=== PATIENT | male | born 1955 | race Caucasian/White ===

== ENCOUNTER → 2016-09-09 | Day surgery (SDC) | payer BC ==
[2016-08-27 14:32] VITALS: Ht 182.9 cm; Wt 77.3 kg
[~2016-09-09] VITALS: Ht 182.9 cm; Wt 77.3 kg
[~2016-09-09] MED LIST: ASPI81TA28 PO; ATROPINE SULFATE 0.1 MG/ML 5ML SYR IV PRN; DILT-117 PO; EpHEDrine SULFATE INJ 50 MG/ML AMP IV PRN; FLAXOIL2 PO; HydrALAZINE HCL 20 MG/ML VIAL IV. STA; HydrALAZINE HCL 20 MG/ML VIAL ONE; LABETALOL HCL IV 5 MG/ML 20ML IV ONE; LABETALOL HCL IV 5 MG/ML 20ML IV STA; LIDOCAINE HCL 2% 2 ML VIAL (20MG/ML) ONE; LISI40TA PO; MULT-506 PO; PROPOFOL IV EMULSION 10 MG/ML 20 ML VIAL IV ONE
--- NOTE | 2016-09-09 14:05 | Endo History and Physical ---
History & Physical Date of Service: Sep 09, 2016. Chief Complaint: Screening Referring Physician: Antonieta Barry History of Present Illness 61 yo CM who presents for screening colonoscopy. Past Medical History High Cholesterol, Hypertension Past Surgical History Hx Cardiac Surgery: No Hx Internal Defibrillator: No Hx Pacemaker: No Hx Abdominal Surgery: Yes (HERNIA REPAIR X2) Hx of Implantable Prosthesis: No Hx Post-Op Nausea and Vomiting: No Hx Cancer Surgery: No Hx Thoracic Surgery: No Hx Orthopedic: Yes (LT WRIST GANGLION CYST REMOVAL) Hx Urinary Tract Surgery: No Family History None Social History Smoking Status: Never Smoker Hx Substance Use: No Hx Alcohol Use: Yes (1 DRINK/WEEK) Allergies Coded Allergies: No Known Allergies (Unverified , 09/09/16) Current Medications Reported Home Medications Medications Dose Route/Sig Max Daily Dose Days Date Category Multivitamin (Multivitamins) Tab 1 Tab PO QAM 08/27/16 Reported Zestril (Lisinopril) 40 Mg Tab 0.5 Tab PO BID 08/27/16 Reported Flax Oil (Flaxseed (Linseed)) 1 Oil Oil 1,200 Mg PO QAM 09/24/14 Reported Aspirin Ec (Aspirin) 81 Mg Tab 81 Mg PO QAM 09/24/14 Reported Tiazac (Diltiazem HCl) 300 Mg Capcr 300 Mg PO QAM 09/24/14 Reported Vital Signs Weight (Kilograms): 77.27 Height (Feet): 6 Height (Inches): 0 Physical Exam General Appearance: WD/WN, no apparent distress Respiratory/Chest: Auscultation: breath sounds normal Cardiovascular: Heart Auscultation: RRR Abdomen: Bowel Sounds: normal Inspection & Palpation: soft, non-distended, no tenderness, guarding & rebound Assessment and Plan Assessment: 61 yo CM who presents for screening colonoscopy. Plan: Proceed with colonoscopy.
[2016-09-09 14:18] VITALS: TEMP 36.5
--- NOTE | 2016-09-09 15:02 | Anesthesiology Progress Note ---
Anesthesia Post Op Note Date & Time Sep 09, 2016 at 15:02 Vital Signs Pain Intensity: 0 Vital Signs Past 12 Hours Date Time Temp Pulse Resp B/P (MAP) Pulse Ox O2 Delivery O2 Flow Rate FiO2 09/09/16 14:54 76 20 128/102 94 Room Air 09/09/16 14:18 36.5 65 18 154/104 97 Room Air Notes Mental Status: alert / awake / arousable, participated in evaluation Pt Amnestic to Procedure: Yes Nausea / Vomiting: adequately controlled Pain: adequately controlled Airway Patency, RR, SpO2: stable & adequate BP & HR: stable & adequate Hydration State: stable & adequate Anesthetic Complications: no major complications apparent
--- NOTE | 2016-09-09 15:03 | GI REPORT ---
Procedure Date: 09/09/2016 2:28 PM Procedure: Colonoscopy Indications: Screening for colorectal malignant neoplasm Medicines: Monitored Anesthesia Care Complications: No immediate complications. Estimated Blood Loss: Estimated blood loss: none. Procedure: Pre-Anesthesia Assessment: - Prior to the procedure, a History and Physical was performed, and patient medications and allergies were reviewed. The patient's tolerance of previous anesthesia was also reviewed. The risks and benefits of the procedure and the sedation options and risks were discussed with the patient. All questions were answered, and informed consent was obtained. Prior Anticoagulants: The patient has taken no previous anticoagulant or antiplatelet agents. ASA Grade Assessment: II - A patient with mild systemic disease. After reviewing the risks and benefits, the patient was deemed in satisfactory condition to undergo the procedure. After I obtained informed consent, the scope was passed under direct vision. Throughout the procedure, the patient's blood pressure, pulse, and oxygen saturations were monitored continuously. The Scope was introduced through the anus and advanced to the terminal ileum. The colonoscopy was performed without difficulty. The patient tolerated the procedure well. The quality of the bowel preparation was good. The terminal ileum, ileocecal valve, appendiceal orifice, and rectum were photographed. Findings: Non-bleeding internal hemorrhoids were found during retroflexion. The hemorrhoids were small. Impression: - Non-bleeding internal hemorrhoids. - No specimens collected. Recommendation: - Resume previous diet. - Continue present medications. - Repeat colonoscopy in 10 years for surveillance. - Return to primary care physician as previously scheduled. Kenn Edwards DO 09/09/2016 3:02:41 PM This report has been signed electronically. Note Initiated On: 09/09/2016 2:28 PM I attest to the content of the Intraoperative Record and orders documented therein, exceptions below
--- NOTE | 2016-09-09 15:04 | Discharge Instructions ---
Endoscopy Patient Instructions Date / Procedure(s) Performed Sep 09, 2016. Colonoscopy Allergy Information Coded Allergies: No Known Allergies (Unverified , 09/09/16) Discharge Date / Findings Sep 09, 2016. Internal hemorrhoids Medication Instructions Stopped Medication(s): Vitamins stopped 09-06-16 Aspirin stopped 09-07-16 OK to resume all medications today as prescribed Medications Dose Route/Sig Max Daily Dose Days Date Category Multivitamin (Multivitamins) Tab 1 Tab PO QAM 08/27/16 Reported Zestril (Lisinopril) 40 Mg Tab 0.5 Tab PO BID 08/27/16 Reported Flax Oil (Flaxseed (Linseed)) 1 Oil Oil 1,200 Mg PO QAM 09/24/14 Reported Aspirin Ec (Aspirin) 81 Mg Tab 81 Mg PO QAM 09/24/14 Reported Tiazac (Diltiazem HCl) 300 Mg Capcr 300 Mg PO QAM 09/24/14 Reported Provider Instructions Activity Restrictions - No exercising or heavy lifting for 24 hours. - Do not drink alcohol the day of the procedure. - Do not drive a car or operate machinery until the day after the procedure. - Do not make any important decisions or sign important papers in 24 hours after the procedure. Following Day: - Return to full activity which may include returning to work/school. Diet Start your diet with liquids and light foods (jello, soup, juice, toast). Then eat your usual diet if not nauseated. Treatment For Common After Affects For mild abdominal pain, bloating, or excessive gas: - Rest - Eat lightly - Lie on right side Follow-Up Information Follow-up with Antonieta Barry as scheduled Anesthesia Information What You Should Know You have had a procedure that required some medicine to reduce anxiety and discomfort. This treatment is called moderate sedation. After receiving the treatment, you may be sleepy, but you will be able to breathe on your own. The effects of the treatment may last for several hours. Follow these instructions along with Activity/Diet recommendations noted above: * Do NOT do anything where dizziness or clumsiness would be dangerous. * Rest quietly at home today, then you can be up and about tomorrow. * Have a responsible person stay with you the rest of today. * You may have had an I.V. today. If so, you may take the dressing off later today. Recommendations Call your doctor if: * Trouble breathing * Continuous vomiting for more than 24 hours * Temperature above 101 degrees * Severe abdominal pain or bloating * Pain not relieved by pain medicine ordered * There is increased drainage or redness from any incision * A large amount of rectal bleeding greater than 2-3 tablespoons. (If you had a polyp/s removed or have hemorrhoids, a small amount of blood - from the rectum is to be expected.) * You have any unanswered questions or concerns. IN THE EVENT OF A SERIOUS EMERGENCY, GO TO THE NEAREST EMERGENCY ROOM Your discharge instructions were prepared by provider Kenn Edwards. Patient Instructions Signature Page Best Bj Patient (or Guardian) Signature/Date: I have read and understand the instructions given to me by my caregivers. Caregiver/RN/Doctor Signature/Date: The above-named patient and/or guardian has received patient instructions on this date. + Original Patient Signature Page (only) stays with chart. Please make copy for patient.
[2016-09-09 15:47] VITALS: BP 148/104; PULSE 70; O2SAT 96
== END | disposition home or self-care (01) ==
LOC: C.GI 13:24
PROVIDERS: ATTEND Internal Medicine
DX: Z12.11 Encounter for screening for malignant neoplasm of colon (principal); K64.8 Other hemorrhoids; E78.00 Pure hypercholesterolemia, unspecified; I10 Essential (primary) hypertension; Z79.82 Long term (current) use of aspirin

== ENCOUNTER → 2017-08-22 | Outpatient (CLI) | payer OTHER ==
[~2017-08-22] MED LIST changes: -ATROPINE SULFATE 0.1 MG/ML 5ML SYR IV PRN; -EpHEDrine SULFATE INJ 50 MG/ML AMP IV PRN; -HydrALAZINE HCL 20 MG/ML VIAL IV. STA; -HydrALAZINE HCL 20 MG/ML VIAL ONE; -LABETALOL HCL IV 5 MG/ML 20ML IV ONE; -LABETALOL HCL IV 5 MG/ML 20ML IV STA; -LIDOCAINE HCL 2% 2 ML VIAL (20MG/ML) ONE; -PROPOFOL IV EMULSION 10 MG/ML 20 ML VIAL IV ONE
--- NOTE | 2017-08-22 11:20 | DIAGNOSTIC IMAGING REPORT ---
TESTICULAR ULTRASOUND HISTORY: N50.812 Testicular pain, left Pt wants a friday or friday luke.... COMPARISON: None. FINDINGS: Right testis: 4.6 x 2.8 x 2.6 cm. There are no intratesticular masses. Normal color flow. No hydrocele. The epididymis is unremarkable. Left testis: 4.3 x 2.9 x 2.3 cm. There are no intratesticular masses. Normal color flow. No hydrocele. There is a 16 x 12 mm septated cyst within the epididymal head. Small fat-containing reducible left inguinal hernia. IMPRESSION: 1. Normal bilateral testes. 2. A 16 x 12 mm septated left epididymal head cyst. 3. Small fat-containing reducible left inguinal hernia. Electronically signed by: Willard Parish M.D. 08/22/2017 11:18 AM Dictated Date/Time: 08/22/2017 11:15 AM
== END | disposition home or self-care (01) ==
LOC: C.ULTR 10:39
PROVIDERS: ATTEND Neuromusculoskeletal Medicine & OMM
DX: N50.812 Left testicular pain (principal); N50.3 Cyst of epididymis; K40.90 Unilateral inguinal hernia, without obstruction or gangrene, not specified as recurrent

== ENCOUNTER 2022-04-22 10:34 | Inpatient (IN) ==
--- NOTE | 2022-04-22 10:42 | Emergency Department Note ---
Impression & Plan Acute renal failure, Transaminitis, Abdominal pain, Thrombocytopenia ED Provider Note NAME: CLARIBEL HERRING AGE: 67 SEX: M : 1955 ARRIVES VIA: Walk-In INFORMANT: Patient, ED PROVIDER(S): Koko Gonzalez MD CHIEF COMPLAINT: Vomiting, fever, cough MEDICAL DECISION MAKING: Patient presented due to concern for vomiting with recent fever. Blood work is obtained along with a urinalysis and the patient was ordered IV fluids. Patient was also ordered IV Zofran given the patient's recent vomiting. The patient also had ordered plain films of the chest and abdomen. Patient's blood work showed normal white count H&H with thrombocytopenia noted. The patient does have acute renal failure with creatinine of 6 hyponatremia 132 and the patient's LFTs NIzza transaminitis with bilirubin of 5.5. The patient has no right upper quadrant pain. COVID flu and RSV negative. The patient did appear to be dehydrated and the patient did receive 3 L of IV fluids. I did speak with the on-call hospitalist service Dr. Rodrigez and the patient was admitted to the medicine service. Patient's chest x-ray showed left basilar atelectasis. Patient also did have a Noncon CT of the abdomen pelvis given the patient's acute renal failure which showed no evidence of hydro. Prior /Outside records reviewed: None Differential diagnosis: Gastroenteritis, food borne illness, infections, appendicitis, diverticulitis, inflammatory bowel disease, obstruction, GI bleed, biliary pathology, volvulus, as well as other pathologies. Diagnostics, as interpreted by me: ECG: None Cardiac monitoring: An order was placed for continuous cardiac monitoring. The monitor shows a rate of 88 with regular rhythm. Patient was placed on pulse oximetry Medical decision rules: None Imaging studies: See below HPI: Patient presents due to concern for upper respiratory symptoms associated fever and body aches for about 5 days but developed some vomiting last evening. T-max over the weekend was 101 and did try some Aleve. Patient states that he had decreased urine output as well as feeling dehydrated. The patient denies any head or neck pain. No chest pain. The patient states he does have epigastric pain. No alcohol or tobacco use. No recent falls or trauma. The patient denies any dysuria or hematuria no blood in the stool. PAST MEDICAL HISTORY: See Below PAST SURGICAL HISTORY: See Below SOCIAL HISTORY: See Below HOME MEDICATIONS: See Below ALLERGIES: See Below VITALS: See Below PHYSICAL EXAMINATION: GENERAL: NAD, wearing a mask, non-toxic. EYE EXAM: Normal conjunctiva. PERRL, no anisocoria and EOM's grossly intact w/o pain. NECK: Supple, no nuchal rigidity, no adenopathy, non-tender. No signs of menin gismus. FROM of the neck with good chin to chest and neck extension. No stridor. LUNGS: Clear to auscultation. Normal chest wall mechanics. HEART: NSR, no MRG. ABDOMEN: Abdomen soft, epigastric pain without right upper quadrant or lower abdominal pain, not peritonitic, normo-active bowel sounds, no masses, no rebound or guarding. BACK: No CVA TTP. SKIN: No rashes and no bruising. UPPER EXTREMITIES: Upper extremities are grossly normal. LOWER EXTREMITIES: Grossly normal, no edema. NEURO EXAM: A&O x3, cranial nerves II-XII grossly intact, normal speech, moves all 4 extremities. Past Med/Surg History Medical History Anuria Hypertension Impaired fasting glucose Surgical History History of colonoscopy History of hand surgery L WRIST/GANGLION CYST History of hernia repair X2 Family History Other No pertinent family history Denies family history of Ovarian cancer Prostate cancer Myocardial infarction Breast cancer Colorectal cancer Social History Smoking Status: Never smoker Second Hand Exposure: No; Do You Dip or Chew Tobacco: No; Hx Alcohol Use: Yes Alcohol type: hard liquor Alcohol Intake Frequency: 2-3 x/Week Hx Substance Use: No Preferred Language: [place] Communication Ability: Effective Visual Impairment: No Limitations Hearing Ability: Normal [employer] 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 Required: No Beliefs That Will Affect Care: None marital status: Current Living Situation: Spouse current occupational status: retired How many Children do You have: 2 Other Information That Helps Us Care for You: No Feels Safe at Home: Yes Safety Concerns: Feels Safe At This Time Childhood Exposure to Second-Hand Smoke: No Diet Comment: regular caffeine: No during the past year weight has: remained stable Dental Care, Regularly: Yes Physical Activity Frequency: Daily Seatbelt Use: always Sunscreen Use: No Assistive Devices: None Assistive Devices Comment: reading glasses Allergies Allergies Allergy/AdvReac Type Severity Reaction Status Date / Time No Known Allergies Allergy Verified 03/22/22 09:29 Home Meds Home Medications Medication Instructions Recorded Confirmed aspirin 81 mg tablet,delayed 81 mg PO QAM 04/08/18 04/22/22 release (Aspir-) flaxseed oil 1,000 mg capsule 1,000 mg PO QAM 04/08/18 04/22/22 multivitamin (Multiple Vitamins 1 tab PO QAM 04/08/18 04/22/22 tablet) glucosamine sulfate 500 mg tablet 1 tab PO DAILY 04/13/18 04/22/22 (Glucosamine) Previous Rx's Medication Instructions Recorded simvastatin 20 mg tablet 20 mg PO PM #14 tabs 04/17/21 diltiazem HCl 300 mg See Rx Instructions .Route 03/15/22 capsule,extended release 24 hr .COMPLEX #90 caps olmesartan 40 mg tablet 40 mg PO DAILY #90 tabs 03/22/22 tamsulosin 0.4 mg capsule 0.8 mg PO DAILY #180 caps 03/22/22 Results & Data (ED) Vital Signs Vital Signs - 24 hr 04/22/22 10:36 04/22/22 10:53 04/22/22 10:53 Temperature 36.6 C Temperature Source Temporal Artery Scan Pulse Rate 91 H Pulse Rate [Apical] 79 Pulse Rate from SpO2 Sensor Pulse Rhythm Regular Respiratory Rate 18 16 Respiratory Effort / Characteristics Non-Labored Spontaneous Respiratory Depth Normal Blood Pressure 114/67 Blood Pressure [Left Arm] 93/62 L Blood Pressure Mean 82 Blood Pressure Mean [Left Arm] 72 Pulse Oximetry 95 92 92 Oxygen Delivery Method Room Air Room Air Sepsis Recent Fever Within 48 Hours No Sepsis New/Unexplained Change in Mental Status No Sepsis Action Taken by Nursing No Action Required 04/22/22 11:08 04/22/22 11:10 04/22/22 11:20 Temperature Temperature Source Pulse Rate 75 73 73 Pulse Rate [Apical] Pulse Rate from SpO2 Sensor 73 72 75 Pulse Rhythm Respiratory Rate 19 21 17 Respiratory Effort / Characteristics Respiratory Depth Blood Pressure Blood Pressure [Left Arm] Blood Pressure Mean Blood Pressure Mean [Left Arm] Pulse Oximetry 92 92 91 Oxygen Delivery Method Sepsis Recent Fever Within 48 Hours Sepsis New/Unexplained Change in Mental Status Sepsis Action Taken by Nursing 04/22/22 11:27 04/22/22 11:27 04/22/22 11:30 Temperature Temperature Source Pulse Rate 80 Pulse Rate [Apical] Pulse Rate from SpO2 Sensor 76 Pulse Rhythm Respiratory Rate 18 Respiratory Effort / Characteristics Respiratory Depth Blood Pressure 81/62 L 91/58 L Blood Pressure [Left Arm] Blood Pressure Mean 68 69 Blood Pressure Mean [Left Arm] Pulse Oximetry 93 Oxygen Delivery Method Sepsis Recent Fever Within 48 Hours Sepsis New/Unexplained Change in Mental Status Sepsis Action Taken by Nursing 04/22/22 11:30 04/22/22 11:40 04/22/22 11:50 Temperature Temperature Source Pulse Rate 76 73 79 Pulse Rate [Apical] Pulse Rate from SpO2 Sensor 70 75 78 Pulse Rhythm Respiratory Rate 18 16 20 Respiratory Effort / Characteristics Respiratory Depth Blood Pressure Blood Pressure [Left Arm] Blood Pressure Mean Blood Pressure Mean [Left Arm] Pulse Oximetry 91 91 94 Oxygen Delivery Method Room Air Room Air Sepsis Recent Fever Within 48 Hours Sepsis New/Unexplained Change in Mental Status Sepsis Action Taken by Nursing 04/22/22 12:00 04/22/22 12:00 04/22/22 12:10 Temperature Temperature Source Pulse Rate 76 66 Pulse Rate [Apical] Pulse Rate from SpO2 Sensor 74 68 Pulse Rhythm Respiratory Rate 23 20 Respiratory Effort / Characteristics Respiratory Depth Blood Pressure 91/59 L Blood Pressure [Left Arm] Blood Pressure Mean 69 Blood Pressure Mean [Left Arm] Pulse Oximetry 93 94 Oxygen Delivery Method Room Air Room Air Sepsis Recent Fever Within 48 Hours Sepsis New/Unexplained Change in Mental Status Sepsis Action Taken by Nursing 04/22/22 12:34 04/22/22 12:37 04/22/22 12:37 Temperature Temperature Source Pulse Rate 71 70 Pulse Rate [Apical] Pulse Rate from SpO2 Sensor 82 75 Pulse Rhythm Respiratory Rate 26 H 20 Respiratory Effort / Characteristics Respiratory Depth Blood Pressure 91/57 L Blood Pressure [Left Arm] Blood Pressure Mean 68 Blood Pressure Mean [Left Arm] Pulse Oximetry 93 94 Oxygen Delivery Method Sepsis Recent Fever Within 48 Hours Sepsis New/Unexplained Change in Mental Status Sepsis Action Taken by Nursing 04/22/22 12:40 04/22/22 12:50 04/22/22 13:00 Temperature Temperature Source Pulse Rate 69 68 Pulse Rate [Apical] Pulse Rate from SpO2 Sensor 75 64 Pulse Rhythm Respiratory Rate 22 19 Respiratory Effort / Characteristics Respiratory Depth Blood Pressure 90/59 L Blood Pressure [Left Arm] Blood Pressure Mean 69 Blood Pressure Mean [Left Arm] Pulse Oximetry 93 92 Oxygen Delivery Method Sepsis Recent Fever Within 48 Hours Sepsis New/Unexplained Change in Mental Status Sepsis Action Taken by Nursing 04/22/22 13:00 04/22/22 13:10 04/22/22 13:20 Temperature Temperature Source Pulse Rate 66 72 66 Pulse Rate [Apical] Pulse Rate from SpO2 Sensor 68 74 68 Pulse Rhythm Respiratory Rate 16 22 19 Respiratory Effort / Characteristics Respiratory Depth Blood Pressure Blood Pressure [Left Arm] Blood Pressure Mean Blood Pressure Mean [Left Arm] Pulse Oximetry 93 94 95 Oxygen Delivery Method Room Air Room Air Sepsis Recent Fever Within 48 Hours Sepsis New/Unexplained Change in Mental Status Sepsis Action Taken by Nursing 04/22/22 13:30 04/22/22 13:30 04/22/22 13:40 Temperature Temperature Source Pulse Rate 75 72 Pulse Rate [Apical] Pulse Rate from SpO2 Sensor 71 70 Pulse Rhythm Respiratory Rate 24 22 Respiratory Effort / Characteristics Respiratory Depth Blood Pressure 103/56 L Blood Pressure [Left Arm] Blood Pressure Mean 71 Blood Pressure Mean [Left Arm] Pulse Oximetry 94 93 Oxygen Delivery Method Sepsis Recent Fever Within 48 Hours Sepsis New/Unexplained Change in Mental Status Sepsis Action Taken by Nursing 04/22/22 13:50 04/22/22 14:00 04/22/22 14:00 Temperature Temperature Source Pulse Rate 72 77 Pulse Rate [Apical] Pulse Rate from SpO2 Sensor 76 75 Pulse Rhythm Respiratory Rate 22 28 H Respiratory Effort / Characteristics Respiratory Depth Blood Pressure 96/60 L Blood Pressure [Left Arm] Blood Pressure Mean 72 Blood Pressure Mean [Left Arm] Pulse Oximetry 94 94 Oxygen Delivery Method Sepsis Recent Fever Within 48 Hours Sepsis New/Unexplained Change in Mental Status Sepsis Action Taken by Long-Term Medications Current Medication List: was personally reviewed by me Laboratory Data Attestation: I reviewed the patient's lab results. 04/22/22 10:55 04/22/22 10:55 Lab Results 04/22/22 04/22/22 04/22/22 Range/Units 10:55 10:55 10:55 WBC 6.47 (4.8-10.8) K/ul RBC 4.81 (4.63-6.08) M/uL Hgb 14.6 (14.0-18.0) g/dl Hct 41.5 (40.1-51.0) % MCV 86.3 (80.0-100.0) fL MCH 30.4 (25.0-34.0) pg MCHC 35.2 (32.0-36.0) g/dL RDW Std Deviation 41.7 (36.4-46.3) fL RDW Coeff of Ronen 13.2 (11.5-14.5) % Plt Count 50 L (130-400) K/uL MPV 11.4 (9.4-12.4) fL Immature Gran % (Auto) 0.3 % Neut % (Auto) 87.5 % Lymph % (Auto) 7.7 % [place] % (Auto) 4.0 % Eos % (Auto) 0.2 % Baso % (Auto) 0.3 % Neut # (Auto) 5.66 (1.4-6.5) K/uL Lymph # (Auto) 0.50 L (1.2-3.4) K/uL [place] # (Auto) 0.26 (0.24-0.82) K/uL Eos # (Auto) 0.01 (0-0.50) K/uL Baso # (Auto) 0.02 (0-0.2) K/uL Immature Gran # (Auto) 0.02 (0.00-0.02) K/uL Toxic Vacuolation 1+ Polychromasia 1+ Echinocytes 1+ Sodium 132 L (136-145) mmol/L Potassium 4.6 (3.5-5.1) mmol/L Chloride 97 L (98-107) mmol/L Carbon Dioxide 22 (21-32) mmol/L Anion Gap 13 H (3-11) BUN 93 H (6-23) mg/dl Creatinine 6.05 H* (0.6-1.4) mg/dl Est Cr Clr Drug Dosing 11.0 ml/min Est GFR ( Amer) 10.3 ml/min Est GFR (Non-Af Amer) 8.9 ml/min BUN/Creatinine Ratio 15.4 (10-20) Glucose 190 H (70-99(Fasting)) mg/dl Calcium 9.1 (8.5-10.1) mg/dl Total Bilirubin 5.5 H (0.2-1.0) mg/dl AST 91 H (13-39) U/L ALT 99 H (7-52) U/L Alkaline Phosphatase 118 H (34-104) U/L Total Protein 6.2 (6.0-8.3) gm/dl Albumin 3.3 L (3.4-5.0) gm/dl Globulin 2.9 (2.5-4.0) gm/dl Albumin/Globulin Ratio 1.1 (0.9-2) Lipase 172 H (11-82) U/L Procalcitonin 18.49 H (0-0.5) ng/ml Lyme Disease IgG Ab Negative (Negative) Lyme Disease IgM Ab Negative (Negative) SARS-CoV-2 (PCR) (Negative) Influenza Type A (PCR) (Neg) Influenza Type B (PCR) (Neg) RSV (RT-PCR) (Neg) 04/22/22 Range/Units 11:00 WBC (4.8-10.8) K/ul RBC (4.63-6.08) M/uL Hgb (14.0-18.0) g/dl Hct (40.1-51.0) % MCV (80.0-100.0) fL MCH (25.0-34.0) pg MCHC (32.0-36.0) g/dL RDW Std Deviation (36.4-46.3) fL RDW Coeff of Ronen (11.5-14.5) % Plt Count (130-400) K/uL MPV (9.4-12.4) fL Immature Gran % (Auto) % Neut % (Auto) % Lymph % (Auto) % [place] % (Auto) % Eos % (Auto) % Baso % (Auto) % Neut # (Auto) (1.4-6.5) K/uL Lymph # (Auto) (1.2-3.4) K/uL [place] # (Auto) (0.24-0.82) K/uL Eos # (Auto) (0-0.50) K/uL Baso # (Auto) (0-0.2) K/uL Immature Gran # (Auto) (0.00-0.02) K/uL Toxic Vacuolation Polychromasia Echinocytes Sodium (136-145) mmol/L Potassium (3.5-5.1) mmol/L Chloride (98-107) mmol/L Carbon Dioxide (21-32) mmol/L Anion Gap (3-11) BUN (6-23) mg/dl Creatinine (0.6-1.4) mg/dl Est Cr Clr Drug Dosing ml/min Est GFR ( Amer) ml/min Est GFR (Non-Af Amer) ml/min BUN/Creatinine Ratio (10-20) Glucose (70-99(Fasting)) mg/dl Calcium (8.5-10.1) mg/dl Total Bilirubin (0.2-1.0) mg/dl AST (13-39) U/L ALT (7-52) U/L Alkaline Phosphatase (34-104) U/L Total Protein (6.0-8.3) gm/dl Albumin (3.4-5.0) gm/dl Globulin (2.5-4.0) gm/dl Albumin/Globulin Ratio (0.9-2) Lipase (11-82) U/L Procalcitonin (0-0.5) ng/ml Lyme Disease IgG Ab (Negative) Lyme Disease IgM Ab (Negative) SARS-CoV-2 (PCR) NEGATIVE (Negative) Influenza Type A (PCR) Negative (Neg) Influenza Type B (PCR) Negative (Neg) RSV (RT-PCR) Negative (Neg) Administered Medications Doxycycline Hyclate 100 mg/ (Dextrose) 110 mls @ 50 mls/hr IV Q12H [facility] Stop: 05/07/22 02:29 Last Infusion: 04/23/22 17:03 Dose: 0 mls/hr Documented By: Admin: 04/23/22 14:25 Dose: 50 mls/hr Documented By: Infusion: 04/23/22 05:12 Dose: 0 mls/hr Documented By: Admin: 04/23/22 02:58 Dose: 50 mls/hr Documented By: ARR Ceftriaxone Sodium 2,000 mg/ (Dextrose) 70 mls @ 100 mls/hr IV Q24H [facility]; Protocol Stop: 04/25/22 12:14 Last Infusion: 04/23/22 13:59 Dose: 0 mls/hr Documented By: Admin: 04/23/22 12:46 Dose: 100 mls/hr Documented By: ALEXEY Insulin Aspart (Insulin Aspart Per Unit) 0 units SC ACHS MELISSA Stop: 05/23/22 11:29 Last Admin: 04/23/22 17:05 Dose: 1 units Documented By: ALEXEY Co-signed By: SIGRID Admin: 04/23/22 12:26 Dose: 1 units Documented By: ALEXEY Co-signed By: MUKUL Ondansetron HCl (Ondansetron Inj 2 Mg/Ml 2 Ml Vial) 4 mg IV Q6H PRN PRN Reason: Nausea Stop: 05/22/22 14:52 Last Admin: 04/22/22 22:28 Dose: 4 mg Documented By: ANITHA Pantoprazole Sodium (Pantoprazole 40 Mg Tab) 40 mg PO BID MELISSA Stop: 05/23/22 12:44 Last Admin: 04/23/22 14:25 Dose: 40 mg Documented By: ALEXEY Discontinued Medications Furosemide (Furosemide 40 Mg/4 Ml Vial) 80 mg IV ONE ONE Stop: 04/23/22 11:01 Last Admin: 04/23/22 11:29 Dose: 80 mg Documented By: ALEXEY Sodium Chloride (Nss 1000ml) 2,000 mls @ 999 mls/hr IV .Q2H1M ONE Stop: 04/22/22 12:52 Last Infusion: 04/22/22 12:44 Dose: 0 mls/hr Documented By: Infusion: 04/22/22 12:44 Dose: 0 mls/hr Documented By: Admin: 04/22/22 10:59 Dose: 999 mls/hr Documented By: TRAM Sodium Chloride (Nss 1000ml) 1,000 mls @ 999 mls/hr IV .Q1H1M ONE Stop: 04/22/22 13:41 Last Infusion: 04/22/22 13:43 Dose: 0 mls/hr Documented By: Admin: 04/22/22 12:45 Dose: 999 mls/hr Documented By: KSENIA Doxycycline Hyclate 100 mg/ (Dextrose) 110 mls @ 50 mls/hr IV NOW STA Stop: 04/22/22 16:21 Last Infusion: 04/22/22 17:18 Dose: 0 mls/hr Documented By: Admin: 04/22/22 14:35 Dose: 50 mls/hr Documented By: VIRGIL Lactated Ringer's (Lr) 1,000 mls @ 125 mls/hr IV .Q8H MELISSA Stop: 04/23/22 06:52 Last Infusion: 04/23/22 02:44 Dose: 0 mls/hr Documented By: Admin: 04/22/22 15:32 Dose: 125 mls/hr Documented By: KSENIA Lactated Ringer's (Lr) 1,000 mls @ 999 mls/hr IV .Q1H1M ONE Stop: 04/22/22 18:48 Last Infusion: 04/22/22 19:29 Dose: 0 mls/hr Documented By: Admin: 04/22/22 18:26 Dose: 999 mls/hr Documented By: HS Sodium Bicarbonate 150 meq/ (Dextrose) 1,150 mls @ 100 mls/hr IV .[id number] MELISSA Stop: 05/22/22 19:59 Last Infusion: 04/23/22 10:31 Dose: 0 mls/hr Documented By: Admin: 04/23/22 09:08 Dose: 100 mls/hr Documented By: Infusion: 04/23/22 08:31 Dose: 100 mls/hr Documented By: Admin: 04/22/22 21:01 Dose: 100 mls/hr Documented By: VIRGIL Ondansetron HCl (Ondansetron Inj 2 Mg/Ml 2 Ml Vial) 4 mg IV NOW STA Stop: 04/22/22 10:54 Last Admin: 04/22/22 10:59 Dose: 4 mg Documented By: TRAM Imaging Data Radiologist's Impression: Abdomen/Pelvis CT 04/22/22 11:48 CT abd pelvis wo con CLINICAL HISTORY: arf TECHNIQUE: Helical axial images of the abdomen and pelvis were obtained. Auto mated dose lowering techniques and/or adjustment according to patient size were utilized for this exam. This exam was performed without intravenous contrast. CT DOSE: 330.61 mGy.cm COMPARISON: Comparison is made to CT abdomen pelvis 02/17/2009 FINDINGS: Lower chest: Bibasilar atelectasis versus scarring is seen. Liver: Unremarkable. No focal lesions are seen. Gallbladder and biliary tree: No calcified gallstones. Normal caliber wall. No intra- or extrahepatic biliary ductal dilation. Pancreas: Unremarkable, no focal lesions. Spleen: Unremarkable. Adrenals: Unremarkable. Kidneys and ureters: Perinephric stranding is seen bilaterally. There is no evidence of hydronephrosis. Bladder: Limited evaluation due to underdistention. Reproductive organs: Unremarkable. Bowel: Unremarkable appearance of the bowel. The appendix is normal. Lymph nodes Retroperitoneal: Subcentimeter lymph nodes are noted. Pelvic: Unremarkable. Mesenteric: Subcentimeter lymph nodes are noted. Peritoneum: Normal. Vessels: Atherosclerotic calcifications are seen. Abdominal wall: Right fat-containing inguinal hernia. Bones: Degenerative changes in the visualized spine. IMPRESSION: No evidence of hydronephrosis or other acute abnormality is seen in this noncontrast exam to explain acute renal failure. ACT 112: Negative or not required by law. Electronically signed by: Antwon Kaur M.D. 04/22/2022 12:53 PM Chest X-Ray 04/22/22 13:53 XR chest 1V portable HISTORY: 67 years-old Male URI symptoms acute shortness breath COMPARISON: None TECHNIQUE: AP view of the chest FINDINGS: Cardiac silhouette is upper limits of normal in size. No pneumothorax, pleural effusion, airspace consolidation or overt pulmonary edema. Mild linear subsegmental left basilar atelectasis. 6 mm metallic density focus overlies the posterior left fifth rib. Prior left biceps tenodesis. IMPRESSION: Mild subsegmental left basilar atelectasis. ACT 112: Negative or not required by law. The above report was generated using voice recognition software. It may contain grammatical, syntax or spelling errors. Electronically signed by: Madhav Lewis M.D. 04/22/2022 2:20 PM Discharge Plan Visit Data Chief Complaint: Vomiting Stated Complaint: VOMITING ED Provider: Koko Gonzalez Discharge Problem: Acute renal failure, Transaminitis, Abdominal pain, Thrombocytopenia Patient Disposition: Admitted As Inpatient Discharge Instructions Interventions: ED Discharge Assessment Last Done: 04/22/22 14:35
[2022-04-22] MEDS ORDERED: SODIUM CHLORIDE 0.9% 1000ML 2,000 ML IV ONE (10:52)
[2022-04-22] MEDS ORDERED: ONDANSETRON INJ 2 MG/ML 2 ML VIAL IV STA (10:53)
[2022-04-22 11:49] LABS: Albumin Globulin Ratio 1.1 (0.9-2); Albumin Level 3.3 gm/dl (3.4-5.0); BUN Creatinine Ratio 15.4 (10-20); Bilirubin,Total 5.5 mg/dl (0.2-1.0); Calcium 9.1 mg/dl (8.5-10.1); Est GFR (African American) 10.3 ml/min; Est GFR (Non-African American) 8.9 ml/min; Globulin 2.9 gm/dl (2.5-4.0); Potassium 4.6 mmol/L (3.5-5.1); Total Protein 6.2 gm/dl (6.0-8.3)
[2022-04-22 11:52] LABS: Basophils # (auto) 0.02 K/uL (0-0.2); Basophils % (auto) 0.3 %; Echinocytes 1+; Eosinophils # (auto) 0.01 K/uL (0-0.50); Eosinophils % (auto) 0.2 %; Hematocrit (blood only) 41.5 % (40.1-51.0); Hemoglobin 14.6 g/dl (14.0-18.0); Immature Granulocytes # (auto) 0.02 K/uL (0.00-0.02); Immature Granulocytes % (auto) 0.3 %; Lymphocytes % (auto) 7.7 %; Mean Corpuscular Hemoglobin 30.4 pg (25.0-34.0); Mean Corpuscular Hgb Conc 35.2 g/dL (32.0-36.0); Mean Corpuscular Volume 86.3 fL (80.0-100.0); Mean Platelet Volume 11.4 fL (9.4-12.4); Monocytes # (auto) 0.26 K/uL (0.24-0.82); Neutrophils # (auto) 5.66 K/uL (1.4-6.5); Neutrophils % (auto) 87.5 %; Platelet Count 50 K/uL (130-400); Polychromasia 1+; RDW Coefficient of Variation 13.2 % (11.5-14.5); RDW Standard Deviation 41.7 fL (36.4-46.3); Red Blood Count 4.81 M/uL (4.63-6.08); Toxic Vacuolation 1+; White Blood Count 6.47 K/ul (4.8-10.8)
[2022-04-22 12:21] LABS: Influenza A virus by PCR Negative (Neg); Influenza B virus by PCR Negative (Neg); RSV by PCR Negative (Neg); SARS CoV2 RNA(COVID-19) Ceph NEGATIVE (Negative)
[2022-04-22] MEDS ORDERED: SODIUM CHLORIDE 0.9% 1000ML 1,000 ML IV ONE (12:41)
--- NOTE | 2022-04-22 12:54 | CT Scan Report ---
CT abd pelvis wo con CLINICAL HISTORY: arf TECHNIQUE: Helical axial images of the abdomen and pelvis were obtained. Automated dose lowering tech niques and/or adjustment according to patient size were utilized for this exam. This exam was perfor med without intravenous contrast. CT DOSE: 330.61 mGy.cm COMPARISON: Comparison is made to CT abdomen pelvis 02/17/2009 FINDINGS: Lower chest: Bibasilar atelectasis versus scarring is seen. Liver: Unremarkable. No focal lesions are seen. Gallbladder and biliary tree: No calcified gallstones. Normal caliber wall. No intra- or extrahepatic biliary ductal dilation. Pancreas: Unremarkable, no focal lesions. Spleen: Unremarkable. Adrenals: Unremarkable. Kidneys and ureters: Perinephric stranding is seen bilaterally. There is no evidence of hydronephrosi s. Bladder: Limited evaluation due to underdistention. Reproductive organs: Unremarkable. Bowel: Unremarkable appearance of the bowel. The appendix is normal. Lymph nodes Retroperitoneal: Subcentimeter lymph nodes are noted. Pelvic: Unremarkable. Mesenteric: Subcentimeter lymph nodes are noted. Peritoneum: Normal. Vessels: Atherosclerotic calcifications are seen. Abdominal wall: Right fat-containing inguinal hernia. Bones: Degenerative changes in the visualized spine. IMPRESSION: No evidence of hydronephrosis or other acute abnormality is seen in this noncontrast exam to explain acute renal failure. ACT 112: Negative or not required by law. Electronically signed by: Antwon Kaur M.D. 04/22/2022 12:53 PM
--- NOTE | 2022-04-22 13:54 | History & Physical Report ---
Date of Service April 22, 2022 Assessment & Plan (1) Acute renal failure: Plan: - BUN 93, Cr 6.05. Sodium 132, otherwise no electrolyte abnormalities. - Suspect secondary to frequent Aleve use, olmesartan, in setting of hypovolemia and ? tickborne disease - Tick borne panels pending. 3 L IVF in ED, will continue IVF and repeat BMP this evening. - Leong catheter placed. Strict I/Os. Monitor for pulmonary congestion. - Patient still without any UO after 4 hours. Consulted nephrology, will see patient in the AM, for now recommending continuing IVF and monitoring for pulmonary congestion. - Avoid nephrotoxins, renally dose meds as able. (2) Transaminitis: Plan: - T bili 5.5, AST 91, ALT 99, alk phos 188all acutely elevated from baseline. - CT A/P done with noncontrast given renal failure, however no findings to explain renal failure or transaminitis. - Will obtain liver ultrasound. CMP t beb repeated this evening. (3) Thrombocytopenia: Plan: - PLT count 50, consistent with a tickborne or viral illness. - No signs and symptoms of acute bleeding, monitor daily CBC. (4) HTN (hypertension): Plan: - Holding diltiazem for hypotension, olmesartan for hypotension, renal failure. (5) Hyperlipidemia: Plan: - Hold statin due to transaminitis. (6) Enlarged prostate: Plan: - Continue Flomax. Plan - Admit to PCU. - SCDs for VTE ppx. - Full Code. History of Present Illness Chief Complaint: Fevers, chills, body aches, decreased appetite, vomiting x5 days Primary Care Provider: DO Best Carcamo Lorenzo is a 67 y/o male with a PMH significant for hypertension, BPH, and hyperlipidemia is presenting today with concerns for recurrent fevers and illness. Beginning 5 days ago, he began experiencing hot and cold flashes with temperatures up to 101 degrees shortly followed by chills. He had also developed diffuse, dull body aches, fatigue, decreased appetite. He has been taking Aleve twice daily for the past 4 days. He has noticed decreased urine output and that his urine appears very concentrated and dark yellow. Last night he began vomiting. Patient notes a history of being out in the [place] frequently, at least weekly and regularly tests for ticks, last did a blood test 6 weeks ago that was negative for Lyme disease. He has not noticed any ticks on him recently or had any rashes develop. He has not experiencing any cough, cold, congestion, chest pain, palpitations, or shortness of breath. On presentation has been borderline hypotensive with SBP 8090s, DBP 5060s, maintaining MAP >65. Otherwise vital signs are within normal limits. Labs are notable for PLT 50; BUN 93, creatinine 6.05, increased from 22 when 0.93 respectively just over 1 month ago. T bili 5.5, AST 91, ALT 99, alk phos 118, lipase 172, all acutely elevated from baseline. CT A/P noncontrast with perinephric stranding is seen bilaterally, no evidence of hydronephrosis or other acute abnormality is seen in this noncontrast exam to explain acute renal failure. Allergies Allergy/AdvReac Type Severity Reaction Status Date / Time No Known Allergies Allergy Verified 03/22/22 09:29 Home Medications Medication Instructions Recorded Confirmed Type aspirin 81 mg tablet,delayed 81 mg PO QAM 04/08/18 04/22/22 History release (Aspir-) flaxseed oil 1,000 mg capsule 1,000 mg PO QAM 04/08/18 04/22/22 History multivitamin (Multiple Vitamins 1 tab PO QAM 04/08/18 04/22/22 History tablet) glucosamine sulfate 500 mg tablet 1 tab PO DAILY 04/13/18 04/22/22 History (Glucosamine) simvastatin 20 mg tablet 20 mg PO PM #14 tabs 04/17/21 04/22/22 Rx diltiazem HCl 300 mg See Rx Instructions .Route 03/15/22 04/22/22 Rx capsule,extended release 24 hr .COMPLEX #90 caps olmesartan 40 mg tablet 40 mg PO DAILY #90 tabs 03/22/22 04/22/22 Rx tamsulosin 0.4 mg capsule 0.8 mg PO DAILY #180 caps 03/22/22 04/22/22 Rx Past Med/Surg History Medical History Hypertension Impaired fasting glucose Surgical History History of colonoscopy History of hand surgery L WRIST/GANGLION CYST History of hernia repair X2 Family History Other No pertinent family history Denies family history of Ovarian cancer Prostate cancer Myocardial infarction Breast cancer Colorectal cancer Social History Smoking Status: Never smoker Second Hand Exposure: No; Do You Dip or Chew Tobacco: No; Hx Alcohol Use: Yes Alcohol type: hard liquor Alcohol Intake Frequency: 2-3 x/Week Hx Substance Use: No Preferred Language: Kyrgyz Communication Ability: Effective Visual Impairment: No Limitations Hearing Ability: Normal [employer] Installer Required: No Beliefs That Will Affect Care: None marital status: Current Living Situation: Spouse current occupational status: retired How many Children do You have: 2 Other Information That Helps Us Care for You: No Feels Safe at Home: Yes Safety Concerns: Feels Safe At This Time Childhood Exposure to Second-Hand Smoke: No Diet Comment: regular caffeine: No during the past year weight has: remained stable Dental Care, Regularly: Yes Physical Activity Frequency: Daily Seatbelt Use: always Sunscreen Use: No Assistive Devices: None Assistive Devices Comment: reading glasses Review of Systems Review of Systems: Constitutional: fever/chills, weakness, fatigue, myalgias, anorexia x 5 days Eyes: No diplopia, no worsening or blurred vision ENT: normal hearing, no trouble swallowing Respiratory: No cough, sputum, dyspnea at rest or on exertion Cardiovascular: No chest pain, tightness or palpitations Abdomen: vomiting x1 day; No pain, nausea, diarrhea or constipation : decreased urine output; denies dysuria, hematuria, increased urgency/frequency Musculoskeletal: No joint pain, calf pain, swelling Neurologic: No weakness, numbness/tingling, or balance problems Psychiatric: No anxiety or depression Skin: No rash or itch Physical Exam Physical Exam: General: awake, alert, no apparent distress Head: Normocephalic, atraumatic ENT: PERRL, EOMI, no pharyngeal exudate, mucous membranes moist Chest: Clear to auscultation, on room air, no adventitious breath sounds Cardiac: Regular rate and rhythm, no murmur, no JVD, normal peripheral pulses, good capillary refill Abdominal: mildly TTP in epigastrium, RUQ; NABS x 4 quadrants, soft, no rebound, guarding or tenderness Extremities: Normal inspection, no peripheral edema or erythema, calfs nontender to palpation Psych: Normal mood and affect Neuro: AAO x 3, strength intact bilaterally and rated 5/5, no motor deficits, speech is clear, no peripheral sensory deficits Skin: no rash or erythema Results & Data Results & Data ([facility]) Vital Signs (Past 12 Hours) Vital Signs Temp Pulse Pulse Resp BP BP Pulse Ox 04/22/22 13:10 72 22 94 04/22/22 13:00 66 16 93 04/22/22 13:00 90/59 L 04/22/22 12:50 68 19 92 04/22/22 12:40 69 22 93 04/22/22 12:37 70 20 94 04/22/22 12:37 91/57 L 04/22/22 12:34 71 26 H 93 04/22/22 12:10 66 20 94 04/22/22 12:00 76 23 93 04/22/22 12:00 91/59 L 04/22/22 11:50 79 20 94 04/22/22 11:40 73 16 91 04/22/22 11:30 76 18 91 04/22/22 11:30 91/58 L 04/22/22 11:27 80 18 93 04/22/22 11:27 81/62 L 04/22/22 11:20 73 17 91 04/22/22 11:10 73 21 92 04/22/22 11:08 75 19 92 04/22/22 10:53 92 04/22/22 10:53 79 16 93/62 L 92 04/22/22 10:36 36.6 C 91 H 18 114/67 95 O2 Del Method 04/22/22 13:10 Room Air 04/22/22 13:00 Room Air 04/22/22 13:00 04/22/22 12:50 04/22/22 12:40 04/22/22 12:37 04/22/22 12:37 04/22/22 12:34 04/22/22 12:10 Room Air 04/22/22 12:00 Room Air 04/22/22 12:00 04/22/22 11:50 Room Air 04/22/22 11:40 Room Air 04/22/22 11:30 04/22/22 11:30 04/22/22 11:27 04/22/22 11:27 04/22/22 11:20 04/22/22 11:10 04/22/22 11:08 04/22/22 10:53 04/22/22 10:53 Room Air 04/22/22 10:36 Room Air Laboratory Results Abnormal lab results 04/22/22 04/22/22 Range/Units 10:55 10:55 Plt Count 50 L (130-400) K/uL Lymph # (Auto) 0.50 L (1.2-3.4) K/uL Sodium 132 L (136-145) mmol/L Chloride 97 L (98-107) mmol/L Anion Gap 13 H (3-11) BUN 93 H (6-23) mg/dl Creatinine 6.05 H* (0.6-1.4) mg/dl Glucose 190 H (70-99(Fasting)) mg/dl Total Bilirubin 5.5 H (0.2-1.0) mg/dl AST 91 H (13-39) U/L ALT 99 H (7-52) U/L Alkaline Phosphatase 118 H (34-104) U/L Albumin 3.3 L (3.4-5.0) gm/dl Lipase 172 H (11-82) U/L Diagnostic Findings Abdomen/Pelvis CT 04/22/22 11:48 CT abd pelvis wo con CLINICAL HISTORY: arf TECHNIQUE: Helical axial images of the abdomen and pelvis were obtained. Automated dose lowering techniques and/or adjustment according to patient size were utilized for this exam. This exam was performed without intravenous contrast. CT DOSE: 330.61 mGy.cm COMPARISON: Comparison is made to CT abdomen pelvis 02/17/2009 FINDINGS: Lower chest: Bibasilar atelectasis versus scarring is seen. Liver: Unremarkable. No focal lesions are seen. Gallbladder and biliary tree: No calcified gallstones. Normal caliber wall. No intra- or extrahepatic biliary ductal dilation. Pancreas: Unremarkable, no focal lesions. Spleen: Unremarkable. Adrenals: Unremarkable. Kidneys and ureters: Perinephric stranding is seen bilaterally. There is no evidence of hydronephrosis. Bladder: Limited evaluation due to underdistention. Reproductive organs: Unremarkable. Bowel: Unremarkable appearance of the bowel. The appendix is normal. Lymph nodes Retroperitoneal: Subcentimeter lymph nodes are noted. Pelvic: Unremarkable. Mesenteric: Subcentimeter lymph nodes are noted. Peritoneum: Normal. Vessels: Atherosclerotic calcifications are seen. Abdominal wall: Right fat-containing inguinal hernia. Bones: Degenerative changes in the visualized spine. IMPRESSION: No evidence of hydronephrosis or other acute abnormality is seen in this noncontrast exam to explain acute renal failure. ACT 112: Negative or not required by law. Electronically signed by: Antwon Kaur M.D. 04/22/2022 12:53 PM Code Status & VTE Plan Code Status Full Code. Supervising Physician Co-Signing Physician Notes I personally saw and examined the patient. I verified all ge points and agree with Ny Dan PA-C with the following exceptions and/or additions: 67-year-old male presents with 5 days of fever, chills, nausea, vomiting and body aches. Found to be in acute renal failure with transaminitis and elevated total bilirubin with thrombocytopenia in the emergency room. O/E Nonseptic appearing. Well-nourished. HS 1+2, RRR, no murmurs, Chest CTAB, Abdo SNT, BS normal. cap refil < 2s, trace pre-tibial pitting edema, no skin rashes or cellulitis A/P I am unclear the definitive cause of his illness. Possibly just the increase in olmesartan and tamsulosin dropped his blood pressure along with NSAID use to cause an acute tubular necrosis alone without an infective cause. However this does not explain his thrombocytopenia. His more recent nausea and vomiting may just be due to uremia. RAF - Total of 4L bolus in the ER with 3L NSS and 1L LR. BP appears much improved after this. Discontinue all antihypertensives including diltiazem, olmesartan and tamsulosin. Leong cath placed and not producing any significant amount of urine (10ml in bag over 2 hours). UA not collected - currently not p roducing enough urine to send. Will continue to take CMP q4h and adjust fluids as necessary. Advised patient if he starts getting short of breath to let us know early and will discontinue fluids. Serial potassium levels so far within normal limits. Thrombocytopenia - INR/PTT appear unremarkable ruling out DIC. ?Due to intracellular parasite such as anaplasmosis or babesiosis. ?Due to NSAID use. Discontinue aspirin. Elevated bilirubin - ?shocked liver, LDH within normal limits and not anemic to suggest hemolysis. No anatomical reason on CT or liver ultrasound for rise. Possible tick borne illness - Infective work-up with elevated procalcitonin although this may just be due to acute kidney injury. He does not appear septic with no source therefore will defer broad-spectrum antibiotics. However history along with thrombocytopenia, elevated transaminases and exposure is consistent with a tickborne illness such as anaplasmosis therefore empirically treat with doxycycline for this despite the smear being negative. Follow-up blood cultures. PG Care Time/CCT Total # of Minutes Spent Total Time Spent with Patient: Total time spent is greater than 50% in coordination of care (as documented) at patient's floor/unit and/or counseling patient: Coding Level of Care Code 88125 INT INP/OBS CARE 3/75MIN Diagnoses Acute renal failure N17.9 Transaminitis R74.01 Thrombocytopenia D69.6 HTN (hypertension) I10 Hyperlipidemia E78.5 Enlarged prostate N40.0
[2022-04-22] MEDS ORDERED: DOXYCYCLINE HYCLATE 100 MG in DEXTROSE 5% 100 ML IV STA (14:10)
[2022-04-22] MEDS ORDERED: DOXYCYCLINE HYCLATE 100 MG in DEXTROSE 5% 100 ML IV SCH (14:15)
--- NOTE | 2022-04-22 14:21 | XRay Report ---
XR chest 1V portable HISTORY: 67 years-old Male URI symptoms acute shortness breath COMPARISON: None TECHNIQUE: AP view of the chest FINDINGS: Cardiac silhouette is upper limits of normal in size. No pneumothorax, pleural effusion, airspace con solidation or overt pulmonary edema. Mild linear subsegmental left basilar atelectasis. 6 mm metallic density focus overlies the posterior left fifth rib. Prior left biceps tenodesis. IMPRESSION: Mild subsegmental left basilar atelectasis. ACT 112: Negative or not required by law. The above report was generated using voice recognition software. It may contain grammatical, syntax o r spelling errors. Electronically signed by: Madhav Lewis M.D. 04/22/2022 2:20 PM
[2022-04-22 14:41] LABS: Procalcitonin 18.49 ng/ml (0-0.5)
[2022-04-22 14:47] LABS: Lyme Ab IgG w/WB Rflx Negative (Negative); Lyme Ab IgM w/WB Rflx Negative (Negative)
[2022-04-22] MEDS ORDERED: LACTATED RINGER'S 1,000 ML IV SCH (14:53)
--- NOTE | 2022-04-22 17:22 | Ultrasound Report ---
US liver CLINICAL HISTORY: transaminitis TECHNIQUE: Multiple real-time sonographic images of the right upper quadrant were obtained. Comparison: Comparison is made to CT abdomen pelvis 04/22/2022 FINDINGS: The liver is diffusely homogenous with normal contour and echogenicity. No focal mass lesions are see n. No intrahepatic ductal dilatation is seen. Low level internal echoes are identified layering de pendently within the gallbladder, which is consistent with gallbladder sludge. The gallbladder wall i s not thickened. There is no pericholecystic fluid present. A sonographic Mccormack's sign was not elic ited by the aemt. The common duct measures 0.5 cm in diameter at the level of the hepatic ar kristal. A small cystic lesion is seen in the pancreas measuring 0.7 x 0.4 x 0.6 cm. The right kidney shows normal echogenicity, cortical thickness and renal contour. Cysts are seen zacarias uring up to 0.9 x 0.1 0.0 cm. No ascites or free fluid is seen in Guadarrama's pouch. IMPRESSION: 1. There is gallbladder sludge without evidence of acute cholecystitis. 2. Small pancreatic cystic lesion may represent IPMN. If not previously evaluated, nonemergent MRCP can be performed. 3. Renal cysts are seen as above. ACT 112: Negative or not required by law. Electronically signed by: Antwon Kaur M.D. 04/22/2022 5:21 PM
[2022-04-22] MEDS ORDERED: LACTATED RINGER'S 1,000 ML IV ONE (17:48)
[2022-04-22 19:06] LABS: Partial Thromboplastin Ratio 1.2; Prothrombin Time 10.8 Seconds (9.0-12.0)
[2022-04-22 19:35] LABS: Albumin Globulin Ratio 1.1 (0.9-2); Albumin Level 2.7 gm/dl (3.4-5.0); BUN Creatinine Ratio 17.1 (10-20); Bilirubin,Total 5.3 mg/dl (0.2-1.0); Calcium 7.8 mg/dl (8.5-10.1); Creatinine Clr Calc Pharmacy 11.5 ml/min; Est GFR (African American) 10.9 ml/min; Est GFR (Non-African American) 9.4 ml/min; Globulin 2.5 gm/dl (2.5-4.0); Potassium 4.6 mmol/L (3.5-5.1); Total Protein 5.2 gm/dl (6.0-8.3)
[2022-04-22] MEDS ORDERED: STAT IV STA (19:41)
[2022-04-22] MEDS: SODIUM BICARBONATE 8.4% 150 MEQ in DEXTROSE 5% 1,000 ML IV SCH (21:01)
[2022-04-22] MEDS: ONDANSETRON INJ 2 MG/ML 2 ML VIAL IV PRN (22:28)
[2022-04-23 00:49] LABS: Albumin Globulin Ratio 1.1 (0.9-2); Albumin Level 2.6 gm/dl (3.4-5.0); Bilirubin,Total 5.7 mg/dl (0.2-1.0); Calcium 7.5 mg/dl (8.5-10.1); Creatinine Clr Calc Pharmacy 12.9 ml/min; Est GFR (Non-African American) 8.6 ml/min; Globulin 2.3 gm/dl (2.5-4.0); Potassium 4.6 mmol/L (3.5-5.1); Total Protein 4.9 gm/dl (6.0-8.3)
[2022-04-23] MEDS: DOXYCYCLINE HYCLATE 100 MG in DEXTROSE 5% 100 ML IV SCH ×2 (02:58→14:25)
[2022-04-23 04:16] LABS: Hematocrit (blood only) 35.8 % (40.1-51.0); Hemoglobin 12.7 g/dl (14.0-18.0); Mean Corpuscular Hemoglobin 30.7 pg (25.0-34.0); Mean Corpuscular Hgb Conc 35.5 g/dL (32.0-36.0); Mean Corpuscular Volume 86.5 fL (80.0-100.0); Platelet Count 48 K/uL (130-400); RDW Coefficient of Variation 13.8 % (11.5-14.5); RDW Standard Deviation 43.9 fL (36.4-46.3); Red Blood Count 4.14 M/uL (4.63-6.08); White Blood Count 4.86 K/ul (4.8-10.8)
[2022-04-23 04:17] LABS: Acanthocytes 2+; Basophils # (auto) 0.01 K/uL (0-0.2); Basophils % (auto) 0.2 %; Eosinophils # (auto) 0.03 K/uL (0-0.50); Eosinophils % (auto) 0.6 %; Immature Granulocytes # (auto) 0.06 K/uL (0.00-0.02); Immature Granulocytes % (auto) 1.2 %; Lymphocytes # (auto) 0.33 K/uL (1.2-3.4); Lymphocytes % (auto) 6.8 %; Monocytes # (auto) 0.23 K/uL (0.24-0.82); Monocytes % (auto) 4.7 %; Neutrophils % (auto) 86.5 %
[2022-04-23 04:43] LABS: Albumin Level 2.5 gm/dl (3.4-5.0); BUN Creatinine Ratio 19.2 (10-20); Bilirubin,Total 6.3 mg/dl (0.2-1.0); Calcium 7.6 mg/dl (8.5-10.1); Creatinine Clr Calc Pharmacy 14.6 ml/min; Est GFR (African American) 11.6 ml/min; Globulin 2.4 gm/dl (2.5-4.0); Phosphorus 3.3 mg/dl (2.5-4.9); Potassium 4.5 mmol/L (3.5-5.1); Total Protein 4.9 gm/dl (6.0-8.3)
[2022-04-23 08:10] LABS: Albumin Globulin Ratio 1.1 (0.9-2); Albumin Level 2.5 gm/dl (3.4-5.0); BUN Creatinine Ratio 15.7 (10-20); Bilirubin,Total 6.3 mg/dl (0.2-1.0); Calcium 7.4 mg/dl (8.5-10.1); Creatinine Clr Calc Pharmacy 11.6 ml/min; Est GFR (African American) 8.8 ml/min; Est GFR (Non-African American) 7.6 ml/min; Globulin 2.2 gm/dl (2.5-4.0); Potassium 4.5 mmol/L (3.5-5.1); Total Protein 4.7 gm/dl (6.0-8.3)
[2022-04-23] MEDS ORDERED: TAMSULOSIN HCL 0.4 MG CAP PO SCH (09:00)
[2022-04-23] MEDS ORDERED: GLUCOSAMINE SULFATE 500 MG CAP PO SCH (09:00)
[2022-04-23] MEDS ORDERED: ASPIRIN 81 MG ECTAB PO SCH ×2 (09:00)
[2022-04-23] MEDS: SODIUM BICARBONATE 8.4% 150 MEQ in DEXTROSE 5% 1,000 ML IV SCH (09:08)
[2022-04-23 09:54] LABS: Reticulocyte % < 0.5 % (0.5-2.0); Reticulocytes # 0.02 10^6/uL (0.02-0.10)
[2022-04-23] MEDS ORDERED: CARBOHYDRATES FOR HYPOGLYCEMIA PO PRN (10:30)
[2022-04-23] MEDS ORDERED: GLUCAGON FOR INJ 1 MG VIAL IM PRN (10:30)
[2022-04-23] MEDS ORDERED: GLUCOSE 40% GEL 15 GM TUBE PO PRN (10:30)
[2022-04-23] MEDS ORDERED: DEXTROSE 50% 50 ML SYRINGE IV PRN (10:30)
[2022-04-23] MEDS ORDERED: GLUCOSE 10 TAB/TUBE PO PRN (10:30)
[2022-04-23] MEDS ORDERED: FUROSEMIDE 40 MG/4 ML VIAL IV ONE (11:00)
--- NOTE | 2022-04-23 12:09 | Hospitalist Progress Note ---
Date of Service April 23, 2022 Assessment & Plan (1) Acute renal failure: Plan: SEVERE. Exact etiology uncertain. Appreciate nephrology assistance. Pre-renal from poor PO intake, severe vomiting at home, and NSAID use? No evidence of post-renal obstruction based on imaging. Despite copious hydration he has had no urine output response. Dr Gibbs gave diuretic challenge this afternoon with <100cc of UOP with such. u/a finally obtained - 3+ blood, 3+ protein, and casts seen. Extensive w/u sent - ADELSO, complements, ANCA, acute hepatitis profile, anti-GBM, etc. Await the above labs. Await renal recovery. Thus far no acute indication for HD today (K is normal, not acidotic, volume status is acceptable, etc) - but remains at risk of needing HD if renal recovery does not occur. Marly hagen. BMP in am. (2) Fever: Plan: At the beginning of his illness he had documented, confirmed fevers at home suggesting an infectious process. [employer] resp panel fully negative. Due to #3 acute hepatitis profile ordered. Lyme screen neg. Anaplasmosis and Babesia smears negative; DNA tests for both dispatched. Ehrlichia testing dispatched. LDH/retic NOT c/w hemolysis making babesiosis unlikely. Blood cultures and urine cx sent/pending. CXR without pneumonia. No infectious process on CT a/p. Despite #3 he does not appear to have acute cholecystitis or choledocholithiasis. Appreciate ID consultation - additional serologies added by ID. Tick-borne illness vs viral etiology vs other are possibilities. CMV/EBV titers ordered by GI for completeness. Follow cultures. Await labs. Doxycycline BID for empiric tick-borne coverage. Rocephin IV for empiric coverage while awaiting blood cultures. (3) Abnormal LFTs: Plan: reactive to viral process? tick-borne? other? appreciate GI consult. EBV/CMV titers sent. May need MRCP if any worsening in LFTs. Thus far a biliary source for his presentation is unlikely. repeat LFTs am. (4) Thrombocytopenia: Plan: peripheral smear - no signs of TTP or overt signs of MDS process. Likely due to infectious process but uncertain. viral vs tick-borne vs other. serial CBC. (5) HTN (hypertension): Plan: holding home BP meds BPs have been LOW - but did improve during the day today (6) Hyperlipidemia: Plan: Hold statin due to transaminitis. (7) Enlarged prostate: Plan: Continue Flomax - if BP will allow. Hagen. (8) Hyperglycemia: Plan: Check hemoglobin a1c in am. In meantime - BSGs ac/hs. DM diet. Glucerna BID. Novolog coverage. (9) Atrial fibrillation: Plan: Presented in a.fib. Chronicity uncertain. He does not have apparent symptoms from such. Rates are controlled without AV prabhjot agents. Check echo. Check a TSH. No anticoagulation at this time despite CHADsVASc of 2 (age, HTN history) given his low platelets and potential need for HD catheter placement if UOP does not improve. Discussed a.fib dx with patient and his pt's family. Plan DVT proph - SCDS for now; avoid chemical means due to low platelets care d/w ID, nephrology, and GI highly complex care coordination -- multiple visits to bedside, multiple phone calls to coordinate care with consultants, EKG review, lab review, etc total time today about 80 minutes of care time Admission and Anticipated Discharge Date Admission Date: April 22, 2022 Subjective patient reports fevers to 101 at home starting ~ of last week fevers ultimately improved, but he continued with unrelenting, severe diffuse body aches very fatigued, tired, with poor appetite started noticing that his UOP was decreasing and urine becoming more concentrated over the weekend no recent sick contacts did travel to the [place] area but he was already feeling ill before he traveled denies any rash, arthralgias, headaches minimal sore throat and congestion had a "sore spot" in his left armpit late last week now resolved during my first visit his was at bedside and his daughter was on speaker phone despite copious hydration overnight he has been severely oliguric hagen with next to zero urine output Review of Systems Review of Systems: gen - fevers/chills/poor appetite nose - minimal congestion throat - minimal sore throat neck - no pain musculo - diffuse myalgias CV - no chest pain, no orthopnea, no pleuritic pain pulm - no cough, no dyspnea GI - mild fullness upper abdomen but no pain; +nausea/emesis; no diarrhea neuro - no headache skin - no rash Physical Exam Physical Exam: gen - looks sick but nontoxic, awake, alert, oriented mouth - MM dry neck - no JVD, no meningismus heart - irregular, s1 s2, no murmur lungs - mildly decreased BS bases, CTA b/l otherwise abd - body wall edema, mild fullness upper abdomen, NT, slightly distended, BS+, no splenomegaly ext - trace edema x 4 extremities; pulses 2+ b/l skin - no rash musculo - no synovitis any joint upper or lower ext psych - a/o x 3 neuro - no focal deficits Results & Data Results & Data ([facility]) Vital Signs (Past 12 Hours) Vital Signs Temp Pulse Pulse Pulse Resp BP Pulse Ox 04/23/22 07:30 92 H 04/23/22 07:29 36.7 C 83 16 103/63 94 04/23/22 06:27 36.8 C 74 16 103/70 93 04/23/22 04:34 90 04/23/22 03:26 04/23/22 03:18 36.8 C 82 18 95/63 L 92 Pulse Ox O2 Del Method O2 Del Method O2 Flow Rate O2 Flow Rate 04/23/22 07:30 04/23/22 07:29 Nasal Cannula 3 04/23/22 06:27 Nasal Cannula 3 04/23/22 04:34 04/23/22 03:26 92 Nasal Cannula 3 04/23/22 03:18 Nasal Cannula 3 Laboratory Results Laboratory Results - last 24 hr 04/23/22 04/23/22 04/23/22 06:46 06:46 06:46 Reticulocyte % (Auto) Reticulocyte # Peripher Smr Path Cons Sodium 133 L Potassium 4.5 Chloride 101 Carbon Dioxide 22 Anion Gap 10 BUN 108 H Creatinine 6.86 H* D Est Cr Clr Drug Dosing 11.6 Est GFR ( Amer) 8.8 Est GFR (Non-Af Amer) 7.6 BUN/Creatinine Ratio 15.7 Glucose 180 H POC Glucose Calcium 7.4 L Total Bilirubin 6.3 H Direct Bilirubin 4.6 H AST 62 H ALT 75 H Alkaline Phosphatase 98 Lactate Dehydrogenase 181 Total Protein 4.7 L Albumin 2.5 L Globulin 2.2 L Albumin/Globulin Ratio 1.1 Urine Color Urine Appearance Urine pH Ur Specific Leonard Urine Protein Urine Glucose (UA) Urine Ketones Urine Blood Urine Nitrite Urine Bilirubin Urine Urobilinogen Ur Leukocyte Esterase Urine WBC (Auto) Urine RBC (Auto) U Hyaline Cast (Auto) U Epithel Cells (Auto) Urine Bacteria (Auto) Urine Yeast Ur Random Creatinine U Random Total Protein Protein/Creatinin Ratio ADELSO Screen Anti-Proteinase 3 Anti-Myeloperoxidase ANCA Glomerular Base Memb Ab Complement C3 Complement C4 Adenovirus (PCR) B. pertussis DNA (PCR) B.parapertussis DNA PCR B.burgdorferi DNA [facility] B.miyamotoi IgM Ab B.miyamotoi IgG Ab Borrelia miyamotoi (PCR) B.miyamotoi Sero Interp C. pneumoniae DNA (PCR) Coronavirus OC43 (PCR) Coronavirus HKU1 (PCR) Coronavirus 229E (PCR) SARS-CoV-2 (PCR) Coronavirus NL63 (PCR) CMV IgM Ab EBV Capsid Ag IgG Ab EBV Capsid Ag IgM Ab EBV EA Restrict+Diffuse EBV Nuclear Antigen Ab EBV Antibody Interp Hepatitis A IgM Ab Hep Bs Antigen Hep Bs Ag Confirmation Hep B Core IgM Ab Hepatitis C Ab (EIA) Hep C Ab Signal/Cutoff Human Metapneumovir PCR Influenza Type A (PCR) Influenza Type B (PCR) M. pneumoniae (PCR) Parainfluenza 1 (PCR) Parainfluenza 2 (PCR) Parainfluenza 3 (PCR) Parainfluenza 4 (PCR) Q Fever Phase I IgG Ab Q Fever Phase I IgM Ab Q Fever Phase II IgG Ab Q Fever Phase II IgM Ab RSV (PCR) Entero/Rhino (PCR) Rickettsia IgG Ab Rickettsia IgM Ab Typhus Fever IgG Ab Typhus Fever IgM Ab 04/23/22 04/23/22 04/23/22 06:51 06:51 10:57 Reticulocyte % (Auto) < 0.5 L Reticulocyte # 0.02 Peripher Smr Path Cons Cancelled Sodium Potassium Chloride Carbon Dioxide Anion Gap BUN Creatinine Est Cr Clr Drug Dosing Est GFR ( Amer) Est GFR (Non-Af Amer) BUN/Creatinine Ratio Glucose POC Glucose Calcium Total Bilirubin Direct Bilirubin AST ALT Alkaline Phosphatase Lactate Dehydrogenase Total Protein Albumin Globulin Albumin/Globulin Ratio Urine Color Urine Appearance Urine pH Ur Specific Leonard Urine Protein Urine Glucose (UA) Urine Ketones Urine Blood Urine Nitrite Urine Bilirubin Urine Urobilinogen Ur Leukocyte Esterase Urine WBC (Auto) Urine RBC (Auto) U Hyaline Cast (Auto) U Epithel Cells (Auto) Urine Bacteria (Auto) Urine Yeast Ur Random Creatinine U Random Total Protein Protein/Creatinin Ratio ADELSO Screen Pending Anti-Proteinase 3 Anti-Myeloperoxidase ANCA Glomerular Base Memb Ab Pending Complement C3 Pending Complement C4 Pending Adenovirus (PCR) B. pertussis DNA (PCR) B.parapertussis DNA PCR B.burgdorferi DNA [facility] B.miyamotoi IgM Ab B.miyamotoi IgG Ab Borrelia miyamotoi (PCR) B.miyamotoi Sero Interp C. pneumoniae DNA (PCR) Coronavirus OC43 (PCR) Coronavirus HKU1 (PCR) Coronavirus 229E (PCR) SARS-CoV-2 (PCR) Coronavirus NL63 (PCR) CMV IgM Ab EBV Capsid Ag IgG Ab EBV Capsid Ag IgM Ab EBV EA Restrict+Diffuse EBV Nuclear Antigen Ab EBV Antibody Interp Hepatitis A IgM Ab Pending Hep Bs Antigen Pending Hep Bs Ag Confirmation Pending Hep B Core IgM Ab Pending Hepatitis C Ab (EIA) Pending Hep C Ab Signal/Cutoff Pending Human Metapneumovir PCR Influenza Type A (PCR) Influenza Type B (PCR) M. pneumoniae (PCR) Parainfluenza 1 (PCR) Parainfluenza 2 (PCR) Parainfluenza 3 (PCR) Parainfluenza 4 (PCR) Q Fever Phase I IgG Ab Q Fever Phase I IgM Ab Q Fever Phase II IgG Ab Q Fever Phase II IgM Ab RSV (PCR) Entero/Rhino (PCR) Rickettsia IgG Ab Rickettsia IgM Ab Typhus Fever IgG Ab Typhus Fever IgM Ab 04/23/22 04/23/22 04/23/22 10:57 11:17 11:24 Reticulocyte % (Auto) Reticulocyte # Peripher Smr Path Cons Sodium Potassium Chloride Carbon Dioxide Anion Gap BUN Creatinine Est Cr Clr Drug Dosing Est GFR ( Amer) Est GFR (Non-Af Amer) BUN/Creatinine Ratio Glucose POC Glucose 228 H 187 H Calcium Total Bilirubin Direct Bilirubin AST ALT Alkaline Phosphatase Lactate Dehydrogenase Total Protein Albumin Globulin Albumin/Globulin Ratio Urine Color Urine Appearance Urine pH Ur Specific Leonard Urine Protein Urine Glucose (UA) Urine Ketones Urine Blood Urine Nitrite Urine Bilirubin Urine Urobilinogen Ur Leukocyte Esterase Urine WBC (Auto) Urine RBC (Auto) U Hyaline Cast (Auto) U Epithel Cells (Auto) Urine Bacteria (Auto) Urine Yeast Ur Random Creatinine U Random Total Protein Protein/Creatinin Ratio ADELSO Screen Anti-Proteinase 3 Pending Anti-Myeloperoxidase Pending ANCA Pending Glomerular Base Memb Ab Complement C3 Complement C4 Adenovirus (PCR) B. pertussis DNA (PCR) B.parapertussis DNA PCR B.burgdorferi DNA [facility] B.miyamotoi IgM Ab B.miyamotoi IgG Ab Borrelia miyamotoi (PCR) B.miyamotoi Sero Interp C. pneumoniae DNA (PCR) Coronavirus OC43 (PCR) Coronavirus HKU1 (PCR) Coronavirus 229E (PCR) SARS-CoV-2 (PCR) Coronavirus NL63 (PCR) CMV IgM Ab EBV Capsid Ag IgG Ab EBV Capsid Ag IgM Ab EBV EA Restrict+Diffuse EBV Nuclear Antigen Ab EBV Antibody Interp Hepatitis A IgM Ab Hep Bs Antigen Hep Bs Ag Confirmation Hep B Core IgM Ab Hepatitis C Ab (EIA) Hep C Ab Signal/Cutoff Human Metapneumovir PCR Influenza Type A (PCR) Influenza Type B (PCR) M. pneumoniae (PCR) Parainfluenza 1 (PCR) Parainfluenza 2 (PCR) Parainfluenza 3 (PCR) Parainfluenza 4 (PCR) Q Fever Phase I IgG Ab Q Fever Phase I IgM Ab Q Fever Phase II IgG Ab Q Fever Phase II IgM Ab RSV (PCR) Entero/Rhino (PCR) Rickettsia IgG Ab Rickettsia IgM Ab Typhus Fever IgG Ab Typhus Fever IgM Ab 04/23/22 04/23/22 04/23/22 14:53 14:53 16:06 Reticulocyte % (Auto) Reticulocyte # Peripher Smr Path Cons Sodium Potassium Chloride Carbon Dioxide Anion Gap BUN Creatinine Est Cr Clr Drug Dosing Est GFR ( Amer) Est GFR (Non-Af Amer) BUN/Creatinine Ratio Glucose POC Glucose 179 H Calcium Total Bilirubin Direct Bilirubin AST ALT Alkaline Phosphatase Lactate Dehydrogenase Total Protein Albumin Globulin Albumin/Globulin Ratio Urine Color Urine Appearance Urine pH Ur Specific Leonard Urine Protein Urine Glucose (UA) Urine Ketones Urine Blood Urine Nitrite Urine Bilirubin Urine Urobilinogen Ur Leukocyte Esterase Urine WBC (Auto) Urine RBC (Auto) U Hyaline Cast (Auto) U Epithel Cells (Auto) Urine Bacteria (Auto) Urine Yeast Ur Random Creatinine U Random Total Protein Protein/Creatinin Ratio ADELSO Screen Anti-Proteinase 3 Anti-Myeloperoxidase ANCA Glomerular Base Memb Ab Complement C3 Complement C4 Adenovirus (PCR) B. pertussis DNA (PCR) B.parapertussis DNA PCR B.burgdorferi DNA Sourc Pending B.miyamotoi IgM Ab Pending B.miyamotoi IgG Ab Pending Borrelia miyamotoi (PCR) Pending B.miyamotoi Sero Interp Pending C. pneumoniae DNA (PCR) Coronavirus OC43 (PCR) Coronavirus HKU1 (PCR) Coronavirus 229E (PCR) SARS-CoV-2 (PCR) Coronavirus NL63 (PCR) CMV IgM Ab Pending EBV Capsid Ag IgG Ab Pending EBV Capsid Ag IgM Ab Pending EBV EA Restrict+Diffuse Pending EBV Nuclear Antigen Ab Pending EBV Antibody Interp Pending Hepatitis A IgM Ab Hep Bs Antigen Hep Bs Ag Confirmation Hep B Core IgM Ab Hepatitis C Ab (EIA) Hep C Ab Signal/Cutoff Human Metapneumovir PCR Influenza Type A (PCR) Influenza Type B (PCR) M. pneumoniae (PCR) Parainfluenza 1 (PCR) Parainfluenza 2 (PCR) Parainfluenza 3 (PCR) Parainfluenza 4 (PCR) Q Fever Phase I IgG Ab Pending Q Fever Phase I IgM Ab Pending Q Fever Phase II IgG Ab Pending Q Fever Phase II IgM Ab Pending RSV (PCR) Entero/Rhino (PCR) Rickettsia IgG Ab Pending Rickettsia IgM Ab Pending Typhus Fever IgG Ab Pending Typhus Fever IgM Ab Pending 04/23/22 04/23/22 04/23/22 20:17 Unknown Unknown Reticulocyte % (Auto) Reticulocyte # Peripher Smr Path Cons Sodium Potassium Chloride Carbon Dioxide Anion Gap BUN Creatinine Est Cr Clr Drug Dosing Est GFR ( Amer) Est GFR (Non-Af Amer) BUN/Creatinine Ratio Glucose POC Glucose 162 H Calcium Total Bilirubin Direct Bilirubin AST ALT Alkaline Phosphatase Lactate Dehydrogenase Total Protein Albumin Globulin Albumin/Globulin Ratio Urine Color Dark Yellow Urine Appearance Cloudy A Urine pH 7.5 Ur Specific Leonard 1.018 Urine Protein 3+ H Urine Glucose (UA) 1+ H Urine Ketones Negative Urine Blood 3+ H Urine Nitrite Negative Urine Bilirubin 3+ H Urine Urobilinogen Negative Ur Leukocyte Esterase 1+ H Urine WBC (Auto) >30 H Urine RBC (Auto) >30 H U Hyaline Cast (Auto) 5-10 H U Epithel Cells (Auto) 10-20 H Urine Bacteria (Auto) 1+ H Urine Yeast Present A Ur Random Creatinine U Random Total Protein Protein/Creatinin Ratio ADELSO Screen Anti-Proteinase 3 Anti-Myeloperoxidase ANCA Glomerular Base Memb Ab Complement C3 Complement C4 Adenovirus (PCR) Not Detected B. pertussis DNA (PCR) Not Detected B.parapertussis DNA PCR Not Detected B.burgdorferi DNA [facility]ourc B.miyamotoi IgM Ab B.miyamotoi IgG Ab Borrelia miyamotoi (PCR) B.miyamotoi Sero Interp C. pneumoniae DNA (PCR) Not Detected Coronavirus OC43 (PCR) Not Detected Coronavirus HKU1 (PCR) Not Detected Coronavirus 229E (PCR) Not Detected SARS-CoV-2 (PCR) Not Detected Coronavirus NL63 (PCR) Not Detected CMV IgM Ab EBV Capsid Ag IgG Ab EBV Capsid Ag IgM Ab EBV EA Restrict+Diffuse EBV Nuclear Antigen Ab EBV Antibody Interp Hepatitis A IgM Ab Hep Bs Antigen Hep Bs Ag Confirmation Hep B Core IgM Ab Hepatitis C Ab (EIA) Hep C Ab Signal/Cutoff Human Metapneumovir PCR Not Detected Influenza Type A (PCR) Not Detected Influenza Type B (PCR) Not Detected M. pneumoniae (PCR) Not Detected Parainfluenza 1 (PCR) Not Detected Parainfluenza 2 (PCR) Not Detected Parainfluenza 3 (PCR) Not Detected Parainfluenza 4 (PCR) Not Detected Q Fever Phase I IgG Ab Q Fever Phase I IgM Ab Q Fever Phase II IgG Ab Q Fever Phase II IgM Ab RSV (PCR) Not Detected Entero/Rhino (PCR) Not Detected Rickettsia IgG Ab Rickettsia IgM Ab Typhus Fever IgG Ab Typhus Fever IgM Ab 04/23/22 Unknown Reticulocyte % (Auto) Reticulocyte # Peripher Smr Path Cons Sodium Potassium Chloride Carbon Dioxide Anion Gap BUN Creatinine Est Cr Clr Drug Dosing Est GFR ( Amer) Est GFR (Non-Af Amer) BUN/Creatinine Ratio Glucose POC Glucose Calcium Total Bilirubin Direct Bilirubin AST ALT Alkaline Phosphatase Lactate Dehydrogenase Total Protein Albumin Globulin Albumin/Globulin Ratio Urine Color Urine Appearance Urine pH Ur Specific Leonard Urine Protein Urine Glucose (UA) Urine Ketones Urine Blood Urine Nitrite Urine Bilirubin Urine Urobilinogen Ur Leukocyte Esterase Urine WBC (Auto) Urine RBC (Auto) U Hyaline Cast (Auto) U Epithel Cells (Auto) Urine Bacteria (Auto) Urine Yeast Ur Random Creatinine 47.4 U Random Total Protein > 1000.0 H Protein/Creatinin Ratio TNP ADELSO Screen Anti-Proteinase 3 Anti-Myeloperoxidase ANCA Glomerular Base Memb Ab Complement C3 Complement C4 Adenovirus (PCR) B. pertussis DNA (PCR) B.parapertussis DNA PCR B.burgdorferi DNA [facility]our[facility] B.miyamotoi IgM Ab B.miyamotoi IgG Ab Borrelia miyamotoi (PCR) B.miyamotoi Sero Interp C. pneumoniae DNA (PCR) Coronavirus OC43 (PCR) Coronavirus HKU1 (PCR) Coronavirus 229E (PCR) SARS-CoV-2 (PCR) Coronavirus NL63 (PCR) CMV IgM Ab EBV Capsid Ag IgG Ab EBV Capsid Ag IgM Ab EBV EA Restrict+Diffuse EBV Nuclear Antigen Ab EBV Antibody Interp Hepatitis A IgM Ab Hep Bs Antigen Hep Bs Ag Confirmation Hep B Core IgM Ab Hepatitis C Ab (EIA) Hep C Ab Signal/Cutoff Human Metapneumovir PCR Influenza Type A (PCR) Influenza Type B (PCR) M. pneumoniae (PCR) Parainfluenza 1 (PCR) Parainfluenza 2 (PCR) Parainfluenza 3 (PCR) Parainfluenza 4 (PCR) Q Fever Phase I IgG Ab Q Fever Phase I IgM Ab Q Fever Phase II IgG Ab Q Fever Phase II IgM Ab RSV (PCR) Entero/Rhino (PCR) Rickettsia IgG Ab Rickettsia IgM Ab Typhus Fever IgG Ab Typhus Fever IgM Ab Diagnostic Findings tele overnight - rate-controlled a.fib EKG this am - my reading - a.fib, inferior leads with flat ST segments, HR <100 PG Care Time/CCT Total # of Minutes Spent Total Time Spent with Patient: Total time spent is greater than 50% in coordination of care (as documented) at patient's floor/unit and/or counseling patient: Prolonged Care Time Prolonged Care Time: Yes Total Prolonged Care Time: 80 Coding Level of Care Code 80713 SUB INP/OBS CARE 3/50MIN (25 - SIGNIFICANT, SEPARATELY IDENTIFIABLE ) Diagnoses Acute renal failure N17.9 Fever R50.9 Abnormal LFTs R79.89 Thrombocytopenia D69.6 HTN (hypertension) I10 Hyperlipidemia E78.5 Enlarged prostate N40.0 Hyperglycemia R73.9 Atrial fibrillation I48.91 Additional Codes Prolonged Care Time - Prolonged Care Time: Yes ([id number])
--- NOTE | 2022-04-23 12:18 | Gastrointestinal Consultation ---
Date of Consultation April 23, 2022 Assessment & Plan (1) Transaminitis: (2) Abdominal pain: Plan Discussed case with Dr. Byers who helped advise on plan. Suspect that jump in LFTs is viral in nature especially given recent lfts were normal just last month. - await pending labs. will add EBV and CMV labs. - will start protonix 40mg bid given epigastric pain in the setting of recent nsaid use. - he will need an outpatient MRCP to further evaluate the IPMN seen on imaging. History of Present Illness Reason for Consultation: abnormal LFTs with high Bili. Requesting Physician: Amado Mckeon Attending Physician: Amado Mckeon History of Present Illness Patient is a 67 year old male with past medical history of hypertension, BPH, and hyperlipidemia who presented to the ED with concerns for recurrent fevers and vomiting for 5 days. He also was experiencing hot and cold flashes with temperatures up to 101 degrees over that time followed by chills. He had also developed diffuse, dull body aches, fatigue, decreased appetite, and pain in his epigastric region. pain rated 6/10 and dull in nature. He had been using Aleve twice daily for a few days He had noticed decreased urine output and that his urine appears very concentrated and dark yellow - he has been admitted with acute renal failure. Patient admits to a history of frequently being outdoors and regularly checks for ticks. He last did a blood test a few weeks ago that was negative for Lyme disease. He has not noticed any ticks on him recently or had any rashes develop. He tells me no further nausea/vomiting in 2 days. Patient denies any current issues with dysphagia, heartburn, unintentional weight loss, change in bowels, melena, or bright red blood per rectum. Colonoscopy 2017 internal hemorrhoids. 03/2022 lfts unremarkable. 04/22/22 total bili 5.5, AST 91, ALT 99, alk phos 118. 04/22/22 hgb 14.6, hct 41.5, wbc 6.47, plts 50, INR 1, PT 10.8, tota bili 5.7, AST 69, ALT 80, alk phos 99 04/23/22 hgb 12.7, hct 35.8, wbc 4.86, plts 48, sodium 133, potassium 4.5, BUN 10.8, creatinine 6.86, total bili 6.3, ast 62, alt 75, alk phos 98 Hep panel and ADELSO as well as lymes labs Pending. US and CT 04/22/22 shown unremarkable liver. small pancreatic cystic lesion may represent an IPMN. Allergies Allergy/AdvReac Type Severity Reaction Status Date / Time No Known Allergies Allergy Verified 03/22/22 09:29 Home Medications Medication Instructions Recorded Confirmed Type aspirin 81 mg tablet,delayed 81 mg PO QAM 04/08/18 04/22/22 History release (Aspir-) flaxseed oil 1,000 mg capsule 1,000 mg PO QAM 04/08/18 04/22/22 History multivitamin (Multiple Vitamins 1 tab PO QAM 04/08/18 04/22/22 History tablet) glucosamine sulfate 500 mg tablet 1 tab PO DAILY 04/13/18 04/22/22 History (Glucosamine) simvastatin 20 mg tablet 20 mg PO PM #14 tabs 04/17/21 04/22/22 Rx diltiazem HCl 300 mg See Rx Instructions .Route 03/15/22 04/22/22 Rx capsule,extended release 24 hr .COMPLEX #90 caps olmesartan 40 mg tablet 40 mg PO DAILY #90 tabs 03/22/22 04/22/22 Rx tamsulosin 0.4 mg capsule 0.8 mg PO DAILY #180 caps 03/22/22 04/22/22 Rx Patient History Medical History Hypertension Impaired fasting glucose Surgical History History of colonoscopy History of hand surgery L WRIST/GANGLION CYST History of hernia repair X2 Family History Other No pertinent family history Denies family history of Ovarian cancer Prostate cancer Myocardial infarction Breast cancer Colorectal cancer Social History Smoking Status: Never smoker Second Hand Exposure: No; Do You Dip or Chew Tobacco: No; Hx Alcohol Use: Yes Alcohol type: hard liquor Alcohol Intake Frequency: 2-3 x/Week Hx Substance Use: No Preferred Language: Persian Communication Ability: Effective Visual Impairment: No Limitations Hearing Ability: Normal Tin Pourer Required: No Beliefs That Will Affect Care: None marital status: Current Living Situation: Spouse current occupational status: retired How many Children do You have: 2 Other Information That Helps Us Care for You: No Feels Safe at Home: Yes Safety Concerns: Feels Safe At This Time Childhood Exposure to Second-Hand Smoke: No Diet Comment: regular caffeine: No during the past year weight has: remained stable Dental Care, Regularly: Yes Physical Activity Frequency: Daily Seatbelt Use: always Sunscreen Use: No Assistive Devices: None Assistive Devices Comment: reading glasses Review of Systems Review of Systems: All systems reviewed & are unremarkable except as noted in HPI & below Physical Exam Constitutional: WD/WN, vitals as above Respiratory: normal respiratory effort, lungs clear to auscultation Cardiovascular: RRR, no murmur, no edema Gastrointestinal (Abdomen): mild epigastric tenderness, no guarding, soft, normal bowel sounds. Skin: no rashes, warm and dry Psychiatric: Orientation: alert and oriented x 3 Affect: euthymic affect Results & Data ([facility]) Vital Signs (Past 12 Hours) Vital Signs Temp Pulse Pulse Pulse Pulse Resp BP 04/23/22 12:13 36.6 C 68 68 16 103/71 04/23/22 07:30 92 H 04/23/22 07:29 36.7 C 83 16 103/63 04/23/22 06:27 36.8 C 74 16 103/70 04/23/22 04:34 90 04/23/22 03:26 04/23/22 03:18 36.8 C 82 18 95/63 L Pulse Ox Pulse Ox O2 Del Method O2 Del Method O2 Flow Rate O2 Flow Rate 04/23/22 12:13 94 Nasal Cannula 1 04/23/22 07:30 04/23/22 07:29 94 Nasal Cannula 3 04/23/22 06:27 93 Nasal Cannula 3 04/23/22 04:34 04/23/22 03:26 92 Nasal Cannula 3 04/23/22 03:18 92 Nasal Cannula 3 Diagnostic Findings US liver CLINICAL HISTORY: transaminitis TECHNIQUE: Multiple real-time sonographic images of the right upper quadrant were obtained. Comparison: Comparison is made to CT abdomen pelvis 04/22/2022 FINDINGS: The liver is diffusely homogenous with normal contour and echogenicity. No focal mass lesions are seen. No intrahepatic ductal dilatation is seen. Low level internal echoes are identified layering dependently within the gallbladder, which is consistent with gallbladder sludge. The gallbladder wall is not thickened. There is no pericholecystic fluid present. A sonographic Mccormack's sign was not elicited by the home care scheduler. The common duct measures 0.5 cm in diameter at the level of the hepatic artery. A small cystic lesion is seen in the pancreas measuring 0.7 x 0.4 x 0.6 cm. The right kidney shows normal echogenicity, cortical thickness and renal contour. Cysts are seen measuring up to 0.9 x 0.1 0.0 cm. No ascites or free fluid is seen in Guadarrama's pouch. IMPRESSION: 1. There is gallbladder sludge without evidence of acute cholecystitis. 2. Small pancreatic cystic lesion may represent IPMN. If not previously ev aluated, nonemergent MRCP can be performed. 3. Renal cysts are seen as above. ACT 112: Negative or not required by law. Electronically signed by: Antwon Kaur M.D. 04/22/2022 5:[address] abd pelvis wo con CLINICAL HISTORY: arf TECHNIQUE: Helical axial images of the abdomen and pelvis were obtained. Automated dose lowering techniques and/or adjustment according to patient size were utilized for this exam. This exam was performed without intravenous contrast. CT DOSE: 330.61 mGy.cm COMPARISON: Comparison is made to CT abdomen pelvis 02/17/2009 FINDINGS: Lower chest: Bibasilar atelectasis versus scarring is seen. Liver: Unremarkable. No focal lesions are seen. Gallbladder and biliary tree: No calcified gallstones. Normal caliber wall. No intra- or extrahepatic biliary ductal dilation. Pancreas: Unremarkable, no focal lesions. Spleen: Unremarkable. Adrenals: Unremarkable. Kidneys and ureters: Perinephric stranding is seen bilaterally. There is no evidence of hydronephrosis. Bladder: Limited evaluation due to underdistention. Reproductive organs: Unremarkable. Bowel: Unremarkable appearance of the bowel. The appendix is normal. Lymph nodes Retroperitoneal: Subcentimeter lymph nodes are noted. Pelvic: Unremarkable. Mesenteric: Subcentimeter lymph nodes are noted. Peritoneum: Normal. Vessels: Atherosclerotic calcifications are seen. Abdominal wall: Right fat-containing inguinal hernia. Bones: Degenerative changes in the visualized spine. IMPRESSION: No evidence of hydronephrosis or other acute abnormality is seen in this noncontrast exam to explain acute renal failure. ACT 112: Negative or not required by law. Electronically signed by: Antwon Kaur M.D. 04/22/2022 12:53 PM PG Care Time/CCT Total # of Minutes Spent Total Time Spent with Patient: Total time spent is greater than 50% in coordination of care (as documented) at patient's floor/unit and/or counseling patient: Coding Level of Care Code INP/OBS CONSULT LVL 3, 45 MIN Diagnoses Transaminitis R74.01 Abdominal pain R10.9 Time Spent (min) 47
[2022-04-23] MEDS: INSULIN ASPART PER UNIT SC SCH ×3 (12:26→20:37)
--- NOTE | 2022-04-23 12:35 | Infectious Disease Consult ---
Date of Consultation April 23, 2022 Assessment & Plan (1) Thrombocytopenia: (2) Acute renal failure: (3) Transaminitis: (4) Lymphopenia: (5) Fever: Plan 67 yo M with a history of HTN, BPH, HLD who presented on 04/22 with fevers, chills, myalgias since 04/11, now admitted with lymphopenia, thrombocytopenia, elevated LFTs, and acute renal failure. Although he denies recent known tick bites, he does regularly spend time in wooded areas and have regular tick exposures. No rash, upper respiratory symptoms. Had taken Aleve for several days prior to admission. Infectious work-up thus far shows SARS-CoV-2, influenza A/B, and RSV PCR negative, Lyme IgM/IgG negative, BCx NGTD, and blood smear for Anaplasma and Babesia is negative. A CT A/P without contrast and CXR showed no significant findings. A liver US showed gallbladder sludge without evidence of acute cholecystitis, a small pancreatic cystic lesion which may represent IPMN, and renal cysts. He was started on empiric doxycycline for a possible tick-borne illness, and multiple tick-borne illness studies are pending. He has been afebrile since admission, with downtrending AST, ALT, alk phos, procalcitonin. Cr and bilirubin are uptrending. Ceftriaxone was added on 04/23, in the context of family concern for sepsis. His lymphopenia, thrombocytopenia, and elevated LFTs raises concern for a tick- borne illness such as Anaplasma, Ehrlichia. Lyme serologies are negative. Peripheral blood smear has not confirmed Anaplasma or Babesia, but can often be negative in lower parasitemia. Other tick-borne illness studies are pending. Micro: 04/23 RVP: pending 04/23 Acute hepatitis panel: pending 04/22 Ehrlichia chaffeensis IgM, IgG: pending 04/22 Ehrlichia chaffeensis PCR: pending 04/22 Blood smear for Anaplasma/Babesia: No evidence of intracytoplasmic neutrophilic inclusions to suggest Anaplasmosis. No evidence of RBC inclusions to suggest Babesia. 04/22 Anaplasma phagocytophilum PCR: pending 04/22 Babesia microti IgM, IgG: pending 04/22 Babesia microti PCR: pending 04/22 Lyme IgM, IgG: negative 04/22 BCx x2: pending 04/22 COVID-19, influenza A/B, RSV PCR: negative Antimicrobial course: Doxycycline 04/22 - present Ceftriaxone 04/23 - present Problems: #Fevers: febrile prior to admission, but afebrile here #Lymphopenia #Thrombocytopenia #Acute renal failure #Elevated LFTs Recommendations: -Agree with empiric doxycycline to cover for tick-borne illnesses -Ok to continue ceftriaxone for now -Follow-up Anaplasma, Ehrlichia, Babesia testing -Follow-up acute hepatitis panel -Follow-up respiratory viral panel -Follow-up blood cultures -Ordered Borrelia miyamotoi and Rickettsial panel, although may be less likely Will continue to follow Consultation Information Consultation was provided via telemedicine using two-way real-time interactive telecommunication between the patient and the telemedicine provider. For the duration of the visit, the provider was performing the assessment from a different facility than the patient. This includesuse of bluetooth stethoscope forauscultationperformed by the telepresenter that the telemedicine provider can hear if described in the physical exam. Electronics Hardware Design Engineer contact information: Please call [facility] [phone]. (Phone Number For Physician Use Only) After establishing a telemedicine visit, patient was: Patient was verified with two unique identifiers, Patient/authorized rep acknowledged consent and understanding and Gave permission to continue telehealth session Time Spent with Patient: Initial => 40 min History of Present Illness Reason for Consultation: Febrile illness Attending Physician: Amado Mckeon History of Present Illness 67 yo M with a history of HTN, BPH, HLD who presented on 04/22 with recurrent fevers. On 04/11, he began experiencing hot/cold flashes, with fevers up to 101 and chills. He also reported myalgias, fatigue, decreased appetite, decreased UOP. He began vomiting the night prior to admission. He reported being out in the [place] frequently, with regular tick exposures. He denied cough, congestion, chest pain, shortness of breath, rash. Was taking Aleve for several days. On presentation, he was afebrile, with HR 91, BP as low as 81/62, RR 18, SpO2 95% on room air. Labs showed WBC 6.47 (lymph # 0.5), Hgb 14.6, plt 50, Cr 6.05, AST 91, ALT 99, alk phos 118, Tbili 5.5, lipase 172, procalcitonin 18.49. SARS-CoV-2, influenza A/B, and RSV PCR negative. A CT A/P without contrast showed no acute findings--unremarkable liver, no acute gallbladder or biliary duct pathology, perinephric stranding bilaterally without evidence of hydronephrosis. CXR showed mild subsegmental L basilar atelectasis. In the ED, he was given IVF, with improvement in his BP. He was started on empiric doxycycline for possible tick-borne illness. Tick-born illness panels were sent. A liver US showed gallbladder sludge without evidence of acute cholecystitis, a small pancreatic cystic lesion which may represent IPMN, and renal cysts. He has been afebrile since admission, and vomiting has resolved. Today, labs show WBC 4.86 (lymph # 0.33), Hgb 12.7, plt 48, reticulocyte % < 0.5, Cr up to 6.86, downtrending AST 62 and ALT 75, normal alk phos 98, Tbili uptrending to 6.3, direct bili 4.6, procalcitonin down to 14.95. A peripheral blood smear reviewed by path showed normocytic RBCs without significant anisopoikilocytosis, WBC normal but with absolute lymphopenia, thrombocytopenia, no intracytoplasmic inclusions suggestive of anaplasmosis, no evidence of RBC inclusions to suggest Babesia. An acute hepatitis panel and RVP are pending. Ceftriaxone was added. Pt states he was born in [place], and has not traveled for 15 months. He did recently travel to [place], but that was after onset of symptoms. [place], and he is often outdoors--hiking, cutting down trees. He endorses a history of regular tick exposures, although does not have a known recent tick bite, and has not found ticks on his body recently. He denies other known insect bites. He denies sick contacts. He is not currently working, but previously worked at [employer]. He does not have any pets, and denies animal exposures (farm, wild). Denies prior splenectomy or splenic injury. Denies recent undercooked foods, unpasteurized dairy. Recent medication changes include starting lisinopril and olmesartan, and doubling of his dose of tamsulosin. Allergies Allergy/AdvReac Type Severity Reaction Status Date / Time No Known Allergies Allergy Verified 03/22/22 09:29 Home Medications Medication Instructions Recorded Confirmed Type aspirin 81 mg tablet,delayed 81 mg PO QAM 04/08/18 04/22/22 History release (Aspir-) flaxseed oil 1,000 mg capsule 1,000 mg PO QAM 04/08/18 04/22/22 History multivitamin (Multiple Vitamins 1 tab PO QAM 04/08/18 04/22/22 History tablet) glucosamine sulfate 500 mg tablet 1 tab PO DAILY 04/13/18 04/22/22 History (Glucosamine) simvastatin 20 mg tablet 20 mg PO PM #14 tabs 04/17/21 04/22/22 Rx diltiazem HCl 300 mg See Rx Instructions .Route 03/15/22 04/22/22 Rx capsule,extended release 24 hr .COMPLEX #90 caps olmesartan 40 mg tablet 40 mg PO DAILY #90 tabs 03/22/22 04/22/22 Rx tamsulosin 0.4 mg capsule 0.8 mg PO DAILY #180 caps 03/22/22 04/22/22 Rx Patient History Medical History Hypertension Impaired fasting glucose Surgical History History of colonoscopy History of hand surgery L WRIST/GANGLION CYST History of hernia repair X2 Family History Other No pertinent family history Denies family history of Ovarian cancer Prostate cancer Myocardial infarction Breast cancer Colorectal cancer Social History Smoking Status: Never smoker Second Hand Exposure: No; Do You Dip or Chew Tobacco: No; Hx Alcohol Use: Yes Alcohol type: hard liquor Alcohol Intake Frequency: 2-3 x/Week Hx Substance Use: No Preferred Language: Czech Communication Ability: Effective Visual Impairment: No Limitations Hearing Ability: Normal 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 Surgical Appliances Required: No Beliefs That Will Affect Care: None marital status: Current Living Situation: Spouse current occupational status: retired How many Children do You have: 2 Other Information That Helps Us Care for You: No Feels Safe at Home: Yes Safety Concerns: Feels Safe At This Time Childhood Exposure to Second-Hand Smoke: No Diet Comment: regular caffeine: No during the past year weight has: remained stable Dental Care, Regularly: Yes Physical Activity Frequency: Daily Seatbelt Use: always Sunscreen Use: No Assistive Devices: None Assistive Devices Comment: reading glasses Review of System A complete ROS was performed and is negative except as mentioned in the HPI. Physical Exam Physical Exam: GEN: laying in bed in NAD. HEENT: Normocephalic, atraumatic. Mild scleral icterus. No oropharyngeal lesions or exudates LAD: No cervical LAD. No inguinal lymphadenopathy CV: Regular rate and rhythm, no murmurs/rubs/gallops. RESP: No increased work of breathing, lungs clear to auscultation bilaterally in posterior martinez. ABD: Soft, distended, tender to palpation in epigastric region EXT: No LE edema. Warm, well-perfused. SKIN: Slight tender erythema in L upper chest/axillary region. Punctate lesion on R thigh with ?eschar. Punctate lesion on L palm. NEURO: Alert and oriented. Answers all questions appropriately. Speech not slurred. PSYCH: Normal mood, affect appropriate. Results & Data ([facility]) Vital Signs (Past 12 Hours) Vital Signs Temp Pulse Pulse Pulse Pulse Resp BP 04/23/22 12:13 36.6 C 68 68 16 103/71 04/23/22 07:30 92 H 04/23/22 07:29 36.7 C 83 16 103/63 04/23/22 06:27 36.8 C 74 16 103/70 04/23/22 04:34 90 04/23/22 03:26 04/23/22 03:18 36.8 C 82 18 95/63 L Pulse Ox Pulse Ox O2 Del Method O2 Del Method O2 Flow Rate O2 Flow Rate 04/23/22 12:13 94 Nasal Cannula 1 04/23/22 07:30 04/23/22 07:29 94 Nasal Cannula 3 04/23/22 06:27 93 Nasal Cannula 3 04/23/22 04:34 04/23/22 03:26 92 Nasal Cannula 3 04/23/22 03:18 92 Nasal Cannula 3 Laboratory Results Short CBC 04/23/22 Range/Units 03:28 WBC 4.86 (4.8-10.8) K/ul Hgb 12.7 L (14.0-18.0) g/dl Hct 35.8 L (40.1-51.0) % Plt Count 48 L (130-400) K/uL BMP 04/22/22 04/22/22 04/23/22 19:08 23:00 03:28 Sodium 134 L 133 L 133 L Potassium 4.6 4.6 4.5 Chloride 103 102 101 Carbon Dioxide 19 L 21 21 BUN 98 H 105 H 105 H Creatinine 5.74 H* D 6.19 H* D 5.46 H* D Glucose 165 H 171 H 173 H Calcium 7.8 L 7.5 L 7.6 L 04/23/22 06:46 Sodium 133 L Potassium 4.5 Chloride 101 Carbon Dioxide 22 BUN 108 H Creatinine 6.86 H* D Glucose 180 H Calcium 7.4 L Cardiac Enzymes 04/22/22 Range/Units 15:01 Total Creatine Kinase 90 (30-223) U/L Liver Function 04/22/22 04/22/22 04/23/22 Range/Units 19:08 23:00 03:28 Total Bilirubin 5.3 H 5.7 H 6.3 H (0.2-1.0) mg/dl Direct Bilirubin (0-0.2) mg/dl AST 74 H 69 H 65 H (13-39) U/L ALT 82 H 80 H 78 H (7-52) U/L Alkaline Phosphatase 100 99 101 (34-104) U/L Albumin 2.7 L 2.6 L 2.5 L (3.4-5.0) gm/dl 04/23/22 04/23/22 Range/Units 06:46 06:46 Total Bilirubin 6.3 H (0.2-1.0) mg/dl Direct Bilirubin 4.6 H (0-0.2) mg/dl AST 62 H (13-39) U/L ALT 75 H (7-52) U/L Alkaline Phosphatase 98 (34-104) U/L Albumin 2.5 L (3.4-5.0) gm/dl Diagnostic Findings Abdomen/Pelvis CT 04/22/22 11:48 CT abd pelvis wo con CLINICAL HISTORY: arf TECHNIQUE: Helical axial images of the abdomen and pelvis were obtained. Automated dose lowering techniques and/or adjustment according to patient size were utilized for this exam. This exam was performed without intravenous contrast. CT DOSE: 330.61 mGy.cm COMPARISON: Comparison is made to CT abdomen pelvis 02/17/2009 FINDINGS: Lower chest: Bibasilar atelectasis versus scarring is seen. Liver: Unremarkable. No focal lesions are seen. Gallbladder and biliary tree: No calcified gallstones. Normal caliber wall. No intra- or extrahepatic biliary ductal dilation. Pancreas: Unremarkable, no focal lesions. Spleen: Unremarkable. Adrenals: Unremarkable. Kidneys and ureters: Perinephric stranding is seen bilaterally. There is no evidence of hydronephrosis. Bladder: Limited evaluation due to underdistention. Reproductive organs: Unremarkable. Bowel: Unremarkable appearance of the bowel. The appendix is normal. Lymph nodes Retroperitoneal: Subcentimeter lymph nodes are noted. Pelvic: Unremarkable. Mesenteric: Subcentimeter lymph nodes are noted. Peritoneum: Normal. Vessels: Atherosclerotic calcifications are seen. Abdominal wall: Right fat-containing inguinal hernia. Bones: Degenerative changes in the visualized spine. IMPRESSION: No evidence of hydronephrosis or other acute abnormality is seen in this noncontrast exam to explain acute renal failure. ACT 112: Negative or not required by law. Electronically signed by: Antwon Kaur M.D. 04/22/2022 12:53 PM Chest X-Ray 04/22/22 13:53 XR chest 1V portable HISTORY: 67 years-old Male URI symptoms acute shortness breath COMPARISON: None TECHNIQUE: AP view of the chest FINDINGS: Cardiac silhouette is upper limits of normal in size. No pneumothorax, pleural effusion, airspace consolidation or overt pulmonary edema. Mild linear subsegm ental left basilar atelectasis. 6 mm metallic density focus overlies the posterior left fifth rib. Prior left biceps tenodesis. IMPRESSION: Mild subsegmental left basilar atelectasis. ACT 112: Negative or not required by law. The above report was generated using voice recognition software. It may contain grammatical, syntax or spelling errors. Electronically signed by: Madhav Lewis M.D. 04/22/2022 2:20 PM Liver Ultrasound 04/22/22 14:25 US liver CLINICAL HISTORY: transaminitis TECHNIQUE: Multiple real-time sonographic images of the right upper quadrant were obtained. Comparison: Comparison is made to CT abdomen pelvis 04/22/2022 FINDINGS: The liver is diffusely homogenous with normal contour and echogenicity. No focal mass lesions are seen. No intrahepatic ductal dilatation is seen. Low level internal echoes are identified layering dependently within the gallbladder, which is consistent with gallbladder sludge. The gallbladder wall is not thickened. There is no pericholecystic fluid present. A sonographic Mccormack's sign was not elicited by the turkey cleaner. The common duct measures 0.5 cm in diameter at the level of the hepatic artery. A small cystic lesion is seen in the pancreas measuring 0.7 x 0.4 x 0.6 cm. The right kidney shows normal echogenicity, cortical thickness and renal contour. Cysts are seen measuring up to 0.9 x 0.1 0.0 cm. No ascites or free fluid is seen in Guadarrama's pouch. IMPRESSION: 1. There is gallbladder sludge without evidence of acute cholecystitis. 2. Small pancreatic cystic lesion may represent IPMN. If not previously evaluated, nonemergent MRCP can be performed. 3. Renal cysts are seen as above. ACT 112: Negative or not required by law. Electronically signed by: Antwon Kaur M.D. 04/22/2022 5:21 PM Medications Administered Current Inpatient Medications Dextrose (Dextrose 50% 50 Ml Syringe) 25 - 50 ml IV UD PRN; Protocol PRN Reason: Hypoglycemia Protocol Stop: 05/23/22 10:29 Glucagon (Glucagon For Inj 1 Mg Vial) 1 mg IM UD PRN; Protocol PRN Reason: Hypoglycemia Protocol Stop: 05/23/22 10:29 Glucose (Glucose 40% Gel 15 Gm Tube) 15 - 30 gm PO UD PRN; Protocol PRN Reason: Hypoglycemia Protocol Stop: 05/23/22 10:29 Glucose (Glucose 10 Tab/Tube) 4 - 8 tab PO UD PRN; Protocol PRN Reason: Hypoglycemia Protocol Stop: 05/23/22 10:29 Doxycycline Hyclate 100 mg/ (Dextrose) 110 mls @ 50 mls/hr IV Q12H MELISSA Stop: 05/07/22 02:29 Last Infusion: 04/23/22 05:12 Dose: Infused Ceftriaxone Sodium 2,000 mg/ (Dextrose) 70 mls @ 100 mls/hr IV Q24H MELISSA; Protocol Stop: 04/25/22 12:14 Insulin Aspart (Insulin Aspart Per Unit) 0 units SC ACHS MELISSA Stop: 05/23/22 11:29 Last Admin: 04/23/22 12:26 Dose: 1 units Miscellaneous (Carbohydrates For Hypoglycemia ) 15 - 30 gm PO UD PRN PRN Reason: Hypoglycemia Treatment Stop: 05/23/22 10:29 Ondansetron HCl (Ondansetron Inj 2 Mg/Ml 2 Ml Vial) 4 mg IV Q6H PRN PRN Reason: Nausea Stop: 05/22/22 14:52 Last Admin: 04/22/22 22:28 Dose: 4 mg Pantoprazole Sodium (Pantoprazole 40 Mg Tab) 40 mg PO BID [facility] Stop: 05/23/22 12:44
[2022-04-23] MEDS: cefTRIAXone SODIUM 2,000 MG in DEXTROSE 5% 50 ML IV SCH (12:46)
[2022-04-23 13:18] LABS: Adenovirus PCR Not Detected (NotDetected); Bordetella parapertussis PCR Not Detected (NotDetected); Bordetella pertussis PCR Not Detected (NotDetected); Chlamydia pneumoniae PCR Not Detected (NotDetected); Coronavirus 229E PCR Not Detected (NotDetected); Coronavirus CoV-2 (COVID19)PCR Not Detected (NotDetected); Coronavirus HKU1 PCR Not Detected (NotDetected); Coronavirus NL63 PCR Not Detected (NotDetected); Coronavirus OC43PCR Not Detected (NotDetected); Human Metapneumovirus PCR Not Detected (NotDetected); Influenza A PCR Not Detected (NotDetected); Influenza B PCR Not Detected (NotDetected); Mycoplasma pneumoniae PCR Not Detected (NotDetected); Parainfluenza Virus 1 PCR Not Detected (NotDetected); Parainfluenza Virus 2 PCR Not Detected (NotDetected); Parainfluenza Virus 3 PCR Not Detected (NotDetected); Parainfluenza Virus 4 PCR Not Detected (NotDetected); Respiratory Syncytial VirusPCR Not Detected (NotDetected); Rhinovirus/Enterovirus PCR Not Detected (NotDetected)
[2022-04-23] MEDS: PANTOprazole 40 MG TAB PO SCH ×2 (14:25→20:29)
--- NOTE | 2022-04-23 14:26 | Nephrology Consultation ---
Date of Consultation April 23, 2022 Assessment & Plan (1) Acute renal failure: (2) Anuria: (3) Thrombocytopenia: (4) Fever: (5) Transaminitis: Plan 67 yo M presented with more than a week history of fever, chills, myalgia, poor p.o. intake and decreased urine output. On admission noted to have RAF with creatinine 6.1, BUN 93 with prior normal renal function baseline creatinine 0.9 on 03/11/2022. Urinalysis was not done as patient remained anuric. CT A/P showed bilateral mild perinephric stranding but otherwise unremarkable. Renal function progressively worsening despite getting IV fluid and remained anuric, no postrenal obstruction on renal imaging. Concern for ATN with possible infectious etiology. Although less likely, cannot totally exclude possibility for glomerulonephritis. Has been tolerating IV fluid and respiratory status remained acceptable. -- will give 1 dose of 80 mg IV Lasix -- if remained anuric or develops significant electrolyte abnormality, may need to start on dialysis in next 12-24 hours, keep NPO post midnight. Consult vascular for TDC tomorrow, may need platelet before the procedure. -- will order serology, wait on infectious workup -- no acute indication for kidney biopsy at this time as acute glomerulonephritis is low in differential -- explained in detail to patient's and daughter and answered all questions. Thank you for allowing me to participate in your patient's care. History of Present Illness Reason for Consultation: Anuric acute kidney injury. Attending Physician: Amado Mckeon History of Present Illness Mr. Best Lorenzo is a 67 yo M with PMH significant for HTN, BPH, HLD admitted to the hospital on 04/22/2022 with an uric acute kidney injury and flu- like illness for several days. Nephrology consult was requested to manage acute kidney injury. EMR records are reviewed in detail during patient's visit. Patient's Marcela was at bedside and his daughter Marimar who is a nurse attended the visit over telephone. Best presented to ER on 04/22 with recurrent fevers, hot/cold flashes, myalgias, fatigue, decreased appetite, decreased UOP which started more than a week ago but significantly worsened over last 3 days and urine output mainly dropped starting 2 days ago. He had 1 episode of vomiting the night before admission but denied any diarrhea. Denied skin rash, arthralgia, sinus congestion, hemoptysis, hematuria, dysuria or lower extremity edema. He has been taking Aleve for last 3 days with no prior history of heavy NSAID use. Has been on olmesartan for hypertension which she continued. So recently had he has tamsulosin dose increased as he was having more nocturia. Denied any other recent medication changes. On presentation, he was afebrile, with HR 91, BP as low as 81/62, RR 18, SpO2 95% on room air. Labs showed BUN 93 and creatinine of 6.1 with prior normal renal function, creatinine was 0.9 on lab on 03/11/2022. WBC 6.47, Hgb 14.6, plt 50, AST 91, ALT 99, alk phos 118, Tbili 5.5, lipase 172, procalcitonin 18.49. SARS-CoV-2, influenza A/B, and RSV PCR negative. Urinalysis was ordered but not done as he has not been making much urine, since admission total urine output was only 20 mL, has a Leong catheter in place. CT A/P without contrast showed perinephric stranding bilaterally without evidence of hydronephrosis, unremarkable liver, no acute gallbladder or biliary duct pathology. A liver US showed gallbladder sludge without evidence of acute cholecystitis, a small pancreatic cystic lesion which may represent IPMN, and renal cysts. CXR showed mild subsegmental L basilar atelectasis. his blood pressure relatively low which slightly improved. A peripheral blood smear reviewed by path showed normocytic RBCs without significant anisopoikilocytosis, no intracytoplasmic inclusions suggestive of anaplasmosis, no evidence of RBC inclusions to suggest Babesia. Since admission he received 6.5 L of IV fluid. Despite getting the IV fluid renal function continues to worsen, BUN 108 and creatinine 6.9 this morning and he Remained anuric. He was started on empiric doxycycline for possible tick- borne illness and ceftriaxone was added this morning. Tick-born illness panels were sent. Labs this morning showed renal function progressively worsening however electrolyte remained acceptable. Remained anuric, tolerating IV fluid, no shortness of breath. Hands feels slightly puffier but no lower extremity edema. Allergies Allergy/AdvReac Type Severity Reaction Status Date / Time No Known Allergies Allergy Verified 03/22/22 09:29 Home Medications Medication Instructions Recorded Confirmed Type aspirin 81 mg tablet,delayed 81 mg PO QAM 04/08/18 04/22/22 History release (Aspir-) flaxseed oil 1,000 mg capsule 1,000 mg PO QAM 04/08/18 04/22/22 History multivitamin (Multiple Vitamins 1 tab PO QAM 04/08/18 04/22/22 History tablet) glucosamine sulfate 500 mg tablet 1 tab PO DAILY 04/13/18 04/22/22 History (Glucosamine) simvastatin 20 mg tablet 20 mg PO PM #14 tabs 04/17/21 04/22/22 Rx diltiazem HCl 300 mg See Rx Instructions .Route 03/15/22 04/22/22 Rx capsule,extended release 24 hr .COMPLEX #90 caps olmesartan 40 mg tablet 40 mg PO DAILY #90 tabs 03/22/22 04/22/22 Rx tamsulosin 0.4 mg capsule 0.8 mg PO DAILY #180 caps 03/22/22 04/22/22 Rx Patient History Medical History (Updated 04/23/22 @ 14:44 by Kisha Gibbs MD) Anuria Hypertension Impaired fasting glucose Surgical History History of colonoscopy History of hand surgery L WRIST/GANGLION CYST History of hernia repair X2 Family History Other No pertinent family history Denies family history of Ovarian cancer Prostate cancer Myocardial infarction Breast cancer Colorectal cancer Social History Smoking Status: Never smoker Second Hand Exposure: No; Do You Dip or Chew Tobacco: No; Hx Alcohol Use: Yes Alcohol type: hard liquor Alcohol Intake Frequency: 2-3 x/Week Hx Substance Use: No Preferred Language: Tajik Communication Ability: Effective Visual Impairment: No Limitations Hearing Ability: Normal Protozoologist Required: No Beliefs That Will Affect Care: None marital status: Current Living Situation: Spouse current occupational status: retired How many Children do You have: 2 Other Information That Helps Us Care for You: No Feels Safe at Home: Yes Safety Concerns: Feels Safe At This Time Childhood Exposure to Second-Hand Smoke: No Diet Comment: regular caffeine: No during the past year weight has: remained stable Dental Care, Regularly: Yes Physical Activity Frequency: Daily Seatbelt Use: always Sunscreen Use: No Assistive Devices: None Assistive Devices Comment: reading glasses Review of Systems Review of Systems: All systems reviewed & are unremarkable except as noted in HPI & below Physical Exam Constitutional: WD/WN, vitals as above no acute distress Eyes: icteric ENMT: Ears: no hearing impairment Neck: normal visual inspection Thyroid: no thyromegaly Respiratory: normal respiratory effort; no respiratory distress and no cough Auscultation: lungs clear to auscultation bilaterally Cardiovascular: Rate/Rhythm: regular rate and regular rhythm Heart Sounds: normal S1 and normal S2 Extremities: no edema Gastrointestinal (Abdomen): Inspection/Auscultation: abdomen normal to inspection and normal bowel sounds Percussion/Palpation: abdomen soft; abdomen nontender Musculoskeletal: Extremities: extremities normal to inspection Skin: normal turgor and + jaundice; no rashes Neurologic: no focal motor deficits and not confused Psychiatric: Orientation: alert and oriented x 3 Affect: euthymic affect Results & Data ([facility]) Vital Signs (Past 12 Hours) Vital Signs Temp Pulse Pulse Pulse Pulse Resp BP 04/23/22 12:13 36.6 C 68 68 16 103/71 04/23/22 07:30 92 H 04/23/22 07:29 36.7 C 83 16 103/63 04/23/22 06:27 36.8 C 74 16 103/70 04/23/22 04:34 90 04/23/22 03:26 04/23/22 03:18 36.8 C 82 18 95/63 L Pulse Ox Pulse Ox O2 Del Method O2 Del Method O2 Flow Rate O2 Flow Rate 04/23/22 12:13 94 Nasal Cannula 1 04/23/22 07:30 04/23/22 07:29 94 Nasal Cannula 3 04/23/22 06:27 93 Nasal Cannula 3 04/23/22 04:34 04/23/22 03:26 92 Nasal Cannula 3 04/23/22 03:18 92 Nasal Cannula 3 PG Care Time/CCT Total # of Minutes Spent Total Time Spent with Patient: Total time spent is greater than 50% in coordination of care (as documented) at patient's floor/unit and/or counseling patient: Coding Level of Care Code INP/OBS CONSULT LVL 5, 80 MIN Diagnoses Acute renal failure N17.9 Anuria R34 Thrombocytopenia D69.6 Fever R50.9 Transaminitis R74.01
--- NOTE | 2022-04-23 17:09 | XRay Report ---
XR chest 2V PA/lateral CLINICAL HISTORY: hypoxia, eval pneumonia/edema/etc. TECHNIQUE: 2 views of the chest were obtained. Comparison: Comparison is made to chest radiograph 04/22/2022 FINDINGS: No lines and tubes are seen. Cardiomegaly is noted. The lungs are clear. There is blunting of the cos tophrenic angle on the left. IMPRESSION: No evidence of pneumonia. Blunting of the left costophrenic angle may represent effusion or scarring. ACT 112: Negative or not required by law. Electronically signed by: Antwon Kaur M.D. 04/23/2022 5:07 PM
[2022-04-23 17:12] LABS: Appearance Urine Cloudy (Clear); Blood Urine 3+ (Negative); Color Urine Dark Yellow; Glucose Urine UA 1+ (Negative); Ketones Urine Negative (Negative); Leukocyte Esterase Urine 1+ (Negative); Nitrite Urine Negative (Negative); RBC Urine Automated >30 /hpf (0-4); Specific Gravity Urine 1.018 (1.000-1.030); Urobilinogen Urine Negative (Negative); WBC Urine Automated >30 /hpf (0-5); pH Urine 7.5 (4.5-7.5)
[2022-04-23 17:13] LABS: Bilirubin Urine 3+ (Negative); Protein Urine 3+ (Negative)
[2022-04-23 17:27] LABS: Bacteria Urine Automated 1+ (Negative)
[2022-04-23] MEDS: ONDANSETRON INJ 2 MG/ML 2 ML VIAL IV PRN (22:00)
[2022-04-24 01:13] LABS: Creatinine Urine Random 47.4 mg/dl; Total Protein Urine Random > 1000.0 mg/dl (0-11.9)
[2022-04-24] MEDS: DOXYCYCLINE HYCLATE 100 MG in DEXTROSE 5% 100 ML IV SCH ×2 (02:17→18:53)
[2022-04-24 06:14] LABS: Hemoglobin 12.6 g/dl (14.0-18.0); Mean Corpuscular Hemoglobin 30.2 pg (25.0-34.0); Mean Corpuscular Volume 86.3 fL (80.0-100.0); Mean Platelet Volume 12.1 fL (9.4-12.4); Platelet Count 58 K/uL (130-400); RDW Coefficient of Variation 13.3 % (11.5-14.5); RDW Standard Deviation 41.9 fL (36.4-46.3); Red Blood Count 4.17 M/uL (4.63-6.08); White Blood Count 11.87 K/ul (4.8-10.8)
[2022-04-24 06:35] LABS: Estimated Average Glucose 126 mg/dl
[2022-04-24 06:36] LABS: INR 1.2 (0.9-1.1); Partial Thromboplastin Ratio 1.2; Partial Thromboplastin Time 32.9 Seconds (21.0-31.0); Prothrombin Time 12.2 Seconds (9.0-12.0)
[2022-04-24 06:49] LABS: Albumin Globulin Ratio 1.1 (0.9-2); Albumin Level 2.4 gm/dl (3.4-5.0); BUN Creatinine Ratio 15.2 (10-20); Basophils # (auto) 0.03 K/uL (0-0.2); Basophils % (auto) 0.3 %; Bilirubin,Total 9.7 mg/dl (0.2-1.0); C Reactive Protein 16.58 mg/dl (0-0.5); Calcium 7.5 mg/dl (8.5-10.1); Creatinine Clr Calc Pharmacy 9.7 ml/min; Echinocytes 2+; Eosinophils # (auto) 0.03 K/uL (0-0.50); Eosinophils % (auto) 0.3 %; Est GFR (African American) 7.1 ml/min; Est GFR (Non-African American) 6.1 ml/min; Globulin 2.2 gm/dl (2.5-4.0); Immature Granulocytes # (auto) 0.19 K/uL (0.00-0.02); Immature Granulocytes % (auto) 1.6 %; Lymphocytes # (auto) 0.49 K/uL (1.2-3.4); Lymphocytes % (auto) 4.1 %; Monocytes # (auto) 0.39 K/uL (0.24-0.82); Monocytes % (auto) 3.3 %; Neutrophils # (auto) 10.74 K/uL (1.4-6.5); Neutrophils % (auto) 90.4 %; Potassium 4.5 mmol/L (3.5-5.1); Total Protein 4.6 gm/dl (6.0-8.3)
[2022-04-24] MEDS: INSULIN ASPART PER UNIT SC SCH ×3 (08:21→20:26)
[2022-04-24] MEDS: PANTOprazole 40 MG TAB PO SCH ×2 (08:39→20:25)
--- NOTE | 2022-04-24 10:00 | Gastroenterology Progress Note ---
Date of Service April 24, 2022 Assessment & Plan (1) Abnormal LFTs: (2) Abdominal pain: Plan Discussed case with Dr. Byers who advised on plan. - await pending labs of EBV/CMV/hepattis panel. will continue to trend LFTs. - continue with protonix 40mg bid given epigastric pain in the setting of recent nsaid use. - he will need an outpatient MRCP to further evaluate the IPMN seen on imaging. Admission and Anticipated Discharge Date Admission Date: April 22, 2022 Subjective Patient still with nausea and epigastric pain. he tells me he has no appetite. had an episode of emesis after eating an ice chips. no bowel movements since admission. 04/24/22 AST 69, ALT 77, total bili 9.7, alk phos 109. EBV/CMV/hep panel pending. Physical Exam Constitutional: WD/WN, vitals as above Respiratory: normal respiratory effort, lungs clear to auscultation Cardiovascular: RRR, no murmur, no edema Gastrointestinal (Abdomen): mild epigastric tenderness to palpation, soft, no guarding, bowel sounds present. Skin: no rashes, warm and dry Psychiatric: Orientation: alert and oriented x 3 Affect: euthymic affect Results & Data Results & Data ([facility]) Vital Signs (Past 12 Hours) Vital Signs Temp Pulse Pulse Pulse Resp BP Pulse Ox 04/24/22 08:16 36.5 C 98 H 18 97/62 L 96 04/24/22 04:54 20 04/24/22 03:40 36.5 C 96 H 22 98/56 L 92 04/24/22 03:00 04/24/22 00:45 102 H 04/23/22 23:05 36.7 C 93 H 22 103/65 95 O2 Del Method O2 Del Method O2 Flow Rate O2 Flow Rate 04/24/22 08:16 Nasal Cannula 2 04/24/22 04:54 04/24/22 03:40 Room Air 04/24/22 03:00 Nasal Cannula 1 04/24/22 00:45 04/23/22 23:05 Room Air PG Care Time/CCT Total # of Minutes Spent Total Time Spent with Patient: Total time spent is greater than 50% in coordination of care (as documented) at patient's floor/unit and/or counseling patient: Coding Level of Care Code 34693 SUB INP/OBS CARE 1/25MIN Diagnoses Abnormal LFTs R79.89 Abdominal pain R10.13 Abdominal location: epigastric Time Spent (min) 25 (1) Abdominal pain Abdominal location: epigastric Qualified Code(s): R10.13 - Epigastric pain
--- NOTE | 2022-04-24 11:32 | Infectious Disease Progress Nt ---
Date of Service April 24, 2022 Assessment & Plan (1) Thrombocytopenia: (2) Acute renal failure: (3) Transaminitis: (4) Lymphopenia: (5) Fever: Plan 67 yo M with a history of HTN, BPH, HLD who presented on 04/22 with fevers, chills, myalgias since 04/11, now admitted with lymphopenia, thrombocytopenia, elevated LFTs, and acute renal failure. Although he denies recent known tick bites, he does regularly spend time in wooded areas and have regular tick exposures. No rash, upper respiratory symptoms. Had taken Aleve for several days prior to admission. Infectious work-up thus far shows SARS-CoV-2, influenza A/B, and RSV PCR negative, RVP negative, Lyme IgM/IgG negative, BCx NGTD, and blood smear for Anaplasma and Babesia is negative. A CT A/P without contrast and CXR showed no significant findings. A liver US showed gallbladder sludge without evidence of acute cholecystitis, a small pancreatic cystic lesion which may represent IPMN, and renal cysts. He was started on empiric doxycycline for a possible tick-borne illness, and multiple tick-borne illness studies are pen ding. He has been afebrile since admission, with stable/downtrending AST, ALT, alk phos, procalcitonin. Cr and bilirubin are uptrending. Ceftriaxone was added on 04/23, in the context of family concern for sepsis. His lymphopenia, thrombocytopenia, and elevated LFTs raises concern for a tick- borne illness such as Anaplasma, Ehrlichia. Lyme serologies are negative. Peripheral blood smear has not confirmed Anaplasma or Babesia, but can often be negative in lower parasitemia. Other tick-borne illness studies are pending. Micro: 04/24 Blood smear for Anaplasma/Babesia: pending 04/23 Borrelia miyamotoi PCR: pending 04/23 Borrelia miyamotoi IgM, IgG: pending 04/23 CMV IgM: pending 04/23 EBV panel: pending 04/23 Q fever panel: pending 04/23 Rickettsia IgM, IgG: pending 04/23 Typus fever IgM, IgG: pending 04/23 RVP: negative 04/23 Acute hepatitis panel: pending 04/22 Ehrlichia chaffeensis IgM, IgG: pending 04/22 Ehrlichia chaffeensis PCR: pending 04/22 Blood smear for Anaplasma/Babesia: No evidence of intracytoplasmic neutrophilic inclusions to suggest Anaplasmosis. No evidence of RBC inclusions to suggest Babesia. 04/22 Anaplasma phagocytophilum PCR: pending 04/22 Babesia microti IgM, IgG: pending 04/22 Babesia microti PCR: pending 04/22 Lyme IgM, IgG: negative 04/22 BCx x2: pending 04/22 COVID-19, influenza A/B, RSV PCR: negative Antimicrobial course: Doxycycline 04/22 - present Ceftriaxone 04/23 - present Problems: #Fevers: febrile prior to admission, but afebrile here #Lymphopenia #Thrombocytopenia #Acute renal failure #Elevated LFTs Recommendations: -Continue empiric doxycycline to cover for tick-borne illnesses -Ok to continue ceftriaxone for now -Ordered repeat blood smear for Anaplasma/Babesia -Follow-up Anaplasma, Ehrlichia, Babesia, Borrelia miyamotoi, Rickettsia testing -Follow-up acute hepatitis panel -Follow-up blood cultures Will continue to follow Admission and Anticipated Discharge Date Admission Date: April 22, 2022 Subjective This patient recommendation is based on a telemedicine consult request which was completed asynchronously through chart review and information provided by the primary physician. The patient was not seen or examined today. The evaluation is consultative in nature and all patient care and treatment decisions can either be accepted or rejected by the patient's primary hospital-based treating physician using their own independent medical judgment for their patient. Time Spent Reviewing Chart: 31+ minutes Nausea, epigastric pain Remains afebrile RVP negative WBC increased to 11.87 Cr uptrended to 8.25 Tbili up to 9.7 AST, ALT, alk phos stable Review of System Pt was not seen Physical Exam Physical Exam: Pt was not seen Results & Data ([facility]) Vital Signs (Past 12 Hours) Vital Signs Temp Pulse Pulse Pulse Resp BP Pulse Ox 04/24/22 08:16 36.5 C 98 H 18 97/62 L 96 04/24/22 04:54 20 04/24/22 03:40 36.5 C 96 H 22 98/56 L 92 04/24/22 03:00 04/24/22 00:45 102 H O2 Del Method O2 Del Method O2 Flow Rate O2 Flow Rate 04/24/22 08:16 Nasal Cannula 2 04/24/22 04:54 04/24/22 03:40 Room Air 04/24/22 03:00 Nasal Cannula 1 04/24/22 00:45 Laboratory Results Short CBC 04/24/22 Range/Units 05:38 WBC 11.87 H (4.8-10.8) K/ul Hgb 12.6 L (14.0-18.0) g/dl Hct 36.0 L (40.1-51.0) % Plt Count 58 L (130-400) K/uL BMP 04/24/22 05:38 Sodium 132 L Potassium 4.5 Chloride 98 Carbon Dioxide 19 L BUN 125 H Creatinine 8.25 H* D Glucose 123 H Calcium 7.5 L Liver Function 04/23/22 04/24/22 Range/Units 06:46 05:38 Total Bilirubin 9.7 H D (0.2-1.0) mg/dl Direct Bilirubin 4.6 H (0-0.2) mg/dl AST 69 H (13-39) U/L ALT 77 H (7-52) U/L Alkaline Phosphatase 109 H (34-104) U/L Albumin 2.4 L (3.4-5.0) gm/dl Urine 04/23/22 Range/Units Unknown Urine Color Dark Yellow Urine Appearance Cloudy A (Clear) Urine pH 7.5 (4.5-7.5) Ur Specific Fred 1.018 (1.000-1.030) Urine Protein 3+ H (Negative) Urine Glucose (UA) 1+ H (Negative) Diagnostic Findings 04/23 CXR FINDINGS: No lines and tubes are seen. Cardiomegaly is noted. The lungs are clear. There is blunting of the costophrenic angle on the left. IMPRESSION: No evidence of pneumonia. Blunting of the left costophrenic angle may represent effusion or scarring. Medications Administered Current Inpatient Medications Dextrose (Dextrose 50% 50 Ml Syringe) 25 - 50 ml IV UD PRN; Protocol PRN Reason: Hypoglycemia Protocol Stop: 05/23/22 10:29 Glucagon (Glucagon For Inj 1 Mg Vial) 1 mg IM UD PRN; Protocol PRN Reason: Hypoglycemia Protocol Stop: 05/23/22 10:29 Glucose (Glucose 40% Gel 15 Gm Tube) 15 - 30 gm PO UD PRN; Protocol PRN Reason: Hypoglycemia Protocol Stop: 05/23/22 10:29 Glucose (Glucose 10 Tab/Tube) 4 - 8 tab PO UD PRN; Protocol PRN Reason: Hypoglycemia Protocol Stop: 05/23/22 10:29 Doxycycline Hyclate 100 mg/ (Dextrose) 110 mls @ 50 mls/hr IV Q12H MELISSA Stop: 05/07/22 02:29 Last Infusion: 04/24/22 04:32 Dose: Infused Ceftriaxone Sodium 2,000 mg/ (Dextrose) 70 mls @ 100 mls/hr IV Q24H MELISSA; Protocol Stop: 04/25/22 12:14 Last Infusion: 04/23/22 13:59 Dose: Infused Insulin Aspart (Insulin Aspart Per Unit) 0 units SC ACHS [facility] Stop: 05/23/22 11:29 Last Admin: 04/24/22 08:21 Dose: Not Given Miscellaneous (Carbohydrates For Hypoglycemia ) 15 - 30 gm PO UD PRN PRN Reason: Hypoglycemia Treatment Stop: 05/23/22 10:29 Ondansetron HCl (Ondansetron Inj 2 Mg/Ml 2 Ml Vial) 4 mg IV Q6H PRN PRN Reason: Nausea Stop: 05/22/22 14:52 Last Admin: 04/23/22 22:00 Dose: 4 mg Pantoprazole Sodium (Pantoprazole 40 Mg Tab) 40 mg PO BID [facility] Stop: 05/23/22 12:44 Last Admin: 04/24/22 08:39 Dose: 40 mg (1) Acute renal failure Acute renal failure type: unspecified Qualified Code(s): N17.9 - Acute kidney failure, unspecified
[2022-04-24] MEDS ORDERED: Nursing to Pharmacy Communication SCH ×2 (12:15→18:15)
--- NOTE | 2022-04-24 12:32 | History & Physical Report ---
Date of Service April 24, 2022 Assessment & Plan (1) Acute renal failure: Plan: Patient for permcath insertion for dialysis. I have discussed the risks options and benefits of the procedure with the patient. The patient understands the risks options and benefits and agrees to the procedure. Acute renal failure type: unspecified Qualified Code(s): N17.9 - Acute kidney failure, unspecified Admission and Anticipated Discharge Date Admission Date: April 22, 2022 History of Present Illness Chief Complaint: RAF Primary Care Provider: Kurt Ramires DO Patient with worsening kidney function which is going to require hemodialysis. Permcath was recommended for access. Allergies Allergy/AdvReac Type Severity Reaction Status Date / Time No Known Allergies Allergy Verified 03/22/22 09:29 Home Medications Medication Instructions Recorded Confirmed Type aspirin 81 mg tablet,delayed 81 mg PO QAM 04/08/18 04/22/22 History release (Aspir-) flaxseed oil 1,000 mg capsule 1,000 mg PO QAM 04/08/18 04/22/22 History multivitamin (Multiple Vitamins 1 tab PO QAM 04/08/18 04/22/22 History tablet) glucosamine sulfate 500 mg tablet 1 tab PO DAILY 04/13/18 04/22/22 History (Glucosamine) simvastatin 20 mg tablet 20 mg PO PM #14 tabs 04/17/21 04/22/22 Rx diltiazem HCl 300 mg See Rx Instructions .Route 03/15/22 04/22/22 Rx capsule,extended release 24 hr .COMPLEX #90 caps olmesartan 40 mg tablet 40 mg PO DAILY #90 tabs 03/22/22 04/22/22 Rx tamsulosin 0.4 mg capsule 0.8 mg PO DAILY #180 caps 03/22/22 04/22/22 Rx Past Med/Surg History Medical History Anuria Hypertension Impaired fasting glucose Surgical History History of colonoscopy History of hand surgery L WRIST/GANGLION CYST History of hernia repair X2 Family History Other No pertinent family history Denies family history of Ovarian cancer Prostate cancer Myocardial infarction Breast cancer Colorectal cancer Social History Smoking Status: Never smoker Second Hand Exposure: No; Hx Alcohol Use: Yes Alcohol type: hard liquor Alcohol Intake Frequency: 2-3 x/Week Hx Substance Use: No Preferred Language: Kyrgyz Communication Ability: Effective Visual Impairment: No Limitations Hearing Ability: Normal Combination Technician Required: No Beliefs That Will Affect Care: None marital status: Current Living Situation: Spouse current occupational status: retired How many Children do You have: 2 Feels Safe at Home: Yes Childhood Exposure to Second-Hand Smoke: No Diet Comment: regular caffeine: No during the past year weight has: remained stable Dental Care, Regularly: Yes Physical Activity Frequency: Daily Seatbelt Use: always Sunscreen Use: No Assistive Devices: None Review of Systems All systems reviewed & are unremarkable except as noted in HPI & below Physical Exam Constitutional: well developed and well nourished Respiratory: normal respiratory effort, lungs clear to auscultation Cardiovascular: RRR, no murmur, no edema Extremities: normal capillary refill Gastrointestinal (Abdomen): normal bowel sounds, soft, nontender, no hepatosplenomegaly Musculoskeletal: no cyanosis or clubbing, extremities motor strength 5/5 Neurologic: CN's II-XI intact bilaterally and moves all extremities Psychiatric: Orientation: alert and oriented x 3 Results & Data ([facility]) Vital Signs (Past 12 Hours) Vital Signs Temp Pulse Pulse Pulse Resp BP Pulse Ox 04/24/22 11:38 36.8 C 81 16 101/56 L 93 04/24/22 08:16 36.5 C 98 H 18 97/62 L 96 04/24/22 04:54 20 04/24/22 03:40 36.5 C 96 H 22 98/56 L 92 04/24/22 03:00 04/24/22 00:45 102 H O2 Del Method O2 Del Method O2 Flow Rate O2 Flow Rate 04/24/22 11:38 Nasal Cannula 04/24/22 08:16 Nasal Cannula 2 04/24/22 04:54 04/24/22 03:40 Room Air 04/24/22 03:00 Nasal Cannula 1 04/24/22 00:45 Code Status & VTE Plan VTE Prophylaxis Plan VTE Prophylaxis will be ordered: Yes
[2022-04-24] MEDS ORDERED: MIDAZOLAM HCL 1 MG/ML 2ML VIAL ONE (12:46)
[2022-04-24] MEDS ORDERED: fentaNYL citrate 100 MCG/2 ML VIAL ONE (12:46)
[2022-04-24] MEDS ORDERED: HEPARIN SOD (PORCINE) 5,000 UNITS/ML VIAL ONE (12:46)
[2022-04-24] MEDS ORDERED: LIDOCAINE 1% LOCAL 20 ML VIAL ONE (12:47)
--- NOTE | 2022-04-24 13:01 | Pre Anesthesia Assessment ---
Date of Service April 24, 2022 Pre Sedation Assessment Vital Signs Temp Pulse Pulse Pulse Resp BP BP 04/24/22 12:32 36.7 C 95 H 18 103/68 04/24/22 11:38 36.8 C 81 16 101/56 L 04/24/22 08:16 36.5 C 98 H 18 97/62 L 04/24/22 04:54 20 04/24/22 03:40 36.5 C 96 H 22 98/56 L 04/24/22 03:00 04/24/22 00:45 102 H 04/23/22 23:05 36.7 C 93 H 22 103/65 04/23/22 19:25 04/23/22 19:12 36.6 C 84 18 110/74 04/23/22 15:48 36.6 C 89 18 113/68 Pulse Ox O2 Del Method O2 Del Method O2 Flow Rate O2 Flow Rate 04/24/22 12:32 93 Nasal Cannula 2 04/24/22 11:38 93 Nasal Cannula 1 04/24/22 08:16 96 Nasal Cannula 2 04/24/22 04:54 04/24/22 03:40 92 Room Air 04/24/22 03:00 Nasal Cannula 1 04/24/22 00:45 04/23/22 23:05 95 Room Air 04/23/22 19:25 Nasal Cannula 1 04/23/22 19:12 93 Nasal Cannula 1 04/23/22 15:48 93 Nasal Cannula Cardiovascular RRR, no murmur, no edema Respiratory normal respiratory effort, lungs clear to auscultation Pre-Sedation Airway Assessment Smoking Status: Never smoker Hx Sleep Apnea: No Short, Thick Neck: No Thyromental Distance: > or= 3.5 Finger Breadths Oral Cavity: + WNL Mallampati Class: III ASA: ASA4 NPO Status Date of Last Intake of Fluids: 04/23/22 Time of Last Intake of Fluids: 23:00 Date of Last Intake of Solid Food: 04/23/22 Time of Last Intake of Solid Foods: 23:00 Procedure Planning Contraindications for Sedation: none Current Medications Reviewed: Yes Notes The planned sedation has been discussed with the patient. Informed Consent was obtained. I have identified the patient, determined the appropriateness of sedation and have assessed the patient immediately prior to the procedure. All medicine(s) and interventions are by my order.
--- NOTE | 2022-04-24 13:56 | Nephrology Progress Note ---
Date of Service April 24, 2022 Assessment & Plan (1) Acute renal failure: (2) Anuria: (3) Thrombocytopenia: (4) Fever: (5) Transaminitis: Plan 67 yo M presented with more than a week history of fever, chills, myalgia, poor p.o. intake and decreased urine output. On admission noted to have RAF with creatinine 6.1, BUN 93 with prior normal renal function baseline creatinine 0.9 on 03/11/2022. Urinalysis Showed 3+ proteinuria and 3+ microscopic hematuria with more than 30 RBC/HPF. CT A/P showed bilateral mild perinephric stranding but otherwise unremarkable. Renal function progressively worsening despite getting IV fluid and remained anuric, no postrenal obstruction on renal imaging. Concern for ATN with possible infectious etiology. Although less likely, cannot totally exclude possibility for glomerulonephritis. Rapid progressive worsening of renal function. remained anuric. did not respond to high dose of diuretics yesterday. -- Plan for tunneled dialysis catheter this afternoon and 1st dialysis treatment today for 2 hours. Will try to do on L UF if tolerated. Plan for 2nd dialysis tomorrow. No indication for kidney biopsy at this time, if clinically improved but no recovery of kidney function, biopsy as an outpatient can be set up. -- Pending serology and paraproteinemia workup -- explained in detail to patient's and daughter and answered all questions. Will follow. Admission and Anticipated Discharge Date Admission Date: April 22, 2022 Aditi Jewell was seen and evaluated this morning with his Marcela and daughter Marimar at bedside. He overall continues to feel extremely poorly and reports myalgia but no shortness of breath or chest pain. Blood pressure staying relatively low remain anuric, only 50 mL of urine since admission. Renal function continues to worsen with rapid rise in creatinine to above 8 this morning, slight abnormality in electrolyte. Review of Systems Review of Systems: Detailed review of system was otherwise unremarkable except mentioned above. Physical Exam ENMT: Ears: no hearing impairment Neck: normal visual inspection Gastrointestinal (Abdomen): Inspection/Auscultation: abdomen normal to inspection and normal bowel sounds Percussion/Palpation: abdomen soft; abdomen nontender Results & Data ([facility]) Vital Signs (Past 12 Hours) Vital Signs Temp Pulse Pulse Pulse Resp BP Pulse Ox 04/24/22 13:45 90 16 98/58 L 94 04/24/22 13:40 94 H 16 83/58 L 95 04/24/22 13:35 91 H 16 84/57 L 94 04/24/22 13:30 86 16 96/56 L 95 04/24/22 13:27 92 H 16 91/56 L 95 04/24/22 13:25 94 H 16 79/60 L 94 04/24/22 13:20 90 16 96/58 L 95 04/24/22 13:15 89 16 91/56 L 92 04/24/22 13:10 92 H 16 93/64 L 92 04/24/22 13:05 85 16 94/62 L 93 04/24/22 13:00 94 H 16 96/64 L 94 04/24/22 12:32 36.7 C 95 H 18 103/68 93 04/24/22 11:38 36.8 C 81 16 101/56 L 93 04/24/22 08:16 36.5 C 98 H 18 97/62 L 96 04/24/22 04:54 20 04/24/22 03:40 36.5 C 96 H 22 98/56 L 92 04/24/22 03:00 O2 Del Method O2 Del Method O2 Flow Rate O2 Flow Rate 04/24/22 13:45 Oxymask 4 04/24/22 13:40 Oxymask 4 04/24/22 13:35 Oxymask 4 04/24/22 13:30 Oxymask 4 04/24/22 13:27 Oxymask 4 04/24/22 13:25 Oxymask 4 04/24/22 13:20 Oxymask 4 04/24/22 13:15 Oxymask 4 04/24/22 13:10 Oxymask 4 04/24/22 13:05 Oxymask 4 04/24/22 13:00 Oxymask 4 04/24/22 12:32 Nasal Cannula 2 04/24/22 11:38 Nasal Cannula 1 04/24/22 08:16 Nasal Cannula 2 04/24/22 04:54 04/24/22 03:40 Room Air 04/24/22 03:00 Nasal Cannula 1 PG Care Time/CCT Total # of Minutes Spent Total Time Spent with Patient: Total time spent is greater than 50% in coordination of care (as documented) at patient's floor/unit and/or counseling patient: Coding Level of Care Code 64425 SUB INP/OBS CARE 50MIN Diagnoses Acute renal failure N17.9 Acute renal failure type: unspecified Anuria R34 Thrombocytopenia D69.6 Fever R50.9 Transaminitis R74.01 (1) Acute renal failure Acute renal failure type: unspecified Qualified Code(s): N17.9 - Acute kidney failure, unspecified
--- NOTE | 2022-04-24 14:02 | Post Operative Brief Note ---
Immediate Post Op Note v1 Date of Surgery April 24, 2022 Pre & Post Diagnosis Operation Date: 04/24/22 09:40 Pre-Op Diagnosis: ACUTE RENAL FAILURE Post-Op Diagnosis: ACUTE RENAL FAILURE I identified the patient and participated in the time-out.: Yes Procedure Operation Date: 04/24/22 09:40 Actual Procedures p Insertion Perm Catheter Right Jugular Vein, Ultrasound Localization of Right Jugular Vein, Fluoroscopy for Positioning, Moderate Sedation [id number] (Right) - Michael Samuel MD Surgeon Michael Samuel MD Commercial Electrician PPercy MD Estimated Blood Loss 10 Findings Consistent with Post-Op Diagnosis Anesthesia Type RN Sedation Complications none Disposition Accompanied Patient To Recovery: No Disposition: Recovery Room
--- NOTE | 2022-04-24 14:02 | Post Anesthesia Assessment ---
Date of Service April 24, 2022 Post Sedation Assessment Vital Signs Temp Pulse Pulse Pulse Resp BP BP 04/24/22 13:57 103 H 16 104/58 L 04/24/22 13:55 85 16 103/59 L 04/24/22 13:50 100 H 16 101/56 L 04/24/22 13:45 90 16 98/58 L 04/24/22 13:40 94 H 16 83/58 L 04/24/22 13:35 91 H 16 84/57 L 04/24/22 13:30 86 16 96/56 L 04/24/22 13:27 92 H 16 91/56 L 04/24/22 13:25 94 H 16 79/60 L 04/24/22 13:20 90 16 96/58 L 04/24/22 13:15 89 16 91/56 L 04/24/22 13:10 92 H 16 93/64 L 04/24/22 13:05 85 16 94/62 L 04/24/22 13:00 94 H 16 96/64 L 04/24/22 12:32 36.7 C 95 H 18 103/68 04/24/22 11:38 36.8 C 81 16 101/56 L 04/24/22 08:16 36.5 C 98 H 18 97/62 L 04/24/22 04:54 20 04/24/22 03:40 36.5 C 96 H 22 98/56 L 04/24/22 03:00 04/24/22 00:45 102 H 04/23/22 23:05 36.7 C 93 H 22 103/65 04/23/22 19:25 04/23/22 19:12 36.6 C 84 18 110/74 04/23/22 15:48 36.6 C 89 18 113/68 Pulse Ox O2 Del Method O2 Del Method O2 Flow Rate O2 Flow Rate 04/24/22 13:57 93 Oxymask 4 04/24/22 13:55 94 Oxymask 4 04/24/22 13:50 95 Oxymask 4 04/24/22 13:45 94 Oxymask 4 04/24/22 13:40 95 Oxymask 4 04/24/22 13:35 94 Oxymask 4 04/24/22 13:30 95 Oxymask 4 04/24/22 13:27 95 Oxymask 4 04/24/22 13:25 94 Oxymask 4 04/24/22 13:20 95 Oxymask 4 04/24/22 13:15 92 Oxymask 4 04/24/22 13:10 92 Oxymask 4 04/24/22 13:05 93 Oxymask 4 04/24/22 13:00 94 Oxymask 4 04/24/22 12:32 93 Nasal Cannula 2 04/24/22 11:38 93 Nasal Cannula 1 04/24/22 08:16 96 Nasal Cannula 2 04/24/22 04:54 04/24/22 03:40 92 Room Air 04/24/22 03:00 Nasal Cannula 1 04/24/22 00:45 04/23/22 23:05 95 Room Air 04/23/22 19:25 Nasal Cannula 1 04/23/22 19:12 93 Nasal Cannula 1 04/23/22 15:48 93 Nasal Cannula Recovery Score Activity: Moves 4 extremities Respiration: Deep Breath/Cough Circulation: +/-20% PreAnes Value Consciousness: Fully Awake Oxygen Saturation: O2 needed for >90% Post Anesthesia Score: 9 Discharge Sedation Level of Care: Fast Track Phase II Post Sedation Plan On clinical assessment, the patient appears to have tolerated the sedation without complications. Patient is recovering as anticipated. Patient will continue to be monitored by nursing and may be discharged when sedation discharge criteria are met per below protocol. Upon Completions of procedure up to 15 minutes continue every 5 minute vital signs and the P.A.R. score; then discharge to a Phase I or Fast Track to Phase II per the following guidelines: * Discharge Patient to appropriate Phase II area if PAR is 8 or greater or return to pre- procedure baseline. The post - procedure orders will be as directed. * If PAR score is less than 8 or not return to pre-procedure baseline then patient will follow Phase I monitoring till PAR is reached for Phase II. The Phase I may be done in procedure room or may call to secure a Phase I area. * If naloxone or flumazenil are used for reversal, hold in Phase I for continued monitoring from when last reversal dose was given for a minimum of 60 minutes or longer pending the nurse and/or physician discretion of patient condition before discharge to Phase II. Please call the Sedation Physician to re-evaluate and complete post-note for discharge to Phase II area. Do NOT discharge from procedure sedation or Phase 1 until post- sedation evaluation note is complete by procedure /sedation MD Sedation Discharge Instructions to be given to the patient at discharge to home.
--- NOTE | 2022-04-24 14:04 | Operative Report ---
Post Operative Report Pre & Post Diagnosis Operation Date: 04/24/22 09:40 Pre-Op Diagnosis: ACUTE RENAL FAILURE Post-Op Diagnosis: ACUTE RENAL FAILURE I identified the patient and participated in the time-out.: Yes Procedure Operation Date: 04/24/22 09:40 Actual Procedures p Insertion Perm Catheter Right Jugular Vein, Ultrasound Localization of Right Jugular Vein, Fluoroscopy for Positioning, Moderate Sedation [id number] 1402(Right) - Michael Samuel MD Surgeon Michael Samuel MD Barrel Maker Antwon Greer MD Estimated Blood Loss 10 Findings Consistent with Post-Op Diagnosis The right internal jugular vein was patient under ultrasound visualization. Needle entry was documented. The newly placed catheter has smooth course terminating within SVC. Excellent function on hand injection. Specimens None Drains None Complications None apparent Disposition Accompanied Patient To Recovery: Yes Indications Need for hemodialysis access secondary to acute renal failure Description of Procedure Patient was taken to the angiography suite and placed in the supine position. The right side of the neck and chest wall were prepped and draped in a sterile manner. Local anesthesia was then administered to the appropriate areas of the neck and chest wall. Ultrasound was then used to locate the internal internal jugular vein. The vein compressed easily, had no filing defects, and was patent. The vein was then punctured under direct ultrasound imaging. A guidewire was then passed centrally under fluoroscopic imaging. A stab wound was then made in the anterior chest wall and a 19 cm permcath was passed from the stab wound on the chest wall to the puncture site on the neck. The puncture site was then dilated till the 14Fr peel away sheath was inserted. The permcath was then inserted through the sheath to a central position in the distal superior vena cava. The peel away sheath was then removed. The catheter was then sutured in place using nylon sutures. The puncture was then closed using a 4-0 Vicryl subcuticular suture. Dermabond was used for a dressing on the puncture site. Both ports aspirated and flushed easily and were then packed with heparin. A sterile dressing was applied to the catheter. The patient left the angio suite in good condition and tolerated the procedure well. Dr. Samuel was present and scrubbed for the entire procedure. I attest to the content of the Intraoperative Record and any orders documented therein. Any exceptions are noted below. Supervising Physician Co-Signing Physician Notes Michael Samuel MD
--- NOTE | 2022-04-24 15:32 | XCELERA ---
[id number]
[2022-04-24] MEDS ORDERED: INSULIN ASPART PER UNIT SC SCH (18:00)
[2022-04-24] MEDS: cefTRIAXone SODIUM 2,000 MG in DEXTROSE 5% 50 ML IV SCH (18:03)
[2022-04-24] MEDS: ONDANSETRON INJ 2 MG/ML 2 ML VIAL IV PRN (20:30)
--- NOTE | 2022-04-24 20:56 | Hospitalist Progress Note ---
Date of Service April 24, 2022 Assessment & Plan (1) Acute renal failure: Plan: SEVERE. Worse today, with continued rise of BUN and Creatinine. Exact etiology of ARF uncertain. Pre-renal injury from poor PO intake, severe vomiting at home, and NSAID use? No evidence of post-renal obstruction based on imaging. Cannot rule out intrinsic disease - acute GN, AIN, Acute IgA nephropathy, Autoimmune disease, Light chain disease, etc. SPEP, UPEP, ADELSO, ANCA, complements, anti-GBM, acute hepatitis profile, etc - all pending. Despite copious hydration first 24 hours of his stay he had no urine output response. Diuretic challenge was not successful - about 50cc of UOP only. u/a - 3+ blood, 3+ protein, and casts seen. Plan - * Dr Samuel consult pending for HD catheter placement * Following such to have HD #1 session - 2 hours * Daily BMP * Appreciate nephrology and vascular surgery assistance * await extensive lab w/u (2) Fever: Plan: At the beginning of his illness he had documented, confirmed fevers at home suggesting an infectious process. [employer] resp panel fully negative. Due to #3 acute hepatitis profile ordered. Still pending. Lyme screen neg. Anaplasmosis and Babesia smears negative; DNA tests for both dispatched. Ehrlichia testing dispatched. LDH/retic NOT c/w hemolysis making babesiosis unlikely. Blood cultures and urine cx negative to date. CXR without pneumonia. No infectious process on CT a/p. Despite #3 he does not appear to have acute cholecystitis or choledocholithiasis. CMV/EBV titers pending. Appreciate ID consultation - additional serologies added by ID. Tick-borne illness vs viral etiology vs other are possibilities. Cont Doxycycline BID for empiric tick-borne coverage. Cont Rocephin IV for empiric coverage while awaiting results of blood cultures. Consider MRCP due to rising total bili and abnormal LFTs? (3) Abnormal LFTs: Plan: reactive to viral process? tick-borne? other? appreciate GI consult. EBV/CMV titers sent. total bili continues to rise, and INR is scantly higher today at 1.2. repeat LFTS and INR in am. consider MRCP to rule out CBD abnormalities (stone/sludge). (4) Thrombocytopenia: Plan: peripheral smear - no signs of TTP or overt signs of MDS process. Likely due to infectious process but uncertain since we do not have a specific pathogen identified as of yet. viral vs tick-borne vs other. serial CBC. platelet count DID improve modestly to 58 today. (5) HTN (hypertension): Plan: holding home BP meds BPs have been LOW or LOW-NORMAL (6) Hyperlipidemia: Plan: Hold statin due to transaminitis. (7) Enlarged prostate: Plan: Flomax on hold due to low-normal BPs. Cont Leong. (8) Atrial fibrillation: Plan: Presented in a.fib. Chronicity uncertain. He does not have apparent symptoms from such. Rates are controlled without AV prabhjot agents. Echo with preserved EF and normal valve function. TSH wnl. No anticoagulation at this time despite CHADsVASc of 2 (age, HTN history) given his low platelets. Discussed a.fib dx with patient and his pt's family. Will re-address anticoagulation at later date when safe to start such. (9) Prediabetes: Plan: Hba1c 6% c/w such when eating cont DM diet as BSGs are high in the face of significant physical stress novolog SSI (10) Aortic root dilatation: Plan: 4.7cm on echocardiogram will need ongoing surveillance of this (11) Insomnia: Plan: add melatonin 3mg HS Plan DVT proph - SCDS; avoid chemical means due to low platelets but perhaps start such next 48 hours if platelets cont to trend upward care d/w nephrology and GI continued highly complex care coordination Admission and Anticipated Discharge Date Admission Date: April 22, 2022 Subjective patient slept poorly overnight continues to feel awful with body-wide myalgias, poor energy, and very little appetite denies dyspnea or orthopnea 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 (did vomit yesterday) no fevers or chills tele overnight - ongoing a.fib /daughter at bedside; patient and his family understand plan of care is to have permcath placed today and undergo HD session #1 due to ongoing anuria denies any new complaints - still no headache, cough, URI symptoms, or diarrhea Review of Systems Review of Systems: gen - very tired, weak, fatigued cv - no chest pain pulm - no cough, no sputum GI - no diarrhea, no true pain just fullness skin - jaundice worse Physical Exam Physical Exam: gen - sickly, weak appearing; lying flat in bed comfortably mouth - MM dry neck - no JVD heart - irregular, s1 s2, no murmur lungs - mildly decreased BS bases, CTA b/l apices abd - body wall edema, mild fullness upper abdomen, slightly Tender epigastric region, ?liver edge palpable, distended, BS+, no splenomegaly ext - <1+ edema x 4 extremities; pulses 2+ b/l skin - no rash but jaundice on face and upper chest to nipple line musculo - no synovitis any joint upper or lower ext psych - a/o x 3 Results & Data Results & Data ([facility]) Vital Signs (Past 12 Hours) Vital Signs Temp Pulse Pulse Pulse Resp BP BP 04/24/22 19:30 36.7 C 92 H 20 102/64 04/24/22 17:15 36.6 C 89 04/24/22 17:00 77 110/65 04/24/22 16:30 99 H 102/71 04/24/22 16:00 85 95/60 L 04/24/22 15:30 72 93/65 L 04/24/22 15:15 85 95/58 L 04/24/22 15:06 36.6 C 98 H 104/64 04/24/22 15:04 36.6 C 98 H 04/24/22 14:45 36.6 C 101 H 18 04/24/22 14:33 36.7 C 88 18 04/24/22 14:18 36.6 C 101 H 16 04/24/22 14:03 36.6 C 101 H 18 04/24/22 13:57 103 H 16 04/24/22 13:55 85 16 04/24/22 13:50 100 H 16 04/24/22 13:45 90 16 04/24/22 13:40 94 H 16 04/24/22 13:35 91 H 16 04/24/22 13:30 86 16 04/24/22 13:27 92 H 16 04/24/22 13:25 94 H 16 04/24/22 13:20 90 04/24/22 13:15 89 04/24/22 13:10 92 H 16 04/24/22 13:05 85 04/24/22 14:02 103 H 16 04/24/22 13:00 94 H 04/24/22 12:32 36.7 C 95 H 18 04/24/22 11:38 36.8 C 81 16 BP Pulse Ox O2 Del Method O2 Flow Rate 04/24/22 19:30 95 Nasal Cannula 2 04/24/22 17:15 104/62 04/24/22 17:00 04/24/22 16:30 04/24/22 16:00 04/24/22 15:30 04/24/22 15:15 04/24/22 15:06 04/24/22 15:04 04/24/22 14:45 103/67 94 Room Air 04/24/22 14:33 111/69 94 Nasal Cannula 2 04/24/22 14:18 82/51 L 92 Nasal Cannula 2 04/24/22 14:03 83/53 L 92 Room Air 04/24/22 13:57 104/58 L 93 Oxymask 4 04/24/22 13:55 103/59 L 94 Oxymask 4 04/24/22 13:50 101/56 L 95 Oxymask 4 04/24/22 13:45 98/58 L 94 Oxymask 4 04/24/22 13:40 83/58 L 95 Oxymask 4 04/24/22 13:35 84/57 L 94 Oxymask 4 04/24/22 13:30 96/56 L 95 Oxymask 4 04/24/22 13:27 91/56 L 95 Oxymask 4 04/24/22 13:25 79/60 L 94 Oxymask 4 04/24/22 13:20 96/58 L 95 Oxymask 4 04/24/22 13:15 91/56 L 92 Oxymask 4 04/24/22 13:10 93/64 L 92 Oxymask 4 04/24/22 13:05 94/62 L 93 Oxymask 4 04/24/22 14:02 104/58 L 93 Oxymask 4 04/24/22 13:00 96/64 L 94 Oxymask 4 04/24/22 12:32 103/68 93 Nasal Cannula 2 04/24/22 11:38 101/56 L 93 Nasal Cannula 1 Laboratory Results Laboratory Results - last 24 hr 04/23/22 04/24/22 04/24/22 Unknown 05:38 05:38 WBC RBC Hgb Hct MCV MCH MCHC RDW Std Deviation RDW Coeff of Ronen Plt Count MPV Immature Gran % (Auto) Neut % (Auto) Lymph % (Auto) [place] % (Auto) Eos % (Auto) Baso % (Auto) Neut # (Auto) Lymph # (Auto) [place] # (Auto) Eos # (Auto) Baso # (Auto) Immature Gran # (Auto) Echinocytes PT 12.2 H INR 1.2 H APTT 32.9 H PTT Ratio 1.2 Sodium 132 L Potassium 4.5 Chloride 98 Carbon Dioxide 19 L Anion Gap 15 H BUN 125 H Creatinine 8.25 H* D Est Cr Clr Drug Dosing 9.7 Est GFR ( Amer) 7.1 Est GFR (Non-Af Amer) 6.1 BUN/Creatinine Ratio 15.2 Glucose 123 H POC Glucose Estimat Average Glucose Hemoglobin A1c Calcium 7.5 L Total Bilirubin 9.7 H D AST 69 H ALT 77 H Alkaline Phosphatase 109 H C-Reactive Protein 16.58 H Total Protein 4.6 L Total Protein (PEP) Albumin 2.4 L Albumin (PEP) Globulin 2.2 L Albumin/Globulin Ratio 1.1 Eqrzm-9-Eqrdhetaf Zfqid-6-Omhhujomi Vefu-0-Fvsagafk Csex-7-Ypnkxand Gamma Globulins Monoclonal Peak 3 Ser Monoclonl Protein Ser Monoclonal Prot 2 PEP Interpretation Procalcitonin TSH Ur Random Creatinine 47.4 U Random Total Protein > 1000.0 H Ur Creatinine mg/dL Protein/Creatinin Ratio TNP Urine Albumin (%) U Kwlvk-9-Wtrmbqdm (%) U Fyrnj-2-Dmyctpho (%) U Beta Globulin (%) U Gamma Globulin (%) U Abnormal Prot Band 1 U Abnormal Prot Band 2 U Abnormal Prot Band 3 Urine PEP Interpret Free [place] LC, Quant Free Lambda LC, Quant Free [place]/Lambda Ratio Anaplasma Smear Babesia Smear 04/24/22 04/24/22 04/24/22 05:38 05:38 05:38 WBC 11.87 H RBC 4.17 L Hgb 12.6 L Hct 36.0 L MCV 86.3 MCH 30.2 MCHC 35.0 RDW Std Deviation 41.9 RDW Coeff of Ronen 13.3 Plt Count 58 L MPV 12.1 Immature Gran % (Auto) 1.6 Neut % (Auto) 90.4 Lymph % (Auto) 4.1 [place] % (Auto) 3.3 Eos % (Auto) 0.3 Baso % (Auto) 0.3 Neut # (Auto) 10.74 H Lymph # (Auto) 0.49 L [place] # (Auto) 0.39 Eos # (Auto) 0.03 Baso # (Auto) 0.03 Immature Gran # (Auto) 0.19 H Echinocytes 2+ PT INR APTT PTT Ratio Sodium Potassium Chloride Carbon Dioxide Anion Gap BUN Creatinine Est Cr Clr Drug Dosing Est GFR ( Amer) Est GFR (Non-Af Amer) BUN/Creatinine Ratio Glucose POC Glucose Estimat Average Glucose 126 Hemoglobin A1c 6.0 H Calcium Total Bilirubin AST ALT Alkaline Phosphatase C-Reactive Protein Total Protein Total Protein (PEP) Albumin Albumin (PEP) Globulin Albumin/Globulin Ratio Nioxx-7-Tkbpkugzo Rlaiq-6-Ywbisbwxo Plhe-3-Zrcilnxl Sacd-3-Oqoqrnhw Gamma Globulins Monoclonal Peak 3 Ser Monoclonl Protein Ser Monoclonal Prot 2 PEP Interpretation Procalcitonin 13.60 H TSH Ur Random Creatinine U Random Total Protein Ur Creatinine mg/dL Protein/Creatinin Ratio Urine Albumin (%) U Rjdrr-6-Cfkklmor (%) U Uufhq-3-Uiyelxow (%) U Beta Globulin (%) U Gamma Globulin (%) U Abnormal Prot Band 1 U Abnormal Prot Band 2 U Abnormal Prot Band 3 Urine PEP Interpret Free [place] LC, Quant Free Lambda LC, Quant Free [place]/Lambda Ratio Anaplasma Smear Babesia Smear 04/24/22 04/24/22 04/24/22 05:38 05:38 05:38 WBC RBC Hgb Hct MCV MCH MCHC RDW Std Deviation RDW Coeff of Ronen Plt Count MPV Immature Gran % (Auto) Neut % (Auto) Lymph % (Auto) [place] % (Auto) Eos % (Auto) Baso % (Auto) Neut # (Auto) Lymph # (Auto) [place] # (Auto) Eos # (Auto) Baso # (Auto) Immature Gran # (Auto) Echinocytes PT INR APTT PTT Ratio Sodium Potassium Chloride Carbon Dioxide Anion Gap BUN Creatinine Est Cr Clr Drug Dosing Est GFR ( Amer) Est GFR (Non-Af Amer) BUN/Creatinine Ratio Glucose POC Glucose Estimat Average Glucose Hemoglobin A1c Calcium Total Bilirubin AST ALT Alkaline Phosphatase C-Reactive Protein Total Protein Total Protein (PEP) Pending Albumin Albumin (PEP) Pending Globulin Albumin/Globulin Ratio Pnzjw-5-Ntmgvgyuz Pending Rsyvf-1-Wktsxnsdw Pending Ydcm-2-Pfdsqrww Pending Upsv-2-Apjaoxwg Pending Gamma Globulins Pending Monoclonal Peak 3 Pending Ser Monoclonl Protein Pending Ser Monoclonal Prot 2 Pending PEP Interpretation Pending Procalcitonin TSH 0.391 Ur Random Creatinine U Random Total Protein Ur Creatinine mg/dL Protein/Creatinin Ratio Urine Albumin (%) U Iufyh-0-Ulcecatb (%) U Shdpb-2-Djesypkl (%) U Beta Globulin (%) U Gamma Globulin (%) U Abnormal Prot Band 1 U Abnormal Prot Band 2 U Abnormal Prot Band 3 Urine PEP Interpret Free [place] LC, Quant Pending Free Lambda LC, Quant Pending Free [place]/Lambda Ratio Pending Anaplasma Smear See Comment Babesia Smear See Comment 04/24/22 04/24/22 04/24/22 07:27 12:03 20:25 WBC RBC Hgb Hct MCV MCH MCHC RDW Std Deviation RDW Coeff of Ronen Plt Count MPV Immature Gran % (Auto) Neut % (Auto) Lymph % (Auto) [place] % (Auto) Eos % (Auto) Baso % (Auto) Neut # (Auto) Lymph # (Auto) [place] # (Auto) Eos # (Auto) Baso # (Auto) Immature Gran # (Auto) Echinocytes PT INR APTT PTT Ratio Sodium Potassium Chloride Carbon Dioxide Anion Gap BUN Creatinine Est Cr Clr Drug Dosing Est GFR ( Amer) Est GFR (Non-Af Amer) BUN/Creatinine Ratio Glucose POC Glucose 127 H 119 H 105 H Estimat Average Glucose Hemoglobin A1c Calcium Total Bilirubin AST ALT Alkaline Phosphatase C-Reactive Protein Total Protein Total Protein (PEP) Albumin Albumin (PEP) Globulin Albumin/Globulin Ratio Smqts-2-Morhycxbq Dkdzt-3-Wnsmtidap Tgxk-8-Diyfmzxb Aiig-3-Faisshco Gamma Globulins Monoclonal Peak 3 Ser Monoclonl Protein Ser Monoclonal Prot 2 PEP Interpretation Procalcitonin TSH Ur Random Creatinine U Random Total Protein Ur Creatinine mg/dL Protein/Creatinin Ratio Urine Albumin (%) U Gjsqh-0-Iyhzogzy (%) U Adyms-5-Qvqjvavt (%) U Beta Globulin (%) U Gamma Globulin (%) U Abnormal Prot Band 1 U Abnormal Prot Band 2 U Abnormal Prot Band 3 Urine PEP Interpret Free [place] LC, Quant Free Lambda LC, Quant Free [place]/Lambda Ratio Anaplasma Smear Babesia Smear 04/24/22 Unknown WBC RBC Hgb Hct MCV MCH MCHC RDW Std Deviation RDW Coeff of Ronen Plt Count MPV Immature Gran % (Auto) Neut % (Auto) Lymph % (Auto) [place] % (Auto) Eos % (Auto) Baso % (Auto) Neut # (Auto) Lymph # (Auto) [place] # (Auto) Eos # (Auto) Baso # (Auto) Immature Gran # (Auto) Echinocytes PT INR APTT PTT Ratio Sodium Potassium Chloride Carbon Dioxide Anion Gap BUN Creatinine Est Cr Clr Drug Dosing Est GFR ( Amer) Est GFR (Non-Af Amer) BUN/Creatinine Ratio Glucose POC Glucose Estimat Average Glucose Hemoglobin A1c Calcium Total Bilirubin AST ALT Alkaline Phosphatase C-Reactive Protein Total Protein Total Protein (PEP) Albumin Albumin (PEP) Globulin Albumin/Globulin Ratio Qzkvl-9-Jzxyxbfdd Cosae-2-Zursumedc Chxv-7-Wneimtrx Ostk-2-Uvsfkeac Gamma Globulins Monoclonal Peak 3 Ser Monoclonl Protein Ser Monoclonal Prot 2 PEP Interpretation Procalcitonin TSH Ur Random Creatinine U Random Total Protein Pending Ur Creatinine mg/dL Pending Protein/Creatinin Ratio Pending Urine Albumin (%) Pending U Pqlkw-0-Kswlrbds (%) Pending U Kmfoh-1-Bqtompif (%) Pending U Beta Globulin (%) Pending U Gamma Globulin (%) Pending U Abnormal Prot Band 1 Pending U Abnormal Prot Band 2 Pending U Abnormal Prot Band 3 Pending Urine PEP Interpret Pending Free [place] LC, Quant Free Lambda LC, Quant Free [place]/Lambda Ratio Anaplasma Smear Babesia Smear PG Care Time/CCT Total # of Minutes Spent Total Time Spent with Patient: Total time spent is greater than 50% in coordination of care (as documented) at patient's floor/unit and/or counseling patient: Coding Level of Care Code 49800 SUB INP/OBS CARE 3/50MIN Diagnoses Acute renal failure N17.9 Acute renal failure type: unspecified Fever R50.9 Abnormal LFTs R79.89 Thrombocytopenia D69.6 HTN (hypertension) I10 Hyperlipidemia E78.5 Enlarged prostate N40.0 Atrial fibrillation I48.91 Prediabetes R73.03 Aortic root dilatation I77.810 Insomnia G47.00 (1) Acute renal failure Acute renal failure type: unspecified Qualified Code(s): N17.9 - Acute kidney failure, unspecified
[2022-04-24] MEDS ORDERED: MELATONIN 3 MG TAB PO SCH (21:00)
[2022-04-25] MEDS: DOXYCYCLINE HYCLATE 100 MG in DEXTROSE 5% 100 ML IV SCH ×2 (02:52→16:53)
[2022-04-25] MEDS: ONDANSETRON INJ 2 MG/ML 2 ML VIAL IV PRN ×2 (02:56→18:03)
--- NOTE | 2022-04-25 05:46 | Electrocardiogram Report ---
Test Reason : Blood Pressure : / mmHG Vent. Rate : 083 BPM Atrial Rate : 107 BPM P-R Int : 000 ms QRS Dur : 094 ms QT Int : 376 ms P-R-T Axes : 000 024 015 degrees QTc Int : 441 ms Atrial fibrillation Nonspecific T wave abnormality Abnormal ECG When compared with ECG of 13-APR-2018 09:23, Atrial fibrillation has replaced Sinus rhythm Nonspecific T wave abnormality now evident in Inferior leads Nonspecific T wave abnormality now evident in Lateral leads Confirmed by German Clark ([id number]) on 04/25/2022 5:46:12 AM Referred By: REFERRED SELF Confirmed By:German Clark
[2022-04-25 07:27] LABS: Hematocrit (blood only) 34.5 % (40.1-51.0); Hemoglobin 12.6 g/dl (14.0-18.0); Mean Corpuscular Hemoglobin 30.7 pg (25.0-34.0); Mean Corpuscular Hgb Conc 36.5 g/dL (32.0-36.0); Mean Corpuscular Volume 83.9 fL (80.0-100.0); Mean Platelet Volume 11.8 fL (9.4-12.4); Platelet Count 71 K/uL (130-400); RDW Coefficient of Variation 14.2 % (11.5-14.5); RDW Standard Deviation 43.9 fL (36.4-46.3); Red Blood Count 4.11 M/uL (4.63-6.08); White Blood Count 16.71 K/ul (4.8-10.8)
[2022-04-25 07:33] LABS: INR 1.1 (0.9-1.1); Prothrombin Time 12.1 Seconds (9.0-12.0)
[2022-04-25] MEDS: INSULIN ASPART PER UNIT SC SCH ×4 (07:33→20:45)
[2022-04-25 08:39] LABS: Albumin Level 2.4 gm/dl (3.4-5.0); Bilirubin Direct 9.6 mg/dl (0-0.2); Bilirubin,Total 13.7 mg/dl (0.2-1.0); C Reactive Protein 17.26 mg/dl (0-0.5); Calcium 7.5 mg/dl (8.5-10.1); Creatinine Clr Calc Pharmacy 10.3 ml/min; Est GFR (African American) 7.7 ml/min; Est GFR (Non-African American) 6.6 ml/min; Globulin 2.4 gm/dl (2.5-4.0); Phosphorus 5.1 mg/dl (2.5-4.9); Potassium 5.1 mmol/L (3.5-5.1); Total Protein 4.8 gm/dl (6.0-8.3)
[2022-04-25] MEDS: PANTOprazole 40 MG TAB PO SCH ×2 (09:46→20:52)
--- NOTE | 2022-04-25 10:09 | Communication Note ---
Date of Service: April 25, 2022 Patient off floor today when I went to see him. Had discussion with his daughter and the patients urinary output was slightly better yesterday. Per daughter, patient has been in good spirits. He ate slightly better yesterday. his total bili did rise to 13.7. Primary has ordered MRCP today for further evaluation. EBV/CMV/hepatits panel are pending. will await results and continue to trend LFTs.
--- NOTE | 2022-04-25 12:41 | Infectious Disease Progress Nt ---
Date of Service April 25, 2022 Assessment & Plan (1) Thrombocytopenia: (2) Acute renal failure: (3) Transaminitis: (4) Lymphopenia: (5) Fever: Plan 67 yo M with a history of HTN, BPH, HLD who presented on 04/22 with fevers, chills, myalgias since 04/11, now admitted with lymphopenia, thrombocytopenia, elevated LFTs, and acute renal failure requiring HD. Although he denies recent known tick bites, he does regularly spend time in wooded areas and have regular tick exposures. No rash, upper respiratory symptoms. Had taken Aleve for several days prior to admission. Infectious work-up thus far shows SARS-CoV-2, influenza A/B, and RSV PCR negative, RVP negative, Lyme IgM/IgG negative, BCx NGTD, and blood smear x 2 for Anaplasma and Babesia is negative. A CT A/P without contrast and CXR showed no significant findings. A liver US showed gallbladder sludge without evidence of acute cholecystitis, a small pancreatic cystic lesion which may represent IPMN, and renal cysts. He was started on empiric doxycycline for a possible tick-borne illness, and multiple tick-borne illness studies are pending. He has been afebrile since admission, with stable AST and ALT in the 60s-70s. He has a mildly elevated uptrending alk phos. He had uptrending Cr to peak 8.25 and was started on dialysis on 04/24. Bilirubin continues to uptrend. Ceftriaxone was added on 04/23, and discontinued on 04/25 given negative BCx. His lymphopenia, thrombocytopenia, and elevated LFTs raises concern for a tick- borne illness such as Anaplasma, Ehrlichia, Babesia. Lyme serologies are negative. Peripheral blood smear has not confirmed Anaplasma or Babesia, but can often be negative in lower parasitemia. Multiple tick-borne illness studies are pending. His fevers have resolved, but he continues to have end organ damage that does not seem to be improving--could consider HLH secondary to infection, or perhaps Babesia not covered by doxycycline (although no signs of hemolysis on labs). No other pet, wild/farm animal exposures. Micro: 04/24 Blood smear for Anaplasma/Babesia: negative 04/23 UCx: NG 04/23 Borrelia miyamotoi PCR: pending 04/23 Borrelia miyamotoi IgM, IgG: pending 04/23 CMV IgM: pending 04/23 EBV panel: pending 04/23 Q fever panel: pending 04/23 Rickettsia IgM, IgG: pending 04/23 Typus fever IgM, IgG: pending 04/23 RVP: negative 04/23 Acute hepatitis panel: pending 04/22 Ehrlichia chaffeensis IgM, IgG: pending 04/22 Ehrlichia chaffeensis PCR: pending 04/22 Blood smear for Anaplasma/Babesia: negative 04/22 Anaplasma phagocytophilum PCR: pending 04/22 Babesia microti IgM, IgG: pending 04/22 Babesia microti PCR: pending 04/22 Lyme IgM, IgG: negative 04/22 BCx x2: pending 04/22 COVID-19, influenza A/B, RSV PCR: negative Antimicrobial course: Doxycycline 04/22 - present Azithromycin 04/25 - present Atovaquone 04/25 - present Ceftriaxone 04/23 - 04/24 Problems: #Fevers: febrile prior to admission, but afebrile here #Lymphopenia #Thrombocytopenia #Acute renal failure: started on HD 04/24 #Elevated LFTs Recommendations: -Continue empiric doxycycline 100 mg q12h to cover for tick-borne illnesses -Started azithromycin 500 mg IV daily and atovaquone 750 mg PO q12h to cover for possible Babesia -Ok to discontinue ceftriaxone -Ordered ferritin, IL-2 receptor, fibrinogen, and AM fasting triglyceride to evaluate for HLH -Follow-up Anaplasma, Ehrlichia, Babesia, Borrelia miyamotoi, Rickettsia testing -Follow-up acute hepatitis panel, EBV testing -Follow-up blood cultures Discussed pt with primary team. Will continue to follow Admission and Anticipated Discharge Date Admission Date: April 22, 2022 Subjective This patient recommendation is based on a telemedicine consult request which was completed asynchronously through chart review and information provided by the primary physician. The patient was not seen or examined today. The evaluation is consultative in nature and all patient care and treatment decisions can either be accepted or rejected by the patient's primary hospital-based treating physician using their own independent medical judgment for their patient. Time Spent Reviewing Chart: 31+ minutes Attempted to see patient this morning, but he was at dialysis HD catheter placed yesterday and started HD Afebrile, continues on 2 L NC WBC increased to 16.71 Plt 71 Tbili up to 13.7 AST, ALT stable Review of System Pt not seen Physical Exam Physical Exam: Pt not seen Results & Data ([facility]) Vital Signs (Past 12 Hours) Vital Signs Temp Pulse Pulse Pulse Resp BP BP 04/25/22 12:13 36.5 C 79 139/86 04/25/22 12:00 114/84 04/25/22 11:30 111/71 04/25/22 08:00 88 04/25/22 11:00 99/73 L 04/25/22 10:30 115/80 04/25/22 10:00 101/80 04/25/22 09:30 122/75 04/25/22 09:10 124/75 04/25/22 09:06 36.6 C 99 H 04/25/22 07:21 36.5 C 96 H 19 121/76 04/25/22 03:00 36.7 C 75 20 04/25/22 03:00 BP Pulse Ox O2 Del Method O2 Del Method O2 Flow Rate O2 Flow Rate 04/25/22 12:13 04/25/22 12:00 04/25/22 11:30 04/25/22 08:00 04/25/22 11:00 04/25/22 10:30 04/25/22 10:00 04/25/22 09:30 04/25/22 09:10 04/25/22 09:06 04/25/22 07:21 96 Nasal Cannula 2 04/25/22 03:00 127/78 96 Nasal Cannula 2 04/25/22 03:00 Nasal Cannula 2 Laboratory Results Short CBC 04/25/22 Range/Units 06:56 WBC 16.71 H (4.8-10.8) K/ul Hgb 12.6 L (14.0-18.0) g/dl Hct 34.5 L (40.1-51.0) % Plt Count 71 L (130-400) K/uL BMP 04/25/22 06:56 Sodium 133 L Potassium 5.1 Chloride 95 L Carbon Dioxide 23 BUN 116 H Creatinine 7.71 H* D Glucose 166 H Calcium 7.5 L Liver Function 04/25/22 Range/Units 06:56 Total Bilirubin 13.7 H (0.2-1.0) mg/dl Direct Bilirubin 9.6 H (0-0.2) mg/dl AST 66 H (13-39) U/L ALT 78 H (7-52) U/L Alkaline Phosphatase 147 H (34-104) U/L Albumin 2.4 L (3.4-5.0) gm/dl Medications Administered Current Inpatient Medications Atovaquone (Atovaquone 750 Mg/5 Ml Udc) 750 mg PO Q12H MELISSA Stop: 05/25/22 11:44 Dextrose (Dextrose 50% 50 Ml Syringe) 25 - 50 ml IV UD PRN; Protocol PRN Reason: Hypoglycemia Protocol Stop: 05/23/22 10:29 Glucagon (Glucagon For Inj 1 Mg Vial) 1 mg IM UD PRN; Protocol PRN Reason: Hypoglycemia Protocol Stop: 05/23/22 10:29 Glucose (Glucose 40% Gel 15 Gm Tube) 15 - 30 gm PO UD PRN; Protocol PRN Reason: Hypoglycemia Protocol Stop: 05/23/22 10:29 Glucose (Glucose 10 Tab/Tube) 4 - 8 tab PO UD PRN; Protocol PRN Reason: Hypoglycemia Protocol Stop: 05/23/22 10:29 Doxycycline Hyclate 100 mg/ (Dextrose) 110 mls @ 50 mls/hr IV Q12H MELISSA Stop: 05/07/22 02:29 Last Infusion: 04/25/22 04:51 Dose: Infused Azithromycin 500 mg/ Dextrose 255 mls @ 127.5 mls/hr IV Q24H MELISSA Stop: 05/02/22 11:44 Insulin Aspart (Insulin Aspart Per Unit) 0 units SC ACHS MELISSA Stop: 05/24/22 20:59 Last Admin: 04/25/22 12:14 Dose: Not Given Melatonin (Melatonin 3 Mg Tab) 3 mg PO HS MELISSA Stop: 05/24/22 20:59 Last Admin: 04/24/22 20:26 Dose: 3 mg Miscellaneous (Carbohydrates For Hypoglycemia ) 15 - 30 gm PO UD PRN PRN Reason: Hypoglycemia Treatment Stop: 05/23/22 10:29 Ondansetron HCl (Ondansetron Inj 2 Mg/Ml 2 Ml Vial) 4 mg IV Q6H PRN PRN Reason: Nausea Stop: 05/22/22 14:52 Last Admin: 04/25/22 02:56 Dose: 4 mg Pantoprazole Sodium (Pantoprazole 40 Mg Tab) 40 mg PO BID MELISSA Stop: 05/23/22 12:44 Last Admin: 04/25/22 09:46 Dose: 40 mg (1) Acute renal failure Acute renal failure type: unspecified Qualified Code(s): N17.9 - Acute kidney failure, unspecified
[2022-04-25 14:07] LABS: Anti Nuclear Antibody Screen NEGATIVE (NEGATIVE); Anti-Glom Basement Antibody <1.0 AI (<1.0); Complement C3 90 mg/dL (82-185); HBSAG NON-REACTIVE (NON-REACTIVE); Hepatitis A Antibody IgM NON-REACTIVE (NON-REACTIVE); Hepatitis B Core Antibody IgM NON-REACTIVE (NON-REACTIVE)
--- NOTE | 2022-04-25 14:13 | Magnetic Resonance Report ---
MR MRCP HISTORY: rising total bilirubin, abnl LFTs, GB sludge TECHNIQUE: MRCP of the abdomen was performed without contrast according to standard departmental prot ocol. COMPARISON STUDY: Abdominal ultrasound 04/22/2022. Abdomen and pelvis CT 04/22/2022. FINDINGS: There are small bilateral pleural effusions. There is diffuse body wall, mesenteric, retrop eritoneal edema. This has progressed in the interval. This suggests anasarca. No hepatic or splenic m asses. The adrenal glands are unremarkable. Normal caliber common bile duct measuring up to 3 mm. No filling defects to suggest choledocholithiasis. There is diffuse gallbladder wall/pericholecystic axel ma. Small cystic foci of the gallbladder fundus consistent with adenomyomatosis. There is an 8 mm cys tic lesion at within the body of the pancreas suggesting a small side branch intraductal papillary mu cinous neoplasm. No retroperitoneal lymphadenopathy. Normal caliber abdominal aorta. Small bilateral T2 hyperintense renal lesions favor cysts. There are bilateral peripelvic renal cysts noted. The main pancreatic duct appears normal and caliber. No gallstones identified. IMPRESSION: 1. Small bilateral pleural effusions with diffuse body wall edema, mesenteric edema, retroperitoneal edema, and gallbladder wall edema. This likely represents anasarca. 2. No gallstones identified. 3. Adenomyomatosis of the gallbladder fundus. 4. An 8 mm cystic lesion at the body of the pancreas. 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 One year MRCP follow-up can be performed to ensure stability. 5. Normal caliber common bile duct. No evidence for choledocholithiasis. ACT 112: Negative or not required by law. Electronically signed by: Willard Parish M.D. 04/25/2022 2:11 PM
[2022-04-25] MEDS: ATOVAQUONE 750 MG/5 ML UDC PO SCH (14:56)
[2022-04-25] MEDS: AZITHROMYCIN 500 MG in DEXTROSE 5% 250 ML IV SCH (14:56)
[2022-04-25 15:47] LABS: Fibrinogen 548 mg/dl (184-400)
--- NOTE | 2022-04-25 16:31 | Nephrology Progress Note ---
Date of Service April 25, 2022 Assessment & Plan (1) Acute renal failure: (2) Anuria: (3) Thrombocytopenia: (4) Fever: (5) Transaminitis: Plan 67 yo M presented with more than a week history of fever, chills, myalgia, poor p.o. intake and decreased urine output. On admission noted to have RAF with creatinine 6.1, BUN 93 with prior normal renal function baseline creatinine 0.9 on 03/11/2022. Urinalysis showed 3+ proteinuria and 3+ microscopic hematuria with more than 30 RBC/HPF. CT A/P showed bilateral mild perinephric stranding but otherwise unremarkable. Renal function progressively worsening despite getting IV fluid and remained anuric, no postrenal obstruction on renal imaging. Concern for ATN with possible infectious etiology. Although less likely, cannot totally exclude possibility for glomerulonephritis. Rapid progressive worsening of renal function. remained anuric. did not respond to high dose of diuretics. Had tunneled dialysis catheter placed on 04/24/2022 and had 1st dialysis. On doxycycline since admission, azithromycin and atovaquone added on 04/25/22 and ceftriaxone was discontinued. -- Plan for 3 hours dialysis tomorrow and UF as tolerated. No indication for kidney biopsy at this time, if clinically improved but no recovery of kidney function, biopsy as an outpatient can be set up. -- Pending serology and paraproteinemia workup -- explained in detail to patient's and daughter and answered all questions. Will follow. Admission and Anticipated Discharge Date Admission Date: April 22, 2022 Aditi Jewell was seen and evaluated this morning with his Marcela and daughter Marimar at bedside. He had tunneled dialysis catheter placed yesterday and had 2 hours dialysis. Overall tolerated dialysis and felt slightly better after dialysis as he had 1 L UF. Blood pressure relatively low but asymptomatic. He was sitting up in chair this morning with no dizziness or lightheadedness. Appetite remains poor, remain anuric, only 50 mL of urine since admission. Platelet count continues to slowly improve. Review of Systems Review of Systems: Detailed review of system was otherwise unremarkable except mentioned above. Physical Exam Constitutional: WD/WN, vitals as above no acute distress Neck: normal visual inspection right IJ tunneled dialysis catheter with no active bleeding or significant tenderness Respiratory: normal respiratory effort; no respiratory distress and no cough Auscultation: lungs clear to auscultation bilaterally Cardiovascular: Rate/Rhythm: regular rate and regular rhythm Heart Sounds: normal S1 and normal S2 Extremities: no edema Musculoskeletal: Extremities: extremities normal to inspection Skin: normal turgor and + jaundice; no rashes Neurologic: no focal motor deficits and not confused Psychiatric: Orientation: alert and oriented x 3 Affect: euthymic affect Results & Data ([facility]) Vital Signs (Past 12 Hours) Vital Signs Temp Pulse Pulse Pulse Resp BP BP 04/25/22 15:14 36.8 C 105 H 18 104/74 04/25/22 12:13 36.5 C 79 139/86 04/25/22 12:00 114/84 04/25/22 11:30 111/71 04/25/22 08:00 88 04/25/22 11:00 99/73 L 04/25/22 10:30 115/80 04/25/22 10:00 101/80 04/25/22 09:30 122/75 04/25/22 09:10 124/75 04/25/22 09:06 36.6 C 99 H 04/25/22 07:21 36.5 C 96 H 19 121/76 Pulse Ox O2 Del Method O2 Flow Rate 04/25/22 15:14 94 Room Air 04/25/22 12:13 04/25/22 12:00 04/25/22 11:30 04/25/22 08:00 04/25/22 11:00 04/25/22 10:30 04/25/22 10:00 04/25/22 09:30 04/25/22 09:10 04/25/22 09:06 04/25/22 07:21 96 Nasal Cannula 2 PG Care Time/CCT Total # of Minutes Spent Total Time Spent with Patient: Total time spent is greater than 50% in coordination of care (as documented) at patient's floor/unit and/or counseling patient: Coding Level of Care Code 65262 SUB INP/OBS CARE 3/50MIN Diagnoses Acute renal failure N17.9 Acute renal failure type: unspecified Anuria R34 Thrombocytopenia D69.6 Fever R50.9 Transaminitis R74.01 (1) Acute renal failure Acute renal failure type: unspecified Qualified Code(s): N17.9 - Acute kidney failure, unspecified
[2022-04-25 18:12] LABS: Babesia microti DNA Not Detected (Not Detected)
--- NOTE | 2022-04-25 19:39 | Hospitalist Progress Note ---
Date of Service April 25, 2022 Assessment & Plan (1) Acute renal failure: Plan: SEVERE. s/p placement of tunneled HD catheter 04/[address] Samuel. s/p HD yesterday and again today; tolerated both sessions. UF 2 L today. Daily BMP while here. Exact etiology of ARF uncertain. Pre-renal injury from poor PO intake, severe vomiting at home, and NSAID use? No evidence of post-renal obstruction based on imaging. Cannot rule out intrinsic disease - acute GN, AIN, Acute IgA nephropathy, Autoimmune disease, Light chain disease, etc. SPEP, UPEP, ADELSO, ANCA, complements, anti-GBM - all pending. acute hepatitis profile - negative. CPK 90 on day of admission. u/a - 3+ blood, 3+ protein, and casts seen. Plan - * Appreciate nephrology and vascular surgery assistance * await extensive lab w/u * suspect another HD session tomorrow * BMP am (2) Fever: Plan: At the beginning of his illness he had documented, confirmed fevers at home suggesting an infectious process. [employer] resp panel fully negative. Due to #3 acute hepatitis profile ordered - negative hep A, B, C. Lyme screen neg. Anaplasmosis and Babesia smears negative; DNA tests for both dispatched. Ehrlichia testing dispatched. LDH/retic NOT c/w hemolysis making babesiosis unlikely. Blood cultures and urine cx negative to date. Can stop IV rocephin. CXR without pneumonia. No infectious process on CT a/p. Despite #3 he does not appear to have acute cholecystitis or choledocholithiasis. MRCP negative for choledocholithiasis. CMV/EBV titers pending. Appreciate ID consultation - additional serologies added by ID. HLD w/u also s ent today. Cont Doxycycline BID for empiric tick-borne coverage. STOP Rocephin - blood cultures negative. Atovaquone + zithromax added by ID while awaiting Babesiosis DNA. Today - patient developed a lacy, erythematous, confluent rash on arms/legs. Rash appears viral in appearance; could be autoimmune type rash as well. Rash would be atypical for tick-borne disease rash. With his permission I took pictures of the rash; will share this rash with infectious disease. Since admission no fevers. (3) Abnormal LFTs: Plan: reactive to viral process? tick-borne? other? appreciate GI consult. EBV/CMV titers sent. total bili continues to rise, but platelets rising and INR stable. MRCP obtained - no obstruction of CBD. repeat LFTS and INR in am. (4) Thrombocytopenia: Plan: peripheral smear - no signs of TTP or overt signs of MDS process. Likely due to infectious process but uncertain since we do not have a specific pathogen identified as of yet. viral vs tick-borne vs other. serial CBC. platelet count DID improve again today. good sign in the midst of his illness. (5) HTN (hypertension): Plan: holding home BP meds but will add metoprolol for a.fib rate control (6) Hyperlipidemia: Plan: Hold statin due to transaminitis. CPK wnl at admission. (7) Enlarged prostate: Plan: Flomax on hold due to low-normal BPs. Cont Hagen. (8) Atrial fibrillation: Plan: Presented in a.fib. Chronicity uncertain. He does not have apparent symptoms from such. Echo with preserved EF and normal valve function. TSH wnl. No systemic anticoagulation at this time despite CHADsVASc of 2 (age, HTN history) given his low platelets. Discussed a.fib dx with patient and his pt's family. Will re-address anticoagulation at later date when safe to start such. Add metoprolol 25mg BID for rate control. (9) Prediabetes: Plan: Hba1c 6% c/w such novolog SSI (10) Aortic root dilatation: Plan: 4.7cm on echocardiogram will need ongoing surveillance of this (11) Insomnia: Plan: increase melatonin to 6mg HS (12) Rash: Plan: viral vs tick-borne vs non-infectious (autoimmune, etc) rash looks very viral in appearance consider parvovirus testing Plan DVT proph - with platelets trending upward and given limited mobility- start heparin 5000 BID cautiously care d/w nephrology and GI and ID continued highly complex care coordination Admission and Anticipated Discharge Date Admission Date: April 22, 2022 Subjective pt's /daughter at bedside during my visit he remains severely fatigued still did not sleep well last night appetite is very, very poor very little liquid intake as well body aches improved despite jaundice denies severe pruritis no dyspnea no orthopnea minimal cough had 2nd HD session - 2L UF removed; tolerated HD today we discussed MRCP results (No CBD obstruction) daughter asks about DVT proph, nutrition, etc tele - a.fib, rates 90s and 100s Review of Systems Review of Systems: gen - no fevers or chills; exhausted/fatigued; no appetite cv - no cp, no orthopnea pulm - no dyspnea, minimal cough GI - still w/ occasional nausea; no emesis today; mild abd fullness but no significant pain; did move bowels today - hagen in place musculo - denies joint pains; myalgias improved Physical Exam Physical Exam: gen - sickly, weak appearing; lying flat in bed comfortably; despondent mouth - MMM neck - no JVD heart - irregular, s1 s2, no murmur; tachy lungs - CTA b/l, no rales abd - body wall edema, mild fullness upper abdomen/distended, mild tenderness epigastric region, liver edge palpable, BS+, no palpable splenomegaly ext - 1+ edema arms, <1+ edema legs; pulses 2+ b/l skin - jaundice on face, chest, and mid abdomen; lacy, confluent, erythematous rash on upper arms, anterior thighs, a little on distal legs; torso, back, abdominal wall, palms, soles spared; face spared le line musculo - mild joint fluid b/l knees? but nontender psych - a/o x 3 Results & Data Results & Data ([facility]) Vital Signs (Past 12 Hours) Vital Signs Temp Pulse Pulse Pulse Resp BP BP 04/25/22 15:14 36.8 C 105 H 18 104/74 04/25/22 12:13 36.5 C 79 139/86 04/25/22 12:00 114/84 04/25/22 11:30 111/71 04/25/22 08:00 88 04/25/22 11:00 99/73 L 04/25/22 10:30 115/80 04/25/22 10:00 101/80 04/25/22 09:30 122/75 04/25/22 09:10 124/75 04/25/22 09:06 36.6 C 99 H Pulse Ox O2 Del Method 04/25/22 15:14 94 Room Air 04/25/22 12:13 04/25/22 12:00 04/25/22 11:30 04/25/22 08:00 04/25/22 11:00 04/25/22 10:30 04/25/22 10:00 04/25/22 09:30 04/25/22 09:10 04/25/22 09:06 Laboratory Results Laboratory Results - last 24 hr 04/23/22 04/24/22 10:57 20:25 WBC RBC Hgb Hct MCV MCH MCHC RDW Std Deviation RDW Coeff of Ronen Plt Count MPV PT INR Fibrinogen Sodium Potassium Chloride Carbon Dioxide Anion Gap BUN Creatinine Est Cr Clr Drug Dosing Est GFR ( Amer) Est GFR (Non-Af Amer) BUN/Creatinine Ratio Glucose POC Glucose 105 H Calcium Phosphorus Ferritin Total Bilirubin Direct Bilirubin AST ALT Alkaline Phosphatase C-Reactive Protein Total Protein Albumin Globulin Albumin/Globulin Ratio Interleukin 2-Receptor ADELSO Screen NEGATIVE Glomerular Base Memb Ab <1.0 Complement C3 90 Complement C4 25 Babesia microti DNA PCR Hepatitis A IgM Ab NON-REACTIVE Hep Bs Antigen NON-REACTIVE Hep Bs Ag Confirmation TNP Hep B Core IgM Ab NON-REACTIVE Hepatitis C Ab (EIA) NON-REACTIVE Hep C Ab Signal/Cutoff <0.02 04/25/22 04/25/22 04/25/22 06:56 06:56 06:56 WBC 16.71 H RBC 4.11 L Hgb 12.6 L Hct 34.5 L MCV 83.9 MCH 30.7 MCHC 36.5 H RDW Std Deviation 43.9 RDW Coeff of Ronen 14.2 Plt Count 71 L MPV 11.8 PT 12.1 H INR 1.1 Fibrinogen Sodium 133 L Potassium 5.1 Chloride 95 L Carbon Dioxide 23 Anion Gap 15 H BUN 116 H Creatinine 7.71 H* D Est Cr Clr Drug Dosing 10.3 Est GFR ( Amer) 7.7 Est GFR (Non-Af Amer) 6.6 BUN/Creatinine Ratio 15.0 Glucose 166 H POC Glucose Calcium 7.5 L Phosphorus 5.1 H Ferritin Total Bilirubin 13.7 H Direct Bilirubin 9.6 H AST 66 H ALT 78 H Alkaline Phosphatase 147 H C-Reactive Protein 17.26 H Total Protein 4.8 L Albumin 2.4 L Globulin 2.4 L Albumin/Globulin Ratio 1.0 Interleukin 2-Receptor ADELSO Screen Glomerular Base Memb Ab Complement C3 Complement C4 Babesia microti DNA PCR Hepatitis A IgM Ab Hep Bs Antigen Hep Bs Ag Confirmation Hep B Core IgM Ab Hepatitis C Ab (EIA) Hep C Ab Signal/Cutoff 04/25/22 04/25/22 04/25/22 07:24 14:47 14:47 WBC RBC Hgb Hct MCV MCH MCHC RDW Std Deviation RDW Coeff of Ronen Plt Count MPV PT INR Fibrinogen 548 H Sodium Potassium Chloride Carbon Dioxide Anion Gap BUN Creatinine Est Cr Clr Drug Dosing Est GFR ( Amer) Est GFR (Non-Af Amer) BUN/Creatinine Ratio Glucose POC Glucose 155 H Calcium Phosphorus Ferritin 275.9 Total Bilirubin Direct Bilirubin AST ALT Alkaline Phosphatase C-Reactive Protein Total Protein Albumin Globulin Albumin/Globulin Ratio Interleukin 2-Receptor ADELSO Screen Glomerular Base Memb Ab Complement C3 Complement C4 Babesia microti DNA PCR Hepatitis A IgM Ab Hep Bs Antigen Hep Bs Ag Confirmation Hep B Core IgM Ab Hepatitis C Ab (EIA) Hep C Ab Signal/Cutoff 04/25/22 04/25/22 14:47 16:20 WBC RBC Hgb Hct MCV MCH MCHC RDW Std Deviation RDW Coeff of Ronen Plt Count MPV PT INR Fibrinogen Sodium Potassium Chloride Carbon Dioxide Anion Gap BUN Creatinine Est Cr Clr Drug Dosing Est GFR ( Amer) Est GFR (Non-Af Amer) BUN/Creatinine Ratio Glucose POC Glucose 177 H Calcium Phosphorus Ferritin Total Bilirubin Direct Bilirubin AST ALT Alkaline Phosphatase C-Reactive Protein Total Protein Albumin Globulin Albumin/Globulin Ratio Interleukin 2-Receptor Pending ADELSO Screen Glomerular Base Memb Ab Complement C3 Complement C4 Babesia microti DNA PCR Hepatitis A IgM Ab Hep Bs Antigen Hep Bs Ag Confirmation Hep B Core IgM Ab Hepatitis C Ab (EIA) Hep C Ab Signal/Cutoff PG Care Time/CCT Total # of Minutes Spent Total Time Spent with Patient: Total time spent is greater than 50% in coordination of care (as documented) at patient's floor/unit and/or counseling patient: Coding Level of Care Code 94752 SUB INP/OBS CARE 3/50MIN Diagnoses Acute renal failure N17.9 Acute renal failure type: unspecified Fever R50.9 Abnormal LFTs R79.89 Thrombocytopenia D69.6 HTN (hypertension) I10 Hyperlipidemia E78.5 Enlarged prostate N40.0 Atrial fibrillation I48.91 Prediabetes R73.03 Aortic root dilatation I77.810 Insomnia G47.00 Rash R21 (1) Acute renal failure Acute renal failure type: unspecified Qualified Code(s): N17.9 - Acute kidney failure, unspecified
[2022-04-25] MEDS ORDERED: ZOLPIDEM TARTRATE 5 MG TAB PO ONE (20:16)
[2022-04-25] MEDS: MELATONIN 3 MG TAB PO SCH (20:51)
[2022-04-25] MEDS: METOPROLOL TARTRATE 25 MG TAB PO SCH (20:52)
[2022-04-25] MEDS: HEPARIN SOD 5,000 UNIT/0.5 ML VIAL SQ SCH (20:52)
[2022-04-26] MEDS: ATOVAQUONE 750 MG/5 ML UDC PO SCH ×2 (00:31→16:28)
[2022-04-26] MEDS: DOXYCYCLINE HYCLATE 100 MG in DEXTROSE 5% 100 ML IV SCH ×2 (03:30→16:44)
[2022-04-26] MEDS ORDERED: guaiFENesin 600 MG TABCR PO PRN (05:55)
[2022-04-26 07:12] LABS: Basophils # (auto) 0.02 K/uL (0-0.2); Basophils % (auto) 0.2 %; Eosinophils % (auto) 1.8 %; Hematocrit (blood only) 32.9 % (40.1-51.0); Hemoglobin 11.8 g/dl (14.0-18.0); Immature Granulocytes # (auto) 0.17 K/uL (0.00-0.02); Immature Granulocytes % (auto) 1.6 %; Lymphocytes # (auto) 1.33 K/uL (1.2-3.4); Lymphocytes % (auto) 12.3 %; Mean Corpuscular Hgb Conc 35.9 g/dL (32.0-36.0); Mean Corpuscular Volume 83.7 fL (80.0-100.0); Mean Platelet Volume 10.7 fL (9.4-12.4); Monocytes # (auto) 0.59 K/uL (0.24-0.82); Monocytes % (auto) 5.4 %; Neutrophils # (auto) 8.52 K/uL (1.4-6.5); Neutrophils % (auto) 78.7 %; Platelet Count 91 K/uL (130-400); RDW Coefficient of Variation 13.8 % (11.5-14.5); RDW Standard Deviation 42.7 fL (36.4-46.3); Red Blood Count 3.93 M/uL (4.63-6.08); White Blood Count 10.83 K/ul (4.8-10.8)
[2022-04-26] MEDS: ONDANSETRON INJ 2 MG/ML 2 ML VIAL IV PRN ×3 (07:46→19:36)
[2022-04-26 08:15] LABS: Albumin Level 2.2 gm/dl (3.4-5.0); Bilirubin Direct 9.7 mg/dl (0-0.2); Bilirubin,Total 14.1 mg/dl (0.2-1.0); Calcium 7.1 mg/dl (8.5-10.1); Potassium 4.4 mmol/L (3.5-5.1)
[2022-04-26 08:17] LABS: INR 1.1 (0.9-1.1); Prothrombin Time 11.5 Seconds (9.0-12.0)
[2022-04-26 08:31] LABS: BUN Creatinine Ratio 14.2 (10-20); Creatinine Clr Calc Pharmacy 12.6 ml/min; Est GFR (African American) 9.7 ml/min; Est GFR (Non-African American) 8.4 ml/min; Phosphorus 4.6 mg/dl (2.5-4.9); Total Protein 4.3 gm/dl (6.0-8.3)
[2022-04-26] MEDS: HEPARIN SOD 5,000 UNIT/0.5 ML VIAL SQ SCH ×2 (09:47→20:52)
[2022-04-26] MEDS: INSULIN ASPART PER UNIT SC SCH ×4 (09:47→20:42)
--- NOTE | 2022-04-26 09:49 | Communication Note ---
Date of Service: April 26, 2022 As an update to the GI note from 04/25/22, an MRCP was pending yesterday at the time of GI eval/review. The results of the MRCP are as follows: 1. Small bilateral pleural effusions with diffuse body wall edema, mesenteric edema, retroperitoneal edema, and gallbladder wall edema. This likely represents anasarca. 2. No gallstones identified. 3. Adenomyomatosis of the gallbladder fundus. 4. An 8 mm cystic lesion at the body of the pancreas. This favors a small side branch intraductal papillary mucinous neoplasm. One year MRCP follow-up can be performed to ensure stability. 5. Normal caliber common bile duct. No evidence for choledocholithiasis. US from 04/22/22 indicated: IMPRESSION: 1. There is gallbladder sludge without evidence of acute cholecystitis. 2. Small pancreatic cystic lesion may represent IPMN. If not previously evaluated, nonemergent MRCP can be performed. 3. Renal cysts are seen as above. CT abd/pelvis on 04/22/22 indicated: IMPRESSION: No evidence of hydronephrosis or other acute abnormality is seen in this noncontrast exam to explain acute renal failure. WBC count is 10,830, CRP 17.26, Plt 91, INR 1.1, Cr 6.35, T bili 14.1, D bili 9.7, AST 54, ALT 60 AP 147. He is currently being worked up due to concerns of infectious process/possible tick-borne illness. This is likely due to underlying infectious process for which patient is being assessed by ID. Given no biliary ductal concerns and no liver abnormalities on imaging, I would advise monitoring his LFTs & INR qAM. Would anticipate that once bilirubin peaks, it will not normalize for 6-8 weeks.
[2022-04-26 13:08] LABS: Ehrlichia chaff DNA Bld Negative (Negative)
--- NOTE | 2022-04-26 13:55 | Infectious Disease Progress Nt ---
Date of Service April 26, 2022 Assessment & Plan (1) Thrombocytopenia: (2) Acute renal failure: (3) Transaminitis: (4) Lymphopenia: (5) Fever: Plan 67 yo M with a history of HTN, BPH, HLD who presented on 04/22 with fevers, chills, myalgias since 04/11, now admitted with lymphopenia, thrombocytopenia, elevated LFTs, and acute renal failure requiring HD. Although he denies recent known tick bites, he does regularly spend time in wooded areas and have regular tick exposures. No pet, wild/farm animal exposures. No rash, upper respiratory symptoms. Had taken Aleve for several days prior to admission. Initial infectious work-up showed SARS-CoV-2, influenza A/B, and RSV PCR negative, RVP negative, Lyme IgM/IgG negative, BCx NGTD, and blood smear x 2 for Anaplasma and Babesia negative. A CT A/P without contrast and CXR showed no significant findings. A liver US showed gallbladder sludge without evidence of acute cholecystitis, a small pancreatic cystic lesion which may represent IPMN, and renal cysts. MRCP showed no gallstones, no biliary duct pathology. He was started on empiric doxycycline for a possible tick-borne illness, and multiple tick-borne illness studies were sent--thus far showing negative Anaplasma, Ehrlichia, and Babesia PCRs. He has reassuringly been afebrile since admission, but continues to have stably mildly elevated AST, ALT and alk phos, uptrending Tbili to 14.1, uptrending Cr to peak 8.25 for which he was started on dialysis on 04/24. He was on ceftriaxone from 04/23-04/24, but was discontinued due to BCx NGTD. He was started on azithromycin and atovaquone on 04/25 in case of Babesia as it is not covered by doxycycyline, but Babesia PCR has now returned as negative. His initial lymphopenia, thrombocytopenia, and elevated LFTs raises concern for a tick-borne illness--Borrelia miyamotoi, Rickettsial studies are still pending. His lymphopenia has now resolved, and he developed leukocytosis up to 16.7 on 04/25, now decreased to 10.83. He continues to have end organ damage that does not seem to be rapidly improving. Considered HLH secondary to infection, but ferritin is normal. Leptospirosis can cause kidney and hepatic injury and thrombocytopenia, but he does not seem to have the appropriate exposures, and would be covered by doxycycline anyways. Micro: 04/26 Parvovirus IgG, IgM: pending 04/24 Blood smear for Anaplasma/Babesia: negative 04/23 UCx: NG 04/23 Borrelia miyamotoi PCR: pending 04/23 Borrelia miyamotoi IgM, IgG: pending 04/23 CMV IgM: pending 04/23 EBV panel: pending 04/23 Q fever panel: pending 04/23 Rickettsia IgM, IgG: pending 04/23 Typus fever IgM, IgG: pending 04/23 RVP: negative 04/23 Acute hepatitis panel: HAV IgM neg, HBsAg neg, HBc IgM neg, HCV Ab neg 04/22 Ehrlichia chaffeensis IgM, IgG: pending 04/22 Ehrlichia chaffeensis PCR: negative 04/22 Blood smear for Anaplasma/Babesia: negative 04/22 Anaplasma phagocytophilum PCR: negative 04/22 Babesia microti IgM, IgG: pending 04/22 Babesia microti PCR: negative 04/22 Lyme IgM, IgG: negative 04/22 BCx x2: NGTD 04/22 COVID-19, influenza A/B, RSV PCR: negative Antimicrobial course: Doxycycline 04/22 - present Azithromycin 04/25 - present Atovaquone 04/25 - present Ceftriaxone 04/23 - 04/24 Problems: #Fevers: febrile prior to admission, but afebrile here #Lymphopenia #Thrombocytopenia #Acute renal failure: started on HD 04/24 #Elevated LFTs, bilirubin Recommendations: -Continue empiric doxycycline 100 mg q12h to cover for tick-borne illnesses -Ok to discontinue azithromycin and atovaquone given negative Babesia PCR -Follow-up Borrelia miyamotoi, Rickettsia panel -Follow-up EBV testing Discussed pt with primary team. Will continue to follow. Please note that there will be no ID notes over the weekend. If questions or concerns arise, please contact the Infectious Disease Call Center and ask to speak with the covering ID physician. Dr. Esvin Wilde will take over on Friday. Admission and Anticipated Discharge Date Admission Date: April 22, 2022 Subjective Subsequent visit was provided via telemedicine using two-way real-time interactive telecommunication between the patient and the telemedicine provider. For the duration of the visit, the provider was performing the assessment from a different facility than the patient. This includesuse of bluetooth stethoscope forauscultationperformed by the telepresenter that the telemedicine provider can hear if described in the physical exam. [employer] contact information: Please call [facility] Center . (Phone Number For Physician Use Only) After establishing a telemedicine visit, patient was: Patient was verified with two unique identifiers, Patient/authorized rep acknowledged consent and understanding and Gave permission to continue telehealth session Time Spent with Patient: Subsequent => 25 min WBC downtrended to 10.83. Plt up to 91 Remains afebrile. Now on room air Continues on dialysis. Cr 6.35 today Tbili up to 14.1. AST, ALT, alk phos stable MRCP yesterday without acute biliary findings Ferritin normal 275.9. AM triglycerides 242. IL-2 receptor pending Started on empiric azithro and atovaquone yesterday while awaiting Babesia testing Babesia PCR returned as negative last night Also now Anaplasma and Ehrlichia PCR negative Developed a lacy red rash on bilateral thighs/calves/forearms yesterday. Now resolved Pt denies shortness of breath, cough, abdominal pain, diarrhea. States he only feels ~5% better from initial presentation Review of System A complete ROS was performed and is negative except as mentioned in the HPI. Physical Exam Physical Exam: GEN: sitting up in NAD. HEENT: Normocephalic, atraumatic. Mild scleral icterus RESP: No increased work of breathing EXT: Bilateral hand edema. Warm, well-perfused. SKIN: No lesions or rashes on exposed skin. NEURO: Alert and oriented. Answers all questions appropriately. Speech not slurred. PSYCH: Normal mood, affect appropriate. Results & Data ([facility]) Vital Signs (Past 12 Hours) Vital Signs Temp Pulse Pulse Resp BP BP BP 04/26/22 13:30 93 H 103/60 04/26/22 13:00 82 115/68 04/26/22 12:30 102 H 124/72 04/26/22 12:00 81 100/59 L 04/26/22 11:30 84 111/67 04/26/22 11:00 81 106/72 04/26/22 10:30 88 112/84 04/26/22 10:00 103 H 106/80 04/26/22 09:56 94 H 106/76 04/26/22 09:48 36.9 C 96 H 04/26/22 08:00 91 H 04/26/22 07:36 36.6 C 93 H 16 114/68 04/26/22 03:41 36.5 C 88 14 121/79 Pulse Ox O2 Del Method 04/26/22 13:30 04/26/22 13:00 04/26/22 12:30 04/26/22 12:00 04/26/22 11:30 04/26/22 11:00 04/26/22 10:30 04/26/22 10:00 04/26/22 09:56 04/26/22 09:48 04/26/22 08:00 04/26/22 07:36 93 Room Air 04/26/22 03:41 94 Room Air Laboratory Results Short CBC 04/26/22 Range/Units 06:28 WBC 10.83 H (4.8-10.8) K/ul Hgb 11.8 L (14.0-18.0) g/dl Hct 32.9 L (40.1-51.0) % Plt Count 91 L (130-400) K/uL BMP 04/26/22 06:28 Sodium 133 L Potassium 4.4 Chloride 95 L Carbon Dioxide 27 BUN 90 H D Creatinine 6.35 H* D Glucose 136 H Calcium 7.1 L Liver Function 04/26/22 Range/Units 06:28 Total Bilirubin 14.1 H (0.2-1.0) mg/dl Direct Bilirubin 9.7 H (0-0.2) mg/dl AST 54 H (13-39) U/L ALT 60 H (7-52) U/L Alkaline Phosphatase 147 H (34-104) U/L Albumin 2.2 L (3.4-5.0) gm/dl Diagnostic Findings Cholangiopancreatography MRI 04/25/22 08:48 MR MRCP HISTORY: rising total bilirubin, abnl LFTs, GB sludge TECHNIQUE: MRCP of the abdomen was performed without contrast according to standard departmental protocol. COMPARISON STUDY: Abdominal ultrasound 04/22/2022. Abdomen and pelvis CT 04/22/2022. FINDINGS: There are small bilateral pleural effusions. There is diffuse body wall, mesenteric, retroperitoneal edema. This has progressed in the interval. This suggests anasarca. No hepatic or splenic masses. The adrenal glands are unremarkable. Normal caliber common bile duct measuring up to 3 mm. No filling defects to suggest choledocholithiasis. There is diffuse gallbladder wall/pericholecystic edema. Small cystic foci of the gallbladder fundus consistent with adenomyomatosis. There is an 8 mm cystic lesion at within the body of the pancreas suggesting a small side branch intraductal papillary mucinous neoplasm. No retroperitoneal lymphadenopathy. Normal caliber abdominal aorta. Small bilateral T2 hyperintense renal lesions favor cysts. There are bilateral peripelvic renal cysts noted. The main pancreatic duct appears normal and caliber. No gallstones identified. IMPRESSION: 1. Small bilateral pleural effusions with diffuse body wall edema, mesenteric edema, retroperitoneal edema, and gallbladder wall edema. This likely represents anasarca. 2. No gallstones identified. 3. Adenomyomatosis of the gallbladder fundus. 4. An 8 mm cystic lesion at the body of the pancreas. This favors a small side branch intraductal papillary mucinous neoplasm. One year MRCP follow-up can be performed to ensure stability. 5. Normal caliber common bile duct. No evidence for choledocholithiasis. ACT 112: Negative or not required by law. Electronically signed by: Willard Parish M.D. 04/25/2022 2:11 PM Medications Administered Current Inpatient Medications Atovaquone (Atovaquone 750 Mg/5 Ml Udc) 750 mg PO Q12H MELISSA Stop: 05/25/22 11:44 Last Admin: 04/26/22 00:31 Dose: Not Given Dextrose (Dextrose 50% 50 Ml Syringe) 25 - 50 ml IV UD PRN; Protocol PRN Reason: Hypoglycemia Protocol Stop: 05/23/22 10:29 Glucagon (Glucagon For Inj 1 Mg Vial) 1 mg IM UD PRN; Protocol PRN Reason: Hypoglycemia Protocol Stop: 05/23/22 10:29 Glucose (Glucose 40% Gel 15 Gm Tube) 15 - 30 gm PO UD PRN; Protocol PRN Reason: Hypoglycemia Protocol Stop: 05/23/22 10:29 Glucose (Glucose 10 Tab/Tube) 4 - 8 tab PO UD PRN; Protocol PRN Reason: Hypoglycemia Protocol Stop: 05/23/22 10:29 Guaifenesin (Guaifenesin 600 Mg Tabcr) 600 mg PO Q12 PRN PRN Reason: Cough Stop: 05/26/22 08:59 Last Admin: 04/26/22 07:30 Dose: 600 mg Heparin Sodium (Porcine) (Heparin Sod 5,000 Unit/0.5 Ml Vial) 5,000 units SQ Q12 MELISSA Stop: 05/25/22 20:59 Last Admin: 04/26/22 09:47 Dose: 5,000 units Doxycycline Hyclate 100 mg/ (Dextrose) 110 mls @ 50 mls/hr IV Q12H [facility] Stop: 05/07/22 02:29 Last Infusion: 04/26/22 08:01 Dose: Infused Azithromycin 500 mg/ Dextrose 255 mls @ 127.5 mls/hr IV Q24H [facility] Stop: 05/02/22 11:44 Last Infusion: 04/25/22 17:03 Dose: Infused Insulin Aspart (Insulin Aspart Per Unit) 0 units SC ACHS MELISSA Stop: 05/24/22 20:59 Last Admin: 04/26/22 09:47 Dose: Not Given Melatonin (Melatonin 3 Mg Tab) 6 mg PO HS [facility] Stop: 05/25/22 20:59 Last Admin: 04/25/22 20:51 Dose: Not Given Metoprolol Tartrate (Metoprolol Tartrate 25 Mg Tab) 25 mg PO BID [facility] Stop: 05/25/22 20:59 Last Admin: 04/25/22 20:52 Dose: 25 mg Miscellaneous (Carbohydrates For Hypoglycemia ) 15 - 30 gm PO UD PRN PRN Reason: Hypoglycemia Treatment Stop: 05/23/22 10:29 Multivitamins/Minerals (Cerovite Adv Formula Tab) 1 tab PO QAM [facility] Stop: 05/26/22 08:59 Ondansetron HCl (Ondansetron Inj 2 Mg/Ml 2 Ml Vial) 4 mg IV Q6H PRN PRN Reason: Nausea Stop: 05/22/22 14:52 Last Admin: 04/26/22 07:46 Dose: 4 mg Pantoprazole Sodium (Pantoprazole 40 Mg Tab) 40 mg PO BID [facility] Stop: 05/23/22 12:44 Last Admin: 04/25/22 20:52 Dose: 40 mg (1) Acute renal failure Acute renal failure type: unspecified Qualified Code(s): N17.9 - Acute kidney failure, unspecified
--- NOTE | 2022-04-26 14:11 | Nephrology Progress Note ---
Date of Service April 26, 2022 Assessment & Plan (1) Acute renal failure: (2) Anuria: (3) Thrombocytopenia: (4) Fever: (5) Transaminitis: Plan 67 yo M presented with more than a week history of fever, chills, myalgia, poor p.o. intake and decreased urine output. On admission noted to have RAF with creatinine 6.1, BUN 93 with prior normal renal function baseline creatinine 0.9 on 03/11/2022. Urinalysis showed 3+ proteinuria and 3+ microscopic hematuria with more than 30 RBC/HPF. CT A/P showed bilateral mild perinephric stranding but otherwise unremarkable. Renal function progressively worsening despite getting IV fluid and remained anuric, no postrenal obstruction on renal imaging. Concern for ATN with possible infectious etiology. Although less likely, cannot totally exclude possibility for glomerulonephritis. Rapid progressive worsening of renal function. remained anuric. did not respond to high dose of diuretics. Had tunneled dialysis catheter placed on 04/24/2022 and had 1st dialysis. On doxycycline since admission, azithromycin and atovaquone added on 04/25/22 and ceftriaxone was discontinued. -- Plan for 4 hours dialysis tomorrow and UF as tolerated. No indication for kidney biopsy at this time, if clinically improved but no recovery of kidney function, biopsy as an outpatient can be set up. -- will not do lab tomorrow as wedding [id number] dialysis and patient has been hard stick for blood draw. -- 1 dose of Lasix 120 mg IV this evening Will follow. Admission and Anticipated Discharge Date Admission Date: April 22, 2022 Aditi Jewell was seen and evaluated this morning with his Marcela and daughter Marimar at bedside. He had Second dialysis treatment yesterday tolerated well. Continues to feel poorly and feels tired but no shortness of breath, fever or chills. Developed lacy rash in lower extremity yesterday which resolved by this morning. Blood pressure relatively low but asymptomatic. urine output total 150 mL Platelet count continues to slowly improve. Review of Systems Review of Systems: Detailed review of system was otherwise unremarkable except mentioned above. Physical Exam Constitutional: WD/WN, vitals as above no acute distress Neck: normal visual inspection right IJ tunneled dialysis catheter with no active bleeding or significant tenderness Respiratory: normal respiratory effort; no respiratory distress and no cough Auscultation: lungs clear to auscultation bilaterally Cardiovascular: Rate/Rhythm: regular rate and regular rhythm Heart Sounds: normal S1 and normal S2 Extremities: no edema Musculoskeletal: Extremities: extremities normal to inspection Skin: normal turgor and + jaundice; no rashes Neurologic: no focal motor deficits and not confused Psychiatric: Orientation: alert and oriented x 3 Affect: euthymic affect Results & Data ([facility]) Vital Signs (Past 12 Hours) Vital Signs Temp Pulse Pulse Resp BP BP BP 04/26/22 13:30 93 H 103/60 04/26/22 13:00 82 115/68 04/26/22 12:30 102 H 124/72 04/26/22 12:00 81 100/59 L 04/26/22 11:30 84 111/67 04/26/22 11:00 81 106/72 04/26/22 10:30 88 112/84 04/26/22 10:00 103 H 106/80 04/26/22 09:56 94 H 106/76 04/26/22 09:48 36.9 C 96 H 04/26/22 08:00 91 H 04/26/22 07:36 36.6 C 93 H 16 114/68 04/26/22 03:41 36.5 C 88 14 121/79 Pulse Ox O2 Del Method 04/26/22 13:30 04/26/22 13:00 04/26/22 12:30 04/26/22 12:00 04/26/22 11:30 04/26/22 11:00 04/26/22 10:30 04/26/22 10:00 04/26/22 09:56 04/26/22 09:48 04/26/22 08:00 04/26/22 07:36 93 Room Air 04/26/22 03:41 94 Room Air PG Care Time/CCT Total # of Minutes Spent Total Time Spent with Patient: Total time spent is greater than 50% in coordination of care (as documented) at patient's floor/unit and/or counseling patient: Coding Level of Care Code 19171 SUB INP/OBS CARE 3/50MIN Diagnoses Acute renal failure N17.9 Acute renal failure type: unspecified Anuria R34 Thrombocytopenia D69.6 Fever R50.9 Transaminitis R74.01 (1) Acute renal failure Acute renal failure type: unspecified Qualified Code(s): N17.9 - Acute kidney failure, unspecified
[2022-04-26] MEDS: AZITHROMYCIN 500 MG in DEXTROSE 5% 250 ML IV SCH (14:37)
[2022-04-26] MEDS: PANTOprazole 40 MG TAB PO SCH ×2 (15:24→20:50)
[2022-04-26] MEDS: METOPROLOL TARTRATE 25 MG TAB PO SCH ×2 (15:24→20:48)
[2022-04-26 16:32] LABS: Alpha 1 Globulin 0.5 g/dL (0.2-0.3); Alpha 2 Globulin 0.6 g/dL (0.5-0.9); Beta-1-Globulin 0.3 g/dL (0.4-0.6); Beta-2-Globulin 0.3 g/dL (0.2-0.5); Free Kappa 70.4 mg/L (3.3-19.4); Free Kappa/Lambda Ratio 1.52 (0.26-1.65); Free Lambda 46.2 mg/L (5.7-26.3); Gamma Globulin 0.6 g/dL (0.8-1.7); Monoclonal Protein Band 1 DNR g/dL (NONE DETECTED); Monoclonal Protein Band 2 DNR g/dL (NONE DETECTED); Monoclonal Protein Band 3 DNR g/dL (NONE DETECTED); Total Protein 4.3 g/dL (6.1-8.1)
[2022-04-26] MEDS ORDERED: FUROSEMIDE 10 MG/ML 10 ML VIAL IV ONE (18:11)
--- NOTE | 2022-04-26 20:02 | Hospitalist Progress Note ---
Date of Service April 26, 2022 Assessment & Plan (1) Acute renal failure: Plan: SEVERE. Peak Cr 8.2. s/p placement of tunneled HD catheter 04/[address] Samuel. Today was HD session #3. Exact etiology of ARF uncertain. Pre-renal injury from poor PO intake, severe vomiting at home, and NSAID use? No evidence of post-renal obstruction based on imaging. Cannot rule out intrinsic disease. CPK - normal. acute hepatitis profile - negative. anti-GBM ab - negative. ADELSO negative. Complements negative. awaiting ANCA, etc. u/a - 3+ blood, 3+ protein, and casts seen. Plan - * Appreciate nephrology and vascular surgery assistance * HD session planned tomorrow ? * lasix 120mg IV x [address] Gibbs * can d/c hagen; once out document strict UOP (2) Fever: Plan: At the beginning of his illness he had documented, confirmed fevers at home suggesting an infectious process. BioFire resp panel fully negative. Due to #3 acute hepatitis profile ordered - negative hep A, B, C. Lyme screen neg. Anaplasmosis and Babesia smears negative; DNA tests for both negative. Ehrlichia DNA negative. Blood cultures and urine cx negative - IV rocephin stopped. CXR without pneumonia. No infectious process on CT a/p. Despite #3 he does not appear to have acute cholecystitis or choledocholithiasis. MRCP negative for choledocholithiasis. CMV/EBV titers pending. ADELSO negative. Sent parvovirus titers today. Awaiting rickettsial testing. Awaiting Il-2 level for HLH rule-out. Appreciate ID consultation and recs. Cont Doxycycline BID for empiric tick-borne coverage. Atovaquone + zithromax d/c today since Babesiosis testing was fully negative. Could consider deer tick virus testing but he has had no neurological symptoms/signs which are more common with deer tick virus per JARRETT KHAN. Appreciate ID consultation & assistance. (3) Acute hepatitis: Plan: appreciate GI assistance viral etiology suspected. no evidence to date of tick-borne illness. HepA,B,C all negative. Awaiting EBV/CMV titers. BioFire respiratory panel (which includes adenovirus) fully negative. INR remains wnl. Platelets are rising. It appears his bilirubin levels are plateauing. Daily LFTs. May take several weeks for full recovery. (4) Thrombocytopenia: Plan: peripheral smear - no signs of TTP or overt signs of MDS process. Likely due to infectious process but uncertain since we do not have a specific pathogen identified as of yet. viral vs tick-borne vs other. serial CBC. platelet count DID improve again today. (5) HTN (hypertension): Plan: controlled added metoprolol for a.fib rate control (6) Hyperlipidemia: Plan: Statin held due to #3. CPK wnl at admission. (7) Enlarged prostate: Plan: Flomax on hold due to low-normal BPs. Cont Hagen. (8) Atrial fibrillation: Plan: Presented in a.fib. Chronicity uncertain. He does not have apparent symptoms from such. Echo with preserved EF and normal valve function. TSH wnl. No systemic anticoagulation at this time despite CHADsVASc of 2 (age, HTN history) given his low platelets. Discussed a.fib dx with patient and his pt's family. Will re-address anticoagulation at later date when safe to start such. Titrate metoprolol to 37.5mg BID for rate control. Family requesting cardiology consult while here - will do so this weekend. (9) Prediabetes: Plan: Hba1c 6% c/w such novolog SSI (10) Aortic root dilatation: Plan: 4.7cm on echocardiogram will need ongoing surveillance of this (11) Insomnia: Plan: cont melatonin 6mg HS since he tolerated ambien overnight will re-order for him (12) Rash: Plan: viral vs tick-borne vs non-infectious (autoimmune, although ADELSO negative) rash looks very viral in appearance parvovirus testing added on to the already very lengthy list of labs that are already pending (13) Hyponatremia: Plan: 2nd to #1 should improve daily with HD sessions Plan DVT proph - with platelets trending upward and given limited mobility- started heparin 5000 BID cautiously Nausea - likely 2nd to #1 - family requests scheduled zofran - give 4mg AC as requested Cont PPI for possible gastritis care d/w nephrology and GI and ID care d/w & daughter at bedside continued highly complex care coordination Admission and Anticipated Discharge Date Admission Date: April 22, 2022 Subjective saw patient post-HD stated "I feel 5% better" slept better overnight with combination of melatonin and ambien ordered by night resident physician urine output via hagen modestly more than previous 24 hours denies any new infectious symptoms rash on arms/legs nearly resolved today denies pruritis appetite slightly better today nausea remains but no emesis tolerated his HD session today tele - a.fib - rates 90s to about 110 /daughter at bedside Review of Systems Review of Systems: gen - no fevers/chills; appetite still very poor; fatigue/exhaustion continue musculo - myalgias about resolved neuro - no headache psych - slept better last pm CV - no orthopnea, no chest pain pulm - no cough or dyspnea GI - abdominal fullness improved; nausea remains; no diarrhea Physical Exam Physical Exam: gen - looks overall better today, comfortable, NAD mouth - MMM neck - no JVD heart - irregular, s1 s2, no murmur lungs - CTA b/l, no rales; slightly decreased BS bases abd - body wall edema improved; distension improved; liver edge palpable, BS+, no palpable splenomegaly; no tenderness today ext - < 1+ edema arms, trace edema legs; pulses 2+ b/l skin - jaundice on face, chest, and to low abdomen; lacy, confluent, erythematous rash on upper arms, anterior thighs has largely faded/resolved; only minimal rash on upper arms musculo - mild joint fluid b/l knees? but nontender psych - a/o x 3 Results & Data Results & Data ([facility]) Vital Signs (Past 12 Hours) Vital Signs Temp Pulse Pulse Resp BP BP Pulse Ox 04/26/22 16:01 36.5 C 101 H 18 118/77 95 04/26/22 14:00 37 C 114 H 124/84 04/26/22 13:30 93 H 103/60 04/26/22 13:00 82 115/68 04/26/22 12:30 102 H 124/72 04/26/22 12:00 81 100/59 L 04/26/22 11:30 84 111/67 04/26/22 11:00 81 106/72 04/26/22 10:30 88 112/84 04/26/22 10:00 103 H 106/80 04/26/22 09:56 94 H 106/76 04/26/22 09:48 36.9 C 96 H O2 Del Method 04/26/22 16:01 Room Air 04/26/22 14:00 04/26/22 13:30 04/26/22 13:00 04/26/22 12:30 04/26/22 12:00 04/26/22 11:30 04/26/22 11:00 04/26/22 10:30 04/26/22 10:00 04/26/22 09:56 04/26/22 09:48 Laboratory Results Laboratory Results - last 24 hr 04/22/22 04/22/22 04/24/22 15:01 15:01 05:38 WBC RBC Hgb Hct MCV MCH MCHC RDW Std Deviation RDW Coeff of Ronen Plt Count MPV Immature Gran % (Auto) Neut % (Auto) Lymph % (Auto) Valley % (Auto) Eos % (Auto) Baso % (Auto) Neut # (Auto) Lymph # (Auto) Valley # (Auto) Eos # (Auto) Baso # (Auto) Immature Gran # (Auto) PT INR Sodium Potassium Chloride Carbon Dioxide Anion Gap BUN Creatinine Est Cr Clr Drug Dosing Est GFR ( Amer) Est GFR (Non-Af Amer) BUN/Creatinine Ratio Glucose POC Glucose Calcium Phosphorus Total Bilirubin Direct Bilirubin AST ALT Alkaline Phosphatase Total Protein Total Protein (PEP) 4.3 L Albumin Albumin (PEP) 2.0 L Hazbi-2-Pxtmfcykd 0.5 H Zqsmx-0-Tvwuvmqpf 0.6 Txtq-7-Hsvnrnyr 0.3 L Scbv-5-Jnsvnxxm 0.3 Gamma Globulins 0.6 L Monoclonal Peak 3 DNR Ser Monoclonl Protein DNR Ser Monoclonal Prot 2 DNR PEP Interpretation SEE NOTE Triglycerides Free Jeanerette LC, Quant 70.4 H Free Lambda LC, Quant 46.2 H Free Jeanerette/Lambda Ratio 1.52 A. phagocytophilum DNA Negative E.chaffeensis DNA (PCR) Negative Parvovirus IgG Ab Index Parvovirus IgM Ab Index 04/25/22 04/26/22 04/26/22 20:00 06:28 06:28 WBC 10.83 H RBC 3.93 L Hgb 11.8 L Hct 32.9 L MCV 83.7 MCH 30.0 MCHC 35.9 RDW Std Deviation 42.7 RDW Coeff of Ronen 13.8 Plt Count 91 L MPV 10.7 Immature Gran % (Auto) 1.6 Neut % (Auto) 78.7 Lymph % (Auto) 12.3 Valley % (Auto) 5.4 Eos % (Auto) 1.8 Baso % (Auto) 0.2 Neut # (Auto) 8.52 H Lymph # (Auto) 1.33 Valley # (Auto) 0.59 Eos # (Auto) 0.20 Baso # (Auto) 0.02 Immature Gran # (Auto) 0.17 H PT INR Sodium 133 L Potassium 4.4 Chloride 95 L Carbon Dioxide 27 Anion Gap 11 BUN 90 H D Creatinine 6.35 H* D Est Cr Clr Drug Dosing 12.6 Est GFR ( Amer) 9.7 Est GFR (Non-Af Amer) 8.4 BUN/Creatinine Ratio 14.2 Glucose 136 H POC Glucose 171 H Calcium 7.1 L Phosphorus 4.6 Total Bilirubin 14.1 H Direct Bilirubin 9.7 H AST 54 H ALT 60 H Alkaline Phosphatase 147 H Total Protein 4.3 L Total Protein (PEP) Albumin 2.2 L Albumin (PEP) Tuqml-0-Httybvblt Rqwbp-2-Raczejtzl Nbru-1-Efbzjcdn Tgpo-7-Cxbgrvpw Gamma Globulins Monoclonal Peak 3 Ser Monoclonl Protein Ser Monoclonal Prot 2 PEP Interpretation Triglycerides 242 H Free Jeanerette LC, Quant Free Lambda LC, Quant Free Jeanerette/Lambda Ratio A. phagocytophilum DNA E.chaffeensis DNA (PCR) Parvovirus IgG Ab Index Parvovirus IgM Ab Index 04/26/22 04/26/22 04/26/22 07:15 07:25 07:25 WBC RBC Hgb Hct MCV MCH MCHC RDW Std Deviation RDW Coeff of Ronen Plt Count MPV Immature Gran % (Auto) Neut % (Auto) Lymph % (Auto) Valley % (Auto) Eos % (Auto) Baso % (Auto) Neut # (Auto) Lymph # (Auto) Valley # (Auto) Eos # (Auto) Baso # (Auto) Immature Gran # (Auto) PT 11.5 INR 1.1 Sodium Potassium Chloride Carbon Dioxide Anion Gap BUN Creatinine Est Cr Clr Drug Dosing Est GFR ( Amer) Est GFR (Non-Af Amer) BUN/Creatinine Ratio Glucose POC Glucose 125 H Calcium Phosphorus Total Bilirubin Direct Bilirubin AST ALT Alkaline Phosphatase Total Protein Total Protein (PEP) Albumin Albumin (PEP) Prmnu-4-Habzpebis Exvyl-2-Ueqfjwaha Vavi-8-Dyjoazsi Gpss-7-Aubujbbi Gamma Globulins Monoclonal Peak 3 Ser Monoclonl Protein Ser Monoclonal Prot 2 PEP Interpretation Triglycerides Free Jeanerette LC, Quant Free Lambda LC, Quant Free Jeanerette/Lambda Ratio A. phagocytophilum DNA E.chaffeensis DNA (PCR) Parvovirus IgG Ab Index Pending Parvovirus IgM Ab Index Pending 04/26/22 04/26/22 14:25 16:44 WBC RBC Hgb Hct MCV MCH MCHC RDW Std Deviation RDW Coeff of Ronen Plt Count MPV Immature Gran % (Auto) Neut % (Auto) Lymph % (Auto) Valley % (Auto) Eos % (Auto) Baso % (Auto) Neut # (Auto) Lymph # (Auto) Valley # (Auto) Eos # (Auto) Baso # (Auto) Immature Gran # (Auto) PT INR Sodium Potassium Chloride Carbon Dioxide Anion Gap BUN Creatinine Est Cr Clr Drug Dosing Est GFR ( Amer) Est GFR (Non-Af Amer) BUN/Creatinine Ratio Glucose POC Glucose 88 156 H Calcium Phosphorus Total Bilirubin Direct Bilirubin AST ALT Alkaline Phosphatase Total Protein Total Protein (PEP) Albumin Albumin (PEP) Rndkz-7-Zczoknhex Mxqah-9-Krnikjngh Qzaz-3-Xoqhefco Wrgg-4-Lfzsiktd Gamma Globulins Monoclonal Peak 3 Ser Monoclonl Protein Ser Monoclonal Prot 2 PEP Interpretation Triglycerides Free Jeanerette LC, Quant Free Lambda LC, Quant Free Jeanerette/Lambda Ratio A. phagocytophilum DNA E.chaffeensis DNA (PCR) Parvovirus IgG Ab Index Parvovirus IgM Ab Index PG Care Time/CCT Total # of Minutes Spent Total Time Spent with Patient: Total time spent is greater than 50% in coordination of care (as documented) at patient's floor/unit and/or counseling patient: Coding Level of Care Code 10148 SUB INP/OBS CARE 3/50MIN Diagnoses Acute renal failure N17.9 Acute renal failure type: unspecified Fever R50.9 Acute hepatitis B17.9 Thrombocytopenia D69.6 HTN (hypertension) I10 Hyperlipidemia E78.5 Enlarged prostate N40.0 Atrial fibrillation I48.91 Prediabetes R73.03 Aortic root dilatation I77.810 Insomnia G47.00 Rash R21 Hyponatremia E87.1 (1) Acute renal failure Acute renal failure type: unspecified Qualified Code(s): N17.9 - Acute kidney failure, unspecified
[2022-04-26] MEDS: ZOLPIDEM TARTRATE 5 MG TAB PO PRN (20:42)
[2022-04-26] MEDS: CEROVITE ADV FORMULA TAB PO SCH (20:48)
[2022-04-26] MEDS: MELATONIN 3 MG TAB PO SCH (20:54)
[2022-04-26 22:17] LABS: Babesia microti IgG <1:64 titer (<1:64); Ehrlichia chaff IgG Ab <1:64 (<1:64); Ehrlichia chaff IgM Ab <1:20 (<1:20)
[2022-04-27] MEDS: DOXYCYCLINE HYCLATE 100 MG in DEXTROSE 5% 100 ML IV SCH ×2 (02:42→14:09)
[2022-04-27] MEDS: ONDANSETRON INJ 2 MG/ML 2 ML VIAL IV SCH ×3 (07:22→16:51)
[2022-04-27 08:13] LABS: Albumin Level 2.1 gm/dl (3.4-5.0); Bilirubin,Total 10.3 mg/dl (0.2-1.0); Potassium 4.9 mmol/L (3.5-5.1)
[2022-04-27 08:27] LABS: BUN Creatinine Ratio 13.5 (10-20); C Reactive Protein 5.09 mg/dl (0-0.5); Est GFR (Non-African American) 10.3 ml/min; Globulin 2.1 gm/dl (2.5-4.0); Total Protein 4.2 gm/dl (6.0-8.3)
[2022-04-27] MEDS: HEPARIN SOD 5,000 UNIT/0.5 ML VIAL SQ SCH ×2 (08:44→20:21)
[2022-04-27] MEDS: METOPROLOL TARTRATE 25 MG TAB PO SCH ×2 (08:44→20:20)
[2022-04-27 09:01] LABS: Hematocrit (blood only) 36.1 % (40.1-51.0); Mean Corpuscular Hemoglobin 30.3 pg (25.0-34.0); Mean Corpuscular Volume 84.1 fL (80.0-100.0); Mean Platelet Volume 10.1 fL (9.4-12.4); Platelet Count 119 K/uL (130-400); RDW Coefficient of Variation 14.3 % (11.5-14.5); Red Blood Count 4.29 M/uL (4.63-6.08); White Blood Count 8.91 K/ul (4.8-10.8)
[2022-04-27 09:23] LABS: Acanthocytes 3+; Basophils # (auto) 0.03 K/uL (0-0.2); Basophils % (auto) 0.3 %; Echinocytes 2+; Eosinophils # (auto) 0.21 K/uL (0-0.50); Eosinophils % (auto) 2.4 %; Immature Granulocytes # (auto) 0.34 K/uL (0.00-0.02); Immature Granulocytes % (auto) 3.8 %; Lymphocytes # (auto) 1.96 K/uL (1.2-3.4); Monocytes # (auto) 0.77 K/uL (0.24-0.82); Monocytes % (auto) 8.6 %; Neutrophils % (auto) 62.9 %
--- NOTE | 2022-04-27 10:30 | Nephrology Progress Note ---
Date of Service April 27, 2022 Assessment & Plan (1) Acute renal failure: (2) Anuria: (3) Thrombocytopenia: (4) Fever: (5) Transaminitis: Plan 67 yo M presented with more than a week history of fever, chills, myalgia, poor p.o. intake and decreased urine output. On admission noted to have RAF with creatinine 6.1, BUN 93 with prior normal renal function baseline creatinine 0.9 on 03/11/2022. Urinalysis showed 3+ proteinuria and 3+ microscopic hematuria with more than 30 RBC/HPF. CT A/P showed bilateral mild perinephric stranding but otherwise unremarkable. Renal function progressively worsening despite getting IV fluid and remained anuric, no postrenal obstruction on renal imaging. Concern for ATN with possible infectious etiology. Although less likely, cannot totally exclude possibility for glomerulonephritis. Rapid progressive worsening of renal function. remained anuric. did not respond to high dose of diuretics. Had tunneled dialysis catheter placed on 04/24/2022 and had 1st dialysis. On doxycycline since admission, azithromycin and atovaquone added on 04/25/22 and ceftriaxone was discontinued. -- Plan for 4 hours dialysis today and UF as tolerated. No indication for kidney biopsy at this time, if clinically improved but no recovery of kidney function, biopsy as an outpatient can be set up. -- lab friday am and evaluate for need for HD. -- 1 dose of Lasix 120 mg IV tomorrow am. Will follow. Admission and Anticipated Discharge Date Admission Date: April 22, 2022 Aditi Jewell was seen and evaluated during dialysis this morning. Overall he continues to feel poorly, extremely tired and has been having nausea and vomiting, unable to eat or keep anything down. Blood pressure fair, had 150 mL of urine output after IV Lasix yesterday. Platelet count continues to slowly improve. Review of Systems Review of Systems: Detailed review of system was otherwise unremarkable except mentioned above. Physical Exam Constitutional: WD/WN, vitals as above no acute distress Neck: normal visual inspection right IJ tunneled dialysis catheter with no active bleeding or significant tenderness Respiratory: normal respiratory effort; no respiratory distress and no cough Auscultation: lungs clear to auscultation bilaterally Cardiovascular: Rate/Rhythm: regular rate and regular rhythm Heart Sounds: normal S1 and normal S2 Extremities: no edema Musculoskeletal: Extremities: extremities normal to inspection Skin: normal turgor and + jaundice; no rashes Neurologic: no focal motor deficits and not confused Psychiatric: Orientation: alert and oriented x 3 Affect: euthymic affect Results & Data ([facility]) Vital Signs (Past 12 Hours) Vital Signs Temp Pulse Pulse Pulse Resp BP Pulse Ox 04/27/22 09:23 36.8 C 96 H 04/27/22 07:58 36.6 C 95 H 20 133/83 95 04/27/22 02:46 36.4 C L 83 16 120/71 94 04/26/22 22:46 36.6 C 82 12 114/74 90 O2 Del Method 04/27/22 09:23 04/27/22 07:58 Room Air 04/27/22 02:46 Room Air 04/26/22 22:46 Room Air PG Care Time/CCT Total # of Minutes Spent Total Time Spent with Patient: Total time spent is greater than 50% in coordination of care (as documented) at patient's floor/unit and/or counseling patient: Coding Level of Care Code 00555 SUB INP/OBS CARE 3/50MIN Diagnoses Acute renal failure N17.9 Acute renal failure type: unspecified Anuria R34 Thrombocytopenia D69.6 Fever R50.9 Transaminitis R74.01 (1) Acute renal failure Acute renal failure type: unspecified Qualified Code(s): N17.9 - Acute kidney failure, unspecified
[2022-04-27] MEDS: PANTOprazole 40 MG TAB PO SCH ×2 (14:10→20:19)
[2022-04-27] MEDS: INSULIN ASPART PER UNIT SC SCH ×4 (15:03→20:18)
[2022-04-27] MEDS: CEROVITE ADV FORMULA TAB PO SCH (15:06)
[2022-04-27] MEDS ORDERED: SODIUM CHLORIDE 0.65% NA SOLN 45 ML (OCEAN) ONE (17:43)
[2022-04-27 19:44] LABS: Borrelia miyamotoi DNA Not Detected (Not Detected); Borrelia miyamotoi IgG Ab 2.64 INDEX; Borrelia miyamotoi IgM Ab 0.13 INDEX; Borrelia miyamotoi Source WHOLE BLOOD
[2022-04-27] MEDS: ZOLPIDEM TARTRATE 5 MG TAB PO PRN (20:19)
[2022-04-27] MEDS: MELATONIN 3 MG TAB PO SCH (20:22)
[2022-04-27] MEDS: SUCRALFATE 1 GM TAB PO SCH (20:27)
--- NOTE | 2022-04-27 21:42 | Hospitalist Progress Note ---
Date of Service April 27, 2022 Assessment & Plan (1) Acute renal failure: Plan: SEVERE. Peak Cr 8.2. s/p placement of tunneled HD catheter 04/[address] Samuel. Today was HD session #4. To have break on 04/28, with possible need for HD again on 04/29 depending on crea tinine and volume status. Exact etiology of ARF uncertain. Pre-renal injury from poor PO intake, severe vomiting at home, and NSAID use? No evidence of post-renal obstruction based on imaging. Cannot rule out intrinsic disease. CPK - normal. acute hepatitis profile - negative. anti-GBM ab - negative. ADELSO negative. Complements negative. awaiting ANCA negative. u/a - 3+ blood, 3+ protein, and casts seen. Plan - * Appreciate nephrology * lasix 120mg IV x [address] Gibbs * cont to document strict UOP (2) Fever: Plan: Fully resolved. At the beginning of his illness he had documented, confirmed fevers at home suggesting an infectious process. BioFire resp panel fully negative. Due to #3 acute hepatitis profile ordered - negative hep A, B, C. Lyme screen neg. Anaplasmosis and Babesia smears negative; DNA tests for both negative. Ehrlichia DNA negative. Blood cultures and urine cx negative - IV rocephin stopped. CXR without pneumonia. No infectious process on CT a/p. Despite #3 he does not appear to have acute cholecystitis or choledocholithiasis. MRCP negative for choledocholithiasis. CMV/EBV titers pending. ADELSO negative. Awaiting parvovirus titers. Awaiting rickettsial testing. Awaiting Il-2 level for HLH rule-out. Appreciate ID consultation and recs. Cont Doxycycline BID for empiric tick-borne coverage. Atovaquone + zithromax d/c since Babesiosis testing was fully negative. Could consider deer tick virus testing but he has had no neurological symptoms/signs which are more common with deer tick virus per JARRETT KHAN. Appreciate ID consultation & assistance. (3) Acute hepatitis: Plan: appreciate GI assistance viral etiology suspected. no evidence to date of tick-borne illness. HepA,B,C all negative. Awaiting EBV/CMV titers. BioFire respiratory panel (which includes adenovirus) fully negative. INR remains wnl. Platelets are rising. BILIRUBIN LEVELS PEAKED & HAVE STARTED TO DROP. Daily LFTs. (4) Thrombocytopenia: Plan: peripheral smear - no signs of TTP or overt signs of MDS process. Likely due to infectious process but uncertain since we do not have a specific pathogen identified as of yet. viral vs tick-borne vs other. serial CBC. platelet count again improved today. (5) HTN (hypertension): Plan: controlled with metoprolol BID (6) Hyperlipidemia: Plan: Statin held due to #3. CPK wnl at admission. (7) Enlarged prostate: Plan: Flomax on hold Hagen d/c (8) Atrial fibrillation: Plan: Presented in a.fib. CONVERTED TO NSR TODAY, 04/27. Chronicity uncertain. He does not have apparent symptoms from such. Echo with preserved EF and normal valve function. TSH wnl. No systemic anticoagulation at this time despite CHADsVASc of 2 (age, HTN history). Discussed a.fib dx with patient and his pt's family. Will re-address anticoagulation at later date when safe to start such. Titrate metoprolol to 50mg BID. Family requesting cardiology consult while here. (9) Prediabetes: Plan: Hba1c 6% c/w such novolog SSI DM diet (10) Aortic root dilatation: Plan: 4.7cm on echocardiogram will need ongoing surveillance of this (11) Insomnia: Plan: cont melatonin 6mg HS Ambien 5mg hs prn (12) Rash: Plan: viral vs tick-borne vs non-infectious (autoimmune, although ADELSO negative) rash looked very viral in appearance parvovirus testing added on to the already very lengthy list of labs that are already pending (13) Hyponatremia: Plan: 2nd to #1 cont to improve with serial HD BMP am (14) Nausea and vomiting: Plan: 2nd to gastritis? 2nd to acute renal failure? 2nd to acute liver injury? 2nd to the underlying illness that caused his presentation? combo? cont PPI twice daily cont zofran AC add carate TID re-eval tomorrow Plan DVT proph - heparin SC BID updated at bedside today PT, OT when able progressing Admission and Anticipated Discharge Date Admission Date: April 22, 2022 Subjective had significant nausea/emesis with breakfast this am was able to tolerate lunch and keep the food down his actual appetite seems to be a little better had another 4-hour HD treatment today denies dyspnea denies orthopnea abd fullness resolving edema of arms/legs resolving rash on arms/legs nearly resolved denies any new infectious symptoms trying to sit in chair for a few hours each day tele - converted from a.fib to NSR this afternoon Review of Systems Review of Systems: gen - no fevers or chills; fatigue still present - maybe slightly better; appetite - slightly better cv - no chest pain pulm - no dyspnea GI - no abdominal pain; no diarrhea - since hagen discontinuation no UOP musculo - myalgias resolved; no arthralgias neuro - no headache Physical Exam Physical Exam: gen - cont to look better; comfortable, NAD mouth - MMM neck - no JVD heart - RRR, s1 s2, no murmur lungs - CTA b/l, no rales abd - body wall edema improved/resolved; distension resolved; liver edge palpable slightly, BS+, no palpable splenomegaly; no tenderness ext - < 1+ edema arms (mainly hands), no edema legs; pulses 2+ b/l skin - jaundice on face, chest, and to mid-abdomen; lacy, confluent, erythematous rash on upper arms, anterior thighs has largely resolved; only scant rash still present musculo - mild joint effusions knees psych - a/o x 3 Results & Data Results & Data ([facility]) Vital Signs (Past 12 Hours) Vital Signs Temp Pulse Pulse Pulse Resp BP BP 04/27/22 20:18 36.7 C 75 16 137/80 04/27/22 15:52 36.9 C 83 20 124/75 04/27/22 13:35 36.6 C 86 129/93 04/27/22 13:00 82 142/109 H 04/27/22 12:30 77 129/89 04/27/22 12:00 73 125/82 04/27/22 11:30 73 125/85 04/27/22 11:00 86 122/84 04/27/22 10:30 92 H 130/87 04/27/22 10:00 89 130/90 Pulse Ox O2 Del Method 04/27/22 20:18 93 Room Air 04/27/22 15:52 91 Room Air 04/27/22 13:35 04/27/22 13:00 04/27/22 12:30 04/27/22 12:00 04/27/22 11:30 04/27/22 11:00 04/27/22 10:30 04/27/22 10:00 Laboratory Results Laboratory Results - last 24 hr 04/22/22 04/23/22 15:01 14:53 Babesia microti IgG Ab <1:64 Babesia microti IgM Ab <1:20 Babesia Interpretation see note B.burgdorferi DNA Sourc WHOLE BLOOD B.miyamotoi IgM Ab 0.13 B.miyamotoi IgG Ab 2.64 H Borrelia miyamotoi (PCR) Not Detected B.miyamotoi Sero Interp SEE NOTE E. chaffeensis IgG Ab <1:64 E. chaffeensis IgM Ab <1:20 E. chaffeensis Interp see note E. chaffeensis Comment see note Hep Bs Antibody, Quant Blood Parasites ID 04/27/22 04/27/22 04/27/22 07:04 07:34 07:59 WBC 8.91 RBC 4.29 L Hgb 13.0 L Hct 36.1 L MCV 84.1 MCH 30.3 MCHC 36.0 RDW Std Deviation 44.0 RDW Coeff of Ronen 14.3 Plt Count 119 L MPV 10.1 Immature Gran % (Auto) 3.8 Neut % (Auto) 62.9 Lymph % (Auto) 22.0 Burnett % (Auto) 8.6 Eos % (Auto) 2.4 Baso % (Auto) 0.3 Neut # (Auto) 5.60 Lymph # (Auto) 1.96 Burnett # (Auto) 0.77 Eos # (Auto) 0.21 Baso # (Auto) 0.03 Immature Gran # (Auto) 0.34 H Echinocytes 2+ Acanthocytes (Spur) 3+ Rouleaux RBC Agglutinates Schistocytes Sezary Cell Sodium 133 L Potassium 4.9 Chloride 96 L Carbon Dioxide 27 Anion Gap 10 BUN 72 H Creatinine 5.33 H* D Est Cr Clr Drug Dosing 15.0 Est GFR ( Amer) 12.0 Est GFR (Non-Af Amer) 10.3 BUN/Creatinine Ratio 13.5 Glucose 112 H POC Glucose 99 Calcium 7.0 L Total Bilirubin 10.3 H AST 74 H ALT 59 H Alkaline Phosphatase 144 H C-Reactive Protein 5.09 H Total Protein 4.2 L Albumin 2.1 L Globulin 2.1 L Albumin/Globulin Ratio 1.0 Babesia microti IgG Ab Babesia microti IgM Ab Babesia Interpretation B.burgdorferi DNA [facility] B.miyamotoi IgM Ab B.miyamotoi IgG Ab Borrelia miyamotoi (PCR) B.miyamotoi Sero Interp E. chaffeensis IgG Ab E. chaffeensis IgM Ab E. chaffeensis Interp E. chaffeensis Comment Hep Bs Antibody, Quant Blood Parasites ID PG Care Time/CCT Total # of Minutes Spent Total Time Spent with Patient: Total time spent is greater than 50% in coordination of care (as documented) at patient's floor/unit and/or counseling patient: Coding Level of Care Code 58915 SUB INP/OBS CARE 3/50MIN Diagnoses Acute renal failure N17.9 Acute renal failure type: unspecified Fever R50.9 Acute hepatitis B17.9 Thrombocytopenia D69.6 HTN (hypertension) I10 Hyperlipidemia E78.5 Enlarged prostate N40.0 Atrial fibrillation I48.91 Prediabetes R73.03 Aortic root dilatation I77.810 Insomnia G47.00 Rash R21 Hyponatremia E87.1 Nausea and vomiting R11.2 (1) Acute renal failure Acute renal failure type: unspecified Qualified Code(s): N17.9 - Acute kidney failure, unspecified
[2022-04-28 01:42] LABS: ANCA Screen Negative (Negative); Myeloperoxidase Ab <1.0 AI (<1.0); Proteinase-3 AB <1.0 AI (<1.0)
[2022-04-28] MEDS: DOXYCYCLINE HYCLATE 100 MG in DEXTROSE 5% 100 ML IV SCH ×2 (02:55→14:28)
[2022-04-28] MEDS ORDERED: PROMETHAZINE HCL 12.5 MG in SODIUM CHLORIDE 0.9% 50 ML IV PRN (07:00)
[2022-04-28] MEDS: ONDANSETRON INJ 2 MG/ML 2 ML VIAL IV SCH ×3 (07:03→16:17)
[2022-04-28 07:12] LABS: Hematocrit (blood only) 33.7 % (40.1-51.0); Hemoglobin 12.3 g/dl (14.0-18.0); Mean Corpuscular Hemoglobin 30.1 pg (25.0-34.0); Mean Corpuscular Hgb Conc 36.5 g/dL (32.0-36.0); Mean Corpuscular Volume 82.6 fL (80.0-100.0); Mean Platelet Volume 9.8 fL (9.4-12.4); Platelet Count 145 K/uL (130-400); RDW Standard Deviation 42.3 fL (36.4-46.3); Red Blood Count 4.08 M/uL (4.63-6.08); White Blood Count 8.11 K/ul (4.8-10.8)
[2022-04-28 07:23] LABS: INR 1.1 (0.9-1.1); Prothrombin Time 11.6 Seconds (9.0-12.0)
[2022-04-28 08:20] LABS: Albumin Level 2.3 gm/dl (3.4-5.0); Bilirubin Direct 3.6 mg/dl (0-0.2); Bilirubin,Total 5.7 mg/dl (0.2-1.0)
[2022-04-28 08:22] LABS: Calcium 7.2 mg/dl (8.5-10.1); Potassium 4.4 mmol/L (3.5-5.1)
[2022-04-28 08:25] LABS: Total Protein 4.7 gm/dl (6.0-8.3)
[2022-04-28] MEDS: HEPARIN SOD 5,000 UNIT/0.5 ML VIAL SQ SCH ×2 (08:29→20:14)
[2022-04-28] MEDS: CEROVITE ADV FORMULA TAB PO SCH (08:29)
[2022-04-28] MEDS: PANTOprazole 40 MG TAB PO SCH ×2 (08:29→20:14)
[2022-04-28] MEDS: SUCRALFATE 1 GM TAB PO SCH ×3 (08:29→20:12)
[2022-04-28 08:36] LABS: BUN Creatinine Ratio 12.4 (10-20); Creatinine Clr Calc Pharmacy 17.3 ml/min; Est GFR (African American) 14.3 ml/min; Est GFR (Non-African American) 12.3 ml/min
[2022-04-28] MEDS ORDERED: FUROSEMIDE 10 MG/ML 10 ML VIAL IV ONE (09:30)
--- NOTE | 2022-04-28 10:32 | Nephrology Progress Note ---
Date of Service April 28, 2022 Assessment & Plan (1) Acute renal failure: (2) Anuria: (3) Thrombocytopenia: (4) Fever: (5) Transaminitis: Plan 67 yo M presented with more than a week history of fever, chills, myalgia, poor p.o. intake and decreased urine output. On admission noted to have RAF with creatinine 6.1, BUN 93 with prior normal renal function baseline creatinine 0.9 on 03/11/2022. Urinalysis showed 3+ proteinuria and 3+ microscopic hematuria with more than 30 RBC/HPF. CT A/P showed bilateral mild perinephric stranding but otherwise unremarkable. Renal function progressively worsening despite getting IV fluid and remained anuric, no postrenal obstruction on renal imaging. Concern for ATN with possible infectious etiology. Although less likely, cannot totally exclude possibility for glomerulonephritis. Rapid progressive worsening of renal function. remained anuric. did not respond to high dose of diuretics. Had tunneled dialysis catheter placed on 04/24/2022 and had 1st dialysis. On doxycycline since admission, azithromycin and atovaquone added on 04/25/22 and ceftriaxone was discontinued. -- monitor renal function and uO and evaluate in am for need for next dialysis. No indication for kidney biopsy at this time, if clinically improved but no recovery of kidney function, biopsy as an outpatient can be set up. -- 1 dose of Lasix 120 mg IV now -- change to regular K diet as K has been ok Will follow. Admission and Anticipated Discharge Date Admission Date: April 22, 2022 Aditi Jewell was seen and evaluated this morning. Overall he is feeling slightly better,no nausea and vomiting. Blood pressure fair, had 350 mL of urine output. Platelet count continues to slowly improve. Review of Systems Review of Systems: Detailed review of system was otherwise unremarkable except mentioned above. Physical Exam Constitutional: WD/WN, vitals as above no acute distress Neck: normal visual inspection right IJ tunneled dialysis catheter with no active bleeding or significant tenderness Respiratory: normal respiratory effort; no respiratory distress and no cough Auscultation: lungs clear to auscultation bilaterally Cardiovascular: Rate/Rhythm: regular rate and regular rhythm Heart Sounds: normal S1 and normal S2 Extremities: no edema Musculoskeletal: Extremities: extremities normal to inspection Skin: normal turgor; no rashes Neurologic: no focal motor deficits and not confused Psychiatric: Orientation: alert and oriented x 3 Affect: euthymic affect Results & Data ([facility]) Vital Signs (Past 12 Hours) Vital Signs Temp Pulse Pulse Pulse Pulse Resp BP 04/28/22 07:52 36.5 C 70 16 04/28/22 03:18 36.7 C 70 18 04/28/22 01:46 75 04/27/22 23:16 36.4 C L 73 18 132/85 BP Pulse Ox O2 Del Method 04/28/22 07:52 146/82 H 92 Room Air 04/28/22 03:18 153/94 H 95 Room Air 04/28/22 01:46 04/27/22 23:16 94 Room Air PG Care Time/CCT Total # of Minutes Spent Total Time Spent with Patient: Total time spent is greater than 50% in coordination of care (as documented) at patient's floor/unit and/or counseling patient: Coding Level of Care Code 91855 SUB INP/OBS CARE 3/50MIN Diagnoses Acute renal failure N17.9 Acute renal failure type: unspecified Anuria R34 Thrombocytopenia D69.6 Fever R50.9 Transaminitis R74.01 (1) Acute renal failure Acute renal failure type: unspecified Qualified Code(s): N17.9 - Acute kidney failure, unspecified
[2022-04-28] MEDS: INSULIN ASPART PER UNIT SC SCH ×4 (10:34→20:08)
[2022-04-28] MEDS: METOPROLOL TARTRATE 50 MG TAB PO SCH ×2 (10:34→20:13)
[2022-04-28] MEDS: MELATONIN 3 MG TAB PO SCH (20:12)
--- NOTE | 2022-04-28 20:27 | Hospitalist Progress Note ---
Date of Service April 28, 2022 Assessment & Plan (1) Acute renal failure: Plan: SEVERE. Peak Cr 8.2. s/p placement of tunneled HD catheter 04/[address] Samuel. s/p 4 HD sessions. None planned today. Possible need for HD again on 04/29 depending on creatinine and volume status. Lasix IV x [address] Gibbs today with decent UOP since then. Exact etiology of ARF uncertain. u/a - 3+ blood, 3+ protein, and casts seen. Pre-renal injury from poor PO intake, severe vomiting at home, and NSAID use? No evidence of post-renal obstruction based on imaging. Cannot rule out intrinsic disease but w/u thus far negative including --- CPK - normal. acute hepatitis profile - negative. anti-GBM ab - negative. ADELSO negative. Complements negative. ANCA negative. Plan - * Appreciate nephrology assistance * lasix 120mg IV x 1 again today * cont to document strict UOP (2) Fever: Plan: Fully resolved. At the beginning of his illness he had documented, confirmed fevers at home suggesting an infectious process. [employer] resp panel fully negative. Due to #3 acute hepatitis profile ordered - negative hep A, B, C. Lyme screen neg. Anaplasmosis and Babesia smears negative; DNA tests for both negative. E hrlichia DNA negative. Blood cultures and urine cx negative - IV rocephin stopped. CXR without pneumonia. No infectious process on CT a/p. Despite #3 he does not appear to have acute cholecystitis or choledocholithiasis. MRCP negative for choledocholithiasis. ADELSO negative. Borrelia Miyamotoi IgG was positive but IgM negative suggestive of old infection. This is a lesser known tick-borne illness that can mimic anaplasmosis but usually has only mild LFT abnormalities. Awaiting parvovirus titers. Awaiting rickettsial testing. Awaiting CMV/EBV titers. Awaiting Il-2 level for HLH rule-out. Appreciate ID consultation and recs. Cont Doxycycline BID for empiric tick-borne coverage. Atovaquone + zithromax d/c since Babesiosis testing was fully negative. Could consider deer tick virus testing but he has had no neurological symptoms/signs which are more common with deer tick virus per [place] ER[facility]. Appreciate ID consultation & assistance. (3) Acute hepatitis: Plan: IMPROVING. appreciate GI assistance viral etiology suspected. no evidence to date of tick-borne illness. HepA,B,C all negative. Awaiting EBV/CMV titers. [employer] respiratory panel (which includes adenovirus) fully negative. INR remains wnl. Platelets are rising - near normal today. BILIRUBIN LEVELS PEAKED and are rapidly normalizing. AST/ALT arturo mildly but still reassuring that his acute hepatitis is stable/overall improving. Daily LFTs. (4) Thrombocytopenia: Plan: peripheral smear - no signs of TTP or overt signs of MDS process. Likely due to infectious process but uncertain since we do not have a specific pathogen identified as of yet. viral vs tick-borne vs other. serial CBC. platelet count again improved today. near-normal at 145. (5) HTN (hypertension): Plan: controlled with metoprolol BID (6) Hyperlipidemia: Plan: Statin held due to #3. CPK wnl at admission. (7) Enlarged prostate: Plan: Flomax on hold Leong d/c Voiding fine (8) Atrial fibrillation: Plan: Presented in a.fib. CONVERTED TO NSR TODAY, 04/27. Chronicity uncertain. He does not have apparent symptoms from such. Echo with preserved EF and normal valve function. TSH wnl. No systemic anticoagulation at this time despite CHADsVASc of 2 (age, HTN history). Discussed a.fib dx with patient and his pt's family. Will re-address anticoagulation at later date when safe to start such. Titrated metoprolol to 50mg BID. Family requesting cardiology consult while here. (9) Prediabetes: Plan: Hba1c 6% c/w such novolog SSI DM diet (10) Aortic root dilatation: Plan: 4.7cm on echocardiogram will need ongoing surveillance of this (11) Insomnia: Plan: cont melatonin 6mg HS Ambien 5mg hs prn (12) Rash: Plan: viral vs tick-borne vs non-infectious (autoimmune, although ADELSO negative) rash looked very viral in appearance ; was on legs/arms only - spared all other areas parvovirus testing added on to the already very lengthy list of labs that are already pending rash now resolved (13) Hyponatremia: Plan: 2nd to #1 acceptable level today BMP am (14) Nausea and vomiting: Plan: improving 2nd to gastritis? 2nd to acute renal failure? 2nd to acute liver injury? 2nd to the underlying illness that caused his presentation? combo? cont PPI twice daily cont carafate AC cont zofran AC Plan DVT proph - heparin SC BID and daughter updated at bedside today cont PT, OT progressing Admission and Anticipated Discharge Date Admission Date: April 22, 2022 Subjective tele last 24 hours - converted to NSR early afternoon yesterday; been in NSR since patient feeling better today less nausea; no emesis did eat decent lunch fatigue improved is getting up to walk to bathroom made more urine today in comparison to the totality of entire hospitalization /daughter at bedside he offers no new complaints or symptoms Review of Systems Review of Systems: gen - no fevers or chills; appetite a little better skin - jaundice improved; previous rash arms/legs fully resolved cv - no cp; edema all 4 limbs better pulm - no cough, no dyspnea, no 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 NAD mouth - MMM eyes - scant scleral icterus neck - no JVD heart - RRR, s1 s2, no murmur lungs - CTA b/l, no rales or wheeze abd - body wall edema resolved; distension resolved; liver edge slightly palpable, BS+, no palpable splenomegaly; no tenderness ext - trace edema ankles; no edema right arm; 1+ edema of L hand; pulses feet 2+ b/l skin - jaundice resolved; previous rash on arms/legs resolved psych - a/o x 3 Results & Data Results & Data ([facility]) Vital Signs (Past 12 Hours) Vital Signs Temp Pulse Resp BP BP Pulse Ox O2 Del Method 04/28/22 20:01 36.8 C 69 18 158/82 H 95 Room Air 04/28/22 16:20 66 16 146/77 H 93 Room Air 04/28/22 11:51 36.4 C L 69 16 137/88 97 Room Air Laboratory Results Laboratory Results - last 24 hr 04/23/22 04/28/22 04/28/22 10:57 06:50 06:50 WBC 8.11 RBC 4.08 L Hgb 12.3 L Hct 33.7 L MCV 82.6 MCH 30.1 MCHC 36.5 H RDW Std Deviation 42.3 RDW Coeff of Ronen 14.0 Plt Count 145 MPV 9.8 PT 11.6 INR 1.1 Sodium Potassium Chloride Carbon Dioxide Anion Gap BUN Creatinine Est Cr Clr Drug Dosing Est GFR ( Amer) Est GFR (Non-Af Amer) BUN/Creatinine Ratio Glucose POC Glucose Calcium Total Bilirubin Direct Bilirubin AST ALT Alkaline Phosphatase Total Protein Albumin Anti-Proteinase 3 <1.0 Anti-Myeloperoxidase <1.0 ANCA Negative 04/28/22 04/28/22 04/28/22 06:50 06:51 07:00 WBC RBC Hgb Hct MCV MCH MCHC RDW Std Deviation RDW Coeff of Ronen Plt Count MPV PT INR Sodium 132 L Potassium 4.4 Chloride 95 L Carbon Dioxide 29 Anion Gap 8 BUN 57 H Creatinine 4.61 H* D Est Cr Clr Drug Dosing 17.3 Est GFR ( Amer) 14.3 Est GFR (Non-Af Amer) 12.3 BUN/Creatinine Ratio 12.4 Glucose 104 H POC Glucose 121 H Calcium 7.2 L Total Bilirubin 5.7 H Direct Bilirubin 3.6 H AST 159 H ALT 101 H Alkaline Phosphatase 137 H Total Protein 4.7 L Albumin 2.3 L Anti-Proteinase 3 Anti-Myeloperoxidase ANCA 04/28/22 04/28/22 04/28/22 11:16 15:46 20:04 WBC RBC Hgb Hct MCV MCH MCHC RDW Std Deviation RDW Coeff of Ronen Plt Count MPV PT INR Sodium Potassium Chloride Carbon Dioxide Anion Gap BUN Creatinine Est Cr Clr Drug Dosing Est GFR ( Amer) Est GFR (Non-Af Amer) BUN/Creatinine Ratio Glucose POC Glucose 117 H 108 H 125 H Calcium Total Bilirubin Direct Bilirubin AST ALT Alkaline Phosphatase Total Protein Albumin Anti-Proteinase 3 Anti-Myeloperoxidase ANCA PG Care Time/CCT Total # of Minutes Spent Total Time Spent with Patient: Total time spent is greater than 50% in coordination of care (as documented) at patient's floor/unit and/or counseling patient: Coding Level of Care Code 73551 SUB INP/OBS CARE 3/50MIN Diagnoses Acute renal failure N17.9 Acute renal failure type: unspecified Fever R50.9 Acute hepatitis B17.9 Thrombocytopenia D69.6 HTN (hypertension) I10 Hyperlipidemia E78.5 Enlarged prostate N40.0 Atrial fibrillation I48.91 Prediabetes R73.03 Aortic root dilatation I77.810 Insomnia G47.00 Rash R21 Hyponatremia E87.1 Nausea and vomiting R11.2 (1) Acute renal failure Acute renal failure type: unspecified Qualified Code(s): N17.9 - Acute kidney failure, unspecified
[2022-04-29] MEDS: DOXYCYCLINE HYCLATE 100 MG in DEXTROSE 5% 100 ML IV SCH ×2 (03:53→14:54)
[2022-04-29] MEDS: ONDANSETRON INJ 2 MG/ML 2 ML VIAL IV SCH ×3 (07:12→15:45)
[2022-04-29] MEDS: PANTOprazole 40 MG TAB PO SCH ×2 (08:14→23:04)
[2022-04-29] MEDS: METOPROLOL TARTRATE 50 MG TAB PO SCH ×2 (08:14→21:30)
[2022-04-29] MEDS: HEPARIN SOD 5,000 UNIT/0.5 ML VIAL SQ SCH ×2 (08:14→21:30)
[2022-04-29] MEDS: CEROVITE ADV FORMULA TAB PO SCH (08:14)
[2022-04-29] MEDS: SUCRALFATE 1 GM TAB PO SCH ×3 (08:14→21:30)
[2022-04-29 08:27] LABS: Hemoglobin 11.5 g/dl (14.0-18.0); Mean Corpuscular Hemoglobin 30.1 pg (25.0-34.0); Mean Corpuscular Hgb Conc 35.9 g/dL (32.0-36.0); Mean Corpuscular Volume 83.8 fL (80.0-100.0); Mean Platelet Volume 9.5 fL (9.4-12.4); Platelet Count 162 K/uL (130-400); RDW Coefficient of Variation 14.2 % (11.5-14.5); RDW Standard Deviation 43.2 fL (36.4-46.3); Red Blood Count 3.82 M/uL (4.63-6.08); White Blood Count 7.26 K/ul (4.8-10.8)
[2022-04-29] MEDS: INSULIN ASPART PER UNIT SC SCH ×4 (08:36→21:32)
--- NOTE | 2022-04-29 09:01 | Nephrology Progress Note ---
Date of Service April 29, 2022 Assessment & Plan (1) Acute renal failure: (2) Anuria: (3) Thrombocytopenia: (4) Fever: (5) Transaminitis: Plan 67 yo M presented with more than a week history of fever, chills, myalgia, poor p.o. intake and decreased urine output. On admission noted to have RAF with creatinine 6.1, BUN 93 with prior normal renal function baseline creatinine 0.9 on 03/11/2022. Urinalysis showed 3+ proteinuria and 3+ microscopic hematuria with more than 30 RBC/HPF. CT A/P showed bilateral mild perinephric stranding but otherwise unremarkable. Renal function progressively worsening despite getting IV fluid and remained anuric, no postrenal obstruction on renal imaging. Concern for ATN with possible infectious etiology. Although less likely, cannot totally exclude possibility for glomerulonephritis. Rapid progressive worsening of renal function. remained anuric. did not respond to high dose of diuretics. Had tunneled dialysis catheter placed on 04/24/2022 and had 1st dialysis. On doxycycline since admission, azithromycin and atovaquone added on 04/25/22 and ceftriaxone was discontinued. All w/u so far negative. Currently only on Doxycycline IV UO improved significantly, 1650 over last 24 h, BP fair, on RA but cr continues to rise. UA with improvement in proteinuria and hematuria. --plan for dialysis tomorrow. No indication for kidney biopsy at this time, if clinically improved but no recovery of kidney function, biopsy as an outpatient can be set up. -- change to regular K diet as K has been ok Will follow. Admission and Anticipated Discharge Date Admission Date: April 22, 2022 Aditi Jewell was seen and evaluated this morning. Overall he is feeling slightly better,no nausea and vomiting. Blood pressure fair, had 1650 mL of urine output. Platelet normalized. K normal. Rapid rise in cr off of HD for 1 day. Review of Systems Review of Systems: Detailed review of system was otherwise unremarkable except mentioned above. Physical Exam Constitutional: WD/WN, vitals as above no acute distress Neck: normal visual inspection right IJ tunneled dialysis catheter with no active bleeding or significant tenderness Respiratory: normal respiratory effort; no respiratory distress and no cough Auscultation: lungs clear to auscultation bilaterally Cardiovascular: Rate/Rhythm: regular rate and regular rhythm Heart Sounds: normal S1 and normal S2 Extremities: + edema (left UE edema) and + vascular access device (Rt IJ TDC) Musculoskeletal: Extremities: extremities normal to inspection Skin: normal turgor; no rashes Neurologic: no focal motor deficits and not confused Psychiatric: Orientation: alert and oriented x 3 Affect: euthymic affect Results & Data ([facility]) Vital Signs (Past 12 Hours) Vital Signs Temp Pulse Pulse Resp BP Pulse Ox O2 Del Method 04/29/22 07:03 36.7 C 60 18 133/80 94 Room Air 04/29/22 05:00 04/29/22 04:11 64 04/28/22 23:41 36.5 C 62 18 131/76 95 Room Air O2 Del Method 04/29/22 07:03 04/29/22 05:00 Room Air 04/29/22 04:11 04/28/22 23:41 PG Care Time/CCT Total # of Minutes Spent Total Time Spent with Patient: Total time spent is greater than 50% in coordination of care (as documented) at patient's floor/unit and/or counseling patient: Coding Level of Care Code 42215 SUB INP/OBS CARE 3/50MIN Diagnoses Acute renal failure N17.9 Acute renal failure type: unspecified Anuria R34 Thrombocytopenia D69.6 Fever R50.9 Transaminitis R74.01 (1) Acute renal failure Acute renal failure type: unspecified Qualified Code(s): N17.9 - Acute kidney failure, unspecified
[2022-04-29 09:47] LABS: Appearance Urine Clear (Clear); Bacteria Urine Automated Negative (Negative); Bilirubin Urine Negative (Negative); Blood Urine Negative (Negative); Color Urine Yellow; Glucose Urine UA Negative (Negative); Ketones Urine Negative (Negative); Leukocyte Esterase Urine Negative (Negative); Nitrite Urine Negative (Negative); Protein Urine Trace (Negative); Specific Gravity Urine 1.009 (1.000-1.030); Urobilinogen Urine Negative (Negative); pH Urine 6.5 (4.5-7.5)
[2022-04-29 09:56] LABS: Albumin Level 2.4 gm/dl (3.4-5.0); BUN Creatinine Ratio 13.1 (10-20); Bilirubin Direct 2.6 mg/dl (0-0.2); Bilirubin,Total 4.5 mg/dl (0.2-1.0); Calcium 7.4 mg/dl (8.5-10.1); Creatinine Clr Calc Pharmacy 12.2 ml/min; Est GFR (African American) 9.3 ml/min; Est GFR (Non-African American) 8.1 ml/min; Phosphorus 7.8 mg/dl (2.5-4.9); Potassium 4.1 mmol/L (3.5-5.1); Total Protein 4.9 gm/dl (6.0-8.3)
--- NOTE | 2022-04-29 13:59 | Infectious Disease Progress Nt ---
Date of Service April 29, 2022 Assessment & Plan (1) Thrombocytopenia: (2) Acute renal failure: (3) Transaminitis: (4) Lymphopenia: (5) Fever: Plan 67 yo M with a history of HTN, BPH, HLD who presented on 04/22 with fevers, chills, myalgias since 04/11, now admitted with lymphopenia, thrombocytopenia, elevated LFTs, and acute renal failure requiring HD. Although he denies recent known tick bites, he does regularly spend time in wooded areas and have regular tick exposures. No pet, wild/farm animal exposures. No rash, upper respiratory symptoms. Had taken Aleve for several days prior to admission. Initial infectious work-up showed SARS-CoV-2, influenza A/B, and RSV PCR negative, RVP negative, Lyme IgM/IgG negative, BCx NGTD, and blood smear x 2 for Anaplasma and Babesia negative. A CT A/P without contrast and CXR showed no significant findings. A liver US showed gallbladder sludge without evidence of acute cholecystitis, a small pancreatic cystic lesion which may represent IPMN, and renal cysts. MRCP showed no gallstones, no biliary duct pathology. He was started on empiric doxycycline for a possible tick-borne illness, and multiple tick-borne illness studies were sent--thus far showing negative Anaplasma, Ehrlichia, and Babesia PCRs. He has reassuringly been afebrile since admission, but continues to have stably mildly elevated AST, ALT and alk phos, uptrending Tbili to 14.1, uptrending Cr to peak 8.25 for which he was started on dialysis on 04/24. He was on ceftriaxone from 04/23-04/24, but was discontinued due to BCx NGTD. His initial lymphopenia, thrombocytopenia, and elevated LFTs raises concern for a tick-borne illness-- Rickettsial studies are still pending. His lymphopenia has now resolved, and he developed leukocytosis up to 16.7 on 04/25, now decreased ad wnl. He continues to have end organ damage that does not seem to be rapidly improving. Considered HLH secondary to infection, but ferritin is normal. Leptospirosis can cause kidney and hepatic injury and thrombocytopenia, but he does not seem to have the appropriate exposures, and would be covered by doxycycline in any case .Borrelia miymotoi PCR negative IGM negative, but IGG elevated. This may represent infection of undetermined age or cross reaction with other tick related illness. Anaplasma PCR and smear negative. Ehrlichia, and Babesia smear, serology and PCR/DNA negative. Lyme screen and serology negative Micro: 04/26 Parvovirus IgG, IgM: pending 04/24 Blood smear for Anaplasma/Babesia: negative 04/23 UCx: NG 04/23 Borrelia miyamotoi PCR: negative 04/23 Borrelia miyamotoi IgM 0.13 , Ig.64 ( 04/23 CMV IgM: pending 04/23 EBV panel: pending 04/23 Q fever panel: pending 04/23 Rickettsia IgM, IgG: pending 04/23 Typus fever IgM, IgG: pending 04/23 RVP: negative 04/23 Acute hepatitis panel: HAV IgM neg, HBsAg neg, HBc IgM neg, HCV Ab neg 04/22 Ehrlichia chaffeensis IgM, IgG: negative 04/22 Ehrlichia chaffeensis PCR: negative 04/22 Blood smear for Anaplasma/Babesia: negative 04/22 Anaplasma phagocytophilum PCR: negative 04/22 Babesia microti IgM, IgG: negtive 04/22 Babesia microti PCR: negative 04/22 Lyme IgM, IgG: negative 04/22 BCx x2: NGTD 04/22 COVID-19, influenza A/B, RSV PCR: negative Antimicrobial course: Doxycycline 04/22 - present Azithromycin 04/25 - 04/26 Atovaquone 04/25 - 04/26 Ceftriaxone 04/23 - 04/24 Problems: #Fevers: febrile prior to admission, but afebrile since admission #Lymphopenia #Thrombocytopenia #Acute renal failure: started on HD 04/24 #Elevated LFTs, bilirubin Recommendations: -Continue empiric doxycycline 100 mg q12h to cover for tick-borne illnesses. Can change to oral doxycycline 100 mg po bid. -Follow-upi, Rickettsia panel, Q fever, Typhus fever testing -Follow-up EBV,CMV, parvovirus testing ID will continue to follow. Esvin Wilde MD, MPH [facility], ID [facility] Call [phone] with questions Admission and Anticipated Discharge Date Admission Date: April 22, 2022 Subjective Subsequent visit was provided via telemedicine using two-way real-time interactive telecommunication between the patient and the telemedicine provider. For the duration of the visit, the provider was performing the assessment from a different facility than the patient. This includesuse of bluetooth stet hoscope forauscultationperformed by the telepresenter that the telemedicine provider can hear if described in the physical exam. Speech Therapist contact information: Please call [facility] Center . (Phone Number For Physician Use Only) After establishing a telemedicine visit, patient was: Patient/authorized rep acknowledged consent and understanding and Gave permission to continue telehealth session Time Spent with Patient: Subsequent => 25 min He is afebrile. at bedside, daughter on phone He and daughter request switch to oral abx if possible as team have issues with IV. Daughter request change in timing of doxy so he is not disturbed at night . He is feeling well overall. Denies fever, muscle aches, abdominal pain, sob, diarrhea nausea or vomiting Anaplasma,, babesia and ehrlicha pcr neg WBC nor,alized to 7.86, plts up to 162, cr 6.54 continues on Hd rash resolved Physical Exam Constitutional: Awake, alert, oriented times 3, NAD Eyes: minimal scleral icterus ( improved from prior exam per television repair teacher ) Respiratory: No increased Work of breathing Chest (Breasts): Additional Comments: right ij tunneled HD catheter Gastrointestinal (Abdomen): Soft, not tender ,no guarding or rebound Musculoskeletal: left hand edema Skin: mild jaundice , some ecchymosis on lower abdomen Psychiatric: Appropriate mood, cooperative Results & Data ([facility]) Vital Signs (Past 12 Hours) Vital Signs Temp Pulse Pulse Resp BP Pulse Ox O2 Del Method 04/29/22 11:30 36.5 C 64 16 147/87 H 93 Room Air 04/29/22 08:00 73 04/29/22 08:00 Room Air 04/29/22 07:03 36.7 C 60 18 133/80 94 Room Air 04/29/22 05:00 04/29/22 04:11 64 O2 Del Method 04/29/22 11:30 04/29/22 08:00 04/29/22 08:00 04/29/22 07:03 04/29/22 05:00 Room Air 04/29/22 04:11 Laboratory Results Laboratory Results - last 48 hr 04/23/22 04/27/22 04/28/22 10:57 20:16 06:50 WBC 8.11 RBC 4.08 L Hgb 12.3 L Hct 33.7 L MCV 82.6 MCH 30.1 MCHC 36.5 H RDW Std Deviation 42.3 RDW Coeff of Ronen 14.0 Plt Count 145 MPV 9.8 PT INR Sodium Potassium Chloride Carbon Dioxide Anion Gap BUN Creatinine Est Cr Clr Drug Dosing Est GFR ( Amer) Est GFR (Non-Af Amer) BUN/Creatinine Ratio Glucose POC Glucose 103 H Calcium Phosphorus Total Bilirubin Direct Bilirubin AST ALT Alkaline Phosphatase Total Protein Albumin Urine Color Urine Appearance Urine pH Ur Specific [place] Urine Protein Urine Glucose (UA) Urine Ketones Urine Blood Urine Nitrite Urine Bilirubin Urine Urobilinogen Ur Leukocyte Esterase Urine WBC (Auto) Urine RBC (Auto) U Hyaline Cast (Auto) U Epithel Cells (Auto) Urine Bacteria (Auto) Urine Yeast Anti-Proteinase 3 <1.0 Anti-Myeloperoxidase <1.0 ANCA Negative 04/28/22 04/28/22 04/28/22 06:50 06:50 06:51 WBC RBC Hgb Hct MCV MCH MCHC RDW Std Deviation RDW Coeff of Ronen Plt Count MPV PT 11.6 INR 1.1 Sodium 132 L Potassium 4.4 Chloride 95 L Carbon Dioxide 29 Anion Gap 8 BUN 57 H Creatinine 4.61 H* D Est Cr Clr Drug Dosing 17.3 Est GFR ( Amer) 14.3 Est GFR (Non-Af Amer) 12.3 BUN/Creatinine Ratio 12.4 Glucose 104 H POC Glucose Calcium 7.2 L Phosphorus Total Bilirubin 5.7 H Direct Bilirubin 3.6 H AST 159 H ALT 101 H Alkaline Phosphatase 137 H Total Protein 4.7 L Albumin 2.3 L Urine Color Urine Appearance Urine pH Ur Specific [place] Urine Protein Urine Glucose (UA) Urine Ketones Urine Blood Urine Nitrite Urine Bilirubin Urine Urobilinogen Ur Leukocyte Esterase Urine WBC (Auto) Urine RBC (Auto) U Hyaline Cast (Auto) U Epithel Cells (Auto) Urine Bacteria (Auto) Urine Yeast Anti-Proteinase 3 Anti-Myeloperoxidase ANCA 04/28/22 04/28/22 04/28/22 07:00 11:16 15:46 WBC RBC Hgb Hct MCV MCH MCHC RDW Std Deviation RDW Coeff of Ronen Plt Count MPV PT INR Sodium Potassium Chloride Carbon Dioxide Anion Gap BUN Creatinine Est Cr Clr Drug Dosing Est GFR ( Amer) Est GFR (Non-Af Amer) BUN/Creatinine Ratio Glucose POC Glucose 121 H 117 H 108 H Calcium Phosphorus Total Bilirubin Direct Bilirubin AST ALT Alkaline Phosphatase Total Protein Albumin Urine Color Urine Appearance Urine pH Ur Specific [place] Urine Protein Urine Glucose (UA) Urine Ketones Urine Blood Urine Nitrite Urine Bilirubin Urine Urobilinogen Ur Leukocyte Esterase Urine WBC (Auto) Urine RBC (Auto) U Hyaline Cast (Auto) U Epithel Cells (Auto) Urine Bacteria (Auto) Urine Yeast Anti-Proteinase 3 Anti-Myeloperoxidase ANCA 04/28/22 04/29/22 04/29/22 20:04 07:02 07:56 WBC RBC Hgb Hct MCV MCH MCHC RDW Std Deviation RDW Coeff of Ronen Plt Count MPV PT INR Sodium 133 L Potassium 4.1 Chloride 94 L Carbon Dioxide 26 Anion Gap 13 H BUN 86 H D Creatinine 6.54 H* D Est Cr Clr Drug Dosing 12.2 Est GFR ( Amer) 9.3 Est GFR (Non-Af Amer) 8.1 BUN/Creatinine Ratio 13.1 Glucose 117 H POC Glucose 125 H 112 H Calcium 7.4 L Phosphorus 7.8 H Total Bilirubin 4.5 H Direct Bilirubin 2.6 H AST 115 H ALT 97 H Alkaline Phosphatase 125 H Total Protein 4.9 L Albumin 2.4 L Urine Color Urine Appearance Urine pH Ur Specific [place] Urine Protein Urine Glucose (UA) Urine Ketones Urine Blood Urine Nitrite Urine Bilirubin Urine Urobilinogen Ur Leukocyte Esterase Urine WBC (Auto) Urine RBC (Auto) U Hyaline Cast (Auto) U Epithel Cells (Auto) Urine Bacteria (Auto) Urine Yeast Anti-Proteinase 3 Anti-Myeloperoxidase ANCA 04/29/22 04/29/22 04/29/22 07:56 09:30 11:13 WBC 7.26 RBC 3.82 L Hgb 11.5 L Hct 32.0 L MCV 83.8 MCH 30.1 MCHC 35.9 RDW Std Deviation 43.2 RDW Coeff of Ronen 14.2 Plt Count 162 MPV 9.5 PT INR Sodium Potassium Chloride Carbon Dioxide Anion Gap BUN Creatinine Est Cr Clr Drug Dosing Est GFR ( Amer) Est GFR (Non-Af Amer) BUN/Creatinine Ratio Glucose POC Glucose 122 H Calcium Phosphorus Total Bilirubin Direct Bilirubin AST ALT Alkaline Phosphatase Total Protein Albumin Urine Color Yellow Urine Appearance Clear Urine pH 6.5 Ur Specific [place] 1.009 Urine Protein Trace H Urine Glucose (UA) Negative Urine Ketones Negative Urine Blood Negative Urine Nitrite Negative Urine Bilirubin Negative Urine Urobilinogen Negative Ur Leukocyte Esterase Negative Urine WBC (Auto) 1-5 Urine RBC (Auto) 5-10 H U Hyaline Cast (Auto) 1-5 U Epithel Cells (Auto) 5-10 H Urine Bacteria (Auto) Negative Urine Yeast Not Reportable Anti-Proteinase 3 Anti-Myeloperoxidase ANCA 04/29/22 16:25 WBC RBC Hgb Hct MCV MCH MCHC RDW Std Deviation RDW Coeff of Ronen Plt Count MPV PT INR Sodium Potassium Chloride Carbon Dioxide Anion Gap BUN Creatinine Est Cr Clr Drug Dosing Est GFR ( Amer) Est GFR (Non-Af Amer) BUN/Creatinine Ratio Glucose POC Glucose 118 H Calcium Phosphorus Total Bilirubin Direct Bilirubin AST ALT Alkaline Phosphatase Total Protein Albumin Urine Color Urine Appearance Urine pH Ur Specific [place] Urine Protein Urine Glucose (UA) Urine Ketones Urine Blood Urine Nitrite Urine Bilirubin Urine Urobilinogen Ur Leukocyte Esterase Urine WBC (Auto) Urine RBC (Auto) U Hyaline Cast (Auto) U Epithel Cells (Auto) Urine Bacteria (Auto) Urine Yeast Anti-Proteinase 3 Anti-Myeloperoxidase ANCA Diagnostic Findings Microbiology 04/22/22 15:25 Blood Aerobic Blood Culture - Final No growth in Aerobic bottle after 5 days. 04/22/22 15:25 Blood Anaerobic Blood Culture - Final No growth in Anaerobic bottle after 5 days. 04/22/22 15:01 Blood Aerobic Blood Culture - Final No growth in Aerobic bottle after 5 days. 04/22/22 15:01 Blood Anaerobic Blood Culture - Final No growth in Anaerobic bottle after 5 days. 04/23/22 Unknown Urine,Indwelling Cath Urine Culture - Final No growth - less than 1,000 colonies/mL . Medications Administered Home Medications Medication Instructions Recorded Confirmed Last Taken aspirin 81 mg tablet,delayed 81 mg PO QAM 04/08/18 04/22/22 04/13/18 release (Aspir-) flaxseed oil 1,000 mg capsule 1,000 mg PO QAM 04/08/18 04/22/22 04/13/18 multivitamin (Multiple Vitamins 1 tab PO QAM 04/08/18 04/22/22 04/13/18 tablet) glucosamine sulfate 500 mg tablet 1 tab PO DAILY 04/13/18 04/22/22 04/13/18 (Glucosamine) simvastatin 20 mg tablet 20 mg PO PM #14 tabs 04/17/21 04/22/22 Unknown diltiazem HCl 300 mg See Rx Instructions .Route 03/15/22 04/22/22 Unknown capsule,extended release 24 hr .COMPLEX #90 caps olmesartan 40 mg tablet 40 mg PO DAILY #90 tabs 03/22/22 04/22/22 Unknown tamsulosin 0.4 mg capsule 0.8 mg PO DAILY #180 caps 03/22/22 04/22/22 Unknown Active Medications Generic Name Dose Route Start Last Admin Trade Name Freq PRN Reason Stop Dose Admin Guaifenesin 600 mg 04/26/22 05:55 04/26/22 07:30 Guaifenesin 600 Mg Tabcr PO 05/26/22 08:59 600 mg Q12 PRN Administration Cough Heparin Sodium (Porcine) 5,000 units 04/25/22 21:00 04/29/22 08:14 Heparin Sod 5,000 Unit/0.5 Ml Vial SQ 05/25/22 20:59 5,000 units Q12 MELISSA Administration Doxycycline Hyclate 100 mg/ 110 mls @ 50 mls/hr 04/23/22 02:30 04/29/22 17:48 Dextrose IV 05/07/22 02:29 Infused Q12H MELISSA Infusion Insulin Aspart 0 units 04/24/22 21:00 04/29/22 17:46 Insulin Aspart Per Unit SC 05/24/22 20:59 Not Given ACHS MELISSA Melatonin 6 mg 04/25/22 21:00 04/28/22 20:12 Melatonin 3 Mg Tab PO 05/25/22 20:59 6 mg HS MELISSA Administration Metoprolol Tartrate 50 mg 04/28/22 09:00 04/29/22 08:14 Metoprolol Tartrate 50 Mg Tab PO 05/28/22 08:59 50 mg BID MELISSA Administration Multivitamins/Minerals 1 tab 04/26/22 09:00 04/29/22 08:14 Cerovite Adv Formula Tab PO 05/26/22 08:59 1 tab QAM MELISSA Administration Ondansetron HCl 4 mg 04/22/22 14:53 04/26/22 19:36 Ondansetron Inj 2 Mg/Ml 2 Ml Vial IV 05/22/22 14:52 4 mg Q6H PRN Administration Nausea Ondansetron HCl 4 mg 04/27/22 07:30 04/29/22 15:45 Ondansetron Inj 2 Mg/Ml 2 Ml Vial IV 05/27/22 07:29 4 mg AC MELISSA Administration Pantoprazole Sodium 40 mg 04/23/22 12:45 04/29/22 08:14 Pantoprazole 40 Mg Tab PO 05/23/22 12:44 40 mg BID MELISSA Administration Sucralfate 1 gm 04/27/22 21:00 04/29/22 14:54 Sucralfate 1 Gm Tab PO 05/27/22 20:59 1 gm TID MELISSA Administration Zolpidem Tartrate 5 mg 04/26/22 17:55 04/27/22 20:19 Zolpidem Tartrate 5 Mg Tab PO 05/26/22 17:54 5 mg HS PRN Administration Sleep (1) Acute renal failure Acute renal failure type: unspecified Qualified Code(s): N17.9 - Acute kidney failure, unspecified
--- NOTE | 2022-04-29 20:02 | Hospitalist Progress Note ---
Date of Service April 29, 2022 Assessment & Plan (1) Acute renal failure: Plan: SEVERE. s/p placement of tunneled HD catheter 04/[address] Samuel. s/p 4 HD sessions since admission. Volume status, acid-base status, electrolytes acceptable today -- no HD planned; likely will need such tomorrow, however. UOP has improved considerably over the last 48 hours. Exact etiology of ARF uncertain. u/a - 3+ blood, 3+ protein, and casts seen. Pre-renal injury from poor PO intake, severe vomiting at home, and NSAID use? No evidence of post-renal obstruction based on imaging. Cannot rule out intrinsic disease but w/u thus far negative including --- CPK - normal. acute hepatitis profile - negative. anti-GBM ab - negative. ADELSO negative. Complements negative. ANCA negative. Plan - * Appreciate nephrology assistance * diuretic management per nephro * daily BMP * likely HD tomorrow (2) Fever: Plan: Fully resolved. At the beginning of his illness he had documented, confirmed fevers at home suggesting an infectious process. [employer] resp panel fully negative. Due to #3 acute hepatitis profile ordered - negative hep A, B, C. Lyme screen neg. Anaplasmosis and Babesia smears negative; DNA tests for both negative. Ehrlichia DNA negative. Blood cultures and urine cx negative - IV rocephin stopped. CXR without pneumonia. No infectious process on CT a/p. Despite #3 he does not appear to have acute cholecystitis or choledocholithiasis. MRCP negative for choledocholithiasis. ADELSO negative. Borrelia Miyamotoi IgG was positive but IgM negative suggestive of old infectio n. This is a lesser known tick-borne illness that can mimic anaplasmosis but usually has only mild LFT abnormalities. Awaiting parvovirus titers. Awaiting rickettsial testing. Awaiting CMV/EBV titers. Awaiting Il-2 level for HLH rule-out. Appreciate ID consultation and recs. Cont Doxycycline BID for empiric tick-borne coverage. Change from IV to PO. Atovaquone + zithromax d/c since Babesiosis testing was fully negative. Could consider deer tick virus testing but he has had no neurological symptoms/signs which are more common with deer tick virus per [place] ERIN. Appreciate ID consultation & assistance. (3) Acute hepatitis: Plan: IMPROVING. appreciate GI assistance viral etiology suspected. no evidence to date of tick-borne illness. HepA,B,C all negative. Awaiting EBV/CMV titers. [employer] respiratory panel (which includes adenovirus) fully negative. INR remains wnl. Platelets are rising - normal today. BILIRUBIN LEVELS PEAKED and are rapidly normalizing. TB ~4 today. Other LFTs improving slowly. LFTs am. (4) Thrombocytopenia: Plan: peripheral smear - no signs of TTP or overt signs of MDS process. Likely due to infectious process but uncertain since we do not have a specific pathogen identified as of yet. viral vs tick-borne vs other. resolved - platelets nl today (5) HTN (hypertension): Plan: controlled with metoprolol BID (6) Hyperlipidemia: Plan: Statin held due to #3. CPK wnl at admission. (7) Enlarged prostate: Plan: Flomax on hold [place] d/c Voiding fine (8) Atrial fibrillation: Plan: Presented in a.fib. CONVERTED TO NSR TODAY, 04/27. Chronicity uncertain. He does not have apparent symptoms from such. Echo with preserved EF and normal valve function. TSH wnl. No systemic anticoagulation at this time despite CHADsVASc of 2 (age, HTN history). Discussed a.fib dx with patient and his pt's family. Will re-address anticoagulation tomorrow. Titrated metoprolol to 50mg BID. Family requesting cardiology consult while here. (9) Prediabetes: Plan: controlled Hba1c 6% c/w such novolog SSI - none required in several days can likely d/c BSG checks cont DM diet (10) Aortic root dilatation: Plan: 4.7cm on echocardiogram will need ongoing surveillance of this (11) Insomnia: Plan: cont melatonin 6mg HS Ambien 5mg hs prn (12) Rash: Plan: viral vs tick-borne vs non-infectious (autoimmune, although ADELSO negative) rash looked very viral in appearance ; was on legs/arms only - spared all other areas parvovirus testing added on to the already very lengthy list of labs that are already pending rash now resolved (13) Hyponatremia: Plan: 2nd to #1 again his level is acceptable today BMP am (14) Nausea and vomiting: Plan: improving 2nd to gastritis? 2nd to acute renal failure? 2nd to acute liver injury? 2nd to the underlying illness that caused his presentation? probably combination of all factors above cont PPI twice daily cont carafate AC cont zofran AC Plan DVT proph - heparin SC BID and daughter updated at bedside today (daughter was on speaker phone) cont PT, OT progressing very nicely Admission and Anticipated Discharge Date Admission Date: April 22, 2022 Subjective again feeling better today energy, appetite, etc he wants to have his doxy changed to PO from IV sleeping poorly still no breathing issues tele remains NSR at bedside Review of Systems Review of Systems: gen - no fevers cv - no chest pain pulm - no dyspnea GI - nausea much better - no LUTs; made about 2 L urine yesterday Physical Exam Physical Exam: gen - looks very good, NAD mouth - MMM eyes - scleral icterus resolved neck - no JVD heart - RRR, s1 s2, no murmur lungs - CTA b/l, no rales or wheeze abd - body wall edema resolved; distension resolved; liver edge slightly palpable, BS+, no palpable splenomegaly; no tenderness ext - no edema of feet or ankles; pulses 2+ b/l; edema RUE resolved; edema LUE resolving - especially the L hand skin - jaundice resolved; previous rash on arms/legs resolved with no recurrence psych - a/o x 3, better spirits Results & Data Results & [facility] ([facility]) Vital Signs (Past 12 Hours) Vital Signs Temp Pulse Pulse Pulse Resp BP Pulse Ox 04/29/22 19:23 36.9 C 64 16 156/80 H 95 04/29/22 15:05 36.4 C L 66 16 147/87 H 93 04/29/22 11:30 36.5 C 64 16 147/87 H 93 O2 Del Method 04/29/22 19:23 Room Air 04/29/22 15:05 Room Air 04/29/22 11:30 Room Air Laboratory Results Laboratory Results - last 24 hr 04/28/22 04/29/22 04/29/22 20:04 07:02 07:56 WBC RBC Hgb Hct MCV MCH MCHC RDW Std Deviation RDW Coeff of Ronen Plt Count MPV Sodium 133 L Potassium 4.1 Chloride 94 L Carbon Dioxide 26 Anion Gap 13 H BUN 86 H D Creatinine 6.54 H* D Est Cr Clr Drug Dosing 12.2 Est GFR ( Amer) 9.3 Est GFR (Non-Af Amer) 8.1 BUN/Creatinine Ratio 13.1 Glucose 117 H POC Glucose 125 H 112 H Calcium 7.4 L Phosphorus 7.8 H Total Bilirubin 4.5 H Direct Bilirubin 2.6 H AST 115 H ALT 97 H Alkaline Phosphatase 125 H Total Protein 4.9 L Albumin 2.4 L Urine Color Urine Appearance Urine pH Ur Specific [place] Urine Protein Urine Glucose (UA) Urine Ketones Urine Blood Urine Nitrite Urine Bilirubin Urine Urobilinogen Ur Leukocyte Esterase Urine WBC (Auto) Urine RBC (Auto) U Hyaline Cast (Auto) U Epithel Cells (Auto) Urine Bacteria (Auto) Urine Yeast 04/29/22 04/29/22 04/29/22 07:56 09:30 11:13 WBC 7.26 RBC 3.82 L Hgb 11.5 L Hct 32.0 L MCV 83.8 MCH 30.1 MCHC 35.9 RDW Std Deviation 43.2 RDW Coeff of Ronen 14.2 Plt Count 162 MPV 9.5 Sodium Potassium Chloride Carbon Dioxide Anion Gap BUN Creatinine Est Cr Clr Drug Dosing Est GFR ( Amer) Est GFR (Non-Af Amer) BUN/Creatinine Ratio Glucose POC Glucose 122 H Calcium Phosphorus Total Bilirubin Direct Bilirubin AST ALT Alkaline Phosphatase Total Protein Albumin Urine Color Yellow Urine Appearance Clear Urine pH 6.5 Ur Specific [place] 1.009 Urine Protein Trace H Urine Glucose (UA) Negative Urine Ketones Negative Urine Blood Negative Urine Nitrite Negative Urine Bilirubin Negative Urine Urobilinogen Negative Ur Leukocyte Esterase Negative Urine WBC (Auto) 1-5 Urine RBC (Auto) 5-10 H U Hyaline Cast (Auto) 1-5 U Epithel Cells (Auto) 5-10 H Urine Bacteria (Auto) Negative Urine Yeast Not Reportable 04/29/22 16:25 WBC RBC Hgb Hct MCV MCH MCHC RDW Std Deviation RDW Coeff of Ronen Plt Count MPV Sodium Potassium Chloride Carbon Dioxide Anion Gap BUN Creatinine Est Cr Clr Drug Dosing Est GFR ( Amer) Est GFR (Non-Af Amer) BUN/Creatinine Ratio Glucose POC Glucose 118 H Calcium Phosphorus Total Bilirubin Direct Bilirubin AST ALT Alkaline Phosphatase Total Protein Albumin Urine Color Urine Appearance Urine pH Ur Specific [place] Urine Protein Urine Glucose (UA) Urine Ketones Urine Blood Urine Nitrite Urine Bilirubin Urine Urobilinogen Ur Leukocyte Esterase Urine WBC (Auto) Urine RBC (Auto) U Hyaline Cast (Auto) U Epithel Cells (Auto) Urine Bacteria (Auto) Urine Yeast PG Care Time/CCT Total # of Minutes Spent Total Time Spent with Patient: Total time spent is greater than 50% in coordination of care (as documented) at patient's floor/unit and/or counseling patient: Coding Level of Care Code 01878 SUB INP/OBS CARE 3/50MIN Diagnoses Acute renal failure N17.9 Acute renal failure type: unspecified Fever R50.9 Acute hepatitis B17.9 Thrombocytopenia D69.6 HTN (hypertension) I10 Hyperlipidemia E78.5 Enlarged prostate N40.0 Atrial fibrillation I48.91 Prediabetes R73.03 Aortic root dilatation I77.810 Insomnia G47.00 Rash R21 Hyponatremia E87.1 Nausea and vomiting R11.2 (1) Acute renal failure Acute renal failure type: unspecified Qualified Code(s): N17.9 - Acute kidney failure, unspecified
[2022-04-29] MEDS: MELATONIN 3 MG TAB PO SCH (21:30)
[2022-04-30 07:02] LABS: Creatinine Ur 37 mg/dL (20-320); Protein, Urine Random 1956 mg/dL (5-25); Ur Protein/Creat Ratio mg/g 52865 mg/g creat (25-148); Urine Abnormal Protein Band 1 DNR mg/dL (NONE DETECTED); Urine Abnormal Protein Band 2 DNR mg/dL (NONE DETECTED); Urine Abnormal Protein Band 3 DNR mg/dL (NONE DETECTED); Urine Protein/Creatinine Ratio 52.865 (0.025-0.148)
[2022-04-30] MEDS: DOXYCYCLINE HYCLATE 100 MG in DEXTROSE 5% 100 ML IV SCH (07:14)
[2022-04-30] MEDS: ONDANSETRON INJ 2 MG/ML 2 ML VIAL IV SCH ×3 (07:28→16:31)
[2022-04-30 07:37] LABS: Albumin Level 2.4 gm/dl (3.4-5.0); Bilirubin Direct 2.2 mg/dl (0-0.2); Bilirubin,Total 4.1 mg/dl (0.2-1.0); Calcium 7.6 mg/dl (8.5-10.1); Potassium 4.1 mmol/L (3.5-5.1)
[2022-04-30] MEDS: INSULIN ASPART PER UNIT SC SCH ×4 (07:45→20:16)
[2022-04-30 07:46] LABS: BUN Creatinine Ratio 13.5 (10-20); Creatinine Clr Calc Pharmacy 10.7 ml/min; Est GFR (Non-African American) 6.9 ml/min; Phosphorus 8.8 mg/dl (2.5-4.9); Total Protein 5.1 gm/dl (6.0-8.3)
[2022-04-30] MEDS: CEROVITE ADV FORMULA TAB PO SCH (08:00)
[2022-04-30] MEDS: SUCRALFATE 1 GM TAB PO SCH ×3 (08:00→20:21)
[2022-04-30] MEDS: METOPROLOL TARTRATE 50 MG TAB PO SCH ×2 (08:00→20:21)
[2022-04-30] MEDS: PANTOprazole 40 MG TAB PO SCH ×2 (08:00→20:21)
[2022-04-30] MEDS: HEPARIN SOD 5,000 UNIT/0.5 ML VIAL SQ SCH ×2 (08:00→20:22)
[2022-04-30] MEDS: DOXYCYCLINE HYCLATE 100 MG CAP PO SCH ×2 (09:02→20:20)
--- NOTE | 2022-04-30 11:36 | Nephrology Progress Note ---
Date of Service April 30, 2022 Assessment & Plan (1) Acute renal failure: (2) Anuria: (3) Thrombocytopenia: (4) Fever: (5) Transaminitis: Plan 67 yo M presented with more than a week history of fever, chills, myalgia, poor p.o. intake and decreased urine output. On admission noted to have RAF with creatinine 6.1, BUN 93 with prior normal renal function baseline creatinine 0.9 on 03/11/2022. Urinalysis showed 3+ proteinuria and 3+ microscopic hematuria with more than 30 RBC/HPF. CT A/P showed bilateral mild perinephric stranding but otherwise unremarkable. Renal function progressively worsening despite getting IV fluid and remained anuric, no postrenal obstruction on renal imaging. Concern for ATN with possible infectious etiology. Although less likely, cannot totally exclude possibility for glomerulonephritis. Rapid progressive worsening of renal function. remained anuric. did not respond to high dose of diuretics. Had tunneled dialysis catheter placed on 04/24/2022 and had 1st dialysis. On doxycycline since admission, azithromycin and atovaquone added on 04/25/22 and ceftriaxone was discontinued. All w/u so far negative. Currently only on Doxycycline. UO improved significantly, >2L over last 24 h, BP fair, on RA but cr continues to rise. UA with improvement in proteinuria and hematuria. --tolerating dialysis now. No indication for kidney biopsy at this time, if clinically improved but no recovery of kidney function, biopsy as an outpatient can be set up. --change to regular K diet as K has been ok --Doxycycline switched to orally --encouraged to increase fluid intake to keep net even, activity as tolerated Will follow. Admission and Anticipated Discharge Date Admission Date: April 22, 2022 Aditi Jewell was seen and evaluated during HD this morning. Overall he is feeling better, no nausea and vomiting, appetite improved. Blood pressure fair, had >2L of urine output and net negative. Platelet normalized. K normal. Cr continues to rise rapidly off of HD. Review of Systems Review of Systems: Detailed review of system was otherwise unremarkable except mentioned above. Physical Exam Constitutional: WD/WN, vitals as above no acute distress Neck: normal visual inspection right IJ tunneled dialysis catheter with no active bleeding or significant tenderness Respiratory: normal respiratory effort; no respiratory distress and no cough Auscultation: lungs clear to auscultation bilaterally Cardiovascular: Rate/Rhythm: regular rate and regular rhythm Heart Sounds: normal S1 and normal S2 Extremities: + edema (left UE edema) and + vascular access device (Rt IJ TDC) Musculoskeletal: Extremities: extremities normal to inspection Skin: normal turgor; no rashes Neurologic: no focal motor deficits and not confused Psychiatric: Orientation: alert and oriented x 3 Affect: euthymic affect Results & Data ([facility]) Vital Signs (Past 12 Hours) Vital Signs Temp Pulse Pulse Pulse Pulse Resp BP 04/30/22 11:00 62 135/101 H 04/30/22 10:30 57 L 147/82 H 04/30/22 10:00 66 146/99 H 04/30/22 09:30 61 142/81 H 04/30/22 09:15 60 148/71 H 04/30/22 09:08 36.5 C 61 04/30/22 08:00 64 04/30/22 08:15 36.6 C 67 16 04/30/22 07:59 71 04/30/22 05:00 04/30/22 03:56 36.6 C 61 16 04/30/22 00:06 36.8 C 69 16 BP BP Pulse Ox O2 Del Method O2 Del Method 04/30/22 11:00 04/30/22 10:30 04/30/22 10:00 04/30/22 09:30 04/30/22 09:15 04/30/22 09:08 04/30/22 08:00 04/30/22 08:15 95 Room Air 04/30/22 07:59 162/83 H 04/30/22 05:00 Room Air 04/30/22 03:56 131/73 96 Room Air 04/30/22 00:06 134/74 94 Room Air PG Care Time/CCT Total # of Minutes Spent Total Time Spent with Patient: Total time spent is greater than 50% in coordination of care (as documented) at patient's floor/unit and/or counseling patient: Coding Level of Care Code 91804 SUB INP/OBS CARE 3/50MIN Diagnoses Acute renal failure N17.9 Acute renal failure type: unspecified Anuria R34 Thrombocytopenia D69.6 Fever R50.9 Transaminitis R74.01 (1) Acute renal failure Acute renal failure type: unspecified Qualified Code(s): N17.9 - Acute kidney failure, unspecified
--- NOTE | 2022-04-30 15:29 | Infectious Disease Progress Nt ---
Date of Service April 30, 2022 Assessment & Plan (1) Thrombocytopenia: (2) Acute renal failure: (3) Transaminitis: (4) Lymphopenia: (5) Fever: Plan 67 yo M with a history of HTN, BPH, HLD who presented on 04/22 with fevers, chills, myalgias since 04/11, now admitted with lymphopenia, thrombocytopenia, elevated LFTs, and acute renal failure requiring HD. Although he denies recent known tick bites, he does regularly spend time in wooded areas and have regular tick exposures. No pet, wild/farm animal exposures. No rash, upper respiratory symptoms. Had taken Aleve for several days prior to admission. Initial infectious work-up showed SARS-CoV-2, influenza A/B, and RSV PCR negative, RVP negative, Lyme IgM/IgG negative, BCx NGTD, and blood smear x 2 for Anaplasma and Babesia negative. A CT A/P without contrast and CXR showed no significant findings. A liver US showed gallbladder sludge without evidence of acute cholecystitis, a small pancreatic cystic lesion which may represent IPMN, and renal cysts. MRCP showed no gallstones, no biliary duct pathology. He was started on empiric doxycycline for a possible tick-borne illness, and multiple tick-borne illness studies were sent--thus far showing negative Anaplasma, Ehrlichia, and Babesia PCRs. He has reassuringly been afebrile since admission, but continues to have stably mildly elevated AST, ALT and alk phos, uptrending Tbili to 14.1, uptrending Cr to peak 8.25 for which he was started on dialysis on 04/24. He was on ceftriaxone from 04/23-04/24, but was discontinued due to BCx NGTD. His initial lymphopenia, thrombocytopenia, and elevated LFTs raises concern for a tick-borne illness-- Rickettsial studies are still pending. His lymphopenia has now resolved, and he developed leukocytosis up to 16.7 on 04/25, now decreased ad wnl. He continues to have end organ damage that does not seem to be rapidly improving. Considered HLH secondary to infection, but ferritin is normal. Leptospirosis can cause kidney and hepatic injury and thrombocytopenia, but he does not seem to have the appropriate exposures, and would be covered by doxycycline in any case .Borrelia miymotoi PCR negative IGM negative, but IGG elevated. This may represent infection of undetermined age or cross reaction with other tick related illness. Anaplasma PCR and smear negative. Ehrlichia, and Babesia smear, serology and PCR/DNA negative. Lyme screen and serology negative Micro: 04/26 Parvovirus IgG, IgM: pending 04/24 Blood smear for Anaplasma/Babesia: negative 04/23 UCx: NG 04/23 Borrelia miyamotoi PCR: negative 04/23 Borrelia miyamotoi IgM 0.13 , Ig.64 ( 04/23 CMV IgM: pending 04/23 EBV panel: pending 04/23 Q fever panel: pending 04/23 Rickettsia IgM, IgG: pending 04/23 Typus fever IgM, IgG: pending 04/23 RVP: negative 04/23 Acute hepatitis panel: HAV IgM neg, HBsAg neg, HBc IgM neg, HCV Ab neg 04/22 Ehrlichia chaffeensis IgM, IgG: negative 04/22 Ehrlichia chaffeensis PCR: negative 04/22 Blood smear for Anaplasma/Babesia: negative 04/22 Anaplasma phagocytophilum PCR: negative 04/22 Babesia microti IgM, IgG: negtive 04/22 Babesia microti PCR: negative 04/22 Lyme IgM, IgG: negative 04/22 BCx x2: NGTD 04/22 COVID-19, influenza A/B, RSV PCR: negative Antimicrobial course: Doxycycline 04/22 - present Azithromycin 04/25 - 04/26 Atovaquone 04/25 - 04/26 Ceftriaxone 04/23 - 04/24 Problems: 1. Fevers: febrile prior to admission, but afebrile since admission 2. Lymphopenia 3. Thrombocytopenia 4. Acute renal failure: started on HD 04/24 5. Elevated LFTs, bilirubin Recommendations: -Continue empiric doxycycline 100 mg q12h to cover for tick-borne illnesses. Changed to oral doxycycline 100 mg po bid 04/30. -Follow-upi, Rickettsia panel, Q fever, Typhus fever testing -Follow-up EBV,CMV, parvovirus testing ID will continue to follow. Esvin Wilde MD, MPH [facility], [facility] Call [phone] with questions Admission and Anticipated Discharge Date Admission Date: April 22, 2022 Subjective This patient recommendation is based on a telemedicine consult request which was completed asynchronously through chart review and information provided by the primary physician. The patient was not seen or examined today. The evaluation is consultative in nature and all patient care and treatment decisions can either be accepted or rejected by the patient's primary hospital-based treating physician using their own independent medical judgment for their patient. Time Spent Reviewing Chart: 21 - 30 minutes Chart reviewed. Afebrile. Cr continues to increase. SP HD today and tolerated. Results & Data ([facility]) Vital Signs (Past 12 Hours) Vital Signs Temp Pulse Pulse Pulse Pulse Resp BP 04/30/22 12:46 36.6 C 64 04/30/22 12:30 61 148/88 H 04/30/22 12:00 62 153/88 H 04/30/22 11:30 59 L 140/83 04/30/22 11:00 62 135/101 H 04/30/22 10:30 57 L 147/82 H 04/30/22 10:00 66 146/99 H 04/30/22 09:30 61 142/81 H 04/30/22 09:15 60 148/71 H 04/30/22 09:08 36.5 C 61 04/30/22 08:00 64 04/30/22 08:15 36.6 C 67 16 04/30/22 07:59 71 04/30/22 05:00 04/30/22 03:56 36.6 C 61 16 BP BP Pulse Ox O2 Del Method O2 Del Method 04/30/22 12:46 159/90 H 04/30/22 12:30 04/30/22 12:00 04/30/22 11:30 04/30/22 11:00 04/30/22 10:30 04/30/22 10:00 04/30/22 09:30 04/30/22 09:15 04/30/22 09:08 04/30/22 08:00 04/30/22 08:15 95 Room Air 04/30/22 07:59 162/83 H 04/30/22 05:00 Room Air 04/30/22 03:56 131/73 96 Room Air Laboratory Results Laboratory Results - last 48 hr 04/24/22 04/27/22 04/28/22 Unknown 08:16 15:46 WBC RBC Hgb Hct MCV MCH MCHC RDW Std Deviation RDW Coeff of Ronen Plt Count MPV Sodium Potassium Chloride Carbon Dioxide Anion Gap BUN Creatinine Est Cr Clr Drug Dosing Est GFR ( Amer) Est GFR (Non-Af Amer) BUN/Creatinine Ratio Glucose POC Glucose 108 H Calcium Phosphorus Total Bilirubin Direct Bilirubin AST ALT Alkaline Phosphatase Total Protein Albumin Urine Color Urine Appearance Urine pH Ur Specific [place] Urine Protein Urine Glucose (UA) Urine Ketones Urine Blood Urine Nitrite Urine Bilirubin Urine Urobilinogen Ur Leukocyte Esterase Urine WBC (Auto) Urine RBC (Auto) U Hyaline Cast (Auto) U Epithel Cells (Auto) Urine Bacteria (Auto) Urine Yeast U Random Total Protein 1956 H Ur Creatinine mg/dL 37 Protein/Creatinin Ratio 52.865 H Urine Albumin (%) 49 U Tjopt-2-Bjbqfnlv (%) 11 U Haezf-1-Xspnoeha (%) 10 U Beta Globulin (%) 18 U Gamma Globulin (%) 12 U Abnormal Prot Band 1 DNR U Abnormal Prot Band 2 DNR U Abnormal Prot Band 3 DNR Urine PEP Interpret SEE NOTE Hep Bs Antibody, Quant <5 L 04/28/22 04/29/22 04/29/22 20:04 07:02 07:56 WBC RBC Hgb Hct MCV MCH MCHC RDW Std Deviation RDW Coeff of Ronen Plt Count MPV Sodium 133 L Potassium 4.1 Chloride 94 L Carbon Dioxide 26 Anion Gap 13 H BUN 86 H D Creatinine 6.54 H* D Est Cr Clr Drug Dosing 12.2 Est GFR ( Amer) 9.3 Est GFR (Non-Af Amer) 8.1 BUN/Creatinine Ratio 13.1 Glucose 117 H POC Glucose 125 H 112 H Calcium 7.4 L Phosphorus 7.8 H Total Bilirubin 4.5 H Direct Bilirubin 2.6 H AST 115 H ALT 97 H Alkaline Phosphatase 125 H Total Protein 4.9 L Albumin 2.4 L Urine Color Urine Appearance Urine pH Ur Specific [place] Urine Protein Urine Glucose (UA) Urine Ketones Urine Blood Urine Nitrite Urine Bilirubin Urine Urobilinogen Ur Leukocyte Esterase Urine WBC (Auto) Urine RBC (Auto) U Hyaline Cast (Auto) U Epithel Cells (Auto) Urine Bacteria (Auto) Urine Yeast U Random Total Protein Ur Creatinine mg/dL Protein/Creatinin Ratio Urine Albumin (%) U Atemp-8-Jeeypjzl (%) U Oqqrg-4-Rnglpjop (%) U Beta Globulin (%) U Gamma Globulin (%) U Abnormal Prot Band 1 U Abnormal Prot Band 2 U Abnormal Prot Band 3 Urine PEP Interpret Hep Bs Antibody, Quant 04/29/22 04/29/22 04/29/22 07:56 09:30 11:13 WBC 7.26 RBC 3.82 L Hgb 11.5 L Hct 32.0 L MCV 83.8 MCH 30.1 MCHC 35.9 RDW Std Deviation 43.2 RDW Coeff of Ronen 14.2 Plt Count 162 MPV 9.5 Sodium Potassium Chloride Carbon Dioxide Anion Gap BUN Creatinine Est Cr Clr Drug Dosing Est GFR ( Amer) Est GFR (Non-Af Amer) BUN/Creatinine Ratio Glucose POC Glucose 122 H Calcium Phosphorus Total Bilirubin Direct Bilirubin AST ALT Alkaline Phosphatase Total Protein Albumin Urine Color Yellow Urine Appearance Clear Urine pH 6.5 Ur Specific [place] 1.009 Urine Protein Trace H Urine Glucose (UA) Negative Urine Ketones Negative Urine Blood Negative Urine Nitrite Negative Urine Bilirubin Negative Urine Urobilinogen Negative Ur Leukocyte Esterase Negative Urine WBC (Auto) 1-5 Urine RBC (Auto) 5-10 H U Hyaline Cast (Auto) 1-5 U Epithel Cells (Auto) 5-10 H Urine Bacteria (Auto) Negative Urine Yeast Not Reportable U Random Total Protein Ur Creatinine mg/dL Protein/Creatinin Ratio Urine Albumin (%) U Ptovq-8-Ynlpgzrf (%) U Xqavb-6-Kxzwsakb (%) U Beta Globulin (%) U Gamma Globulin (%) U Abnormal Prot Band 1 U Abnormal Prot Band 2 U Abnormal Prot Band 3 Urine PEP Interpret Hep Bs Antibody, Quant 04/29/22 04/29/22 04/30/22 16:25 21:16 06:39 WBC RBC Hgb Hct MCV MCH MCHC RDW Std Deviation RDW Coeff of Ronne Plt Count MPV Sodium 132 L Potassium 4.1 Chloride 93 L Carbon Dioxide 26 Anion Gap 13 H BUN 101 H Creatinine 7.47 H* D Est Cr Clr Drug Dosing 10.7 Est GFR ( Amer) 8.0 Est GFR (Non-Af Amer) 6.9 BUN/Creatinine Ratio 13.5 Glucose 114 H POC Glucose 118 H 116 H Calcium 7.6 L Phosphorus 8.8 H Total Bilirubin 4.1 H Direct Bilirubin 2.2 H AST 84 H ALT 92 H Alkaline Phosphatase 117 H Total Protein 5.1 L Albumin 2.4 L Urine Color Urine Appearance Urine pH Ur Specific [place] Urine Protein Urine Glucose (UA) Urine Ketones Urine Blood Urine Nitrite Urine Bilirubin Urine Urobilinogen Ur Leukocyte Esterase Urine WBC (Auto) Urine RBC (Auto) U Hyaline Cast (Auto) U Epithel Cells (Auto) Urine Bacteria (Auto) Urine Yeast U Random Total Protein Ur Creatinine mg/dL Protein/Creatinin Ratio Urine Albumin (%) U Zmxne-5-Prwdtvmb (%) U Xlnom-3-Zdbanhoj (%) U Beta Globulin (%) U Gamma Globulin (%) U Abnormal Prot Band 1 U Abnormal Prot Band 2 U Abnormal Prot Band 3 Urine PEP Interpret Hep Bs Antibody, Quant 04/30/22 04/30/22 07:09 13:12 WBC RBC Hgb Hct MCV MCH MCHC RDW Std Deviation RDW Coeff of Ronen Plt Count MPV Sodium Potassium Chloride Carbon Dioxide Anion Gap BUN Creatinine Est Cr Clr Drug Dosing Est GFR ( Amer) Est GFR (Non-Af Amer) BUN/Creatinine Ratio Glucose POC Glucose 118 H 86 Calcium Phosphorus Total Bilirubin Direct Bilirubin AST ALT Alkaline Phosphatase Total Protein Albumin Urine Color Urine Appearance Urine pH Ur Specific [place] Urine Protein Urine Glucose (UA) Urine Ketones Urine Blood Urine Nitrite Urine Bilirubin Urine Urobilinogen Ur Leukocyte Esterase Urine WBC (Auto) Urine RBC (Auto) U Hyaline Cast (Auto) U Epithel Cells (Auto) Urine Bacteria (Auto) Urine Yeast U Random Total Protein Ur Creatinine mg/dL Protein/Creatinin Ratio Urine Albumin (%) U Pocyx-7-Fnshwhoh (%) U Jugwl-9-Ltgpzrls (%) U Beta Globulin (%) U Gamma Globulin (%) U Abnormal Prot Band 1 U Abnormal Prot Band 2 U Abnormal Prot Band 3 Urine PEP Interpret Hep Bs Antibody, Quant (1) Acute renal failure Acute renal failure type: unspecified Qualified Code(s): N17.9 - Acute kidney failure, unspecified
[2022-04-30] MEDS: MELATONIN 3 MG TAB PO SCH (20:21)
[2022-04-30] MEDS: TAMSULOSIN HCL 0.4 MG CAP PO SCH (20:22)
--- NOTE | 2022-04-30 22:25 | Hospitalist Progress Note ---
Date of Service April 30, 2022 Assessment & Plan (1) Acute renal failure: Plan: SEVERE. Exact etiology of ARF uncertain. u/a - 3+ blood, 3+ protein, and casts seen. Pre-renal injury from poor PO intake, severe vomiting at home, and NSAID use? No evidence of post-renal obstruction based on imaging. Cannot rule out intrinsic disease but w/u thus far negative including --- CPK - normal. acute hepatitis profile - negative. anti-GBM ab - negative. ADELSO negative. Complements negative. ANCA negative. SPEP negative. UPEP - faint beta band. s/p placement of tunneled HD catheter 04/[address] Samuel. s/p 5 HD sessions since admission (including today). Pt's spontaneous urine output has been fairly robust last 48 hours; the day prior he made 2+ liters of urine. Plan - * Appreciate nephrology assistance * diuretic management per nephro * daily BMP Hyperphosphatemia - start phoslo with meals?? defer to nephrology (2) Fever: Plan: Fully resolved. At the beginning of his illness he had documented, confirmed fevers at home suggesting an infectious process. [employer] resp panel fully negative. Due to #3 acute hepatitis profile ordered - negative hep A, B, C. Lyme screen neg. Anaplasmosis and Babesia smears negative; DNA tests for both negative. Ehrlichia DNA negative. Blood cultures and urine cx negative - IV rocephin stopped. CXR without pneumonia. No infectious process on CT a/p. Despite #3 he does not appear to have acute cholecystitis or choledocholithiasis. MRCP negative for choledocholithiasis. ADELSO negative. Borrelia Miyamotoi IgG was positive but IgM negative suggestive of old infection. This is a lesser known tick-borne illness that can mimic anaplasmosis but usually has only mild LFT abnormalities. Awaiting parvovirus titers. Awaiting rickettsial testing. Awaiting CMV/EBV titers. Awaiting Il-2 level for HLH rule-out. Appreciate ID consultation and recs. Cont Doxycycline BID for empiric tick-borne coverage. Could consider deer tick virus testing but he has had no neurological symptoms/signs which are more common with deer tick virus (powassan) per JARRETT KHAN. Appreciate ID consultation & assistance. (3) Acute hepatitis: Plan: IMPROVING nicely with synthetic function intact (INR, platelets wnl). appreciate GI assistance viral etiology suspected. no evidence to date of tick-borne illness. HepA,B,C all negative. Awaiting EBV/CMV titers. [employer] respiratory panel (which includes adenovirus) fully negative. INR remains wnl. Platelets wnl. BILIRUBIN LEVELS PEAKED and are rapidly normalizing. Other LFTs improving slowly. Check LFTs every 2-3 days for stability. (4) Thrombocytopenia: Plan: resolved. Likely due to infectious process but uncertain since we do not have a specific pathogen identified as of yet. viral vs tick-borne vs other. resolved - platelets >150 (5) HTN (hypertension): Plan: controlled with metoprolol BID adding back flomax for BPH which will also help BPs (6) Hyperlipidemia: Plan: Statin held due to #3. CPK wnl at admission. (7) Enlarged prostate: Plan: resume flomax tonight (8) Atrial fibrillation: Plan: Presented in a.fib. CONVERTED TO NSR TODAY, 04/27. Chronicity uncertain. He did not have apparent symptoms from such. Echo with preserved EF and normal valve function. TSH wnl. Discussed a.fib dx with patient and his pt's family. CHADsVASc is 2, borderline 3 (he is a pre-diabetic, has HTN, age 67). Consider anticoagulation - would go with Abdirizak. Cont metoprolol 50mg BID. Family requesting cardiology consult while here. Placed consult to Dr Monet, [facility] [place] [facility]. (9) Prediabetes: Plan: controlled Hba1c 6% c/w such novolog SSI - none required in several days can d/c BSG checks cont DM diet (10) Aortic root dilatation: Plan: 4.7cm on echocardiogram will need ongoing surveillance of this cont beta domingo (11) Insomnia: Plan: cont melatonin 6mg HS Ambien 5mg hs prn (12) Rash: Plan: viral vs tick-borne vs non-infectious (autoimmune, although ADELSO negative) rash looked very viral in appearance ; was on legs/arms only - spared all other areas parvovirus testing added on to the already very lengthy list of labs that are already pending rash now resolved (13) Hyponatremia: Plan: 2nd to #1 again his level is acceptable today BMP am (14) Nausea and vomiting: Plan: resolved stop scheduled AC zofran; make it prn 2nd to gastritis? 2nd to acute renal failure? 2nd to acute liver injury? 2nd to the underlying illness that caused his presentation? probably combination of all factors above cont PPI twice daily cont carafate AC Plan DVT proph - heparin SC BID and daughter updated at bedside today cont PT, OT - can return home at discharge, but consider outpatient PT/OT progressing very nicely home this week once outpatient HD is set up - looks like he will need ongoing HD at least in the near-term, but hopefully he will have full renal recovery over time Admission and Anticipated Discharge Date Admission Date: April 22, 2022 Subjective saw patient after his HD session was over today he stated "it was a rough session" he didn't feel well during the treatment, and now he is very tired no vomiting no major episodes of nausea is eating better fatigue improving no new symptoms tele overnight - NSR, no a.fib Review of Systems Review of Systems: gen - no fevers or chills, fatigue improving cv - no orthopnea, no chest pain; no PND; edema all limbs nearly resolved pulm - no 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 GI - no diarrhea; no N/V today; no pain - urinary frequency, voiding small amounts each time (<100cc) Physical Exam Physical Exam: gen - looks great today mouth - MMM eyes - scleral icterus resolved neck - no JVD heart - RRR, s1 s2, no murmur lungs - CTA b/l, minimally decreased BS bases abd - body wall edema resolved; distension resolved; no HSM; soft; BS+ ext - no edema of feet or ankles; pulses 2+ b/l; edema RUE resolved; edema LUE now resolved skin - jaundice resolved; previous rash on arms/legs resolved psych - a/o x 3; tearful at times vascular - right tunneled IJ HD catheter clean Results & Data Results & Data ([facility]) Vital Signs (Past 12 Hours) Vital Signs Temp Pulse Pulse Resp BP BP BP 04/30/22 19:02 36.7 C 68 17 127/78 04/30/22 15:00 36.5 C 81 16 159/72 H 04/30/22 16:00 68 04/30/22 12:46 36.6 C 64 159/90 H 04/30/22 12:30 61 148/88 H 04/30/22 12:00 62 153/88 H 04/30/22 11:30 59 L 140/83 04/30/22 11:00 62 135/101 H 04/30/22 10:30 57 L 147/82 H Pulse Ox O2 Del Method 04/30/22 19:02 95 Room Air 04/30/22 15:00 95 Room Air 04/30/22 16:00 04/30/22 12:46 04/30/22 12:30 04/30/22 12:00 04/30/22 11:30 04/30/22 11:00 04/30/22 10:30 Laboratory Results Laboratory Results - last 24 hr 04/24/22 04/27/22 04/30/22 Unknown 08:16 06:39 Sodium 132 L Potassium 4.1 Chloride 93 L Carbon Dioxide 26 Anion Gap 13 H BUN 101 H Creatinine 7.47 H* D Est Cr Clr Drug Dosing 10.7 Est GFR ( Amer) 8.0 Est GFR (Non-Af Amer) 6.9 BUN/Creatinine Ratio 13.5 Glucose 114 H POC Glucose Calcium 7.6 L Phosphorus 8.8 H Total Bilirubin 4.1 H Direct Bilirubin 2.2 H AST 84 H ALT 92 H Alkaline Phosphatase 117 H Total Protein 5.1 L Albumin 2.4 L U Random Total Protein 1956 H Ur Creatinine mg/dL 37 Protein/Creatinin Ratio 52.865 H Urine Albumin (%) 49 U Qkgbe-5-Jpdhdzdd (%) 11 U Nkrqj-7-Onmstnio (%) 10 U Beta Globulin (%) 18 U Gamma Globulin (%) 12 U Abnormal Prot Band 1 DNR U Abnormal Prot Band 2 DNR U Abnormal Prot Band 3 DNR Urine PEP Interpret SEE NOTE Hep Bs Antibody, Quant <5 L 04/30/22 04/30/22 04/30/22 07:09 13:12 16:25 Sodium Potassium Chloride Carbon Dioxide Anion Gap BUN Creatinine Est Cr Clr Drug Dosing Est GFR ( Amer) Est GFR (Non-Af Amer) BUN/Creatinine Ratio Glucose POC Glucose 118 H 86 157 H Calcium Phosphorus Total Bilirubin Direct Bilirubin AST ALT Alkaline Phosphatase Total Protein Albumin U Random Total Protein Ur Creatinine mg/dL Protein/Creatinin Ratio Urine Albumin (%) U Gvxff-0-Tloxyvzb (%) U Hhnuo-7-Fqoppefl (%) U Beta Globulin (%) U Gamma Globulin (%) U Abnormal Prot Band 1 U Abnormal Prot Band 2 U Abnormal Prot Band 3 Urine PEP Interpret Hep Bs Antibody, Quant 04/30/22 20:06 Sodium Potassium Chloride Carbon Dioxide Anion Gap BUN Creatinine Est Cr Clr Drug Dosing Est GFR ( Amer) Est GFR (Non-Af Amer) BUN/Creatinine Ratio Glucose POC Glucose 113 H Calcium Phosphorus Total Bilirubin Direct Bilirubin AST ALT Alkaline Phosphatase Total Protein Albumin U Random Total Protein Ur Creatinine mg/dL Protein/Creatinin Ratio Urine Albumin (%) U Anpzj-1-Ffyqquyv (%) U Tsiza-1-Rmlzkgbu (%) U Beta Globulin (%) U Gamma Globulin (%) U Abnormal Prot Band 1 U Abnormal Prot Band 2 U Abnormal Prot Band 3 Urine PEP Interpret Hep Bs Antibody, Quant PG Care Time/CCT Total # of Minutes Spent Total Time Spent with Patient: Total time spent is greater than 50% in coordination of care (as documented) at patient's floor/unit and/or counseling patient: Coding Level of Care Code 06907 SUB INP/OBS CARE 3/50MIN Diagnoses Acute renal failure N17.9 Acute renal failure type: unspecified Fever R50.9 Acute hepatitis B17.9 Thrombocytopenia D69.6 HTN (hypertension) I10 Hyperlipidemia E78.5 Enlarged prostate N40.0 Atrial fibrillation I48.91 Prediabetes R73.03 Aortic root dilatation I77.810 Insomnia G47.00 Rash R21 Hyponatremia E87.1 Nausea and vomiting R11.2 (1) Acute renal failure Acute renal failure type: unspecified Qualified Code(s): N17.9 - Acute kidney failure, unspecified
[2022-05-01 01:37] LABS: CMV IgM Antibody <30.00 AU/mL; EBV Virus Capsid Ag IgG Ab >750.00 U/mL; Q Fever IgG, Phase I POSITIVE; Q Fever Phase I IgM Antibody NEGATIVE; Q Fever Phase II IgG Antibody POSITIVE; Q Fever Phase II IgM Antibody NEGATIVE; R. typhi IgG Ab NOT DETECTED; R. typhi IgM Ab NOT DETECTED; RMSF IgG Ab NOT DETECTED; RMSF IgM Ab NOT DETECTED
[2022-05-01 03:32] LABS: Parvovirus IgG 3.9 (<0.9); Parvovirus IgM 0.3 (<0.9)
[2022-05-01 07:34] LABS: Albumin Level 2.6 gm/dl (3.4-5.0); BUN Creatinine Ratio 11.6 (10-20); Creatinine Clr Calc Pharmacy 15.5 ml/min; Est GFR (African American) 12.4 ml/min; Est GFR (Non-African American) 10.7 ml/min; Phosphorus 6.4 mg/dl (2.5-4.9)
[2022-05-01] MEDS: SUCRALFATE 1 GM TAB PO SCH ×3 (07:54→21:01)
[2022-05-01] MEDS: CEROVITE ADV FORMULA TAB PO SCH (07:55)
[2022-05-01] MEDS: PANTOprazole 40 MG TAB PO SCH ×2 (07:55→21:05)
[2022-05-01] MEDS: DOXYCYCLINE HYCLATE 100 MG CAP PO SCH ×2 (07:55→21:03)
[2022-05-01] MEDS: METOPROLOL TARTRATE 50 MG TAB PO SCH ×2 (07:55→21:04)
[2022-05-01] MEDS: HEPARIN SOD 5,000 UNIT/0.5 ML VIAL SQ SCH ×2 (08:02→21:03)
[2022-05-01] MEDS: INSULIN ASPART PER UNIT SC SCH (08:03)
[2022-05-01] MEDS: ONDANSETRON INJ 2 MG/ML 2 ML VIAL IV SCH (08:03)
[2022-05-01] MEDS: NEPHROCAPS PO SCH (12:01)
[2022-05-01] MEDS: CALCIUM ACETATE 667 MG CAP/TAB PO SCH ×2 (12:01→17:21)
--- NOTE | 2022-05-01 12:39 | Nephrology Progress Note ---
Date of Service May 01, 2022 Assessment & Plan (1) Acute renal failure: (2) Anuria: (3) Thrombocytopenia: (4) Fever: (5) Transaminitis: Plan 67 yo M presented with more than a week history of fever, chills, myalgia, poor p.o. intake and decreased urine output. On admission noted to have RAF with creatinine 6.1, BUN 93 with prior normal renal function baseline creatinine 0.9 on 03/11/2022. Urinalysis showed 3+ proteinuria and 3+ microscopic hematuria with more than 30 RBC/HPF. CT A/P showed bilateral mild perinephric stranding but otherwise unremarkable. Renal function progressively worsening despite getting IV fluid and remained anuric, no postrenal obstruction on renal imaging. Concern for ATN with possible infectious etiology. Although less likely, cannot totally exclude possibility for glomerulonephritis. Rapid progressive worsening of renal function. remained anuric. did not respond to high dose of diuretics. Had tunneled dialysis catheter placed on 04/24/2022 and had 1st dialysis. On doxycycline since admission, azithromycin and atovaquone added on 04/25/22 and ceftriaxone was discontinued. All w/u so far negative. Currently only on Doxycycline. UO improved significantly, net negative, BP fair, on RA but cr continues to rise. UA with improvement in proteinuria and hematuria. --tolerating dialysis, consult case management for out pt HD set up. No indication for kidney biopsy at this time, if clinically improved but no recovery of kidney function, biopsy as an outpatient can be set up. --change to regular K diet as K has been ok --encouraged to increase fluid intake to keep net even, activity as tolerated --lab in am to decide next HD Will follow. Admission and Anticipated Discharge Date Admission Date: April 22, 2022 Aditi Jewell was seen and evaluated during HD this morning. Overall he is feeling better, no nausea and vomiting, appetite improved, more active. Blood pressure fair, decent urine output and net negative. Platelet normalized. K normal. Cr continues to rise rapidly off of HD. Review of Systems Review of Systems: Detailed review of system was otherwise unremarkable except mentioned above. Physical Exam Constitutional: WD/WN, vitals as above no acute distress Neck: normal visual inspection right IJ tunneled dialysis catheter with no active bleeding or significant tenderness Respiratory: Auscultation: lungs clear to auscultation bilaterally Cardiovascular: Rate/Rhythm: regular rate and regular rhythm Heart Sounds: normal S1 and normal S2 Extremities: + vascular access device (Rt IJ TDC) Musculoskeletal: Extremities: extremities normal to inspection Skin: no rashes Neurologic: no focal motor deficits Psychiatric: Orientation: alert and oriented x 3 Affect: euthymic affect Results & Data ([facility]) Vital Signs (Past 12 Hours) Vital Signs Temp Pulse Pulse Resp BP Pulse Ox O2 Del Method 05/01/22 11:20 36.6 C 67 18 152/84 H 96 Room Air 05/01/22 05:44 94 H 05/01/22 08:09 36.4 C L 62 18 149/79 H 95 Room Air 05/01/22 05:00 05/01/22 03:00 36.6 C 68 20 122/74 95 Room Air O2 Del Method 05/01/22 11:20 05/01/22 05:44 05/01/22 08:09 05/01/22 05:00 Room Air 05/01/22 03:00 PG Care Time/CCT Total # of Minutes Spent Total Time Spent with Patient: Total time spent is greater than 50% in coordination of care (as documented) at patient's floor/unit and/or counseling patient: Coding Level of Care Code 22122 SUB INP/OBS CARE 3/50MIN Diagnoses Acute renal failure N17.9 Acute renal failure type: unspecified Anuria R34 Thrombocytopenia D69.6 Fever R50.9 Transaminitis R74.01 (1) Acute renal failure Acute renal failure type: unspecified Qualified Code(s): N17.9 - Acute kidney failure, unspecified
--- NOTE | 2022-05-01 13:15 | Cardiology Consultation ---
Date of Consultation May 01, 2022 Assessment & Plan (1) Atrial fibrillation: (2) Aortic root dilatation: (3) HTN (hypertension): Plan 1. Atrial fibrillation: He did not have symptoms associated with the arrhythmia. Unclear duration. Overall rate control was also good. He will be difficult to note this was longstanding in nature or not. Certainly could be associated with his acute illness. Does have some atrial dilation on his echocardiogram and history of hypertension. Some symptoms consistent with obstructive sleep apnea as well. I would treat this like typical atrial fibrillation at this point. He does not appear to require rate control medications. He is not appear to have symptoms associated with the arrhythmia. The only issue that is yet to be addressed is the need for systemic anticoagulation. His chads Vasc score is at least to. This renal dysfunction he may be a slightly higher risk. I did recommend systemic anticoagulation. The available agents would be warfarin or Eliquis. Recommend Eliquis 5 mg twice daily. He seems amenable. 2. Aortic root dilation: Noted on echocardiography. At some point a CT scan may be of value. Treatment at this point would simply be aggressive blood pressure control and continued use of beta-blockade. 3. Hypertension: I would defer management to the chief orthoptist at this point. Perhaps he would have a recommendation for an antihypertensive. However, I would at least consider continuing some beta-domingo given his aortic root dilation. History of Present Illness Reason for Consultation: Atrial fibrillation Requesting Physician: Linda Attending Physician: Jorden Carpenter MD History of Present Illness The patient is a 67-year-old gentleman without a known history of cardiac disease presented on the 22 of April with diffuse symptoms of body aches, fevers, anorexia and vomiting. He was discovered to have several metabolic abnormalities including acute renal failure, transaminitis and a leukocytosis. He was treated for an infectious process and some of his metabolic abnormalities resolved. Unfortunately, his renal function did not improve rapidly and he was started on dialysis. At the time of his admission he was noted to be in atrial fibrillation with a controlled ventricular rate. Patient was unaware of this diagnosis. He did not report symptoms of palpitations leading up to his admission. He denied elevated heart rates. He does check his blood pressure and pulse occasionally and has not noticed any high heart rates. Generally speaking he does not have dizziness or lightheadedness. He cannot recall the syncopal episode. He reports being very active individual can exercise vigorously without symptoms of limiting dyspnea or any chest pain. Allergies Allergy/AdvReac Type Severity Reaction Status Date / Time No Known Allergies Allergy Verified 03/22/22 09:29 Home Medications Medication Instructions Recorded Confirmed Type aspirin 81 mg tablet,delayed 81 mg PO QAM 04/08/18 04/22/22 History release (Aspir-) flaxseed oil 1,000 mg capsule 1,000 mg PO QAM 04/08/18 04/22/22 History multivitamin (Multiple Vitamins 1 tab PO QAM 04/08/18 04/22/22 History tablet) glucosamine sulfate 500 mg tablet 1 tab PO DAILY 04/13/18 04/22/22 History (Glucosamine) simvastatin 20 mg tablet 20 mg PO PM #14 tabs 04/17/21 04/22/22 Rx diltiazem HCl 300 mg See Rx Instructions .Route 03/15/22 04/22/22 Rx capsule,extended release 24 hr .COMPLEX #90 caps olmesartan 40 mg tablet 40 mg PO DAILY #90 tabs 03/22/22 04/22/22 Rx tamsulosin 0.4 mg capsule 0.8 mg PO DAILY #180 caps 03/22/22 04/22/22 Rx Patient History Medical History Anuria Hypertension Impaired fasting glucose Surgical History History of colonoscopy History of hand surgery L WRIST/GANGLION CYST History of hernia repair X2 Family History Other No pertinent family history Denies family history of Ovarian cancer Prostate cancer Myocardial infarction Breast cancer Colorectal cancer Social History Smoking Status: Never smoker Second Hand Exposure: No; Hx Alcohol Use: Yes Alcohol type: hard liquor Alcohol Intake Frequency: 2-3 x/Week Hx Substance Use: No Preferred Language: Palauan Communication Ability: Effective Visual Impairment: No Limitations Hearing Ability: Normal Transportation Planner Required: No Beliefs That Will Affect Care: None marital status: Current Living Situation: Spouse current occupational status: retired How many Children do You have: 2 Feels Safe at Home: Yes Childhood Exposure to Second-Hand Smoke: No Diet Comment: regular caffeine: No during the past year weight has: remained stable Dental Care, Regularly: Yes Physical Activity Frequency: Daily Seatbelt Use: always Sunscreen Use: No Assistive Devices: None Review of Systems Review of Systems: Per HPI. Abdominal distention which appears to have resolved. History of poor sleep hygiene. Some snoring reported. Does take naps during the day. Physical Exam Physical Exam: The patient is alert and oriented. Mood and affect appeared normal. He answered all questions appropriately. HEENT: Pupils are equal and reactive to light and accommodation. Extraocular movements are intact. The sclerae are anicteric. Neuro: Cranial nerves intact Neck: Patient's neck is supple. He has palpable carotid pulses bilaterally without bruits on auscultation. There is no evidence of jugular venous distention. The thyroid is not enlarged. Lungs: Clear to auscultation bilaterally. He has good air movement without use of accessory muscles. No rales wheezes or rhonchi. Cardiac: Heart demonstrates a regular rate and rhythm. Normal S1 and S2. No murmurs on examination. Pulses: The patient has palpable radial pulses bilaterally that are equal in intensity Extremities: There was no evidence of hypoperfusion. There is no cyanosis or clubbing. Very mild edema involving the left hand. Skin: I did not appreciate any rashes on examination today. Results & Data ([facility]) Vital Signs (Past 12 Hours) Vital Signs Temp Pulse Pulse Resp BP Pulse Ox O2 Del Method 05/01/22 11:20 36.6 C 67 18 152/84 H 96 Room Air 05/01/22 05:44 94 H 05/01/22 08:09 36.4 C L 62 18 149/79 H 95 Room Air 05/01/22 05:00 05/01/22 03:00 36.6 C 68 20 122/74 95 Room Air O2 Del Method 05/01/22 11:20 05/01/22 05:44 05/01/22 08:09 05/01/22 05:00 Room Air 05/01/22 03:00 Laboratory Results Abnormal Lab Results 04/23/22 04/26/22 04/30/22 14:53 07:25 13:12 Sodium Potassium Chloride Carbon Dioxide Anion Gap BUN Creatinine Est Cr Clr Drug Dosing Est GFR ( Amer) Est GFR (Non-Af Amer) BUN/Creatinine Ratio Glucose POC Glucose 86 Calcium Phosphorus Albumin CMV IgM Ab <30.00 EBV Capsid Ag IgG Ab >750.00 H EBV Capsid Ag IgM Ab <36.00 EBV EA Restrict+Diffuse 32.40 H EBV Nuclear Antigen Ab 394.00 H EBV Antibody Interp SEE NOTE Parvovirus IgG Ab Index 3.9 H Parvovirus IgM Ab Index 0.3 Q Fever Phase I IgG Ab POSITIVE A Q Fever Phase I IgM Ab NEGATIVE Q Fever Phase II IgG Ab POSITIVE A Q Fever Phase II IgM Ab NEGATIVE Rickettsia IgG Ab NOT DETECTED Rickettsia IgM Ab NOT DETECTED Typhus Fever IgG Ab NOT DETECTED Typhus Fever IgM Ab NOT DETECTED 04/30/22 04/30/22 05/01/22 16:25 20:06 06:37 Sodium 134 L Potassium 4.0 Chloride 96 L Carbon Dioxide 28 Anion Gap 10 BUN 60 H D Creatinine 5.16 H* D Est Cr Clr Drug Dosing 15.5 Est GFR ( Amer) 12.4 Est GFR (Non-Af Amer) 10.7 BUN/Creatinine Ratio 11.6 Glucose 118 H POC Glucose 157 H 113 H Calcium 8.0 L Phosphorus 6.4 H Albumin 2.6 L CMV IgM Ab EBV Capsid Ag IgG Ab EBV Capsid Ag IgM Ab EBV EA Restrict+Diffuse EBV Nuclear Antigen Ab EBV Antibody Interp Parvovirus IgG Ab Index Parvovirus IgM Ab Index Q Fever Phase I IgG Ab Q Fever Phase I IgM Ab Q Fever Phase II IgG Ab Q Fever Phase II IgM Ab Rickettsia IgG Ab Rickettsia IgM Ab Typhus Fever IgG Ab Typhus Fever IgM Ab 05/01/22 05/01/22 07:22 11:03 Sodium Potassium Chloride Carbon Dioxide Anion Gap BUN Creatinine Est Cr Clr Drug Dosing Est GFR ( Amer) Est GFR (Non-Af Amer) BUN/Creatinine Ratio Glucose POC Glucose 107 H 108 H Calcium Phosphorus Albumin CMV IgM Ab EBV Capsid Ag IgG Ab EBV Capsid Ag IgM Ab EBV EA Restrict+Diffuse EBV Nuclear Antigen Ab EBV Antibody Interp Parvovirus IgG Ab Index Parvovirus IgM Ab Index Q Fever Phase I IgG Ab Q Fever Phase I IgM Ab Q Fever Phase II IgG Ab Q Fever Phase II IgM Ab Rickettsia IgG Ab Rickettsia IgM Ab Typhus Fever IgG Ab Typhus Fever IgM Ab Diagnostic Findings Echocardiogram obtained 04/24/2022: Normal LV systolic function with ejection f raction of 55-60%. Mild LVH. Mildly dilated right ventricle with normal systolic function. Mild biatrial dilation. Mild mitral regurgitation. Aortic root dilation measured at 4.7 cm. PG Care Time/CCT Total # of Minutes Spent Total Time Spent with Patient: Total time spent is greater than 50% in coordination of care (as documented) at patient's floor/unit and/or counseling patient: Coding Level of Care Code 17706 INT INP/OBS CARE 375MIN Diagnoses Atrial fibrillation I48.91 Aortic root dilatation I77.810 HTN (hypertension) I10
--- NOTE | 2022-05-01 15:12 | Infectious Disease Progress Nt ---
Date of Service May 01, 2022 Assessment & Plan (1) Thrombocytopenia: (2) Acute renal failure: (3) Transaminitis: (4) Lymphopenia: (5) Fever: Plan 67 yo M with a history of HTN, BPH, HLD who presented on 04/22 with fevers, chills, myalgias since 04/11, now admitted with lymphopenia, thrombocytopenia, elevated LFTs, and acute renal failure requiring HD. Although he denies recent known tick bites, he does regularly spend time in wooded areas and have regular tick exposures.. No rash, upper respiratory symptoms. Had taken Aleve for several days prior to admission. Initial infectious work-up showed SARS-CoV-2, influenza A/B, and RSV PCR negative, RVP negative, Lyme IgM/IgG negative, BCx sterile, and blood smear x 2 for Anaplasma and Babesia negative. A CT A/P without contrast and CXR showed no significant findings. A liver US showed gallbladder sludge without evidence of acute cholecystitis, a small pancreatic cystic lesion which may represent IPMN, and renal cysts. MRCP showed no gallstones, no biliary duct pathology. He was started on empiric doxycycline for a possible tick-borne illness, and multiple tick-borne illness studies were sent--thus far showing negative Anaplasma, Ehrlichia, and Babesia PCRs. He has reassuringly been afebrile since admission, but continues to have stably mildly elevated AST, ALT and alk phos, uptrending Tbili to 14.1, uptrending Cr to peak 8.25 for which he was started on dialysis on 04/24. He was on ceftriaxone from 04/23-04/24, but was discontinued due to BCx NGTD. Micro: 04/27HBSAB, Quant <5, not immune 04/26 Parvovirus Parvovirus B19 IgG 3.9 Parvovirus B19 IgM 0.3 04/24 Blood smear for Anaplasma/Babesia: negative 04/23 UCx: NG 04/23 Borrelia miyamotoi PCR: negative 04/23 Borrelia miyamotoi IgM 0.13 , Ig.64 04/23 CMV IgM:< 30 04/23 EBV panel: past infection 04/23 Q fever panel: phase I and phase II IG ab positive , IGM neg 04/23 Rickettsia IgM, IgG: negative 04/23 Typus fever IgM, IgG:negative 04/23 RVP: negative 04/23 Acute hepatitis panel: HAV IgM neg, HBsAg neg, HBc IgM neg, HCV Ab neg 04/22 Ehrlichia chaffeensis IgM, IgG: negative 04/22 Ehrlichia chaffeensis PCR: negative 04/22 Blood smear for Anaplasma/Babesia: negative 04/22 Anaplasma phagocytophilum PCR: negative 04/22 Babesia microti IgM, IgG: negtive 04/22 Babesia microti PCR: negative 04/22 Lyme IgM, IgG: negative 04/22 BCx x2: NGTD 04/22 COVID-19, influenza A/B, RSV PCR: negative Antimicrobial course: Doxycycline 04/22 - present Azithromycin 04/25 - 04/26 Atovaquone 04/25 - 04/26 Ceftriaxone 04/23 - 04/24 Discussion His initial lymphopenia, thrombocytopenia, and elevated LFTs raised concern for a tick-borne illness. His lymphopenia resolved, and he developed leukocytosis up to 16.7 on 04/25, now decreased and normalized. His platelets also normalizes. AST/ALT, T Bili improving. He continues to have end organ damage that does not seem to be rapidly improving ( RAF): requires HD. Considered HLH secondary to infection, but ferritin is normal. Leptospirosis can cause kidney and hepatic injury and thrombocytopenia, but he does not seem to have the appropriate exposures, and would be covered by doxycycline in any case .Borrelia miymotoi PCR negative ,IGM negative, but IGG elevated. This may represent infection of undetermined age or cross reaction with other tick related illness. Anaplasma PCR and smear negative. Ehrlichia, and Babesia smear, serology and PCR/DNA negative. Lyme screen and serology negative . Parvo testing c/w past infection. Rickettsial studies are negative , typhus testing negative, CMV ab negative. However Q fever phase I and Phase II IGG + , negative IGM. NO titer information is available [place]. 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 Admits to exposure to farm animal excreta in his barn.Admits to hunting deer and removing entrails. He has No valve abnormalities on TTE however noted for mild Aortic root dilatation Problems: 1. Fevers: febrile prior to admission, but afebrile since admission 2. Lymphopenia: resolved 3. Thrombocytopenia: resolved 4. Acute renal failure: started on HD 04/24 5. Elevated LFTs, bilirubin 6.Hepatitis B NOT immune 7 Possible Q fever- no titers available Recommendations: -Continue empiric doxycycline 100 mg q12h to cover for tick-borne illnesses and possible q fever -Will ask lab to add titers to Q fever panel and added serum PCr ( ordered for AM ) . In order to help diagnose acute vs chronic Q fever, would need titer information. Treatment duration will depend on this information Unlike acute Q fever, which has a low mortality rate (<2%), chronic Q fever endocarditis is always fatal if untreated Diagnosis of chronic Q fever endocarditis can be extremely difficult because vegetative lesions are seen on TTE in about 2% of patients. The patients at highest risk for chronic Q fever are those with valvular heart disease, a vascular graft, or an arterial aneurysm. He has evidence of mild aortic root dilation on TTE. The majority Q fever vascular infections reported in the literature are aortic infections, which complicate an aortic aneurysm. . Dw pt and at bedside ID will continue to follow. Esvin Wilde MD, MPH [facility], ID Division Call [phone] with questions Admission and Anticipated Discharge Date Admission Date: April 22, 2022 Subjective Subsequent visit was provided via telemedicine using two-way real-time interactive telecommunication between the patient and the telemedicine provider. For the duration of the visit, the provider was performing the assessment from a different facility than the patient. This includesuse of bluetooth stethoscope forauscultationperformed by the telepresenter that the telemedicine provider can hear if described in the physical exam. [employer] contact information: Please call [facility] Call Center . (Phone Number For Physician Use Only) After establishing a telemedicine visit, patient was: Patient/authorized rep acknowledged consent and understanding and Gave permission to continue telehealth session Time Spent with Patient: Subsequent => 35 min He feels well. Q fever serology IGG + but no titer info available to interpret. He was evaluated by cardiology for afib and mild aortic root dilatation WBC and PLTS normalized . T Bili elevated but down trending. Physical Exam Constitutional: Awake, alert, oriented times 4, NAD Eyes: Anicteric sclera Respiratory: No increased WOB , right chest Hd catheter Gastrointestinal (Abdomen): soft, Nt, ND Skin: jaundice mostly resolved Neurologic: AAO*4 Psychiatric: Appropriate, Cooperative Results & Data ([facility]) Vital Signs (Past 12 Hours) Vital Signs Temp Pulse Pulse Resp BP Pulse Ox O2 Del Method 05/01/22 13:49 67 05/01/22 11:20 36.6 C 67 18 152/84 H 96 Room Air 05/01/22 05:44 94 H 05/01/22 08:09 36.4 C L 62 18 149/79 H 95 Room Air 05/01/22 05:00 O2 Del Method 05/01/22 13:49 05/01/22 11:20 05/01/22 05:44 05/01/22 08:09 05/01/22 05:00 Room Air Laboratory Results Laboratory Results - last 48 hr 04/23/22 04/24/22 04/26/22 14:53 Unknown 07:25 Sodium Potassium Chloride Carbon Dioxide Anion Gap BUN Creatinine Est Cr Clr Drug Dosing Est GFR ( Amer) Est GFR (Non-Af Amer) BUN/Creatinine Ratio Glucose POC Glucose Calcium Phosphorus Total Bilirubin Direct Bilirubin AST ALT Alkaline Phosphatase Total Protein Albumin U Random Total Protein 1956 H Ur Creatinine mg/dL 37 Protein/Creatinin Ratio 52.865 H Urine Albumin (%) 49 U Cbltc-8-Uhndnwbn (%) 11 U Mesca-5-Jbmkiaej (%) 10 U Beta Globulin (%) 18 U Gamma Globulin (%) 12 U Abnormal Prot Band 1 DNR U Abnormal Prot Band 2 DNR U Abnormal Prot Band 3 DNR Urine PEP Interpret SEE NOTE CMV IgM Ab <30.00 EBV Capsid Ag IgG Ab >750.00 H EBV Capsid Ag IgM Ab <36.00 EBV EA Restrict+Diffuse 32.40 H EBV Nuclear Antigen Ab 394.00 H EBV Antibody Interp SEE NOTE Hep Bs Antibody, Quant Parvovirus IgG Ab Index 3.9 H Parvovirus IgM Ab Index 0.3 Q Fever Phase I IgG Ab POSITIVE A Q Fever Phase I IgM Ab NEGATIVE Q Fever Phase II IgG Ab POSITIVE A Q Fever Phase II IgM Ab NEGATIVE Rickettsia IgG Ab NOT DETECTED Rickettsia IgM Ab NOT DETECTED Typhus Fever IgG Ab NOT DETECTED Typhus Fever IgM Ab NOT DETECTED 04/27/22 04/29/22 04/29/22 08:16 16:25 21:16 Sodium Potassium Chloride Carbon Dioxide Anion Gap BUN Creatinine Est Cr Clr Drug Dosing Est GFR ( Amer) Est GFR (Non-Af Amer) BUN/Creatinine Ratio Glucose POC Glucose 118 H 116 H Calcium Phosphorus Total Bilirubin Direct Bilirubin AST ALT Alkaline Phosphatase Total Protein Albumin U Random Total Protein Ur Creatinine mg/dL Protein/Creatinin Ratio Urine Albumin (%) U Inhhf-9-Xzeyxugo (%) U Npnxc-6-Wdvkhnij (%) U Beta Globulin (%) U Gamma Globulin (%) U Abnormal Prot Band 1 U Abnormal Prot Band 2 U Abnormal Prot Band 3 Urine PEP Interpret CMV IgM Ab EBV Capsid Ag IgG Ab EBV Capsid Ag IgM Ab EBV EA Restrict+Diffuse EBV Nuclear Antigen Ab EBV Antibody Interp Hep Bs Antibody, Quant <5 L Parvovirus IgG Ab Index Parvovirus IgM Ab Index Q Fever Phase I IgG Ab Q Fever Phase I IgM Ab Q Fever Phase II IgG Ab Q Fever Phase II IgM Ab Rickettsia IgG Ab Rickettsia IgM Ab Typhus Fever IgG Ab Typhus Fever IgM Ab 04/30/22 04/30/22 04/30/22 06:39 07:09 13:12 Sodium 132 L Potassium 4.1 Chloride 93 L Carbon Dioxide 26 Anion Gap 13 H BUN 101 H Creatinine 7.47 H* D Est Cr Clr Drug Dosing 10.7 Est GFR ( Amer) 8.0 Est GFR (Non-Af Amer) 6.9 BUN/Creatinine Ratio 13.5 Glucose 114 H POC Glucose 118 H 86 Calcium 7.6 L Phosphorus 8.8 H Total Bilirubin 4.1 H Direct Bilirubin 2.2 H AST 84 H ALT 92 H Alkaline Phosphatase 117 H Total Protein 5.1 L Albumin 2.4 L U Random Total Protein Ur Creatinine mg/dL Protein/Creatinin Ratio Urine Albumin (%) U Fkbkt-4-Okftotiz (%) U Hyggr-5-Xtymaylj (%) U Beta Globulin (%) U Gamma Globulin (%) U Abnormal Prot Band 1 U Abnormal Prot Band 2 U Abnormal Prot Band 3 Urine PEP Interpret CMV IgM Ab EBV Capsid Ag IgG Ab EBV Capsid Ag IgM Ab EBV EA Restrict+Diffuse EBV Nuclear Antigen Ab EBV Antibody Interp Hep Bs Antibody, Quant Parvovirus IgG Ab Index Parvovirus IgM Ab Index Q Fever Phase I IgG Ab Q Fever Phase I IgM Ab Q Fever Phase II IgG Ab Q Fever Phase II IgM Ab Rickettsia IgG Ab Rickettsia IgM Ab Typhus Fever IgG Ab Typhus Fever IgM Ab 04/30/22 04/30/22 05/01/22 16:25 20:06 06:37 Sodium 134 L Potassium 4.0 Chloride 96 L Carbon Dioxide 28 Anion Gap 10 BUN 60 H D Creatinine 5.16 H* D Est Cr Clr Drug Dosing 15.5 Est GFR ( Amer) 12.4 Est GFR (Non-Af Amer) 10.7 BUN/Creatinine Ratio 11.6 Glucose 118 H POC Glucose 157 H 113 H Calcium 8.0 L Phosphorus 6.4 H Total Bilirubin Direct Bilirubin AST ALT Alkaline Phosphatase Total Protein Albumin 2.6 L U Random Total Protein Ur Creatinine mg/dL Protein/Creatinin Ratio Urine Albumin (%) U Stcqc-4-Xndpsfiy (%) U Ghaqo-6-Mlmeyxbh (%) U Beta Globulin (%) U Gamma Globulin (%) U Abnormal Prot Band 1 U Abnormal Prot Band 2 U Abnormal Prot Band 3 Urine PEP Interpret CMV IgM Ab EBV Capsid Ag IgG Ab EBV Capsid Ag IgM Ab EBV EA Restrict+Diffuse EBV Nuclear Antigen Ab EBV Antibody Interp Hep Bs Antibody, Quant Parvovirus IgG Ab Index Parvovirus IgM Ab Index Q Fever Phase I IgG Ab Q Fever Phase I IgM Ab Q Fever Phase II IgG Ab Q Fever Phase II IgM Ab Rickettsia IgG Ab Rickettsia IgM Ab Typhus Fever IgG Ab Typhus Fever IgM Ab 05/01/22 05/01/22 07:22 11:03 Sodium Potassium Chloride Carbon Dioxide Anion Gap BUN Creatinine Est Cr Clr Drug Dosing Est GFR ( Amer) Est GFR (Non-Af Amer) BUN/Creatinine Ratio Glucose POC Glucose 107 H 108 H Calcium Phosphorus Total Bilirubin Direct Bilirubin AST ALT Alkaline Phosphatase Total Protein Albumin U Random Total Protein Ur Creatinine mg/dL Protein/Creatinin Ratio Urine Albumin (%) U Pkpdf-4-Rifyjlvj (%) U Hghak-7-Aukrmmkg (%) U Beta Globulin (%) U Gamma Globulin (%) U Abnormal Prot Band 1 U Abnormal Prot Band 2 U Abnormal Prot Band 3 Urine PEP Interpret CMV IgM Ab EBV Capsid Ag IgG Ab EBV Capsid Ag IgM Ab EBV EA Restrict+Diffuse EBV Nuclear Antigen Ab EBV Antibody Interp Hep Bs Antibody, Quant Parvovirus IgG Ab Index Parvovirus IgM Ab Index Q Fever Phase I IgG Ab Q Fever Phase I IgM Ab Q Fever Phase II IgG Ab Q Fever Phase II IgM Ab Rickettsia IgG Ab Rickettsia IgM Ab Typhus Fever IgG Ab Typhus Fever IgM Ab Diagnostic Findings Microbiology 04/29/22 09:30 Urine,Clean Catch Urine Culture - Final No growth - less than 1,000 colonies/mL. 04/22/22 15:25 Blood Aerobic Blood Culture - Final No growth in Aerobic bottle after 5 days. 04/22/22 15:25 Blood Anaerobic Blood Culture - Final No growth in Anaerobic bottle after 5 days. 04/22/22 15:01 Blood Aerobic Blood Culture - Final No growth in Aerobic bottle after 5 days. 04/22/22 15:01 Blood Anaerobic Blood Culture - Final No growth in Anaerobic bottle after 5 days. 04/23/22 Unknown Urine,Indwelling Cath Urine Culture - Final No growth - less than 1,000 colonies/mL. (1) Acute renal failure Acute renal failure type: unspecified Qualified Code(s): N17.9 - Acute kidney failure, unspecified
[2022-05-01] MEDS: MELATONIN 3 MG TAB PO SCH (21:04)
[2022-05-01] MEDS: TAMSULOSIN HCL 0.4 MG CAP PO SCH (21:06)
[2022-05-01] MEDS: ZOLPIDEM TARTRATE 5 MG TAB PO PRN (22:21)
[2022-05-02 08:34] LABS: Albumin Level 2.7 gm/dl (3.4-5.0); Calcium 8.4 mg/dl (8.5-10.1); Creatinine Clr Calc Pharmacy 15.3 ml/min; Est GFR (African American) 12.3 ml/min; Est GFR (Non-African American) 10.6 ml/min; Phosphorus 6.5 mg/dl (2.5-4.9); Potassium 4.1 mmol/L (3.5-5.1)
[2022-05-02] MEDS: PANTOprazole 40 MG TAB PO SCH ×2 (09:04→19:54)
[2022-05-02] MEDS: METOPROLOL TARTRATE 50 MG TAB PO SCH ×2 (09:04→19:54)
[2022-05-02] MEDS: CALCIUM ACETATE 667 MG CAP/TAB PO SCH ×3 (09:06→17:56)
[2022-05-02] MEDS: SUCRALFATE 1 GM TAB PO SCH ×3 (09:06→19:53)
[2022-05-02] MEDS: HEPARIN SOD 5,000 UNIT/0.5 ML VIAL SQ SCH ×2 (09:06→19:54)
[2022-05-02] MEDS: NEPHROCAPS PO SCH (09:07)
[2022-05-02] MEDS: CEROVITE ADV FORMULA TAB PO SCH (09:07)
[2022-05-02 09:28] LABS: Hematocrit (blood only) 32.3 % (42.0-52.0); Hemoglobin 11.5 g/dl (14.0-18.0); Mean Corpuscular Hemoglobin 30.1 pg (25.0-34.0); Mean Corpuscular Hgb Conc 35.6 g/dL (32.0-36.0); Mean Corpuscular Volume 84.6 fL (80.0-100.0); Mean Platelet Volume 9.4 fL (9.4-12.4); Platelet Count 225 K/uL (130-400); RDW Coefficient of Variation 13.8 % (11.5-14.5); RDW Standard Deviation 42.7 fL (36.4-46.3); Red Blood Count 3.82 M/uL (4.70-6.10); White Blood Count 5.19 K/ul (4.8-10.8)
[2022-05-02 09:42] LABS: Q Fever IgG Phase II Ttr Rflx 1:32 titer; Q Fever IgG,Phase I Titer(Rflx 1:32 titer
--- NOTE | 2022-05-02 10:04 | Hospitalist Progress Note ---
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 u/a - 3+ blood, 3+ protein, and casts seen. Pre-renal injury from poor PO intake, severe vomiting at home, and NSAID use? No evidence of post-renal obstruction based on imaging. Cannot rule out intrinsic disease but w/u thus far negative including --- CPK - normal. acute hepatitis profile - negative. anti-GBM ab - negative. ADELSO negative. Complements negative. ANCA negative. SPEP negative. UPEP - faint beta band. s/p placement of tunneled HD catheter 04/[address] Samuel. s/p 5 HD sessions since admission (including today). Pt's spontaneous urine output has been fairly robust last 48 hours; the day prior he made 2+ liters of urine. Plan - * Appreciate nephrology assistance * diuretic management per nephro * daily BMP Hyperphosphatemia - start phoslo with meals?? defer to nephrology (2) Fever: Plan: Fully resolved. At the beginning of his illness he had documented, confirmed fevers at home suggesting an infectious process. [employer] resp panel fully negative. Due to #3 acute hepatitis profile ordered - negative hep A, B, C. Lyme screen neg. Anaplasmosis and Babesia smears negative; DNA tests for both negative. Ehrlichia DNA negative. Blood cultures and urine cx negative - IV rocephin stopped. CXR without pneumonia. No infectious process on CT a/p. Despite #3 he does not appear to have acute cholecystitis or choledocholithiasis. MRCP negative for choledocholithiasis. ADELSO negative. Borrelia Miyamotoi IgG was positive but IgM negative suggestive of old infection. This is a lesser known tick-borne illness that can mimic anaplasmosis but usually has only mild LFT abnormalities. Awaiting parvovirus titers. Awaiting rickettsial testing. Awaiting CMV/EBV titers. Awaiting Il-2 level for HLH rule-out. Appreciate ID consultation and recs. Cont Doxycycline BID for empiric tick-borne coverage. Could consider deer tick virus testing but he has had no neurological symptoms/signs which are more common with deer tick virus (powassan) per JARRETT KHAN. Appreciate ID consultation & assistance. (3) Acute hepatitis: Plan: IMPROVING nicely with synthetic function intact (INR, platelets wnl). appreciate GI assistance viral etiology suspected. no evidence to date of tick-borne illness. HepA,B,C all negative. Awaiting EBV/CMV titers. [employer] respiratory panel (which includes adenovirus) fully negative. INR remains wnl. Platelets wnl. BILIRUBIN LEVELS PEAKED and are rapidly normalizing. Other LFTs improving slowly. Check LFTs every 2-3 days for stability. (4) Thrombocytopenia: Plan: resolved. Likely due to infectious process but uncertain since we do not have a specific pathogen identified as of yet. viral vs tick-borne vs other. resolved - platelets >150 (5) HTN (hypertension): Plan: controlled with metoprolol BID adding back flomax for BPH which will also help BPs (6) Hyperlipidemia: Plan: Statin held due to #3. CPK wnl at admission. (7) Enlarged prostate: Plan: resume flomax tonight (8) Atrial fibrillation: Plan: Presented in a.fib. CONVERTED TO NSR TODAY, 04/27. Chronicity uncertain. He did not have apparent symptoms from such. Echo with preserved EF and normal valve function. TSH wnl. Discussed a.fib dx with patient and his pt's family. CHADsVASc is 2, borderline 3 (he is a pre-diabetic, has HTN, age 67). Consider anticoagulation - would go with Eliquis. Cont metoprolol 50mg BID. Family requesting cardiology consult while here. Placed consult to Dr Monet, [facility]. (9) Prediabetes: Plan: controlled Hba1c 6% c/w such novolog SSI - none required in several days can d/c BSG checks cont DM diet (10) Aortic root dilatation: Plan: 4.7cm on echocardiogram will need ongoing surveillance of this cont beta domingo (11) Insomnia: Plan: cont melatonin 6mg HS Ambien 5mg hs prn (12) Rash: Plan: viral vs tick-borne vs non-infectious (autoimmune, although ADELSO negative) rash looked very viral in appearance ; was on legs/arms only - spared all other areas parvovirus testing added on to the already very lengthy list of labs that are already pending rash now resolved (13) Hyponatremia: Plan: 2nd to #1 again his level is acceptable today BMP am (14) Nausea and vomiting: Plan: resolved stop scheduled AC zofran; make it prn 2nd to gastritis? 2nd to acute renal failure? 2nd to acute liver injury? 2nd to the underlying illness that caused his presentation? probably combination of all factors above cont PPI twice daily cont carafate AC Plan DVT proph - heparin SC BID and daughter updated at bedside today cont PT, OT - can return home at discharge, but consider outpatient PT/OT progressing very nicely home this week once outpatient HD is set up - looks like he will need ongoing HD at least in the near-term, but hopefully he will have full renal recovery over time Admission and Anticipated Discharge Date Admission Date: April 22, 2022 Physical Exam Physical Exam: The patient is alert and oriented. Mood and affect appeared normal. He answered all questions appropriately. HEENT: Pupils are equal and reactive to light and accommodation. Extraocular movements are intact. The sclerae are anicteric. Neuro: Cranial nerves intact Neck: Patient's neck is supple. He has palpable carotid pulses bilaterally without bruits on auscultation. There is no evidence of jugular venous distention. The thyroid is not enlarged. Lungs: Clear to auscultation bilaterally. He has good air movement without use of accessory muscles. No rales wheezes or rhonchi. Cardiac: Heart demonstrates a regular rate and rhythm. Normal S1 and S2. No murmurs on examination. Pulses: The patient has palpable radial pulses bilaterally that are equal in intensity Extremities: There was no evidence of hypoperfusion. There is no cyanosis or clubbing. Very mild edema involving the left hand. Skin: I did not appreciate any rashes on examination today. Constitutional: WD/WN, vitals as above well developed and well nourished; no acute distress ENMT: Mallampati Class: III Neck: normal visual inspection Thyroid: no thyromegaly Respiratory: normal respiratory effort, lungs clear to auscultation normal respiratory effort; no respiratory distress and no cough Auscultation: lungs clear to auscultation bilaterally Cardiovascular: RRR, no murmur, no edema Rate/Rhythm: regular rate and regular rhythm Heart Sounds: normal S1 and normal S2 Extremities: normal capillary refill, + edema (left UE edema) and + vascular access device (Rt IJ TDC) Gastrointestinal (Abdomen): normal bowel sounds, soft, nontender, no hepatosplenomegaly Inspection/Auscultation: abdomen normal to inspection and normal bowel sounds Percussion/Palpation: abdomen soft; abdomen nontender Musculoskeletal: no cyanosis or clubbing, extremities motor strength 5/5 Extremities: extremities normal to inspection Skin: no rashes, warm and dry normal turgor and + jaundice; no rashes Neurologic: CN's II-XI intact bilaterally and moves all extremities; no focal motor deficits and not confused Psychiatric: Orientation: alert and oriented x 3 Affect: euthymic affect Results & Data Results & Data ([facility]) Vital Signs (Past 12 Hours) Vital Signs Temp Pulse Pulse Resp BP Pulse Ox O2 Del Method 05/02/22 07:24 36.6 C 73 16 136/93 92 Room Air 05/02/22 03:10 36.7 C 67 12 143/76 H 94 Room Air 05/01/22 23:21 66 05/01/22 22:41 36.7 C 90 14 152/85 H 97 Room Air PG Care Time/CCT Total # of Minutes Spent Total Time Spent with Patient: Total time spent is greater than 50% in coordination of care (as documented) at patient's floor/unit and/or counseling patient: Coding Level of Care Code 93319 SUB INP/OBS CARE 3/50MIN Diagnoses Acute renal failure N17.9 Acute renal failure type: unspecified Fever R50.9 Acute hepatitis B17.9 Thrombocytopenia D69.6 HTN (hypertension) I10 Hyperlipidemia E78.5 Enlarged prostate N40.0 Atrial fibrillation I48.91 Prediabetes R73.03 Aortic root dilatation I77.810 Insomnia G47.00 Rash R21 Hyponatremia E87.1 Nausea and vomiting R11.2 (1) Acute renal failure Acute renal failure type: unspecified Qualified Code(s): N17.9 - Acute kidney failure, unspecified
--- NOTE | 2022-05-02 12:26 | Nephrology Progress Note ---
Date of Service May 02, 2022 Assessment & Plan (1) Acute renal failure: (2) Anuria: (3) Thrombocytopenia: (4) Fever: (5) Transaminitis: Plan 67 yo M presented with more than a week history of fever, chills, myalgia, poor p.o. intake and decreased urine output. On admission noted to have RAF with creatinine 6.1, BUN 93 with prior normal renal function baseline creatinine 0.9 on 03/11/2022. Urinalysis showed 3+ proteinuria and 3+ microscopic hematuria with more than 30 RBC/HPF. CT A/P showed bilateral mild perinephric stranding but otherwise unremarkable. Renal function progressively worsening despite getting IV fluid and remained anuric, no postrenal obstruction on renal imaging. Concern for ATN with possible infectious etiology. Although less likely, cannot totally exclude possibility for glomerulonephritis. Rapid progressive worsening of renal function. remained anuric. did not respond to high dose of diuretics. Had tunneled dialysis catheter placed on 04/24/2022 and had 1st dialysis. On doxycycline since admission, azithromycin and atovaquone added on 04/25/22 and ceftriaxone was discontinued. All w/u so far negative. Currently only on Doxycycline. Q fever 1gG was positive , waiting on titer to determine whether acute or chronic. UO improved significantly, net negative, BP fair, on RA but cr continues to rise. UA with improvement in proteinuria and hematuria. --hold HD today, check am lab and decide, case management consulted for out pt HD set up. No indication for kidney biopsy at this time, if clinically improved but no recovery of kidney function, biopsy as an outpatient can be set up. --continue regular K diet as K has been ok --encouraged to increase fluid intake to keep net even, activity as tolerated. Will follow. Admission and Anticipated Discharge Date Admission Date: April 22, 2022 Aditi Jewell was seen and evaluated this morning. Overall he continues to feel better, no nausea and vomiting, appetite improved, more active. Blood pressure fair, decent urine output and net negative. Platelet normalized. K normal. Cr stable today compared to yesterday at 5.2, BUN higher 73 <--60 Review of Systems Review of Systems: Detailed review of system was otherwise unremarkable except mentioned above. Physical Exam Constitutional: WD/WN, vitals as above no acute distress Neck: normal visual inspection right IJ tunneled dialysis catheter with no active bleeding or significant tenderness Respiratory: Auscultation: lungs clear to auscultation bilaterally Cardiovascular: Rate/Rhythm: regular rate and regular rhythm Heart Sounds: normal S1 and normal S2 Extremities: + vascular access device (Rt IJ TDC) Musculoskeletal: Extremities: extremities normal to inspection Skin: no rashes Neurologic: no focal motor deficits Psychiatric: Orientation: alert and oriented x 3 Affect: euthymic affect Results & Data ([facility]) Vital Signs (Past 12 Hours) Vital Signs Temp Pulse Pulse Resp BP Pulse Ox O2 Del Method 05/02/22 11:04 36.8 C 60 18 131/81 97 Room Air 05/02/22 05:55 68 05/02/22 07:24 36.6 C 73 16 136/93 92 Room Air 05/02/22 03:10 36.7 C 67 12 143/76 H 94 Room Air PG Care Time/CCT Total # of Minutes Spent Total Time Spent with Patient: Total time spent is greater than 50% in coordination of care (as documented) at patient's floor/unit and/or counseling patient: Coding Level of Care Code 76307 SUB INP/OBS CARE 3/50MIN Diagnoses Acute renal failure N17.9 Acute renal failure type: unspecified Anuria R34 Thrombocytopenia D69.6 Fever R50.9 Transaminitis R74.01 (1) Acute renal failure Acute renal failure type: unspecified Qualified Code(s): N17.9 - Acute kidney failure, unspecified
--- NOTE | 2022-05-02 16:47 | Infectious Disease Progress Nt ---
Date of Service May 02, 2022 Assessment & Plan (1) Thrombocytopenia: (2) Acute renal failure: (3) Transaminitis: (4) Lymphopenia: (5) Fever: Plan 67 yo M with a history of HTN, BPH, HLD who presented on 04/22 with fevers, chills, myalgias since 04/11, admitted with lymphopenia, thrombocytopenia, elevated LFTs, and acute renal failure requiring HD. Although he denies recent known tick bites, he does regularly spend time in wooded areas and have regular tick exposures.. No rash, upper respiratory symptoms. Had taken Aleve for several days prior to admission. Initial infectious work-up showed SARS-CoV-2, influenza A/B, and RSV PCR negative, RVP negative, Lyme IgM/IgG negative, BCx sterile, and blood smear x 2 for Anaplasma and Babesia negative. A CT A/P without contrast and CXR showed no significant findings. A liver US showed gallbladder sludge without evidence of acute cholecystitis, a small pancreatic cystic lesion which may represent IPMN, and renal cysts. MRCP showed no gallstones, no biliary duct pathology. He was started on empiric doxycycline for a possible tick-borne illness, and multiple tick-borne illness studies were sent--thus far showing negative Anaplasma, Ehrlichia, and Babesia PCRs. He has reassuringly been afebrile since admission, but continues to have stably mildly elevated AST, ALT and alk phos, uptrending Tbili to 14.1, uptrending Cr to peak 8.25 for which he was started on dialysis on 04/24. He was on ceftriaxone from 04/23-04/24, but was discontinued due to BCx NGTD. Micro: 04/27HBSAB, Quant <5, not immune 04/26 Parvovirus Parvovirus B19 IgG 3.9 Parvovirus B19 IgM 0.3 04/24 Blood smear for Anaplasma/Babesia: negative 04/23 UCx: NG 04/23 Borrelia miyamotoi PCR: negative 04/23 Borrelia miyamotoi IgM 0.13 , Ig.64 04/23 CMV IgM:< 30 04/23 EBV panel: past infection 04/23 Q fever panel: phase I and phase II IG ab positive ( titer 1:32) , IGM neg 04/23 Rickettsia IgM, IgG: negative 04/23 Typus fever IgM, IgG:negative 04/23 RVP: negative 04/23 Acute hepatitis panel: HAV IgM neg, HBsAg neg, HBc IgM neg, HCV Ab neg 04/22 Ehrlichia chaffeensis IgM, IgG: negative 04/22 Ehrlichia chaffeensis PCR: negative 04/22 Blood smear for Anaplasma/Babesia: negative 04/22 Anaplasma phagocytophilum PCR: negative 04/22 Babesia microti IgM, IgG: negative 04/22 Babesia microti PCR: negative 04/22 Lyme IgM, IgG: negative 04/22 BCx x2: NGTD 04/22 COVID-19, influenza A/B, RSV PCR: negative Antimicrobial course: Doxycycline 04/22 - present Azithromycin 04/25 - 04/26 Atovaquone 04/25 - 04/26 Ceftriaxone 04/23 - 04/24 Discussion His initial lymphopenia, thrombocytopenia, and elevated LFTs raised concern for a tick-borne illness. His lymphopenia resolved, and he developed leukocytosis up to 16.7 on 04/25, now decreased and normalized. His platelets also normalized. AST/ALT, T Bili improving. He continues to have end organ damage that does not seem to be rapidly improving ( RAF): requires HD. Considered HLH secondary to infection, but ferritin is normal. Leptospirosis can cause kidney and hepatic injury and thrombocytopenia, but he does not seem to have the appropriate exposures, and would be covered by doxycycline in any case .Borrelia miymotoi PCR negative ,IGM negative, but IGG elevated. This may represent infection of undetermined age or cross reaction with other tick related illness. Anaplasma PCR and smear negative. Ehrlichia, and Babesia smear, serology and PCR/DNA negative. Lyme screen and serology negative . Parvo testing c/w past infection. Rickettsial studies are negative , typhus testing negative, CMV ab negative. However Q fever phase I and Phase II IGG + with negative IGM. [place] 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 Admits to exposure to farm animal excreta in his barn.Admits to hunting deer and removing entrails. He has No valve abnormalities on TTE however noted for mild Aortic root dilatation. Q fever titers finalized on 05/02 at 1:32 ( phase I and phase II). His presentation may be 2/2 Possible acute Q fever- as both phase I, Phase II IGG titer is >1:16 ( 1:32), presented with febrile illness with thrombocytopenia, and eleva LFts. it would not totally explain the renal failure unless chronic infection with immune complex deposition. He appears to be defrvesing on doxycycline which covers Q fever Problems: 1. Fevers: febrile prior to admission, but afebrile since admission 2. Lymphopenia: resolved 3. Thrombocytopenia: resolved 4. Acute renal failure: started on HD 04/24 5. Elevated LFTs, bilirubin 6.Hepatitis B NOT immune 7 Possible active Q fever- as both phase I, Phase II IGG titer is >1:16 ( 1:32) Recommendations: serology results are c/w active Q fever infection ( ? acute vs chronic) both titers are +at 1:32 I repeated the Q fever panel with titers and added serum PCr . In order to help diagnose acute vs chronic Q fever, would need convalescent serology ( ordered) Treatment duration will depend on this information 2-3 week vs 18 months Unlike acute Q fever, which has a low mortality rate (<2%), chronic Q fever endocarditis is always fatal if untreated Diagnosis of chronic Q fever endocarditis can be extremely difficult because vegetative lesions are seen on TTE in about 2% of patients. The patients at highest risk for chronic Q fever are those with valvular heart disease, a vascular graft, or an arterial aneurysm. He has evidence of mild aortic root dilation on TTE. The majority of Q fever vascular infections reported in the literature are aortic infections, which complicate an aortic aneurysm. - For now, continue empiric doxycycline 100 mg q12h to cover for possible q fever for minimum 21 days. this will also cover tick related illness ( although testing negative) , He has some risk of developing chronic Q fever with aortic root dilatation . Dw team Dr Jorden DIAZ will continue to follow. Esvin Wilde MD, MPH [facility], ID Division Call [phone] with questions Admission and Anticipated Discharge Date Admission Date: April 22, 2022 Subjective This patient recommendation is based on a telemedicine consult request which was completed asynchronously through chart review and information provided by the primary physician. The patient was not seen or examined today. The evaluation is consultative in nature and all patient care and treatment decisions can either be accepted or rejected by the patient's primary hospital-based treating physician using their own independent medical judgment for their patient. Time Spent Reviewing Chart: 31+ minutes Q fever titers were completed and resulted. Both Phase 1 and Phase II IGG + at 1:32 Results & Data ([facility]) Vital Signs (Past 12 Hours) Vital Signs Temp Pulse Pulse Resp BP Pulse Ox O2 Del Method 05/02/22 14:11 72 05/02/22 11:04 36.8 C 60 18 131/81 97 Room Air 05/02/22 05:55 68 05/02/22 07:24 36.6 C 73 16 136/93 92 Room Air Laboratory Results Laboratory Results - last 48 hr 04/23/22 04/26/22 04/30/22 14:53 07:25 20:06 WBC RBC Hgb Hct MCV MCH MCHC RDW Std Deviation RDW Coeff of Ronen Plt Count MPV Sodium Potassium Chloride Carbon Dioxide Anion Gap BUN Creatinine Est Cr Clr Drug Dosing Est GFR ( Amer) Est GFR (Non-Af Amer) BUN/Creatinine Ratio Glucose POC Glucose 113 H Calcium Phosphorus Albumin CMV IgM Ab <30.00 EBV Capsid Ag IgG Ab >750.00 H EBV Capsid Ag IgM Ab <36.00 EBV EA Restrict+Diffuse 32.40 H EBV Nuclear Antigen Ab 394.00 H EBV Antibody Interp SEE NOTE Parvovirus IgG Ab Index 3.9 H Parvovirus IgM Ab Index 0.3 Q Fever Ph I IgG Titer 1:32 H Q Fever Phase I IgG Ab POSITIVE A Q Fever Phase I IgM Ab NEGATIVE Q Fever Ph II IgG Titer 1:32 H Q Fever Phase II IgG Ab POSITIVE A Q Fever Phase II IgM Ab NEGATIVE Rickettsia IgG Ab NOT DETECTED Rickettsia IgM Ab NOT DETECTED Typhus Fever IgG Ab NOT DETECTED Typhus Fever IgM Ab NOT DETECTED 05/01/22 05/01/22 05/01/22 06:37 07:22 11:03 WBC RBC Hgb Hct MCV MCH MCHC RDW Std Deviation RDW Coeff of Ronen Plt Count MPV Sodium 134 L Potassium 4.0 Chloride 96 L Carbon Dioxide 28 Anion Gap 10 BUN 60 H D Creatinine 5.16 H* D Est Cr Clr Drug Dosing 15.5 Est GFR ( Amer) 12.4 Est GFR (Non-Af Amer) 10.7 BUN/Creatinine Ratio 11.6 Glucose 118 H POC Glucose 107 H 108 H Calcium 8.0 L Phosphorus 6.4 H Albumin 2.6 L CMV IgM Ab EBV Capsid Ag IgG Ab EBV Capsid Ag IgM Ab EBV EA Restrict+Diffuse EBV Nuclear Antigen Ab EBV Antibody Interp Parvovirus IgG Ab Index Parvovirus IgM Ab Index Q Fever Ph I IgG Titer Q Fever Phase I IgG Ab Q Fever Phase I IgM Ab Q Fever Ph II IgG Titer Q Fever Phase II IgG Ab Q Fever Phase II IgM Ab Rickettsia IgG Ab Rickettsia IgM Ab Typhus Fever IgG Ab Typhus Fever IgM Ab 05/02/22 05/02/22 07:08 07:08 WBC 5.19 RBC 3.82 L Hgb 11.5 L Hct 32.3 L MCV 84.6 MCH 30.1 MCHC 35.6 RDW Std Deviation 42.7 RDW Coeff of Ronen 13.8 Plt Count 225 MPV 9.4 Sodium 135 L Potassium 4.1 Chloride 98 Carbon Dioxide 28 Anion Gap 9 BUN 73 H Creatinine 5.22 H* Est Cr Clr Drug Dosing 15.3 Est GFR ( Amer) 12.3 Est GFR (Non-Af Amer) 10.6 BUN/Creatinine Ratio 14.0 Glucose 113 H POC Glucose Calcium 8.4 L Phosphorus 6.5 H Albumin 2.7 L CMV IgM Ab EBV Capsid Ag IgG Ab EBV Capsid Ag IgM Ab EBV EA Restrict+Diffuse EBV Nuclear Antigen Ab EBV Antibody Interp Parvovirus IgG Ab Index Parvovirus IgM Ab Index Q Fever Ph I IgG Titer Q Fever Phase I IgG Ab Q Fever Phase I IgM Ab Q Fever Ph II IgG Titer Q Fever Phase II IgG Ab Q Fever Phase II IgM Ab Rickettsia IgG Ab Rickettsia IgM Ab Typhus Fever IgG Ab Typhus Fever IgM Ab Diagnostic Findings Microbiology 04/29/22 09:30 Urine,Clean Catch Urine Culture - Final No growth - less than 1,000 colonies/mL. 04/22/22 15:25 Blood Aerobic Blood Culture - Final No growth in Aerobic bottle after 5 days. 04/22/22 15:25 Blood Anaerobic Blood Culture - Final No growth in Anaerobic bottle after 5 days. 04/22/22 15:01 Blood Aerobic Blood Culture - Final No growth in Aerobic bottle after 5 days. 04/22/22 15:01 Blood Anaerobic Blood Culture - Final No growth in Anaerobic bottle after 5 days. 04/23/22 Unknown Urine,Indwelling Cath Urine Culture - Final No growth - less than 1,000 colonies/mL. (1) Acute renal failure Acute renal failure type: unspecified Qualified Code(s): N17.9 - Acute kidney failure, unspecified
--- NOTE | 2022-05-02 18:03 | Hospitalist Progress Note ---
Date of Service May 02, 2022 Assessment & Plan (1) Acute renal failure: Plan: Currently on hemodialysis, rock duster plan to set up for outpatient dialysis, currently euvolemic, patient has high urine output acute kidney injury etiology unclear Exact etiology of ARF uncertain. u/a - 3+ blood, 3+ protein, and casts seen. Pre-renal injury from poor PO intake, severe vomiting at home, and NSAID use? No evidence of post-renal obstruction based on imaging. Cannot rule out intrinsic disease but w/u thus far negative including Q fever titers were completed and resulted. Both Phase 1 and Phase II IGG + at 1:32 CPK - normal. acute hepatitis profile - negative. anti-GBM ab - negative. ADELSO negative. Complements negative. ANCA negative. SPEP negative. UPEP - faint beta band. s/p placement of tunneled HD catheter 04/[address] Samuel. s/p 5 HD sessions since admission (including today). Pt's spontaneous urine output has been fairly robust last 48 hours; the day prior he made 2+ liters of urine. Discussed with nephrology, from his standpoint patient can be discharged in 1 to 2 days, discussed with the patient case manager whenever patient is ready ischii can be discharged, dialysis she has been noted (2) Fever: Plan: Fully resolved 7 yo M with a history of HTN, BPH, HLD who presented on 04/22 with fevers, chills, myalgias since 04/11, now admitted with lymphopenia, thrombocytopenia, elevated LFTs, and acute renal failure requiring HD. Although he denies recent known tick bites, he does regularly spend time in wooded areas and have regular tick exposures.. No rash, upper respiratory symptoms. Had taken Aleve for several days prior to admission. Initial infectious work-up showed SARS-CoV-2, influenza A/B, and RSV PCR negative, RVP negative, Lyme IgM/IgG negative, BCx sterile, and blood smear x 2 for Anaplasma and Babesia negative. A CT A/P without contrast and CXR showed no significant findings. A liver US showed gallbladder sludge without evidence of acute cholecystitis, a small pancreatic cystic lesion which may represent IPMN, and renal cysts. MRCP showed no gallstones, no biliary duct pathology. He was started on empiric doxycycline for a possible tick-borne illness, and multiple tick-borne illness studies were sent--thus far showing negative Anaplasma, Ehrlichia, and Babesia PCRs. He has reassuringly been afebrile since admission, but continues to have stably mildly elevated AST, ALT and alk phos, uptrending Tbili to 14.1, uptrending Cr to peak 8.25 for which he was started on dialysis on 04/24. He was on ceftriaxone from 04/23-04/24, but was discontinued due to BCx NGTD. At the beginning of his illness he had documented, confirmed fevers at home suggesting an infectious process. [employer] resp panel fully negative. Due to #3 acute hepatitis profile ordered - negative hep A, B, C. Lyme screen neg. Anaplasmosis and Babesia smears negative; DNA tests for both negative. Ehrlichia DNA negative. Blood cultures and urine cx negative - IV rocephin stopped. CXR without pneumonia. No infectious process on CT a/p. Despite #3 he does not appear to have acute cholecystitis or choledocholithiasis. MRCP negative for choledocholithiasis. ADELSO negative. Borrelia Miyamotoi IgG was positive but IgM negative suggestive of old infection. This is a lesser known tick-borne illness that can mimic anaplasmosis but usually has only mild LFT abnormalities. Q fever titers were completed and resulted. Both Phase 1 and Phase II IGG + at 1:32 Awaiting parvovirus titers. Awaiting rickettsial testing. Awaiting CMV/EBV titers. Awaiting Il-2 level for HLH rule-out. Appreciate ID consultation and recs. Cont Doxycycline BID for empiric tick-borne coverage. Appreciate ID consultation & assistance. (3) Acute hepatitis: Plan: IMPROVING nicely with synthetic function intact (INR, platelets wnl). appreciate GI assistance viral etiology suspected. no evidence to date of tick-borne illness. HepA,B,C all negative. Awaiting EBV/CMV titers. [employer] respiratory panel (which includes adenovirus) fully negative. INR remains wnl. Platelets wnl. BILIRUBIN LEVELS PEAKED and are rapidly normalizing. Other LFTs improving slowly. Check LFTs every 2-3 days for stability. (4) Thrombocytopenia: Plan: resolved. Likely due to infectious process but uncertain since we do not have a specific pathogen identified as of yet. viral vs tick-borne vs other. resolved - platelets >150 (5) HTN (hypertension): Plan: controlled with metoprolol BID adding back flomax for BPH which will also help BPs (6) Hyperlipidemia: Plan: Statin held due to #3. CPK wnl at admission. (7) Enlarged prostate: Plan: resume flomax tonight (8) Atrial fibrillation: Plan: Presented in a.fib. CONVERTED TO NSR TODAY, 04/27. Chronicity uncertain. He did not have apparent symptoms from such. Echo with preserved EF and normal valve function. TSH wnl. Discussed a.fib dx with patient and his pt's family. CHADsVASc is 2, borderline 3 (he is a pre-diabetic, has HTN, age 67). Consider anticoagulation - would go with Eliquis. Cont metoprolol 50mg BID. Family requesting cardiology consult while here. Placed consult to Dr Monet, [facility]. (9) Prediabetes: Plan: controlled Hba1c 6% c/w such novolog SSI - none required in several days can d/c BSG checks cont DM diet (10) Aortic root dilatation: Plan: 4.7cm on echocardiogram will need ongoing surveillance of this cont beta domingo (11) Insomnia: Plan: cont melatonin 6mg HS Ambien 5mg hs prn (12) Rash: Plan: viral vs tick-borne vs non-infectious (autoimmune, although ADELSO negative) rash looked very viral in appearance ; was on legs/arms only - spared all other areas parvovirus testing added on to the already very lengthy list of labs that are already pending rash now resolved (13) Hyponatremia: Plan: 2nd to #1 again his level is acceptable today BMP am (14) Nausea and vomiting: Plan: resolved stop scheduled AC zofran; make it prn 2nd to gastritis? 2nd to acute renal failure? 2nd to acute liver injury? 2nd to the underlying illness that caused his presentation? probably combination of all factors above cont PPI twice daily cont carafate AC Plan DVT proph - heparin SC BID and daughter updated at bedside today cont PT, OT - can return home at discharge, but consider outpatient PT/OT progressing very nicely home this week once outpatient HD is set up - looks like he will need ongoing HD at least in the near-term, but hopefully he will have full renal recovery over time Admission and Anticipated Discharge Date Admission Date: April 22, 2022 Subjective Q fever titers were completed and resulted. Both Phase 1 and Phase II IGG + at 1:32 Physical Exam Physical Exam: The patient is alert and oriented. Mood and affect appeared normal. He answered all questions appropriately. HEENT: Pupils are equal and reactive to light and accommodation. Extraocular movements are intact. The sclerae are anicteric. Neuro: Cranial nerves intact Neck: Patient's neck is supple. He has palpable carotid pulses bilaterally without bruits on auscultation. There is no evidence of jugular venous distention. The thyroid is not enlarged. Lungs: Clear to auscultation bilaterally. He has good air movement without use of accessory muscles. No rales wheezes or rhonchi. Cardiac: Heart demonstrates a regular rate and rhythm. Normal S1 and S2. No murmurs on examination. Pulses: The patient has palpable radial pulses bilaterally that are equal in intensity Extremities: There was no evidence of hypoperfusion. There is no cyanosis or clubbing. Very mild edema involving the left hand. Skin: I did not appreciate any rashes on examination today. Constitutional: WD/WN, vitals as above well developed and well nourished; no acute distress ENMT: Mallampati Class: III Neck: normal visual inspection Thyroid: no thyromegaly Respiratory: normal respiratory effort, lungs clear to auscultation normal respiratory effort; no respiratory distress and no cough Auscultation: lungs clear to auscultation bilaterally Cardiovascular: RRR, no murmur, no edema Rate/Rhythm: regular rate and regular rhythm Heart Sounds: normal S1 and normal S2 Extremities: normal capillary refill, + edema (left UE edema) and + vascular access device (Rt IJ TDC) Gastrointestinal (Abdomen): normal bowel sounds, soft, nontender, no hepatosplenomegaly Inspection/Auscultation: abdomen normal to inspection and normal bowel sounds Percussion/Palpation: abdomen soft; abdomen nontender Musculoskeletal: no cyanosis or clubbing, extremities motor strength 5/5 Extremities: extremities normal to inspection Skin: no rashes, warm and dry normal turgor and + jaundice; no rashes Neurologic: CN's II-XI intact bilaterally and moves all extremities; no focal motor deficits and not confused Psychiatric: Orientation: alert and oriented x 3 Affect: euthymic affect Results & Data Results & Data ([facility]) Vital Signs (Past 12 Hours) Vital Signs Temp Pulse Pulse Resp BP Pulse Ox O2 Del Method 05/02/22 14:11 72 05/02/22 11:04 36.8 C 60 18 131/81 97 Room Air 05/02/22 07:24 36.6 C 73 16 136/93 92 Room Air PG Care Time/CCT Total # of Minutes Spent Total Time Spent with Patient: Total time spent is greater than 50% in coordination of care (as documented) at patient's floor/unit and/or counseling patient: Coding Level of Care Code 44907 SUB INP/OBS CARE 3/50MIN Diagnoses Acute renal failure N17.9 Acute renal failure type: unspecified Fever R50.9 Acute hepatitis B17.9 Thrombocytopenia D69.6 HTN (hypertension) I10 Hyperlipidemia E78.5 Enlarged prostate N40.0 Atrial fibrillation I48.91 Prediabetes R73.03 Aortic root dilatation I77.810 Insomnia G47.00 Rash R21 Hyponatremia E87.1 Nausea and vomiting R11.2 (1) Acute renal failure Acute renal failure type: unspecified Qualified Code(s): N17.9 - Acute kidney failure, unspecified
[2022-05-02] MEDS: MELATONIN 3 MG TAB PO SCH (19:53)
[2022-05-02] MEDS: DOXYCYCLINE HYCLATE 100 MG CAP PO SCH (19:53)
[2022-05-02] MEDS: TAMSULOSIN HCL 0.4 MG CAP PO SCH (19:54)
[2022-05-03 06:25] LABS: Hematocrit (blood only) 32.1 % (42.0-52.0); Hemoglobin 11.4 g/dl (14.0-18.0); Mean Corpuscular Hemoglobin 30.2 pg (25.0-34.0); Mean Corpuscular Hgb Conc 35.5 g/dL (32.0-36.0); Mean Corpuscular Volume 84.9 fL (80.0-100.0); Mean Platelet Volume 9.4 fL (9.4-12.4); Platelet Count 266 K/uL (130-400); RDW Coefficient of Variation 13.9 % (11.5-14.5); RDW Standard Deviation 43.1 fL (36.4-46.3); Red Blood Count 3.78 M/uL (4.70-6.10); White Blood Count 5.12 K/ul (4.8-10.8)
[2022-05-03 06:42] LABS: Albumin Level 2.8 gm/dl (3.4-5.0); Calcium 8.7 mg/dl (8.5-10.1); Potassium 4.1 mmol/L (3.5-5.1)
[2022-05-03 06:55] LABS: BUN Creatinine Ratio 17.5 (10-20); Est GFR (Non-African American) 12.1 ml/min; Phosphorus 5.2 mg/dl (2.5-4.9)
[2022-05-03] MEDS: NEPHROCAPS PO SCH (08:40)
[2022-05-03] MEDS: METOPROLOL TARTRATE 50 MG TAB PO SCH (08:40)
[2022-05-03] MEDS: DOXYCYCLINE HYCLATE 100 MG CAP PO SCH (08:41)
[2022-05-03] MEDS: CEROVITE ADV FORMULA TAB PO SCH (08:41)
[2022-05-03] MEDS: CALCIUM ACETATE 667 MG CAP/TAB PO SCH ×3 (08:42→16:40)
[2022-05-03] MEDS: SUCRALFATE 1 GM TAB PO SCH ×2 (08:42→14:44)
[2022-05-03] MEDS: PANTOprazole 40 MG TAB PO SCH (08:42)
[2022-05-03] MEDS: HEPARIN SOD 5,000 UNIT/0.5 ML VIAL SQ SCH (08:43)
--- NOTE | 2022-05-03 10:36 | Infectious Disease Progress Nt ---
Date of Service May 03, 2022 Assessment & Plan (1) Thrombocytopenia: (2) Acute renal failure: (3) Transaminitis: (4) Lymphopenia: (5) Fever: Plan 67 yo M with a history of HTN, BPH, HLD who presented on 04/22 with fevers, chills, myalgias since 04/11, admitted with lymphopenia, thrombocytopenia, elevated LFTs, and acute renal failure requiring HD. Although he denies recent known tick bites, he does regularly spend time in wooded areas and have regular tick exposures.. No rash, upper respiratory symptoms. Had taken Aleve for several days prior to admission. Initial infectious work-up showed SARS-CoV-2, influenza A/B, and RSV PCR negative, RVP negative, Lyme IgM/IgG negative, BCx sterile, and blood smear x 2 for Anaplasma and Babesia negative. A CT A/P without contrast and CXR showed no significant findings. A liver US showed gallbladder sludge without evidence of acute cholecystitis, a small pancreatic cystic lesion which may represent IPMN, and renal cysts. MRCP showed no gallstones, no biliary duct pathology. He was started on empiric doxycycline for a possible tick-borne illness, and multiple tick-borne illness studies were sent--thus far showing negative Anaplasma, Ehrlichia, and Babesia PCRs. He has reassuringly been afebrile since admission, but continues to have stably mildly elevated AST, ALT and alk phos, uptrending Tbili to 14.1, uptrending Cr to peak 8.25 for which he was started on dialysis on 04/24. He was on ceftriaxone from 04/23-04/24, but was discontinued due to BCx NGTD. Micro: 04/27HBSAB, Quant <5, not immune 04/26 Parvovirus Parvovirus B19 IgG 3.9 Parvovirus B19 IgM 0.3 04/24 Blood smear for Anaplasma/Babesia: negative 04/23 UCx: NG 04/23 Borrelia miyamotoi PCR: negative 04/23 Borrelia miyamotoi IgM 0.13 , Ig.64 04/23 CMV IgM:< 30 04/23 EBV panel: past infection 04/23 Q fever panel: phase I and phase II IG ab positive ( titer 1:32) , IGM neg 04/23 Rickettsia IgM, IgG: negative 04/23 Typus fever IgM, IgG:negative 04/23 RVP: negative 04/23 Acute hepatitis panel: HAV IgM neg, HBsAg neg, HBc IgM neg, HCV Ab neg 04/22 Ehrlichia chaffeensis IgM, IgG: negative 04/22 Ehrlichia chaffeensis PCR: negative 04/22 Blood smear for Anaplasma/Babesia: negative 04/22 Anaplasma phagocytophilum PCR: negative 04/22 Babesia microti IgM, IgG: negative 04/22 Babesia microti PCR: negative 04/22 Lyme IgM, IgG: negative 04/22 BCx x2: NGTD 04/22 COVID-19, influenza A/B, RSV PCR: negative Antimicrobial course: Doxycycline 04/22 - present Azithromycin 04/25 - 04/26 Atovaquone 04/25 - 04/26 Ceftriaxone 04/23 - 04/24 Discussion His initial lymphopenia, thrombocytopenia, and elevated LFTs raised concern for a tick-borne illness. His lymphopenia resolved, and he developed leukocytosis up to 16.7 on 04/25, now decreased and normalized. His platelets also normalized. AST/ALT, T Bili improving. He continues to have end organ damage that does not seem to be rapidly improving ( RAF): requires HD. Considered HLH secondary to infection, but ferritin is normal. Leptospirosis can cause kidney and hepatic injury and thrombocytopenia, but he does not seem to have the appropriate exposures, and would be covered by doxycycline in any case .Borrelia miymotoi PCR negative ,IGM negative, but IGG elevated. This may represent infection of undetermined age or cross reaction with other tick related illness. Anaplasma PCR and smear negative. Ehrlichia, and Babesia smear, serology and PCR/DNA negative. Lyme screen and serology negative . Parvo testing c/w past infection. Rickettsial studies are negative , typhus testing negative, CMV ab negative. However Q fever phase I and Phase II IGG + with negative IGM. [place]. 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 Admits to exposure to farm animal excreta in his barn.Admits to hunting deer and removing entrails. He has No valve abnormalities on TTE however noted for mild Aortic root dilatation. Q fever titers finalized on 05/02 at 1:32 ( phase I and phase II). His presentation may be 2/2 Possible acute Q fever- as both phase I, Phase II IGG titer is >1:16 ( 1:32), presented with febrile illness with thrombocytopenia, and elevated LFts. it would not totally explain the renal failure unless chronic infection with immune complex deposition. He appears to be defervescing on doxycycline which covers Q fever Problems: 1. Fevers: febrile prior to admission, but afebrile since admission 2. Lymphopenia: resolved 3. Thrombocytopenia: resolved 4. Acute renal failure: started on HD 04/24 5. Elevated LFTs, bilirubin 6.Hepatitis B NOT immune 7 Possible active Q fever- as both phase I, Phase II IGG titer is >1:16 at 1:32) Recommendations: serology results are c/w active Q fever infection ( ? acute) both phase 1 and II titers are +at 1:32 I repeated the Q fever panel with titers and added serum PCr . In order to help diagnose acute vs chronic Q fever, would need convalescent serology ( ordered) Treatment duration will depend on this information 2-3 week vs 18 m onths Unlike acute Q fever, which has a low mortality rate (<2%), chronic Q fever endocarditis is always fatal if untreated Diagnosis of chronic Q fever endocarditis can be extremely difficult because vegetative lesions are seen on TTE in about 2% of patients. The patients at highest risk for chronic Q fever are those with valvular heart disease, a vascular graft, or an arterial aneurysm. He has evidence of mild aortic root dilation on TTE. The majority of Q fever vascular infections reported in the literature are aortic infections, which complicate an aortic aneurysm. - For now, continue empiric doxycycline 100 mg q12h to cover for possible q fever for minimum 21 days ( tentative end date 05/12/22. this will also cover tick related illness ( although testing negative) , He has some risk of developing chronic Q fever with aortic root dilatation . Once discharged will need repeat clinical assessment and Q fever serology at 3,6, 12, 18 and 24 months. He will need to follow closely with PCP and he will estabishe care with a local ID provider in his community to monitor Q fever serology. Cardiology recommends ct scan to eval aortic root. Will need close follow up and monitoring for this as well Will need follow up of repeat serology and pcr ordered this admission ( pending-- send out lab) Dw team Dr Leonardo,pt , and daughter Family verbalized understanding the above recommendations. ID will sign off Esvin Wilde MD, MPH [facility], [facility] Call [phone] with questions Admission and Anticipated Discharge Date Admission Date: April 22, 2022 Subjective Subsequent visit was provided via telemedicine using two-way real-time interactive telecommunication between the patient and the telemedicine provider. For the duration of the visit, the provider was performing the assessment from a different facility than the patient. This includesuse of bluetooth stethoscope forauscultationperformed by the telepresenter that the telemedicine provider can hear if described in the physical exam. Hand Cutter contact information: Please call [facility] Center [phone]. (Phone Number For Physician Use Only) After establishing a telemedicine visit, patient was: Patient/authorized rep acknowledged consent and understanding and Gave permission to continue telehealth session Time Spent with Patient: Subsequent => 35 min at bedside, daughher on phone He feels well adn wants to go home Physical Exam Constitutional: Awake, alert, oriented times 4, NAD Eyes: Anicteric sclera Respiratory: No increased WOB , right chest Hd catheter Gastrointestinal (Abdomen): soft, Nt, ND Skin: jaundice resolved Neurologic: AAO*4 Psychiatric: Appropriate, Cooperative Results & Data ([place]) Vital Signs (Past 12 Hours) Vital Signs Temp Pulse Resp BP Pulse Ox O2 Del Method O2 Del Method 05/03/22 10:11 Room Air 05/03/22 10:11 Room Air 05/03/22 06:29 36.9 C 67 18 148/77 H 94 Room Air 05/03/22 04:03 36.7 C 65 18 157/83 H 97 Room Air 05/02/22 22:48 36.8 C 66 18 143/81 H 96 Room Air Laboratory Results Laboratory Results - last 48 hr 04/23/22 05/02/22 05/02/22 14:53 07:08 07:08 WBC 5.19 RBC 3.82 L Hgb 11.5 L Hct 32.3 L MCV 84.6 MCH 30.1 MCHC 35.6 RDW Std Deviation 42.7 RDW Coeff of Ronen 13.8 Plt Count 225 MPV 9.4 Sodium 135 L Potassium 4.1 Chloride 98 Carbon Dioxide 28 Anion Gap 9 BUN 73 H Creatinine 5.22 H* Est Cr Clr Drug Dosing 15.3 Est GFR ( Amer) 12.3 Est GFR (Non-Af Amer) 10.6 BUN/Creatinine Ratio 14.0 Glucose 113 H Calcium 8.4 L Phosphorus 6.5 H Albumin 2.7 L CMV IgM Ab <30.00 EBV Capsid Ag IgG Ab >750.00 H EBV Capsid Ag IgM Ab <36.00 EBV EA Restrict+Diffuse 32.40 H EBV Nuclear Antigen Ab 394.00 H EBV Antibody Interp SEE NOTE Q Fever Ph I IgG Titer 1:32 H Q Fever Phase I IgG Ab POSITIVE A Q Fever Phase I IgM Ab NEGATIVE Q Fever Ph II IgG Titer 1:32 H Q Fever Phase II IgG Ab POSITIVE A Q Fever Phase II IgM Ab NEGATIVE Rickettsia IgG Ab NOT DETECTED Rickettsia IgM Ab NOT DETECTED Typhus Fever IgG Ab NOT DETECTED Typhus Fever IgM Ab NOT DETECTED 05/03/22 05/03/22 05:49 05:49 WBC 5.12 RBC 3.78 L Hgb 11.4 L Hct 32.1 L MCV 84.9 MCH 30.2 MCHC 35.5 RDW Std Deviation 43.1 RDW Coeff of Ronen 13.9 Plt Count 266 MPV 9.4 Sodium 135 L Potassium 4.1 Chloride 100 Carbon Dioxide 26 Anion Gap 9 BUN 82 H Creatinine 4.68 H* D Est Cr Clr Drug Dosing 17.0 Est GFR ( Amer) 14.0 Est GFR (Non-Af Amer) 12.1 BUN/Creatinine Ratio 17.5 Glucose 116 H Calcium 8.7 Phosphorus 5.2 H Albumin 2.8 L CMV IgM Ab EBV Capsid Ag IgG Ab EBV Capsid Ag IgM Ab EBV EA Restrict+Diffuse EBV Nuclear Antigen Ab EBV Antibody Interp Q Fever Ph I IgG Titer Q Fever Phase I IgG Ab Q Fever Phase I IgM Ab Q Fever Ph II IgG Titer Q Fever Phase II IgG Ab Q Fever Phase II IgM Ab Rickettsia IgG Ab Rickettsia IgM Ab Typhus Fever IgG Ab Typhus Fever IgM Ab Diagnostic Findings Microbiology 04/29/22 09:30 Urine,Clean Catch Urine Culture - Final No growth - less than 1,000 colonies/mL. 04/22/22 15:25 Blood Aerobic Blood Culture - Final No growth in Aerobic bottle after 5 days. 04/22/22 15:25 Blood Anaerobic Blood Culture - Final No growth in Anaerobic bottle after 5 days. 04/22/22 15:01 Blood Aerobic Blood Culture - Final No growth in Aerobic bottle after 5 days. 04/22/22 15:01 Blood Anaerobic Blood Culture - Final No growth in Anaerobic bottle after 5 days. 04/23/22 Unknown Urine,Indwelling Cath Urine Culture - Final No growth - less than 1,000 colonies/mL. (1) Acute renal failure Acute renal failure type: unspecified Qualified Code(s): N17.9 - Acute kidney failure, unspecified
--- NOTE | 2022-05-03 11:53 | Nephrology Progress Note ---
Date of Service May 03, 2022 Assessment & Plan (1) Acute renal failure: (2) Anuria: (3) Thrombocytopenia: (4) Fever: (5) Transaminitis: Plan 67 yo M presented with more than a week history of fever, chills, myalgia, poor p.o. intake and decreased urine output. On admission noted to have RAF with creatinine 6.1, BUN 93 with prior normal renal function baseline creatinine 0.9 on 03/11/2022. Urinalysis showed 3+ proteinuria and 3+ microscopic hematuria with more than 30 RBC/HPF. CT A/P showed bilateral mild perinephric stranding but otherwise unremarkable. Renal function progressively worsening despite getting IV fluid and remained anuric, no postrenal obstruction on renal imaging. Concern for ATN with possible infectious etiology. Although less likely, cannot totally exclude possibility for glomerulonephritis. Rapid progressive worsening of renal function. remained anuric. did not respond to high dose of diuretics. Had tunneled dialysis catheter placed on 04/24/2022 and had 1st dialysis. On doxycycline since admission, azithromycin and atovaquone added on 04/25/22 and ceftriaxone was discontinued. All w/u so far negative. Currently only on Doxycycline. Q fever 1gG was positive , waiting on titer to determine whether acute or chronic. UO improved significantly, net negative, BP fair, on RA cr started to improve although BUN high. UA with improvement in proteinuria and hematuria. --continue to hold HD, OK to DC home today , check lab on Friday morning and decide, outpt dialysis already set up for M, W,F No indication for kidney biopsy at this time. --continue regular K diet as K has been ok --encouraged to increase fluid intake to keep net even, activity as tolerated. Will follow. Admission and Anticipated Discharge Date Admission Date: April 22, 2022 Aditi Jewell was seen and evaluated this morning. Overall he continues to feel better, no nausea and vomiting, appetite improved, more active. Blood pressure fair, decent urine output and net negative. Platelet normalized. K normal. Cr slightly improved but BUN higher 80 <--73 Review of Systems Review of Systems: Detailed review of system was otherwise unremarkable except mentioned above. Physical Exam Constitutional: WD/WN, vitals as above no acute distress Neck: normal visual inspection right IJ tunneled dialysis catheter with no active bleeding or significant tenderness Respiratory: Auscultation: lungs clear to auscultation bilaterally Cardiovascular: Rate/Rhythm: regular rate and regular rhythm Heart Sounds: normal S1 and normal S2 Extremities: + vascular access device (Rt IJ TDC) Musculoskeletal: Extremities: extremities normal to inspection Skin: no rashes Neurologic: no focal motor deficits Psychiatric: Orientation: alert and oriented x 3 Affect: euthymic affect Results & Data ([facility]) Vital Signs (Past 12 Hours) Vital Signs Temp Pulse Pulse Pulse Resp BP BP 05/03/22 11:17 67 05/03/22 10:36 36.4 C L 58 L 18 160/91 H 05/03/22 10:11 05/03/22 10:11 05/03/22 06:29 36.9 C 67 18 148/77 H 05/03/22 04:03 36.7 C 65 18 157/83 H Pulse Ox O2 Del Method O2 Del Method 05/03/22 11:17 05/03/22 10:36 99 Room Air 05/03/22 10:11 Room Air 05/03/22 10:11 Room Air 05/03/22 06:29 94 Room Air 05/03/22 04:03 97 Room Air PG Care Time/CCT Total # of Minutes Spent Total Time Spent with Patient: Total time spent is greater than 50% in coordination of care (as documented) at patient's floor/unit and/or counseling patient: Coding Level of Care Code 26349 SUB INP/OBS CARE 3/50MIN Diagnoses Acute renal failure N17.9 Acute renal failure type: unspecified Anuria R34 Thrombocytopenia D69.6 Fever R50.9 Transaminitis R74.01 (1) Acute renal failure Acute renal failure type: unspecified Qualified Code(s): N17.9 - Acute kidney failure, unspecified
--- NOTE | 2022-05-03 17:39 | Discharge Summary ---
Date of Service May 03, 2022 Admission HPI Per Admitting Provider 67 yo M with a history of HTN, BPH, HLD who presented on 04/22 with fevers, chills, myalgias since 04/11, admitted with lymphopenia, thrombocytopenia, elevated LFTs, and acute renal failure requiring HD. Although he denies recent known tick bites, he does regularly spend time in wooded areas and have regular tick exposures.. No rash, upper respiratory symptoms. Had taken Aleve for several days prior to admission. Initial infectious work-up showed SARS-CoV-2, influenza A/B, and RSV PCR negative, RVP negative, Lyme IgM/IgG negative, BCx sterile, and blood smear x 2 for Anaplasma and Babesia negative. A CT A/P wit hout contrast and CXR showed no significant findings. A liver US showed gallbladder sludge without evidence of acute cholecystitis, a small pancreatic cystic lesion which may represent IPMN, and renal cysts. MRCP showed no gallstones, no biliary duct pathology. He was started on empiric doxycycline for a possible tick-borne illness, and multiple tick-borne illness studies were sent--thus far showing negative Anaplasma, Ehrlichia, and Babesia PCRs. He has reassuringly been afebrile since admission, but continues to have stably mildly elevated AST, ALT and alk phos, uptrending Tbili to 14.1, uptrending Cr to peak 8.25 for which he was started on dialysis on 04/24. He was on ceftriaxone from 04/23-04/24, but was discontinued due to BCx NGTD. Principal Diagnosis Acute kidney injury possibly secondary to infectious process disease Infectious process this is possibly due to Q fever Transaminitis jaundice secondary most likely to above Discharge Data Allergies Allergy/AdvReac Type Severity Reaction Status Date / Time No Known Allergies Allergy Verified 03/22/22 09:29 Consultations 04/22/22 13:02 ED Decision to Admit Stat 04/22/22 17:44 Consult Nephrology Routine 04/23/22 11:24 Consult Gastroenterology Routine 04/23/22 12:09 Consult Infectious Diseases Routine 04/23/22 15:39 Consult Vascular Surgery Routine 05/01/22 07:00 Consult Cardiology Routine Procedures Performed Operation Date: 04/24/22 09:40 Actual Procedures p Insertion Perm Catheter Right Jugular Vein, Ultrasound Localization of Right Jugular Vein, Fluoroscopy for Positioning, Moderate Sedation [id number] (Right) - Michael Samuel MD Ordered Studies 04/22/22 11:48 CT abd pelvis wo con Stat 04/22/22 14:25 US liver Urgent 04/24/22 12:31 EV cvc remov tunnel wo prt/radio journalist Routine US EV guide vascular access Routine 04/25/22 08:48 MR MRCP Stat Hospital Course (1) Acute renal failure: 67 yo M presented with more than a week history of fever, chills, myalgia, poor p.o. intake and decreased urine output. On admission noted to have RAF with creatinine 6.1, BUN 93 with prior normal renal function baseline creatinine 0.9 on 03/11/2022. Urinalysis showed 3+ proteinuria and 3+ microscopic hematuria with more than 30 RBC/HPF. CT A/P showed bilateral mild perinephric stranding but otherwise unremarkable. Renal function progressively worsening despite getting IV fluid and remained anuric, no postrenal obstruction on renal imaging. Concern for ATN with possible infectious etiology. Although less likely, cannot totally exclude possibility for glomerulonephritis. Rapid progressive worsening of renal function. remained anuric. did not respond to high dose of diuretics. Had tunneled dialysis catheter placed on 04/24/2022 and had 1st dialysis. On doxycycline since admission, azithromycin and atovaquone added on 04/25/22 and ceftriaxone was discontinued. All w/u so far negative. Currently only on Doxycycline. Q fever 1gG was positive , waiting on titer to determine whether acute or chronic. UO improved significantly ON 04/30, net negative, BP fair, on RA cr started to improve although BUN high. UA with improvement in proteinuria and hematuria. --continue to hold HD, OK to DC home today nephrology standpoint as per my discussion with consulting managed services consultant, check lab on Friday morning and decide, outpt dialysis already set up for M, W,F No indication for kidney biopsy at this time. --continue regular K diet as K has been ok --encouraged to increase fluid intake to keep net even, activity as tolerated. CPK - normal. acute hepatitis profile - negative. anti-GBM ab - negative. ADELSO negative. Complements negative. ANCA negative. SPEP negative. UPEP - faint beta bandd (2) Fever: Fully resolved 7 yo M with a history of HTN, BPH, HLD who presented on 04/22 with fevers, chills, myalgias since 04/11, now admitted with lymphopenia, thrombocytopenia, elevated LFTs, and acute renal failure requiring HD. Although he denies recent known tick bites, he does regularly spend time in wooded areas and have regular tick exposures.. No rash, upper respiratory symptoms. Had taken Aleve for several days prior to admission. Initial infectious work-up showed SARS-CoV-2, influenza A/B, and RSV PCR negative, RVP negative, Lyme IgM/IgG negative, BCx sterile, and blood smear x 2 for Anaplasma and Babesia negative. A CT A/P without contrast and CXR showed no significant findings. A liver US showed gallbladder sludge without evidence of acute cholecystitis, a small pancreatic cystic lesion which may represent IPMN, and renal cysts. MRCP showed no gallstones, no biliary duct pathology. He was started on empiric doxycycline for a possible tick-borne illness, and multiple tick-borne illness studies were sent--thus far showing negative Anaplasma, Ehrlichia, and Babesia PCRs. He has reassuringly been afebrile since admission, but continues to have stably mildly elevated AST, ALT and alk phos, uptrending Tbili to 14.1, uptrending Cr to peak 8.25 for which he was started on dialysis on 04/24. He was on ceftriaxone from 04/23-04/24, but was discontinued due to BCx NGTD. His initial lymphopenia, thrombocytopenia, and elevated LFTs raised concern for a tick-borne illness. His lymphopenia resolved, and he developed leukocytosis up to 16.7 on 04/25, now decreased and normalized. His platelets also normalized. AST/ALT, T Bili improving. He continues to have end organ damage that does not seem to be rapidly improving ( RAF): requires HD. Considered HLH secondary to infection, but ferritin is normal. Leptospirosis can cause kidney and hepatic injury and thrombocytopenia, but he does not seem to have the appropriate exposures, and would be covered by doxycycline in any case .Borrelia miymotoi PCR negative ,IGM negative, but IGG elevated. This may represent infection of undetermined age or cross reaction with other tick related illness. Anaplasma PCR and smear negative. Ehrlichia, and Babesia smear, serology and PCR/DNA negative. Lyme screen and serology negative . Parvo testing c/w past infection. Rickettsial studies are negative , typhus testing negative, CMV ab negative. However Q fever phase I and Phase II IGG + with negative IGM. [place]. 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 Admits to exposure to farm animal excreta in his barn.Admits to hunting deer and removing entrails. He has No valve abnormalities on TTE however noted for mild Aortic root dilatation. Q fever titers finalized on 05/02 at 1:32 ( phase I and phase II). His presentation may be 2/2Possibleacute Q fever- as both phase I, Phase II IGG titer is >1:16 ( 1:32), presented with febrile illness with thrombocytopenia, and eleva LFts. it would not totally explain the renal failure unless chronic infection with immune complex deposition. He appears to be defrvesing on doxycycline which covers Q fever. Currently patient is afebrile., Leukopenia has resolved as well as thrombocytopenia. He did with acute kidney injury however it seems improving but we need to continue hemodialysis at this point. Bilirubin is trending down, LFTs to be repeated in 3 to 4 days. Patient was discharged with possible diagnosis of Q fever given both titers are +at 1:32 Q fever panel with titers and added serum PCr . In order to help diagnose acute vs chronic Q fever, would need convalescent serology ( ordered) Treatment duration will depend on this information 2-3 week vs 18 months Unlike acute Q fever, which has a low mortality rate (<2%), chronic Q fever end ocarditis is always fatal if untreated Diagnosis of chronic Q fever endocarditis can be extremely difficult because vegetative lesions are seen on TTE in about 2% of patients. The patients at highest risk for chronic Q fever are those with valvular heart disease, a vascular graft, or an arterial aneurysm. He has evidence of mild aortic root dilation on TTE. The majority of Q fever vascular infections reported in the literature are aortic infections, which complicate an aortic aneurysm. - For now, continue empiric doxycycline 100 mg q12h to cover for possible q fever for minimum 21 days ( tentative end date 05/12/22. this will also cover tick related illness ( although testing negative) , He has some risk of developing chronic Q fever with aortic root dilatation . will need repeat clinical assessment andQ fever serology at 3,6, 12, 18 and 24 month. He will need to follow closely with PCP and he will estabishe care with a local ID provider in his community to monitor Q fever serology Cardiology recommends ct scan to eval aortic root. I spoke with Char, nurse coordinator, she is working on making appointment with one of the local infectious disease doctors, she will try to finalized on Friday. She provided her contact information to the patient. (3) Acute hepatitis: IMPROVING nicely with synthetic function intact (INR, platelets wnl) possibly secondary to tickborne disease Consulted with GI HepA,B,C all negative. Awaiting EBV/CMV negative [employer] respiratory panel (which includes adenovirus) fully negative. INR remains wnl. Platelets wnl. BILIRUBIN LEVELS PEAKED and are rapidly normalizing. Check LFT on Friday lab slip was provided to the patient C (4) Thrombocytopenia: resolved. Likely due to infectious process but uncertain since we do not have a specific pathogen identified as of yet. viral vs tick-borne vs other. resolved - platelets >150 (5) HTN (hypertension): controlled with metoprolol BID adding back flomax for BPH which will also help BPs Patient diagnosed with A. fib, diltiazem was discontinued due to hypotension, started on metoprolol, stop the rest of BP meds (6) Hyperlipidemia: Statin held due to #3. CPK wnl at admission. (7) Enlarged prostate: resume flomax tonight (8) Atrial fibrillation: Presented in a.fib. CONVERTED TO NSR on 04/27. Chronicity uncertain. He did not have apparent symptoms from such. Echo with preserved EF and normal valve function. TSH wnl. CHADsVASc is 2, borderline 3 (he is a pre-diabetic, has HTN, age 67). Consult with cardiology, started on metoprolol 50 m twice daily apixaban 50 mg twice daily (9) Prediabetes: controlled Hba1c 6% c/w such novolog SSI - none required in several days can d/c BSG checks cont DM diet (10) Aortic root dilatation: 4.7cm on echocardiogram will need ongoing surveillance of this cont beta domingo follow-up with cardiology on outpatient basis (11) Insomnia: cont melatonin 6mg HS Ambien 5mg hs prn over the course of admission the hospital (12) Rash: Possibly secondary to tickborne disease, resolved (autoimmune, although ADELSO negative) (13) Hyponatremia: 2nd to #1 Resolved (14) Nausea and vomiting: resolved Plan Plan as mentioned above Total Time Total Time Spent Total Time Spent (In Minutes): 60 Discharge Plan Discharge Items Patient Disposition: Home - Self-Care Reason For Visit: ACUTE RENAL FAILURE Discharge Diagnosis: Acute Kidney injury , Infectious process possibly Qfever Activity: Resume your previous activity Lifting: Gradually increase as tolerated Bathing: No limitations Sexual Activity: When tolerated Driving/Machine Use: No limitations Weightbearing: Full weightbearing Non-emergency contact: Primary Care Provider Call non-emergency contact if: you have any medication questions and your symptoms worsen Follow-up/Referrals: Kisha Gibbs MD [Physician] - Kurt Napoles DO [Primary Care Provider] - 05/08/22 9:20 am (PCP FOLLOW UP 05/08/22 @ 9:20AM WITH DR NAPOLES) Paulo Monet MD [Physician] - (to follow for Atrial Fibrillation and dilated Aortic root ) Diet: Dialysis Renal Ambulatory Orders: Hepatic Function (Liver) Panel (Routine) Timeframe: 3 Days Location: Determined by Patient Ordered By: Jorden Molina Attending Provider Instructions: Please get in touch with Char on coming Friday Pending Studies at Discharge: No Stand-Alone Forms: My [facility] [employer], Smoking Cessation Medications and DC Order Prescriptions: New zolpidem [Ambien] 5 mg tablet 5 mg PO HS Qty: 30 0RF Cerovite Senior 0.4 mg-300 mcg- 250 mcg Tablet 1 tab PO QAM Qty: 90 0RF metoprolol tartrate 50 mg tablet 50 mg PO BID Qty: 90 3RF doxycycline hyclate 100 mg Capsule 100 mg PO BID Qty: 18 0RF Renal Caps 1 mg Capsule 1 cap PO QAM Qty: 90 0RF calcium acetate(phosphat bind) 667 mg Capsule 667 mg PO TIDM Qty: 90 0RF Eliquis 5 mg tablet 5 mg PO BID Qty: 180 0RF Continued tamsulosin 0.4 mg capsule 0.8 mg PO DAILY Qty: 180 3RF multivitamin [Multiple Vitamins] Tablet 1 tab PO QAM aspirin [Aspir-81] 81 mg Tablet,Delayed Release (Dr/Ec) 81 mg PO QAM flaxseed oil 1,000 mg Capsule 1,000 mg PO QAM glucosamine sulfate [Glucosamine] 500 mg Tablet 1 tab PO DAILY Discontinued simvastatin 20 mg tablet 20 mg PO PM Qty: 14 0RF diltiazem HCl 300 mg capsule,extended release 24hr See Rx Instructions .ROUTE .COMPLEX Qty: 90 3RF Dose Instruction: TAKE 1 CAPSULE DAILY Rx Instructions: TAKE 1 CAPSULE DAILY olmesartan 40 mg tablet 40 mg PO DAILY Qty: 90 3RF Discharge Orders: Discharge Order (Routine); Ordered 05/03/22 Ordered By: Jorden Smalls/Other Patient Handouts: A1C, 5 Steps for Eating Healthier, Exercise: Why Fitness Matters Admission Data Admit Date/Time: 04/22/22 14:02 Attending Provider: Jorden Carpenter Admit Provider: Amado Rodrigez Primary Care Provider: Kurt Napoles Other Providers: Amado Rodrigez ; Kisha Gibbs ; Cortes Byers ; Aleida Layton ; Philip Madsen ; Char Young ; Franco Caballero ; Natasha Espinosa ; Lita Vidal ; Dianne Milligan ; Esvin Wilde ; Rere Whipple ; Michael Samuel ; Paulo Monet Other Interventions: Discharge Summary Assessment (RN) Last Done: 05/03/22 16:13 Coding Level of Care Code HOSP INP/OBS DISCH >30 MIN Diagnoses Acute renal failure N17.9 Acute renal failure type: unspecified Fever R50.9 Acute hepatitis B17.9 Thrombocytopenia D69.6 HTN (hypertension) I10 Hyperlipidemia E78.5 Enlarged prostate N40.0 Atrial fibrillation I48.91 Prediabetes R73.03 Aortic root dilatation I77.810 Insomnia G47.00 Rash R21 Hyponatremia E87.1 Nausea and vomiting R11.2
== END 2022-05-03 18:34 | disposition home or self-care (01) | DRG 683 ==
LOC: ED 10:34 → EDINP 14:02 → SUATTDRO 14:02 → 2S 14:35